=== PATIENT | male | born 1950 | race Caucasian/White ===

== ENCOUNTER 2016-11-14 07:45 | Day surgery (SDC) | payer MEDICARE, BC ==
[2016-11-12 12:04] VITALS: BMI 34.4
[~2016-11-14 07:45] MED LIST: LACTATED RINGERS 1,000 ML IV SCH; LIDOCAINE 1% 20 ML VIAL (10MG/ML) FOR IV START INTRADERMA PRN
[2016-11-14 08:08] VITALS: TEMP 99.2
[2016-11-14] MEDS ORDERED: PROPOFOL 10 MG/ML 20 ML VIAL IV ONE (08:55)
[2016-11-14 09:27] VITALS: RESP 18
--- NOTE | 2016-11-14 09:27 | P.PCN ---
Date of Procedure: 11/14/16 Procedure(s) Performed: Procedure: Total colonoscopy. Preoperative diagnosis: Screening for neoplasia. Postoperative diagnosis: Left-sided diverticulosis with no evidence of acute diverticulitis, strictures, polyps or cancer. Preparation: HalfLytely prep. Sedation: Was provided by anesthesia. Brief clinical history: The patient a 65-year-old male who is scheduled for this evaluation for screening for neoplasia because of family history of colon cancer in his father. His prior exam was in November 2011. The patient has no abdominal complaints, bleeding or anemia. Procedure: With the patient on his left lateral decubitus position and after informed consent and adequate sedation, the perianal area was inspected and it did not show any fissures or fistulas. There were no masses felt on digital rectal examination. The Olympus CFQ 160L video colonoscope was then inserted in the rectum in the usual fashion and advanced to the cecum. There were multiple diverticular orifices seen scattered on the left side, mostly in the sigmoid, as previously described with no evidence of acute diverticulitis or strictures. No polyps or tumors were seen. The mucosa appeared healthy. I retroflexed endoscope in the rectum before the endoscope was withdrawn. The patient tolerated the procedure well. Plan: The patient was reassured discussed dietary measures. I recommended repeat exam in 5 years. He will follow up with you as planned.
[2016-11-14 10:06] VITALS: PULSE 46
[2016-11-14 10:16] VITALS: BP 122/48
== END 2016-11-14 10:30 | disposition home or self-care (01) ==
LOC: ORWHC2ENDO 07:45
DX: Z12.11 Encounter for screening for malignant neoplasm of colon (principal); Z80.0 Family history of malignant neoplasm of digestive organs; K57.30 Diverticulosis of large intestine without perforation or abscess without bleeding; I25.10 Atherosclerotic heart disease of native coronary artery without angina pectoris; I10 Essential (primary) hypertension; Z95.1 Presence of aortocoronary bypass graft; N40.0 Benign prostatic hyperplasia without lower urinary tract symptoms; M10.9 Gout, unspecified; E07.9 Disorder of thyroid, unspecified; Z79.899 Other long term (current) drug therapy; Z86.73 Personal history of transient ischemic attack (TIA), and cerebral infarction without residual deficits
CPT/HCPCS: J2704; G0105

== ENCOUNTER → 2017-01-16 | Outpatient (CLI) | payer MEDICARE, BC ==
[2017-01-16 10:18] LABS: Basophils % (A) 0 %; CH 34.7; CHCM 34.9; Eosinophils # (A) 0.2 k/uL (0-0.7); Eosinophils % (A) 2 %; HCT 45.8 % (39.0-53.0); HDW 2.72; HGB 15.8 gm/dL (13.0-17.5); Luc # (Auto) 0.26; Luc % (Auto) 3; Lymphocytes # (A) 1.8 k/uL (1.0-4.8); Lymphocytes % (A) 24 %; MCH 34.4 pg (25.0-35.0); MCHC 34.4 g/dL (31.0-37.0); MCV 99.9 fL (80.0-100.0); Mean Platelet Volume 7.2; Monocytes # (A) 0.6 k/uL (0-1.0); Monocytes % (A) 8 %; Neutrophils # (A) 4.7 k/uL (1.3-7.7); Neutrophils % (A) 62 %; RBC 4.58 m/uL (4.30-5.90); RDW 13.4 % (11.5-15.5); WBC 7.6 k/uL (3.8-10.6); WBC (Perox) 7.55
[2017-01-16 10:22] LABS: Appearance,Urine Clear (Clear); Bilirubin,Urine Negative (Negative); Glucose,Urine (UA) Negative (Negative); Ketones,Urine Negative (Negative); Leukocyte Esterase,Urine Negative (Negative); Nitrite,Urine Negative (Negative); PH, Urine 6.5 (5.0-8.0); Protein,Urine Negative (Negative); Specific Gravity,Urine 1.005 (1.001-1.035); UA Billing (MACRO vs. MICRO) CHEM; Urobilinogen,Urine <2.0 mg/dL (<2.0)
[2017-01-16 10:53] LABS: Anion Gap 10 mmol/L; Blood Urea Nitrogen 16 mg/dL (9-20); Calcium 9.6 mg/dL (8.4-10.2); Carbon Dioxide 26 mmol/L (22-30); Chloride 106 mmol/L (98-107); Glucose 101 mg/dL (74-99); Magnesium 2.3 mg/dL (1.6-2.3); Non-African American GFR(MDRD) >60 (>60 ml/min/1.73 sqM); Phosphorous 3.4 mg/dL (2.5-4.5); Potassium 4.5 mmol/L (3.5-5.1); Sodium 142 mmol/L (137-145); Uric Acid 4.2 mg/dL (3.5-8.5)
[2017-01-16 14:34] LABS: Iron 112 ug/dL (49-181)
[2017-01-16 14:43] LABS: % Iron Saturation 33.3 % (20-50); Total Iron Binding Capacity 336 ug/dL (261-462)
[2017-01-16 15:10] LABS: Prostate Specific Antigen 0.85 ng/mL (0.00-4.00)
== END | disposition home or self-care (01) ==
LOC: LABWHC1 09:51
PROVIDERS: ATTEND Urology
DX: N40.0 Benign prostatic hyperplasia without lower urinary tract symptoms (principal); I10 Essential (primary) hypertension; E55.9 Vitamin D deficiency, unspecified; D64.9 Anemia, unspecified; E21.3 Hyperparathyroidism, unspecified; M10.9 Gout, unspecified; R80.9 Proteinuria, unspecified
CPT/HCPCS: 36415; 80048; 81003; 82306; 82728; 83540; 83550; 83735; 83970; 84100; 84153; 84550; 85025

== ENCOUNTER 2017-05-04 15:07 | Emergency (ER) | payer MEDICARE, BC ==
[2017-05-04 15:13] VITALS: TEMP 97.9
--- NOTE | 2017-05-04 15:23 | ED ---
General Adult HPI - General Chief complaint: Urogenital Stated complaint: Male Time Seen by Provider: 05/04/17 15:14 Source: patient, RN notes reviewed Mode of arrival: ambulatory Limitations: no limitations - History of Present Illness Initial comments: Patient is 66-year-old male who presents emergency room today with a chief complaint of dysuria. He admits that over the last few days she's been expressing some discomfort with voiding. He states that it is a sharper type pain in the lower abdomen. Patient does admit that he feels some pressure that comes and goes. States the majority of the pain is when he is trying to urinate. He states never had symptoms like this in the past. He denies any other complaints or symptoms. Patient denies any recent fever, chills, shortness of breath, chest pain, back pain, abdominal pain, nausea or vomiting, numbness or tingling, hematuria, constipation or diarrhea, headaches or visual changes, or any other complaints. - Related Data Home Medications Medication Instructions Recorded Confirmed Allopurinol [Zyloprim] 300 mg PO DAILY 10/13/14 05/04/17 Atenolol [Tenormin] 25 mg PO DAILY 10/13/14 05/04/17 Docusate [Colace] 200 mg PO DAILY 10/13/14 05/04/17 Gabapentin [Neurontin] 300 mg PO TID 10/13/14 05/04/17 Gemfibrozil [Lopid] 600 mg PO DAILY 10/13/14 05/04/17 Levothyroxine Sodium [Synthroid] 125 mcg PO DAILY 10/13/14 05/04/17 [place]-3 Fatty Acids/Fish Oil [Fish 1 cap PO DAILY 10/13/14 05/04/17 Oil 1,000 mg Softgel] Simvastatin [Zocor] 40 mg PO DAILY 10/13/14 05/04/17 Ibuprofen [Motrin] 800 mg PO TID PRN 11/12/16 05/04/17 Tamsulosin HCl [Flomax] 0.4 mg PO DAILY 11/12/16 05/04/17 traMADol HCL [Ultram] 50 mg PO Q8H PRN 11/12/16 05/04/17 Aspirin 325 mg PO DAILY 05/04/17 05/04/17 Cholecalciferol [Vitamin D3] 1,000 unit PO DAILY 05/04/17 05/04/17 Previous Rx's Medication Instructions Recorded Ciprofloxacin HCl [Cipro] 500 mg PO Q12HR #20 day 05/04/17 Phenazopyridine [Pyridium] 100 mg PO TID 3 Days 05/04/17 Allergies Allergy/AdvReac Type Severity Reaction Status Date / Time No Known Allergies Allergy Verified 05/04/17 15:52 Review of Systems ROS Statement: Those systems with pertinent positive or pertinent negative responses have been documented in the HPI. ROS Other: All systems not noted in ROS Statement are negative. Past Medical History Past Medical History: Coronary Artery Disease (CAD), CVA/TIA, Hyperlipidemia, Hypertension, Prostate Disorder, Thyroid Disorder Additional Past Medical History / Comment(s): back pain History of Any Multi-Drug Resistant Organisms: None Reported Past Surgical History: No Surgical Hx Reported, Bladder Surgery, Coronary Bypass /CABG Additional Past Surgical History / Comment(s): urolift with 4 bands 08/30, carpal tunnel Past Anesthesia/Blood Transfusion Reactions: No Reported Reaction Past Psychological History: No Psychological Hx Reported Smoking Status: Never smoker - Past Family History Mother Family Medical History: Cancer Additional Family Medical History / Comment(s): leukemia Father Family Medical History: Cancer Additional Family Medical History / Comment(s): lung General Exam - General Exam Comments Initial Comments: General: The patient is awake and alert, in no distress, and does not appear acutely ill. Eye: Pupils are equal, round and reactive to light, extra-ocular movements are intact. No nystagmus. There is normal conjunctiva bilaterally. No signs of icterus. Ears, nose, mouth and throat: There are moist mucous membranes and no oral lesions. Neck: The neck is supple, there is no tenderness or JVD. Cardiovascular: There is a regular rate and rhythm. No murmur, rub or gallop is appreciated. Respiratory: Lungs are clear to auscultation, respirations are non-labored, breath sounds are equal. No wheezes, stridor, rales, or rhonchi. Gastrointestinal: Exam. Normal bowel sounds. Soft on palpation. Patient does have tenderness suprapubic over the bladder. No rebound tenderness. No guarding. No CVA tenderness. Musculoskeletal: Normal ROM, no tenderness. Strength 5/5. Sensation intact. Pulses equal bilaterally 2+. Neurological: A&O x 3. CN II-XII intact, There are no obvious motor or sensory deficits. Coordination appears grossly intact. Speech is normal. Skin: Skin is warm and dry and no rashes or lesions are noted. Psychiatric: Cooperative, appropriate mood & affect, normal judgment. Limitations: no limitations Course Vital Signs 05/04/17 15:10 Temperature 97.9 F Pulse Rate 84 Respiratory 18 Rate Blood Pressure 129/61 O2 Sat by Pulse 93 L Oximetry Medical Decision Making - Medical Decision Making Case discussed in detail with attending physician Dr. Aguillon. Patient reexamined at this time shows no signs of distress is resting comfortably in the stretcher. Patient labs are reviewed. Urinalysis shows no sign of infection. Culture is pending. Patient's postvoid bladder scan showed 196. He did have a surgery for urinary retention. He states this is much less than when he used a retained. This number could be somewhat normal for him at this time post surgery for his urinary retention. He is in no discomfort currently. Patient does admit to some discomfort to the prostate area. He will be covered for prostatitis and placed on ciprofloxacin. He is advised to follow- up with his urologist tomorrow. Advised to return to the emergency room symptoms increase or worsen or for any other concerns. - Lab Data Lab Results 05/04/17 Range/Units 15:32 Urine Color Light Yellow Urine Appearance Clear (Clear) Urine pH 6.5 (5.0-8.0) Ur Specific [place] 1.003 (1.001-1.035) Urine Protein Negative (Negative) Urine Glucose (UA) Negative (Negative) Urine Ketones Negative (Negative) Urine Blood Negative (Negative) Urine Nitrite Negative (Negative) Urine Bilirubin Negative (Negative) Urine Urobilinogen <2.0 (<2.0) mg/dL Ur Leukocyte Esterase Negative (Negative) Disposition Clinical Impression: Acute prostatitis Disposition: HOME SELF-CARE Condition: Good Instructions: Prostatitis (ED) Additional Instructions: Please use antibiotic as prescribed and follow-up urologist tomorrow. Please return to emergency room if any symptoms increase or worsen or for any other concerns. Prescriptions: Ciprofloxacin HCl [Cipro] 500 mg PO Q12HR #20 day Phenazopyridine [Pyridium] 100 mg PO TID 3 Days Referrals: Matt Anderson MD [Primary Care Provider] - 1-2 days Time of Disposition: 16:22
[2017-05-04 15:46] LABS: Appearance,Urine Clear (Clear); Bilirubin,Urine Negative (Negative); Glucose,Urine (UA) Negative (Negative); Ketones,Urine Negative (Negative); Leukocyte Esterase,Urine Negative (Negative); Nitrite,Urine Negative (Negative); PH, Urine 6.5 (5.0-8.0); Protein,Urine Negative (Negative); Specific Gravity,Urine 1.003 (1.001-1.035); UA Billing (MACRO vs. MICRO) CHEM; Urobilinogen,Urine <2.0 mg/dL (<2.0)
[2017-05-04 16:37] VITALS: BP 130/57; PULSE 73; RESP 16
== END 2017-05-04 16:36 | disposition home or self-care (01) ==
LOC: EC 15:07
DX: N41.0 Acute prostatitis (principal); E78.5 Hyperlipidemia, unspecified; I25.10 Atherosclerotic heart disease of native coronary artery without angina pectoris; E07.9 Disorder of thyroid, unspecified; I10 Essential (primary) hypertension; Z86.73 Personal history of transient ischemic attack (TIA), and cerebral infarction without residual deficits; Z79.82 Long term (current) use of aspirin; Z79.899 Other long term (current) drug therapy
CPT/HCPCS: 51798; 81003; 87086; 99284

== ENCOUNTER 2018-07-08 12:16 | Emergency (ER) | payer MEDICARE, BC ==
[2018-07-08 12:24] VITALS: PULSE 76; RESP 18
[2018-07-08] MEDS ORDERED: KETOROLAC 30 MG/ML 1 ML VIAL IM STA (12:41)
--- NOTE | 2018-07-08 12:53 | ED ---
Back Pain [facility] - General Chief Complaint: Back Pain/Injury Stated Complaint: back pain Time Seen by Provider: 07/08/18 12:27 Source: patient Limitations: no limitations - History of Present Illness Initial Comments: 67-year-old male with past medical history of hypertension and chronic low back pain presents today for chief complaint of worsening back pain. Patient states that the last day 3-4 days he has been experiencing mid to low back pain that is increased from his baseline back pain. Patient's been taking his tramadol as prescribed by Dr. Hernández his neurologist and ibuprofen 800 which helped minimally. Patient states this had previous injections in his back which has helped, he states he has not had one in the past year and a half. Patient states the pain increases with any movement, including walking. Patient states that he has bilateral sharp shooting pains, similar to when he had issues with low back pain over 2 years ago. Patient does state that his is a paraplegic and he is always changing her positions. Pt states he uses a brace when moving/lifting . Patient denies urinary retention, incontinence, fever , chills, history of cancer, IV drug use, rashes, use of immunosuppressants, muscle weakness, numbness or tingling of the lower extremities. In addition patient denies any chest pain, dizziness, weakness, abdominal pain, upper back pain, neck pain. Upon arrival pt is ambulating without difficulty. Pt appears well VS stable, BP WNL. - Related Data Home Medications Medication Instructions Recorded Confirmed Allopurinol [Zyloprim] 300 mg PO DAILY 10/13/14 05/04/17 Atenolol [Tenormin] 25 mg PO DAILY 10/13/14 05/04/17 Docusate [Colace] 200 mg PO DAILY 10/13/14 05/04/17 Gabapentin [Neurontin] 300 mg PO TID 10/13/14 05/04/17 Gemfibrozil [Lopid] 600 mg PO DAILY 10/13/14 05/04/17 Levothyroxine Sodium [Synthroid] 125 mcg PO DAILY 10/13/14 05/04/17 [place]-3 Fatty Acids/Fish Oil [Fish 1 cap PO DAILY 10/13/14 05/04/17 Oil 1,000 mg Softgel] Simvastatin [Zocor] 40 mg PO DAILY 10/13/14 05/04/17 Ibuprofen [Motrin] 800 mg PO TID PRN 11/12/16 05/04/17 Tamsulosin HCl [Flomax] 0.4 mg PO DAILY 11/12/16 05/04/17 traMADol HCL [Ultram] 50 mg PO Q8H PRN 11/12/16 05/04/17 Aspirin 325 mg PO DAILY 05/04/17 05/04/17 Cholecalciferol [Vitamin D3] 1,000 unit PO DAILY 05/04/17 05/04/17 Previous Rx's Medication Instructions Recorded Ciprofloxacin HCl [Cipro] 500 mg PO Q12HR #20 day 05/04/17 Phenazopyridine [Pyridium] 100 mg PO TID 3 Days day 05/04/17 predniSONE 20 mg PO DAILY 4 Days #4 tab 07/08/18 Allergies Allergy/AdvReac Type Severity Reaction Status Date / Time No Known Allergies Allergy Verified 07/08/18 12:23 Review of Systems ROS Statement: Those systems with pertinent positive or pertinent negative responses have been documented in the HPI. ROS Other: All systems not noted in ROS Statement are negative. Constitutional: Denies: fever, chills, night sweats ENT: Denies: ear pain, throat pain Respiratory: Denies: cough, dyspnea, wheezes, hemoptysis, stridor Cardiovascular: Denies: chest pain, palpitations, dyspnea on exertion, edema Gastrointestinal: Denies: abdominal pain, nausea, vomiting, diarrhea, constipation Genitourinary: Denies: urgency, dysuria, frequency, hematuria Musculoskeletal: Reports: as per HPI, back pain, other (b/l sharp shooting leg pain) Skin: Denies: rash, lesions Neurological: Denies: headache, weakness, numbness, paresthesias, confusion, abnormal gait Past Medical History Past Medical History: Coronary Artery Disease (CAD), CVA/TIA, Hyperlipidemia, Hypertension, Prostate Disorder, Thyroid Disorder Additional Past Medical History / Comment(s): back pain History of Any Multi-Drug Resistant Organisms: None Reported Past Surgical History: No Surgical Hx Reported, Bladder Surgery, Coronary Bypass /CABG Additional Past Surgical History / Comment(s): urolift with 4 bands 08/30, carpal tunnel Past Anesthesia/Blood Transfusion Reactions: No Reported Reaction Past Psychological History: No Psychological Hx Reported Smoking Status: Never smoker - Past Family History Mother Family Medical History: Cancer Additional Family Medical History / Comment(s): leukemia Father Family Medical History: Cancer Additional Family Medical History / Comment(s): lung General Exam - General Exam Comments Initial Comments: General: The patient is awake and alert, in no distress, and does not appear acutely ill. Eye: Pupils are equal, round and reactive to light, extra-ocular movements are intact. No nystagmus. There is normal conjunctiva bilaterally. No signs of icterus. Cardiovascular: There is a regular rate and rhythm. No murmur, rub or gallop is appreciated. Respiratory: Lungs are clear to auscultation, respirations are non-labored, breath sounds are equal. No wheezes, stridor, rales, or rhonchi. Gastrointestinal: Soft, non-distended, non-tender abdomen without masses or organomegaly noted. There is no rebound or guarding present. Bowel sounds are unremarkable. Musculoskeletal: Pt posture slightly stooped forward. No rashes of the back. Normal ROM at the lumbar and thoracic spine, pt complains of pain with all movements. Pt admits to midline and paravertebral pain to palpation of the thoracic spine. Strength 5/5 of the LE equally b/l. Sensation intact of the LE including saddle region. Radial and DP pulses equal bilaterally 2+. Pt is able to ambulate without difficulty, right sided (+) SLR. Neurological: A&O x 3. CN II-XII intact, There are no obvious motor or sensory deficits. Coordination appears grossly intact. Speech is normal. Skin: Skin is warm and dry and no rashes or lesions are noted. Psychiatric: Cooperative, appropriate mood & affect, normal judgment. Limitations: no limitations Course Vital Signs 07/08/18 07/08/18 12:23 14:57 Temperature 97.4 F L 97.5 F L Pulse Rate 76 76 Respiratory 18 18 Rate Blood Pressure 124/59 102/59 O2 Sat by Pulse 97 96 Oximetry Medical Decision Making - Medical Decision Making Thoracic spine x-ray revealed possible diffuse idiopathic skeletal hyperostosis , similar findings on lumbar spine x-ray. There is no acute fracture or subluxation. Some underlying degenerative disc disease present. No acute process. Patient neurovascularly intact. There is no signs of cauda equina at this time. Patient has no concerning red flags, including no fever/chills/night sweats, chest pain, hx of trauma, no use of IV drugs, no history of cancer, no concern is for cauda equina. No noted muscle weakness on exam. Case discussed with Dr. Weiner at this time we feel pain could be related to strain from lifting . Pt was given orthopedic surgery f/u as well as f/u with his neurologist Dr. Farley for pain mgmt. Pt agreed with plan. Pt was ambulatory upon discharge. Pt stated that the toradol took the edge off. Return parameters discussed in detail patient, patient verbalizes understanding. Patient discharged in stable condition. Disposition Clinical Impression: Acute exacerbation of chronic low back pain, Midline thoracic back pain Disposition: HOME SELF-CARE Condition: Good Instructions: Acute Low Back Pain (ED) Additional Instructions: Please use your home pain medication as discussed. Please follow-up with orthopedic surgery in next week. Please see your neurologist/pain forestry biology specialist Dr. Farley in next 2-3 days. Please see primary care in next 1- 2 days. Please return to emergency room if the symptoms increase or worsen or for any other concerns as discussed. Prescriptions: predniSONE 20 mg PO DAILY 4 Days #4 tab Is patient prescribed a controlled substance at d/c from ED?: No Referrals: Matt Anderson MD [Primary Care Provider] - 1-2 days Inder Campbell MD [STAFF PHYSICIAN] - 1-2 days Wilbert Farley MD [STAFF PHYSICIAN] - 1-2 days Time of Disposition: 14:43
--- NOTE | 2018-07-08 13:47 | XR ---
Lumbar spine HISTORY: Pain 3 views of the lumbar spine correlated to prior exam 06/30/2012 Multilevel spondylosis is again noted. Lumbar vertebral bodies show preserved height, alignment, and bone mineralization. Disc spaces are reduced at L5-S1, L3-4, there is associated vacuum phenomenon. S clerosis present in the posterior elements. IMPRESSION: No acute fracture or subluxation. There may be underlying degenerative disc disease, diff use idiopathic skeletal hyperostosis
--- NOTE | 2018-07-08 13:49 | XR ---
Thoracic spine HISTORY: Pain 3 views of the thoracic spine on 4 images There are flowing anterior osteophytes with relative preservation of the disc spaces of the lower tho racic spine. Thoracic vertebral bodies show preserved height and alignment. Bone mineralization is no rmal. Patient is post median sternotomy. IMPRESSION: Correlate for possible diffuse idiopathic skeletal hyperostosis
[2018-07-08 14:58] VITALS: BP 102/59; TEMP 97.5
== END 2018-07-08 14:58 | disposition home or self-care (01) ==
LOC: EC 12:16
DX: G89.29 Other chronic pain (principal); M54.5 Low back pain; M54.6 Pain in thoracic spine; M51.34 Other intervertebral disc degeneration, thoracic region; E78.5 Hyperlipidemia, unspecified; I10 Essential (primary) hypertension; I25.10 Atherosclerotic heart disease of native coronary artery without angina pectoris; E07.9 Disorder of thyroid, unspecified; N42.9 Disorder of prostate, unspecified; Z79.82 Long term (current) use of aspirin; Z79.899 Other long term (current) drug therapy; Z95.1 Presence of aortocoronary bypass graft
CPT/HCPCS: 72072; 72100; 99283; 96372; J1885

== ENCOUNTER 2022-09-17 09:07 | Day surgery (SDC) | payer MEDICARE ==
[~2022-09-17 09:07] MED LIST changes: -LIDOCAINE 1% 20 ML VIAL (10MG/ML) FOR IV START INTRADERMA PRN
[2022-09-17 09:48] VITALS: TEMP 98
[2022-09-17] MEDS ORDERED: PROPOFOL 10 MG/ML 20 ML VIAL IV ONE (09:55)
--- NOTE | 2022-09-17 10:13 | P.PCN ---
Date of Procedure: 09/17/22 Procedure(s) Performed: BRIEF HISTORY: Patient is a 71-year-old pleasant white male scheduled for an elective colonoscopy as a part of screening for colon cancer. PROCEDURE PERFORMED: Colonoscopy with biopsy. PREOPERATIVE DIAGNOSIS: Screening for colon cancer. IV sedation per Anesthesia. PROCEDURE: After informed consent was obtained, the patient, was brought into the endoscopy unit. IV sedation was administered by Anesthesia under continuous monitoring. Digital rectal examination was normal. Initially the Olympus CF-160 flexible video colonoscope was then inserted in the rectum, gradually advanced into the cecum without any difficulty. Careful examination was performed as the scope was gradually being withdrawn. Ileocecal valve and the appendiceal orifice were visualized and appeared normal. Prep was excellent. Mucosa of the cecum, ascending colon, appeared normal. In the transverse colon there was a 5 limited polyp that was removed by cold biopsy. Rest of the transverse colon, descending colon, sigmoid colon, and rectum appeared normal. Moderate left-sided diverticulosis seen. Retroflexion was performed in the rectum and no lesions were seen. The patient tolerated the procedure well. IMPRESSION: 5 mm transverse colon polyp status post cold biopsy Moderate left-sided diverticulosis RECOMMENDATIONS: Findings of this examination were discussed with the patient as his family. He was advised to follow with the biopsy results. If the biopsy reveals adenoma he can have a repeat colonoscopy in 5 years..
[2022-09-17 10:20] VITALS: PULSE 62
[2022-09-17 10:39] VITALS: BP 101/60; RESP 14
== END 2022-09-17 11:00 | disposition home or self-care (01) ==
LOC: ORWHC2ENDO 09:07
PROVIDERS: ATTEND Internal Medicine Gastroenterology
DX: Z12.11 Encounter for screening for malignant neoplasm of colon (principal); K63.5 Polyp of colon; K57.30 Diverticulosis of large intestine without perforation or abscess without bleeding; I25.10 Atherosclerotic heart disease of native coronary artery without angina pectoris; Z95.1 Presence of aortocoronary bypass graft; I10 Essential (primary) hypertension; E78.5 Hyperlipidemia, unspecified; E03.9 Hypothyroidism, unspecified; Z86.73 Personal history of transient ischemic attack (TIA), and cerebral infarction without residual deficits; Z79.02 Long term (current) use of antithrombotics/antiplatelets; Z79.82 Long term (current) use of aspirin; Z79.891 Long term (current) use of opiate analgesic; Z79.890 Hormone replacement therapy; Z79.2 Long term (current) use of antibiotics; Z79.83 Long term (current) use of bisphosphonates; N40.0 Benign prostatic hyperplasia without lower urinary tract symptoms; Z79.899 Other long term (current) drug therapy
CPT/HCPCS: 45380; J2704; 88305

== ENCOUNTER 2022-10-03 09:04 | Inpatient (IN) | payer MEDICARE ==
--- NOTE | 2022-10-03 09:41 | ED ---
General Adult HPI - General Chief complaint: Neuro Symptoms/Deficit Stated complaint: Off balance Time Seen by Provider: 10/03/22 09:28 Source: patient, family, RN notes reviewed Mode of arrival: ambulatory Limitations: no limitations - History of Present Illness Initial comments: Patient is a pleasant 71-year-old male presenting to the emergency department with concerns for off-balance. Patient has fallen without significant injury more than once. Patient is having some left arm paresthesias. Arm paresthesias have been present for close to 1 week. Balance issues have been one to 2 weeks. No speech problem. Patient denies facial weakness. Patient denies extremity weakness. No history of similar symptoms previously. - Related Data Home Medications Medication Instructions Recorded Confirmed Docusate [Colace] 200 mg PO DAILY 10/13/14 09/17/22 Gabapentin [Neurontin] 300 mg PO DAILY 10/13/14 09/17/22 Levothyroxine Sodium [Synthroid] 125 mcg PO DAILY 10/13/14 09/17/22 [place]-3 Fatty Acids/Fish Oil [Fish 1 cap PO DAILY 10/13/14 09/17/22 Oil 1,000 mg Softgel] Simvastatin [Zocor] 40 mg PO DAILY 10/13/14 09/17/22 allopurinoL [Zyloprim] 300 mg PO DAILY 10/13/14 09/17/22 gemfibroziL [Lopid] 600 mg PO DAILY 10/13/14 09/17/22 Ibuprofen [Motrin] 800 mg PO DAILY PRN 11/12/16 09/17/22 Tamsulosin HCl [Flomax] 0.4 mg PO DAILY 11/12/16 09/17/22 traMADol HCL [Ultram] 50 mg PO DAILY PRN 11/12/16 09/17/22 Aspirin 325 mg PO DAILY 05/04/17 09/17/22 Cholecalciferol [Vitamin D3] 1,000 unit PO DAILY 05/04/17 09/17/22 Donepezil [Aricept] 5 mg PO HS 09/12/22 09/17/22 Metoprolol Tartrate [Lopressor] 25 mg PO DAILY 09/12/22 09/17/22 Allergies Allergy/AdvReac Type Severity Reaction Status Date / Time No Known Allergies Allergy Verified 09/17/22 09:48 Review of Systems ROS Statement: Those systems with pertinent positive or pertinent negative responses have been documented in the HPI. ROS Other: All systems not noted in ROS Statement are negative. Constitutional: Denies: fever Eyes: Denies: eye pain ENT: Denies: ear pain Respiratory: Denies: cough Cardiovascular: Denies: chest pain Endocrine: Denies: fatigue Gastrointestinal: Denies: abdominal pain Genitourinary: Denies: dysuria Musculoskeletal: Denies: back pain Skin: Denies: rash Neurological: Reports: as per HPI, abnormal gait. Denies: headache Past Medical History Past Medical History: Coronary Artery Disease (CAD), CVA/TIA, Hyperlipidemia, Hypertension, Myocardial Infarction ([place]), Prostate Disorder, Thyroid Disorder Additional Past Medical History / Comment(s): back pain lft arm weaker than right post cva wears brief for incont of urine. History of Any Multi-Drug Resistant Organisms: None Reported Past Surgical History: Bladder Surgery, Coronary Bypass/CABG Additional Past Surgical History / Comment(s): urolift with 4 bands 08/30, carpal tunnel Past Anesthesia/Blood Transfusion Reactions: No Reported Reaction Past Psychological History: No Psychological Hx Reported Smoking Status: Never smoker - Past Family History Mother Family Medical History: Cancer Additional Family Medical History / Comment(s): leukemia Father Family Medical History: Cancer Additional Family Medical History / Comment(s): lung General Exam Limitations: no limitations General appearance: alert, in no apparent distress Head exam: Present: normocephalic Eye exam: Present: normal appearance, PERRL, EOMI ENT exam: Present: normal oropharynx Neck exam: Present: normal inspection Respiratory exam: Present: normal lung sounds bilaterally Cardiovascular Exam: Present: regular rate, normal rhythm GI/Abdominal exam: Present: soft. Absent: tenderness Extremities exam: Present: normal inspection Neurological exam: Present: alert, oriented X3, CN II-XII intact Expanded Patient oriented to: Present: person, place, time Speech: Present: fluid speech Cranial nerves: EOM's Intact: Normal, Facial Sensation: Normal Cerebellar function: Finger to Nose: Abnormal Right, Abnormal Left (Both minimally off) Sensory exam: Upper Extremity Light Touch: Abnormal Left, Lower Extremity Light Touch: Normal Motor strength exam: RUE: 5, LUE: 4, RLE: 5, LLE: 5 Eye Response: (4) open spontaneously Motor Response: (6) obeys commands Verbal Response: (5) oriented Psychiatric exam: Present: normal affect, normal mood Skin exam: Present: normal color Course Vital Signs 10/03/22 09:20 Temperature 98 F Pulse Rate 62 Respiratory 16 Rate Blood Pressure 107/56 O2 Sat by Pulse 98 Oximetry EKG Findings - EKG Results: EKG: interpreted by AVISD (First-degree AV block. VT 224.), sinus rhythm, normal axis, normal QRS, normal ST/T EKG shows: bradycardia Medical Decision Making - Medical Decision Making Was pt. sent in by a medical professional or institution (, PA, GLASSWORKER, urgent care, hospital, or intermediate...) When possible be specific @ -No Did you speak to anyone other than the patient for history (EMS, parent, family, police, friend...)? What history was obtained from this source @ -Son is present who helps provide history including duration of symptoms Did you review nursing and triage notes (agree or disagree)? Why? @ -I reviewed and agree with nursing and triage notes Were old charts reviewed (outside hosp., previous admission, EMS record, old EKG, old radiological studies, urgent care reports/EKG's, intermediate records)? Report findings @ -No old charts were reviewed Differential Diagnosis (chest pain, altered mental status, abdominal pain women, abdominal pain men, vaginal bleeding, weakness, fever, dyspnea, syncope, headache, dizziness, GI bleed, back pain, seizure, CVA, palpatations, mental health)? @ -Differential Dizziness: Benign paroxysmal positional Vertigo, Menieres disease, otitis media, acoustic neuroma, vertebrobasilar insufficiency, cerebellar stroke, encephalitis, hypovolemic, arrhythmia, coronary artery syndrome, anemia, this is not meant to be an all-inclusive list EKG interpreted by me (3pts min.). @ -As above X-rays interpreted by me (1pt min.). @ -2 view chest x-ray interpreted by myself shows no acute process. Postoperative change CT interpreted by me (1pt min.). @ -Computed tomography scan also interpreted by myself shows degenerative and nonspecific changes U/S interpreted by me (1pt. min.). @ -None done What testing was considered but not performed or refused? (CT, X-rays, U/S, labs)? Why? @ -Considered CTA however patient will likely have more value from MRI and this will be deferred to neurology. What meds were considered but not given or refused? Why? @ -Consider alteplase/TPA. Patient is not in the window for this as symptoms have been one week. Patient is not a TPA candidate. Risks have felt to outweigh benefits. Did you discuss the management of the patient with other professionals (professionals i.e. , PA, GLASSWORKER, lab, RT, psych nurse, social services, electronics test engineer, teacher, parking control officer, pillowcase cleaner)? Give summary @ -Case was discussed with Dr. Brown, who will admit covering Dr. Arriaga Was smoking cessation discussed for >3mins.? @ -No Was critical care preformed (if so, how long)? @ -No Were there social determinants of health that impacted care today? How? (Homelessness, low income, unemployed, alcoholism, drug addiction, transportation, low edu. Level, literacy, decrease access to med. care, [facility], rehab)? @ -No Was there de-escalation of care discussed even if they declined (Discuss DNR or withdrawal of care, Hospice)? DNR status @ -No What co-morbidities impacted this encounter? (DM, HTN, Smoking, COPD, CAD, Ca ncer, CVA, ARF, Chemo, Hep., AIDS, mental health diagnosis, sleep apnea, morbid obesity)? @ -None Was patient admitted / discharged? Hospital course, mention meds given and route, prescriptions, significant lab abnormalities, going to OR and other pertinent info. @ -Patient reevaluated and unchanged. Patient and family updated. Patient wi ll be admitted for neurology evaluation and further testing Undiagnosed new problem with uncertain prognosis? @ -Undiagnosed a problem with uncertain prognosis Drug Therapy requiring intensive monitoring for toxicity (Heparin, Nitro, Insulin, Cardizem)? @ -No Were any procedures done? @ -No Diagnosis/symptom? @ -CVA Acute, or Chronic, or Acute on Chronic? @ -Acute Uncomplicated (without systemic symptoms) or Complicated (systemic symptoms)? @ -Complicated by balance problems. Side effects of treatment? @ -No Exacerbation, Progression, or Severe Exacerbation? @ -No Poses a threat to life or bodily function? How? (Chest pain, [place], [place], pneumonia, PE, COPD, DKA, ARF, appy, cholecystitis, CVA, Diverticulitis, Homicidal, Suicidal, threat to staff... and all critical care pts) @ -CVA does show potential threat to life and all bodily functions - Lab Data Result diagrams: 10/03/22 09:41 10/03/22 09:41 Lab Results 10/03/22 10/03/22 10/03/22 Range/Units 09:41 09:41 09:41 WBC 7.8 (3.8-10.6) k/uL RBC 4.38 (4.30-5.90) m/uL Hgb 14.9 (13.0-17.5) gm/dL Hct 44.2 (39.0-53.0) % MCV 100.8 H (80.0-100.0) fL MCH 34.0 (25.0-35.0) pg MCHC 33.8 (31.0-37.0) g/dL RDW 12.9 (11.5-15.5) % Plt Count 209 (150-450) k/uL MPV 7.6 Neutrophils % 60 % Lymphocytes % 24 % Monocytes % 8 % Eosinophils % 4 % Basophils % 1 % Neutrophils # 4.7 (1.3-7.7) k/uL Lymphocytes # 1.9 (1.0-4.8) k/uL Monocytes # 0.7 (0-1.0) k/uL Eosinophils # 0.3 (0-0.7) k/uL Basophils # 0.1 (0-0.2) k/uL PT 9.8 (9.0-12.0) sec INR 0.9 (<1.2) APTT 23.8 (22.0-30.0) sec Sodium 142 (137-145) mmol/L Potassium 4.8 (3.5-5.1) mmol/L Chloride 105 (98-107) mmol/L Carbon Dioxide 31 H (22-30) mmol/L Anion Gap 6 mmol/L BUN 15 (9-20) mg/dL Creatinine 1.05 (0.66-1.25) mg/dL Est GFR (CKD-EPI)AfAm 82 (>60 ml/min/1.73 sqM) Est GFR (CKD-EPI)NonAf 71 (>60 ml/min/1.73 sqM) Glucose 93 (74-99) mg/dL Calcium 9.2 (8.4-10.2) mg/dL Total Bilirubin 0.6 (0.2-1.3) mg/dL AST 31 (17-59) U/L ALT 30 (4-49) U/L Alkaline Phosphatase 106 (38-126) U/L Total Protein 6.8 (6.3-8.2) g/dL Albumin 3.8 (3.5-5.0) g/dL Disposition Clinical Impression: Cerebrovascular accident (CVA) Disposition: ADMITTED IP TO THIS HOSP Is patient prescribed a controlled substance at d/c from ED?: No Referrals: Willa Arriaga MD [Primary Care Provider] - 1-2 days Time of Disposition: 10:53
[2022-10-03 10:07] LABS: Albumin 3.8 g/dL (3.5-5.0); Calcium 9.2 mg/dL (8.4-10.2); Potassium 4.8 mmol/L (3.5-5.1); Total Bilirubin 0.6 mg/dL (0.2-1.3); Total Protein 6.8 g/dL (6.3-8.2)
[2022-10-03 10:12] LABS: Basophils # (A) 0.1 k/uL (0-0.2); Basophils % (A) 1 %; Eosinophils # (A) 0.3 k/uL (0-0.7); Eosinophils % (A) 4 %; HCT 44.2 % (39.0-53.0); HGB 14.9 gm/dL (13.0-17.5); INR 0.9 (<1.2); Lymphocytes # (A) 1.9 k/uL (1.0-4.8); Lymphocytes % (A) 24 %; MCHC 33.8 g/dL (31.0-37.0); MCV 100.8 fL (80.0-100.0); Mean Platelet Volume 7.6; Monocytes # (A) 0.7 k/uL (0-1.0); Monocytes % (A) 8 %; Neutrophils # (A) 4.7 k/uL (1.3-7.7); Neutrophils % (A) 60 %; Partial Thromboplastin Time 23.8 sec (22.0-30.0); Platelet Count 209 k/uL (150-450); Prothrombin Time 9.8 sec (9.0-12.0); RBC 4.38 m/uL (4.30-5.90); RDW 12.9 % (11.5-15.5); WBC 7.8 k/uL (3.8-10.6)
--- NOTE | 2022-10-03 10:13 | CT ---
EXAMINATION TYPE: CT brain wo con DATE OF EXAM: 10/03/2022 COMPARISON: 02/13/2012 HISTORY: neuro deficit, previous history CVA CT DLP: 1247.4 mGycm Automated exposure control for dose reduction was used. FINDINGS: Moderate generalized degenerative change. Faint low-attenuation in the white matter nonspecific but m ost typical of remote white matter ischemia. No acute hemorrhage, mass effect, or midline shift. Orbits are symmetric. Calvarium intact. The craniocervical junction maintained. There is a partially empty sella turcica. IMPRESSION: DEGENERATIVE AND NONSPECIFIC WHITE MATTER CHANGES MOST TYPICAL OF REMOTE ISCHEMIA. IF CONCERN FOR ACU TE ISCHEMIA CORRELATE WITH MRI CLINICALLY WARRANTED.
--- NOTE | 2022-10-03 10:14 | XR ---
EXAMINATION TYPE: XR chest 2V DATE OF EXAM: 10/03/2022 COMPARISON: 01/31/2014 INDICATION: Altered mental status TECHNIQUE: Frontal and lateral views of the chest are obtained. FINDINGS: The heart size is normal. The pulmonary vasculature is normal. The lungs are clear. Sternotomy wires are in the midline. IMPRESSION: 1. No acute pulmonary process.
[2022-10-03] MEDS ORDERED: ASPIRIN 325 MG TAB PO STA (10:53)
[2022-10-03] MEDS: SODIUM CHLORIDE 0.9% 1,000 ML IV SCH ×2 (11:40→22:18)
--- NOTE | 2022-10-03 12:24 | US ---
EXAMINATION TYPE: US carotid duplex BILAT DATE OF EXAM: 10/03/2022 COMPARISON: None CLINICAL HISTORY: Stenosis. Hx stroke. Leg weakness. TECHNIQUE: Carotid duplex ultrasound examination. Indirect Doppler criteria was utilized. 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 Slightly elevated bilateral ECA velocities. No signi ficant stenosis. Right mid CCA posterior and proximal right ICA plaque. IMPRESSION: Less than 50% stenosis of the bilateral carotid bifurcations. Criteria for Assigning % of Stenosis / Diameter reduction (Estimation based on the indirect measurements of the internal carotid artery velocities (ICA PSV). 1. Normal (no stenosis)=ICA PSV < 125 cm/s: ratio < 2.0: ICA EDV<40 cm/s. 2. Less than 50% stenosis=ICA PSV < 125 cm/s: ratio < 2.0: ICA EDV<40 cm/s. 3. 50 to 69% stenosis=ICA PSV of 125 to 230 cm/s: ration 2.0 ? 4.0: ICA EDV 40-100 cm/s. 4. Greater than 70% stenosis to near occlusion= ICA PSV > 230 cm/s: ratio > 4.0: ICA EDV > 100 cm/s. 5. Near occlusion= ICA PSV velocities may be low or undetectable: variable ratio and ICA EDV. 6. Total occlusion=unable to detect flow.
--- NOTE | 2022-10-03 14:23 | P.HPIM ---
History of Present Illness H&P Date: 10/03/22 History of present illness; patient is 71-year-old gentleman with past medical history significant for coronary artery disease, CVA, hyperlipidemia, hypertension presented to the ER because of left arm numbness and loss of balance. Patient stated that he has been noticing that his balance is poor for the last couple of weeks. Denies any slurred speech. Did notice that left upper extremity was also numb for close to one week. Denies any facial droop. Denies any numbness in lower extremities. Because of this loss of balance patient has been having frequent falls. Patient brought to the ER. Initial CT head showed degenerative and non-specific white matter changes most typical of remote ischemia, did not show acute stroke. Patient was admitted for further evaluation and treatment REVIEW OF SYSTEMS: CONSTITUTIONAL: No fever, no malaise, no fatigue. HEENT: No recent visual problems or hearing problems. Denied any sore throat. CARDIOVASCULAR: No chest pain, orthopnea, PND, no palpitations, no syncope. PULMONARY: No shortness of breath, no cough, no hemoptysis. GASTROINTESTINAL: No diarrhea, no nausea, no vomiting, no abdominal pain. NEUROLOGICAL: As mentioned in HPI HEMATOLOGICAL: Denies any bleeding or petechiae. GENITOURINARY: Denies any burning micturition, frequency, or urgency. MUSCULOSKELETAL/RHEUMATOLOGICAL: Denies any joint pain, swelling, or any muscle pain. ENDOCRINE: Denies any polyuria or polydipsia. The rest of the 14-point review of systems is negative. PHYSICAL EXAMINATION: GENERAL: The patient is alert and oriented x3, not in any acute distress. Well developed, well nourished. HEENT: Pupils are round and equally reacting to light. EOMI. No scleral icterus. No conjunctival pallor. Normocephalic, atraumatic. No pharyngeal erythema. No thyromegaly. CARDIOVASCULAR: S1 and S2 present. No murmurs, rubs, or gallops. PULMONARY: Chest is clear to auscultation, no wheezing or crackles. ABDOMEN: Soft, nontender, nondistended, normoactive bowel sounds. No palpable organomegaly. MUSCULOSKELETAL: No joint swelling or deformity. EXTREMITIES: No cyanosis, clubbing, or pedal edema. NEUROLOGICAL: Gross neurological examination did not reveal any focal deficits. Muscle strength 5 over 5 in all extremities, and left upper extremity sensation reduced to touch SKIN: No rashes. Assessment and plan Frequent falls Left arm numbness Rule out stroke History of coronary artery disease Hypertension Hyperlipidemia Plan; Monitor vital signs Monitor CBC Continue checks Ordered ultrasound of carotids Consult neurology Resume home meds Consult PT and OT Past Medical History Past Medical History: Coronary Artery Disease (CAD), CVA/TIA, Hyperlipidemia, Hypertension, Myocardial Infarction ([place]), Prostate Disorder, Thyroid Disorder Additional Past Medical History / Comment(s): back pain lft arm weaker than right post cva wears brief for incont of urine. History of Any Multi-Drug Resistant Organisms: None Reported Past Surgical History: Bladder Surgery, Coronary Bypass/CABG Additional Past Surgical History / Comment(s): urolift with 4 bands 08/30, carpal tunnel Past Anesthesia/Blood Transfusion Reactions: No Reported Reaction Past Psychological History: No Psychological Hx Reported Smoking Status: Never smoker - Past Family History Mother Family Medical History: Cancer Additional Family Medical History / Comment(s): leukemia Father Family Medical History: Cancer Additional Family Medical History / Comment(s): lung Medications and Allergies Home Medications Medication Instructions Recorded Confirmed Type Docusate [Colace] 200 mg PO DAILY 10/13/14 10/03/22 History Gabapentin [Neurontin] 300 mg PO HS 10/13/14 10/03/22 History Levothyroxine Sodium [Synthroid] 125 mcg PO DAILY 10/13/14 10/03/22 History [place]-3 Fatty Acids/Fish Oil [Fish 1 cap PO DAILY 10/13/14 10/03/22 History Oil 1,000 mg Softgel] Simvastatin [Zocor] 40 mg PO HS 10/13/14 10/03/22 History allopurinoL [Zyloprim] 300 mg PO DAILY 10/13/14 10/03/22 History gemfibroziL [Lopid] 600 mg PO DAILY 10/13/14 10/03/22 History Ibuprofen [Motrin] 800 mg PO TID-W/MEALS PRN 11/12/16 10/03/22 History Tamsulosin HCl [Flomax] 0.4 mg PO DAILY 11/12/16 10/03/22 History traMADol HCL [Ultram] 50 mg PO DAILY PRN 11/12/16 10/03/22 History Aspirin 325 mg PO DAILY 05/04/17 10/03/22 History Donepezil [Aricept] 5 mg PO HS 09/12/22 10/03/22 History Metoprolol Tartrate [Lopressor] 25 mg PO DAILY 09/12/22 10/03/22 History Cholecalciferol [Vitamin D3 (25 25 mcg PO DAILY 10/03/22 10/03/22 History Mcg = 1000 Iu)] Allergies Allergy/AdvReac Type Severity Reaction Status Date / Time No Known Allergies Allergy Verified 10/03/22 11:05 Physical Exam Vitals: Vital Signs Temp Pulse Resp BP Pulse Ox 10/03/22 14:00 56 L 18 98/44 95 10/03/22 11:41 62 18 118/66 96 10/03/22 09:20 98 F 62 16 107/56 98 Intake and Output 10/02/22 10/03/22 10/03/22 22:59 06:59 14:59 Other: Weight 90.718 kg Results CBC & Chem 7: 10/03/22 09:41 10/03/22 09:41 Labs: Abnormal Lab Results - Last 24 Hours (Table) 10/03/22 10/03/22 Range/Units 09:41 09:41 MCV 100.8 H (80.0-100.0) fL Carbon Dioxide 31 H (22-30) mmol/L
--- NOTE | 2022-10-03 16:55 | P.CNNES ---
History of Present Illness Consult date: 10/03/22 Requesting physician: Rakesh Delgado Reason for Consult: cva History of Present Illness: This is a 71-year-old gentleman who presented emergency department because of weakness in the lower extremity as well as numbness of the left upper extremity with a recent fall. According to patient he has been having the intermittent bilateral lower extremity weakness and he feels the legs are giving out for the past 3-4 weeks. Also he has been having numbness of the left upper extremity mostly in the forearm region for the past 3 weeks. 2 days ago he had a fall and he denies any loss of consciousness any urinary or bowel incontinence. He denies of any visual disturbance, difficulty getting his words out. He did not seek medical attention since he didn't make much out of it and he decided to seek medical attention since his symptoms is not improving. He does have ongoing chronic lower back pain denies any radiation. He has remotes ongoing urinary incontinence for at least 6 years. Denies any bowel incontinence. N izatidine neck pain. Denies any history of seizures. Patient stated he is on aspirin 325 daily. He is on simvastatin 40 mg daily at bedtime. Some of the workup during this hospital visit consisted of: Initial MCV is 100 per 8 otherwise CBC is unremarkable. CO2 31 otherwise the rest of the chemistry panel is unremarkable. CT of the head is reported as degenerative and nonspecific white matter changes most typical of a remote ischemia. If concern for acute ischemia correlate with MRI as clinically warranted. I personally reviewed the CT and there is no acute or subacute ischemia. There is no interpretable hemorrhage. There is no mass. EKG is reported as sinus bradycardia with first-degree AV block. Carotid duplex is reported as less than 50% stenosis bilaterally carotid bifurcation. Review of Systems Review of system: The 12 point system was reviewed and apparent positive and negative per HPI. Past Medical History Past Medical History: Coronary Artery Disease (CAD), CVA/TIA, Hyperlipidemia, Hypertension, Myocardial Infarction ([place]), Prostate Disorder, Thyroid Disorder Additional Past Medical History / Comment(s): back pain lft arm weaker than right post cva wears brief for incont of urine. Last Myocardial Infarction Date:: 2005 History of Any Multi-Drug Resistant Organisms: None Reported Past Surgical History: Bladder Surgery, Coronary Bypass/CABG Additional Past Surgical History / Comment(s): urolift with 4 bands 08/30, carpal tunnel Past Anesthesia/Blood Transfusion Reactions: No Reported Reaction Past Psychological History: No Psychological Hx Reported Smoking Status: Never smoker Past Alcohol Use History: None Reported Past Drug Use History: None Reported - Past Family History Mother Family Medical History: Cancer Additional Family Medical History / Comment(s): leukemia Father Family Medical History: Cancer Additional Family Medical History / Comment(s): lung Medications and Allergies Home Medications Medication Instructions Recorded Confirmed Type Docusate [Colace] 200 mg PO DAILY 10/13/14 10/03/22 History Gabapentin [Neurontin] 300 mg PO HS 10/13/14 10/03/22 History Levothyroxine Sodium [Synthroid] 125 mcg PO DAILY 10/13/14 10/03/22 History [place]-3 Fatty Acids/Fish Oil [Fish 1 cap PO DAILY 10/13/14 10/03/22 History Oil 1,000 mg Softgel] Simvastatin [Zocor] 40 mg PO HS 10/13/14 10/03/22 History allopurinoL [Zyloprim] 300 mg PO DAILY 10/13/14 10/03/22 History gemfibroziL [Lopid] 600 mg PO DAILY 10/13/14 10/03/22 History Ibuprofen [Motrin] 800 mg PO TID-W/MEALS PRN 11/12/16 10/03/22 History Tamsulosin HCl [Flomax] 0.4 mg PO DAILY 11/12/16 10/03/22 History traMADol HCL [Ultram] 50 mg PO DAILY PRN 11/12/16 10/03/22 History Aspirin 325 mg PO DAILY 05/04/17 10/03/22 History Donepezil [Aricept] 5 mg PO HS 09/12/22 10/03/22 History Metoprolol Tartrate [Lopressor] 25 mg PO DAILY 09/12/22 10/03/22 History Cholecalciferol [Vitamin D3 (25 25 mcg PO DAILY 10/03/22 10/03/22 History Mcg = 1000 Iu)] Allergies Allergy/AdvReac Type Severity Reaction Status Date / Time No Known Allergies Allergy Verified 10/03/22 11:05 Physical Examination - Vital Signs Vital Signs: Vital Signs Temp Pulse Pulse Resp BP BP Pulse Ox 10/03/22 15:57 97.3 F L 54 L 16 125/60 10/03/22 15:30 98.2 F 57 L 18 110/62 99 10/03/22 14:00 56 L 18 98/44 95 10/03/22 11:41 62 18 118/66 96 10/03/22 09:20 98 F 62 16 107/56 98 Intake and Output 10/03/22 10/03/22 10/03/22 06:59 14:59 22:59 Other: Weight 90.718 kg 90.718 kg GENERAL: The patient is lying in bed and is not in acute distress. CHEST: The heart rate is regular rate rhythm. No murmurs to auscultation. LUNG: Clear to auscultation bilaterally no wheezing noted throughout. Not labored breathing. ABDOMEN/GI: Bowel sounds present in all 4 quadrants. No tenderness to palpation throughout. NEUROLOGICAL: Higher mental function: The patient is awake, alert, oriented to self, place and time. Patient is following commands. No aphasia and no neglect. Cranial nerves: The pupils are round, equal and reactive to light and accommoda tion. Visual harp are full to confrontation throughout. Extraocular movement is intact no nystagmus is noted. Facial sensation is normal to touch throughout. The facial strength is normal throughout. Hearing is mildly decreased bilaterally to hand rub. Tongue is midline and moved [id number] without any difficulty. No dysarthria is noted. Shoulder shrug is normal bilaterally. Motor: Gait is slow. The strength is proximal lowers are 5- bilaterally. Otherwise 5 over 5 throughout. Normal tone and bulk. Cerebellum: Normal finger to nose bilaterally. Sensation: Sensation is normal to touch throughout. Reflexes (right/left): Biceps 2+ over the right but unable to assess left becau se of IV; triceps 2+ bilaterally; brachioradialis1+ bilaterallly; patellar2+ bilaterally; ankles 1+ bilaterally.. Plantars are upgoing bilaterally. Results - Laboratory Findings CBC and BMP: 10/03/22 09:41 10/03/22 09:41 Abnormal Lab Findings: Abnormal Labs 10/03/22 10/03/22 09:41 09:41 MCV 100.8 H Carbon Dioxide 31 H Assessment and Plan Assessment: Intermittent leg weakness bilaterally with left arm numbness mostly in the forearm for the past 3-4 weeks with a recent fall about 2 days ago: Appears more due to cervical lumbar abnormality and I feel less likely stroke. Also there is a stroke since the patient has been having symptoms for the past 3-4 weeks there should be evidence of stroke on the CAT scan by now and unlikely to have waxing and waning. Chronic lower back pain History of TIA/stroke in the past History of coronary artery disease status post coronary artery disease Prostate issues Hypothyroidism Hypertension Hyperlipidemia Plan: I ordered CT of the cervical spine and lumbar region. I ordered TSH, vitamin B12, folate, CK and hemoglobin A1c level. I will not pursue any further imaging of the MRI of the brain for now since I feel it's mostly cervical/lumbar but will consider down the line if needed. I consulted orthopedic surgery team Continue aspirin 325 and Lipitor 20 mg daily at bedtime which is sufficient for secondary stroke prophylaxis Continue neuro checks On cardiac monitoring PT OT and MUSHROOM CUTTER are consulted. Fall Precaution We'll defer the rest of the medical management to primary team for DVT prophylaxis I started the patient on subcu heparin 5000 that every 8 hours The plan is discussed with the patient and his nurse Thank you consultation Time with Patient: Greater than 30
[2022-10-03 17:25] LABS: Creatine Kinase 76 U/L (55-170)
[2022-10-03] MEDS: GABAPENTIN 300 MG CAP PO SCH (20:31)
[2022-10-03] MEDS: ATORVASTATIN 20 MG TAB PO SCH (20:31)
[2022-10-03] MEDS: DONEPEZIL 5 MG TAB PO SCH (22:18)
--- NOTE | 2022-10-03 23:49 | CT ---
EXAMINATION TYPE: CT lumbar spine wo con DATE OF EXAM: 10/03/2022 COMPARISON: CT abdomen 11/25/2015 HISTORY: falls, with weakness and leg giving out CT DLP: 1967.6 mGycm Automated exposure control for dose reduction was used. Images obtained from the level of T12-S3 vertebra with no contrast. Normal alignment. There is hypertrophic anterior spurring in the lower thoracic spine and the entire lumbar spine. There is bridging osteophyte formation. Posterior elements are intact. No compression f racture. There is minimal biconcave deformity of the lumbar vertebral bodies and could relate to some mild osteomalacia. There is moderate facet arthropathy and ligament thickening with spinal stenosis at L4-5. There is less severe spinal stenosis at L3-4. There is lateral recess stenosis at L2-3. Sacr oiliac joints are intact. No lumbar paraspinal mass. No focal bone destruction. IMPRESSION: Spondylotic changes. Multilevel spinal stenosis and moderately severe at L4-5. No significant change compared to 11/25/2015 CT scan.
[2022-10-04] MEDS: HEPARIN SODIUM,PORCINE/PF 5,000 UNIT/0.5 ML SYRINGE SQ SCH ×3 (00:09→15:38)
--- NOTE | 2022-10-04 00:32 | CT ---
EXAMINATION TYPE: CT cervical spine wo con DATE OF EXAM: 10/03/2022 COMPARISON: MR scan 11/29/2014 HISTORY: falls, with weakness and leg giving out CT DLP: 566.2 mGycm Automated exposure control for dose reduction was used. Images obtained from the skull base to T1 vertebra with no contrast. There is fairly normal alignment of the vertebra. There is endplate spur formation and bridging osteo phytes anteriorly and posteriorly from the level of C3-C7. There is posterior longitudinal ligament c alcification and thickening and spinal stenosis on the right side at C3-4 and C5-6 with significant i mpingement on the neural foramen. No compression fracture. No subluxation. The facet joints are intac t. There is posterior disc herniation and calcification at C5-6 with severe bony spinal stenosis. Spi nal canal measures 4 mm No paraspinal mass. No compression fracture. The skull base is intact. There is normal aeration of th e mastoid sinuses. IMPRESSION: There is C5-6 moderately severe spinal stenosis. Multilevel hypertrophic degenerative spur formation as above. Right sided neural foraminal impingement at C3-4 and C5-6. No fracture.
[2022-10-04] MEDS: SODIUM CHLORIDE 0.9% 1,000 ML IV SCH ×2 (06:18→17:20)
[2022-10-04] MEDS: LEVOTHYROXINE 125 MCG TAB PO SCH (06:36)
--- NOTE | 2022-10-04 08:55 | CA ---
Transthoracic Echo Report Name: Piotr Rizzo Age: 71 Gender: M : 1950 Exam Date: 10/03/2022 13:18 Exam Location: [facility] Ht (in): 67 Wt (lb): 200 Ordering Physician: Rakesh Delgado DO Attending/Referring Phys: Preparing Box Tender Ambreen Jung RDCS Procedure CPT: Indications: Thrombus Cardiac Hx: Technical Quality: Fair Contrast 1: Total Dose (mL): Contrast 2: Total Dose (mL): MEASUREMENTS (Male / Female) Normal Values 2D ECHO LV Diastolic Diameter PLAX 3.6 cm 4.2 - 5.9 / 3.9 - 5.3 cm LV Systolic Diameter PLAX 2.2 cm IVS Diastolic Thickness 1.2 cm 0.6 - 1.0 / 0.6 - 0.9 cm LVPW Diastolic Thickness 1.3 cm 0.6 - 1.0 / 0.6 - 0.9 cm LV Relative Wall Thickness 0.7 RV Internal Dim ED PLAX 3.0 cm LA Volume 48.2 cm??? 18 - 58 / 22 - 52 cm??? M-MODE Aortic Root Diameter MM 3.5 cm LA Systolic Diameter MM 3.9 cm LA Ao Ratio MM 1.1 AV Cusp Separation MM 1.2 cm DOPPLER AV Peak Velocity 118.1 cm/s AV Peak Gradient 5.6 mmHg AV Mean Velocity 95.2 cm/s AV Mean Gradient 3.8 mmHg AV Velocity Time Integral 29.7 cm LVOT Peak Velocity 88.0 cm/s LVOT Peak Gradient 3.1 mmHg MV Area PHT 3.1 cm??? Mitral E Point Velocity 78.0 cm/s Mitral A Point Velocity 85.1 cm/s Mitral E to A Ratio 0.9 MV Deceleration Time 248.3 ms FINDINGS Left Ventricle Mildly increased left ventricular wall thickness. Left ventricular cavity size normal. Normal left ventricular systolic function with no obvious regional wall motion abnormalities. Left ventricular ejection fraction is estimated at 55- 60 %. Right Ventricle Normal right ventricular size and function. Right ventricular systolic pressure within normal limits. Right Atrium Normal right atrial size. Left Atrium Normal left atrial size. Mitral Valve Structurally normal mitral valve. Mild mitral annular calcification. Trace mitral regurgitation. Aortic Valve Trileaflet aortic valve. No aortic valve stenosis or regurgitation. Tricuspid Valve Structurally normal tricuspid valve. Mild tricuspid regurgitation. Pulmonic Valve Trace pulmonic regurgitation. Pericardium No pericardial effusion. Aorta Normal size aortic root and proximal ascending aorta. CONCLUSIONS Normal LV size and systolic function Previewed by: Dr. Beto Snyder MD (Electronically Signed) Final Date: 04 October 2022 08:53
[2022-10-04] MEDS: METOPROLOL TARTRATE 25 MG TAB PO SCH (09:22)
[2022-10-04] MEDS: allopurinoL 300 MG TAB PO SCH (09:22)
[2022-10-04] MEDS: FENOFIBRATE 160 MG TAB PO SCH (09:22)
[2022-10-04] MEDS: ASPIRIN 325 MG TAB PO SCH (09:22)
[2022-10-04] MEDS: TAMSULOSIN 0.4 MG CAP.ER.24H PO SCH (09:22)
[2022-10-04] MEDS: CHOLECALCIFEROL 25 MCG (1000 IU) TABLET PO SCH (09:22)
[2022-10-04] MEDS ORDERED: CYANOCOBALAMIN 1,000 MCG/ML 1 ML VIAL IM ONE (11:13)
--- NOTE | 2022-10-04 11:13 | P.PN ---
Subjective Progress Note Date: 10/04/22 On follow-up bussing the patient and no acute events overnight. Objective - Vital Signs Vital signs: Vital Signs Temp 98 F 10/04/22 08:10 Pulse 55 L 10/04/22 08:10 Resp 18 10/04/22 08:10 BP 99/47 10/04/22 08:10 Pulse Ox 96 10/04/22 08:10 FiO2 Intake & Output 10/03/22 10/04/22 10/04/22 18:59 06:59 18:59 Weight 90.718 kg Other: Voiding Method Toilet Toilet Toilet Diaper Diaper Diaper # Voids 3 - Exam GENERAL: The patient is lying in bed and is not in acute distress. NEUROLOGICAL: Higher mental function: The patient is awake, alert, oriented to self, place and time. Patient is following commands. No aphasia and no neglect. Cranial nerves: The pupils are round, equal and reactive to light and accommodation. Visual harp are full to confrontation throughout. Extraocular movement is intact no nystagmus is noted. Facial sensation is normal to touch throughout. The facial strength is normal throughout. Hearing is mildly decreased bilaterally to hand rub. Tongue is midline and moved [id number] without any difficulty. No dysarthria is noted. Shoulder shrug is normal bilaterally. Motor: Gait is deferred The strength is proximal lowers are 5- bilaterally. Otherwise 5 over 5 throughout. Normal tone and bulk. Cerebellum: Normal finger to nose bilaterally. Sensation: Sensation is normal to touch throughout. Reflexes (right/left): Biceps 2+ over the right but unable to assess left because of IV; triceps 2+ bilaterally; brachioradialis1+ bilaterallly; patellar2+ bilaterally; ankles 1+ bilaterally.. Plantars are upgoing bilaterally. Some of the workup during this hospital visit consisted of: Initial MCV is 100 per 8 otherwise CBC is unremarkable. Vitamin B12: 335 (normal is 200-944). Folic acid is 7.5 (normal 4.4-31) TSH: 1.36 HbA1c: 5.7 CT of the head is reported as degenerative and nonspecific white matter changes most typical of a remote ischemia. If concern for acute ischemia correlate with MRI as clinically warranted. I personally reviewed the CT and there is no acute or subacute ischemia. There is no interpretable hemorrhage. There is no mass. EKG is reported as sinus bradycardia with first-degree AV block. Carotid duplex is reported as less than 50% stenosis bilaterally carotid bifurcation. CT cervical spine is reported as there is C5-C6 moderate severe spinal stenosis. Dr. jose hypertrophic degenerative spur formation as above. Right-sided neura l foraminal impingement at C3-C4 and C5-C6. No fracture. CT lumbar spine is reported as spondylitic changes. Multilevel spinal stenosis and moderately severe L4-L5. No significant change compared to 11/25/2015 scan. 2-D echo was reported as normal left ventricle size and systolic function. Normal left atrial size. - Labs CBC & Chem 7: 10/03/22 09:41 10/03/22 09:41 Assessment and Plan Assessment: Intermittent leg weakness bilaterally with left arm numbness mostly in the forearm for the past 3-4 weeks with a recent fall about 2 days ago: Due to likely moderate to severe cervical and lumbar spinal stenosis. Moderate to severe cervical stenosis C5-C6 and right sided neural foraminal imipingement C3-C4 and C5-C6. Moderate to severe L4-L5 stenosis Low normal Vitamin B12 (355) Low normal folate (7.5) Chronic lower back pain History of TIA/stroke in the past History of coronary artery disease status post coronary artery disease Prostate issues Hypothyroidism Hypertension Hyperlipidemia Plan: I consulted orthopedic surgery team for cervical and lumbar spinal stenosis. I will not pursue any further imaging of the MRI of the brain for now since I feel it's mostly cervical/lumbar but will consider down the line if needed. For low normal Vitamin B12: Started on Vitamin B12 1000mcg once IM then PO after that. For low normal folate: started on folic acid 1mg daily. Continue aspirin 325 and Lipitor 20 mg daily at bedtime which is sufficient for secondary stroke prophylaxis Continue neuro checks On cardiac monitoring PT OT and MARKETING GRAPHICS SPECIALIST are consulted. Fall Precaution We'll defer the rest of the medical management to primary team DVT prophylaxis On subcu heparin 5000 that every 8 hours The plan is discussed with his nurse. Time with Patient: Less than 30
[2022-10-04 11:16] LABS: Chol/HDL Ratio 4.13 Ratio; LDL Cholesterol,Calculated 57.2 mg/dL (0.0-131.0)
--- NOTE | 2022-10-04 11:39 | P.CNOR ---
History of Present Illness - [facility] Consult date: 10/04/22 Requesting physician: Deon Segovia History of present illness: patient is a 71-year-old male who presents to the emergency department [facility] due to bilateral lower extremity weakness and numbness in the left upper extremity with recent history of fall.. Orthopedics has been consulted for bilateral lower extremity weakness and left arm numbness. patient was seen at bedside this morning lying in semirecumbent position. Patient says over the past one week he has had 2 different falls. Patient says both these falls have occurred when he attempted to get up out of bed in the morning. Patient says he feels that he got up out of bed to0 quickly when he went from a seated to standing position he said he began to get dizzy and his legs gave out. patient denies losing consciousness/hitting his head. Patient says over the past several months he has noted increasing weakness and numbness/tingling down his left arm. Patient isn't not able to pinpoint exactly where this numbness/tingling is in his left arm. patient notes he normally ambulates independently without the use a cane/walker. However, patient says sometimes she does use a cane at home. Patient does live with his son and his sons children. Patient denies any previous orthopedic surgical history. Patient denies any saddle anesthesia. Patient says over the past 5-6 years he has had bladder issues. CT of the cervical spine does show cervical stenosis most prominent at C5-C6. There is also right sided neuroforaminal stenosis. The lumbar CT does reveal lumbar stenosis most prominent at L4-L5. CT scans are negative for any fractures/dislocations. patient says he does follow with Dr. Arriaga as PCP. Patient says he has taking gabapentin for years and he feels that this does help with some of sx. Patient denies chest pain, fever, shortness breath, nausea, vomiting, change in vision, loss of bowel/bladder control. Past Medical History Past Medical History: Coronary Artery Disease (CAD), CVA/TIA, Hyperlipidemia, Hypertension, Myocardial Infarction ([place]), Prostate Disorder, Thyroid Disorder Additional Past Medical History / Comment(s): back pain lft arm weaker than right post cva wears brief for incont of urine. Last Myocardial Infarction Date:: 2005 History of Any Multi-Drug Resistant Organisms: None Reported Past Surgical History: Bladder Surgery, Coronary Bypass/CABG Additional Past Surgical History / Comment(s): urolift with 4 bands 08/30, carpal tunnel Past Anesthesia/Blood Transfusion Reactions: No Reported Reaction Past Psychological History: No Psychological Hx Reported Smoking Status: Never smoker Past Alcohol Use History: None Reported Past Drug Use History: None Reported - Past Family History Mother Family Medical History: Cancer Additional Family Medical History / Comment(s): leukemia Father Family Medical History: Cancer Additional Family Medical History / Comment(s): lung Medications and Allergies Home Medications Medication Instructions Recorded Confirmed Type Docusate [Colace] 200 mg PO DAILY 10/13/14 10/03/22 History Gabapentin [Neurontin] 300 mg PO HS 10/13/14 10/03/22 History Levothyroxine Sodium [Synthroid] 125 mcg PO DAILY 10/13/14 10/03/22 History [place]-3 Fatty Acids/Fish Oil [Fish 1 cap PO DAILY 10/13/14 10/03/22 History Oil 1,000 mg Softgel] Simvastatin [Zocor] 40 mg PO HS 10/13/14 10/03/22 History allopurinoL [Zyloprim] 300 mg PO DAILY 10/13/14 10/03/22 History gemfibroziL [Lopid] 600 mg PO DAILY 10/13/14 10/03/22 History Ibuprofen [Motrin] 800 mg PO TID-W/MEALS PRN 11/12/16 10/03/22 History Tamsulosin HCl [Flomax] 0.4 mg PO DAILY 11/12/16 10/03/22 History traMADol HCL [Ultram] 50 mg PO DAILY PRN 11/12/16 10/03/22 History Aspirin 325 mg PO DAILY 05/04/17 10/03/22 History Donepezil [Aricept] 5 mg PO HS 09/12/22 10/03/22 History Metoprolol Tartrate [Lopressor] 25 mg PO DAILY 09/12/22 10/03/22 History Cholecalciferol [Vitamin D3 (25 25 mcg PO DAILY 10/03/22 10/03/22 History Mcg = 1000 Iu)] Allergies Allergy/AdvReac Type Severity Reaction Status Date / Time No Known Allergies Allergy Verified 10/03/22 11:05 Physical Examination inspection: Negative for any open fractures, significant erythema/ecchymosis/ulcers. Sensation: Sensation is equal, symmetric, bilaterally intact throughout the lower extremities. Right upper extremity SILT. Patient does have some generalized numbness throughout LUE Palpation: NTTP throughout entire spine exam and bilateral upper and lower e xtremities exam Range of motion: Patient does have full range of motion in bilateral upper and lower extremities on exam Motor: 4/5 in resisted left knee flexion. 5/5 in all other major motor groups in bilateral lower extremities. 5/5 in all major motor groups in right upper extremity. 4/5 in resisted left upper extremity shoulder ext/int rotation and abduction. 5/5 in all other major motor groups in the left upper extremity Neurovascular status: Radial pulses intact, 2+ bilaterally. DP pulses present bilaterally. Cap refill under 3 seconds in digits upper extremities. Special tests: Negative clonus bilaterally. Negative Angie bilaterally. Negative Homans bilaterally. Results - Labs Labs: H & H 10/03/22 Range/Units 09:41 Hgb 14.9 (13.0-17.5) gm/dL Hct 44.2 (39.0-53.0) % Coagulation 10/03/22 Range/Units 09:41 INR 0.9 (<1.2) Result Diagrams: 10/03/22 09:41 10/03/22 09:41 - Diagnostic results CT scan - cervical: report reviewed (CT of the cervical spine does show cervical stenosis most prominent at C5-C6. There is also right sided neuroforaminal stenosis. CT scans are negative for any fractures/dislocations.), image reviewed (CT of the cervical spine does show cervical stenosis most prominent at C5-C6. There is also right sided neuroforaminal stenosis. CT scans are negative for any fractures/dislocations.) CT Scan - lumbar: report reviewed ( The lumbar CT does reveal lumbar stenosis most prominent at L4-L5. CT scans are negative for any fractures/dislocations.), image reviewed ( The lumbar CT does reveal lumbar stenosis most prominent at L4-L5. CT scans are negative for any fractures/dislocations.) Assessment and Plan Assessment: 1. left upper extremity paresthesia; cervical spondylosis; lumbar spondylosis; cervical stenosis; lumbar stenosis Plan: 1. left upper extremity paresthesia; cervical spondylosis; lumbar spondylosis; cervical stenosis; lumbar stenosis - patient stable at bedside this morning. CT of the cervical and lumbar spine does show some stenosis as well as spondylosis. Negative for any fractures/dislocations. At this time we are not recommending any emergency/urgent orthopedic surgical intervention. At this time we are recommending conservative measures with the use of anti-inflammatories. Patient may weight-bear as tolerated with walker and assistance. We will continue to be available as needed. Patient may follow-up in the outpatient setting with Dr. Michel for further evaluation. 2. Appreciate medical management 3. pain management - Gabapentin 4. DVT ppx - Heparin; Aspirin 5. GI ppx - Fenofibrate 6. PT/OT -- WBAT w/walker 7. Appreciate consult Time with Patient: Less than 30
--- NOTE | 2022-10-04 11:45 | P.PN ---
Progress Note - Text Progress Note Date: 10/04/22 Patient seen and examined, I reviewed the note, discussed the case with the PA first hand and agree with the assessment and plan of SHELBY Pendleton. Please see my notes below for any additional recommendations. Recommend trial of conservative measures like NSAIDs, or steroids if able. PT/OT. Pain control if needed. Pt's exam is fairly benign. He sat up at bedside under his own power for me and participated in exam. 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 Remainder is 4+ to 5/5 strength UE and LE b/l. He states it is when he is up and standing a while that he gets weak. We can see how he does with PT. If his sx continue despite conservative care we can consider decompression for his severe cervical stenosis and OPLL. This could be Inpt or outpt basis depending on how pt does. CT of the C spine and L spine reviewed. Pt has Large PLL spurring at C3-4 causing severe central and foraminal stenosis as well as C5-6. There are anterior and posterior osteophyte formations at these levels. No fracture or l esions noted. CT of L spine shows multilevel degenerative changes with osteophyte formation anterior and posterior. Facet arthropathy, multilevel disc degeneration with vacuum disc phenom along with flattening of the normal LL. 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 No acute fracture noted at this time.
[2022-10-04] MEDS: FOLIC ACID 1 MG TAB PO SCH (11:57)
--- NOTE | 2022-10-04 17:59 | P.PN ---
Subjective Progress Note Date: 10/04/22 71-year-old gentleman with past medical history significant for coronary artery disease, CVA, hyperlipidemia, hypertension presented to the ER because of left arm numbness and loss of balance. Patient stated that he has been noticing that his balance is poor for the last couple of weeks. Denies any slurred speech. Did notice that left upper extremity was also numb for close to one week. Denies any facial droop. Denies any numbness in lower extremities. Because of this loss of balance patient has been having frequent falls. Patient brought to the ER. Initial CT head showed degenerative and non-specific white matter changes most typical of remote ischemia, did not show acute stroke. Patient was admitted for further evaluation and treatment Intermittent leg weakness bilaterally with left arm numbness mostly in the forearm for the past 3-4 weeks with a recent fall about 2 days ago: Due to likely moderate to severe cervical and lumbar spinal stenosis. Moderate to severe cervical stenosis C5-C6 and right sided neural foraminal imipingement C3-C4 and C5-C6. Moderate to severe L4-L5 stenosis Low normal Vitamin B12 (355) Low normal folate (7.5) ----- For low normal Vitamin B12: Started on Vitamin B12 1000mcg once IM then PO after that. For low normal folate: started on folic acid 1mg daily. Continue aspirin 325 and Lipitor 20 mg daily at bedtime which is sufficient for secondary stroke prophylaxis Continue neuro checks On cardiac monitoring PT OT and MOLD CARRIER are consulted. ---orthopedic surgery team is consulted for cervical and lumbar spinal stenosis Objective - Vital Signs Vital signs: Vital Signs Temp 98 F 10/04/22 08:10 Pulse 55 L 10/04/22 08:10 Resp 18 10/04/22 08:10 BP 99/47 10/04/22 08:10 Pulse Ox 96 10/04/22 08:10 FiO2 Intake & Output 10/03/22 10/04/22 10/04/22 18:59 06:59 18:59 Weight 90.718 kg Other: Voiding Method Toilet Toilet Toilet Diaper Diaper Diaper # Voids 3 - Exam GENERAL: The patient is alert and oriented x3, not in any acute distress. Well developed, well nourished. HEENT: Pupils are round and equally reacting to light. EOMI. No scleral icterus. No conjunctival pallor. Normocephalic, atraumatic. No pharyngeal erythema. No thyromegaly. CARDIOVASCULAR: S1 and S2 present. No murmurs, rubs, or gallops. PULMONARY: Chest is clear to auscultation, no wheezing or crackles. ABDOMEN: Soft, nontender, nondistended, normoactive bowel sounds. No palpable organomegaly. MUSCULOSKELETAL: No joint swelling or deformity. EXTREMITIES: No cyanosis, clubbing, or pedal edema. NEUROLOGICAL: Gross neurological examination did not reveal any focal deficits. Muscle strength 5 over 5 in all extremities, and left upper extremity sensation reduced to touch SKIN: No rashes. - Labs CBC & Chem 7: 10/03/22 09:41 10/03/22 09:41 Labs: Abnormal Lab Results - Last 24 Hours (Table) 10/04/22 Range/Units 07:07 HDL Cholesterol 26.40 L (40.00-60.00) mg/dL Assessment and Plan Assessment: Assessment and plan Frequent falls Left arm numbness Rule out stroke History of coronary artery disease Hypertension Hyperlipidemia Plan; Monitor vital signs Monitor CBC Continue checks Ordered ultrasound of carotids Consult neurology Resume home meds Consult PT and OT
[2022-10-04] MEDS: GABAPENTIN 300 MG CAP PO SCH (21:00)
[2022-10-04] MEDS: ATORVASTATIN 20 MG TAB PO SCH (21:00)
[2022-10-04] MEDS: DONEPEZIL 5 MG TAB PO SCH (21:00)
[2022-10-05] MEDS: HEPARIN SODIUM,PORCINE/PF 5,000 UNIT/0.5 ML SYRINGE SQ SCH ×2 (00:20→09:16)
[2022-10-05] MEDS: SODIUM CHLORIDE 0.9% 1,000 ML IV SCH (04:19)
[2022-10-05 04:24] VITALS: RESP 20
[2022-10-05] MEDS: LEVOTHYROXINE 125 MCG TAB PO SCH (06:26)
[2022-10-05 07:17] LABS: Basophils % (A) 0 %; Eosinophils # (A) 0.2 k/uL (0-0.7); Eosinophils % (A) 3 %; HCT 39.5 % (39.0-53.0); HGB 13.4 gm/dL (13.0-17.5); Lymphocytes # (A) 1.7 k/uL (1.0-4.8); Lymphocytes % (A) 22 %; MCHC 34.1 g/dL (31.0-37.0); MCV 99.7 fL (80.0-100.0); Mean Platelet Volume 7.7; Monocytes # (A) 0.1 k/uL (0-1.0); Monocytes % (A) 1 %; Neutrophils # (A) 5.4 k/uL (1.3-7.7); Neutrophils % (A) 70 %; Platelet Count 201 k/uL (150-450); RBC 3.96 m/uL (4.30-5.90); RDW 12.8 % (11.5-15.5); WBC 7.7 k/uL (3.8-10.6)
[2022-10-05 07:34] LABS: Calcium 8.5 mg/dL (8.4-10.2)
[2022-10-05] MEDS ORDERED: CYANOCOBALAMIN 500 MCG TAB PO SCH (09:00)
[2022-10-05] MEDS: ASPIRIN 325 MG TAB PO SCH (09:17)
[2022-10-05] MEDS: METOPROLOL TARTRATE 25 MG TAB PO SCH (09:17)
[2022-10-05] MEDS: FENOFIBRATE 160 MG TAB PO SCH (09:17)
[2022-10-05] MEDS: CHOLECALCIFEROL 25 MCG (1000 IU) TABLET PO SCH (09:17)
[2022-10-05] MEDS: TAMSULOSIN 0.4 MG CAP.ER.24H PO SCH (09:17)
[2022-10-05] MEDS: allopurinoL 300 MG TAB PO SCH (09:17)
[2022-10-05] MEDS: FOLIC ACID 1 MG TAB PO SCH (09:17)
--- NOTE | 2022-10-05 10:30 | P.PN ---
Subjective Progress Note Date: 10/05/22 Principal diagnosis: Left upper extremity paresthesia Cervical spondylosis Cervical stenosis Lumbar spondylosis Lumbar stenosis Patient was examined today at bedside, Dr. Michel was also available to examine the patient and discussed treatment options. Patient seems to be improving with the current conservative measures. He feels that the extremities both upper and lower are improving with his strength and stability when ambulating. Patient states that he is eager to go home at this. Patient does have multiple family members at home to help. He currently denies any loss of bowel or bladder function. He denies any thien weakness in bilateral upper and lower extremities. Objective - Vital Signs Vital signs: Vital Signs Temp 97.6 F 10/05/22 09:14 Pulse 77 10/05/22 09:14 Resp 20 10/05/22 09:14 BP 123/67 10/05/22 09:14 Pulse Ox 95 10/05/22 09:14 FiO2 Intake & Output 10/04/22 10/05/22 10/05/22 18:59 06:59 18:59 Intake Total 954 1540 118 Balance 954 1540 118 Intake: Intake, IV Titration 600 1000 Amount Sodium Chloride 0.9% 1, 600 1000 000 ml @ 100 mls/hr IV . Q10H [facility] Rx#:[id number] Oral 354 [id number] 118 Other: Voiding Method Toilet Toilet Toilet Diaper Diaper Diaper # Voids 2 2 - Exam Inspection: Negative for any open fractures, significant erythema/ecc hymosis/ulcers. Sensation: Sensation is equal, symmetric, bilaterally intact throughout the lower extremities. Right upper extremity SILT. Patient does have some generalized numbness throughout LUE Palpation: NTTP throughout entire spine exam and bilateral upper and lower extremities exam Range of motion: Patient does have full range of motion in bilateral upper and lower extremities on exam Motor: 4/5 in resisted left knee flexion. 5/5 in all other major motor groups in bilateral lower extremities. 5/5 in all major motor groups in right upper extremity. 4/5 in resisted left upper extremity shoulder ext/int rotation and abduction. 5/5 in all other major motor groups in the left upper extremity Neurovascular status: Radial pulses intact, 2+ bilaterally. DP pulses present bilaterally. Cap refill under 3 seconds in digits upper extremities. Special tests: Negative clonus bilaterally. Negative Angie bilaterally. Negative Homans bilaterally. - Labs CBC & Chem 7: 10/05/22 06:30 10/05/22 06:30 Labs: Abnormal Lab Results - Last 24 Hours (Table) 10/04/22 10/05/22 10/05/22 Range/Units 07:07 06:30 06:30 RBC 3.96 L (4.30-5.90) m/uL Chloride 111 H (98-107) mmol/L HDL Cholesterol 26.40 L (40.00-60.00) mg/dL Assessment and Plan Assessment: Left upper extremity paresthesia Cervical spondylosis Cervical stenosis Lumbar spondylosis Lumbar stenosis Plan: Treatment options again were discussed with patient at bedside with Dr. Michel. We will continue with conservative measures at this time, this to include use of anti-inflammatories and possible oral steroid taper after discharge. Dr. Michel wouldlike patient to follow-up in the outpatient setting to continue to monitor his symptoms in the next 7-10 days Recommend patient utilize a walker with ambulation at all times Conservative treatment in the outpatient setting to include use of oral anti- inflammatories and possible oral steroids if needed Medical especially recommendations Discharge planning: Orthopedic standpoint, the patient is stable for discharge. Recommend follow-up in the next 7-10 days. We'll be signing off patient at this time, please contact our office with any further questions on this patient. Time with Patient: Less than 30
[2022-10-05 11:25] VITALS: BP 118/66; PULSE 54; TEMP 98.2
--- NOTE | 2022-10-05 11:52 | P.PN ---
Subjective Progress Note Date: 10/05/22 The patient seen at bedside and according to patient is doing the better compared to initial presentation. No further falls. Patient continues to resist on using the walker since feels doing well. Objective - Vital Signs Vital signs: Vital Signs Temp 98.2 F 10/05/22 11:22 Pulse 54 L 10/05/22 11:22 Resp 20 10/05/22 11:22 BP 118/66 10/05/22 11:22 Pulse Ox 96 10/05/22 11:22 FiO2 Intake & Output 10/04/22 10/05/22 10/05/22 18:59 06:59 18:59 Intake Total 954 1540 118 Balance 954 1540 118 Intake: Intake, IV Titration 600 1000 Amount Sodium Chloride 0.9% 1, 600 1000 000 ml @ 100 mls/hr IV . Q10H [facility] Rx#:[id number] Oral 354 [id number] Other: Voiding Method Toilet Toilet Toilet Diaper Diaper Diaper # Voids 2 2 - Exam GENERAL: The patient is lying in bed and is not in acute distress. NEUROLOGICAL: Higher mental function: The patient is awake, alert, oriented to self, place and time. Patient is following commands. No aphasia and no neglect. Cranial nerves: The pupils are round, equal and reactive to light and accommodation. Visual harp are full to confrontation throughout. Extraocular movement is intact no nystagmus is noted. Facial sensation is normal to touch throughout. The facial strength is normal throughout. Hearing is mildly decreased bilaterally to hand rub. Tongue is midline and moved [id number] without any difficulty. No dysarthria is noted. Shoulder shrug is normal bilaterally. Motor: Gait is deferred The strength is proximal lowers are 5- bilaterally. Otherwise 5 over 5 throughout. Normal tone and bulk. Cerebellum: Normal finger to nose bilaterally. Sensation: Sensation is normal to touch throughout. Reflexes (right/left): Biceps 2+ over the right but unable to assess left because of IV; triceps 2+ bilaterally; brachioradialis1+ bilaterallly; patellar2+ bilaterally; ankles 1+ bilaterally.. Plantars are upgoing bilaterally. Some of the workup during this hospital visit consisted of: Initial MCV is 100 per 8 otherwise CBC is unremarkable. Vitamin B12: 335 (normal is 200-944). Folic acid is 7.5 (normal 4.4-31) TSH: 1.36 HbA1c: 5.7 CT of the head is reported as degenerative and nonspecific white matter changes most typical of a remote ischemia. If concern for acute ischemia correlate with MRI as clinically warranted. I personally reviewed the CT and there is no acute or subacute ischemia. There is no interpretable hemorrhage. There is no mass. EKG is reported as sinus bradycardia with first-degree AV block. Carotid duplex is reported as less than 50% stenosis bilaterally carotid bifurcation. CT cervical spine is reported as there is C5-C6 moderate severe spinal stenosis. Dr. jose hypertrophic degenerative spur formation as above. Right-sided neural foraminal impingement at C3-C4 and C5-C6. No fracture. CT lumbar spine is reported as spondylitic changes. Multilevel spinal stenosis and moderately severe L4-L5. No significant change compared to 11/25/2015 scan. 2-D echo was reported as normal left ventricle size and systolic function. Normal left atrial size. - Labs CBC & Chem 7: 10/05/22 06:30 10/05/22 06:30 Labs: Abnormal Lab Results - Last 24 Hours (Table) 10/05/22 10/05/22 Range/Units 06:30 06:30 RBC 3.96 L (4.30-5.90) m/uL Chloride 111 H (98-107) mmol/L Assessment and Plan Assessment: Intermittent leg weakness bilaterally with left arm numbness mostly in the forearm for the past 3-4 weeks with a recent fall about 2 days ago: Due to like ly moderate to severe cervical and lumbar spinal stenosis. Moderate to severe cervical stenosis C5-C6 and right sided neural foraminal imipingement C3-C4 and C5-C6. Moderate to severe L4-L5 stenosis Low normal Vitamin B12 (355) Low normal folate (7.5) Chronic lower back pain History of TIA/stroke in the past History of coronary artery disease status post coronary artery disease Prostate issues Hypothyroidism Hypertension Hyperlipidemia Plan: Orthopedic surgery team for cervical and lumbar spinal stenosis and they recommend conservative management of anti-inflammatory and oral steroids with taper and ovale the patient as an outpatient. I will not pursue any further imaging of the MRI of the brain for now since I feel it's mostly cervical/lumbar but will consider down the line if needed. For low normal Vitamin B12: Started on Vitamin B12 1000mcg once IM then PO after that. For low normal folate: started on folic acid 1mg daily. Continue aspirin 325 and Lipitor 20 mg daily at bedtime which is sufficient for secondary stroke prophylaxis Continue neuro checks On cardiac monitoring PT OT and LANDSCAPE DRAFTER are consulted. Fall Precaution We'll defer the rest of the medical management to primary team DVT prophylaxis On subcu heparin 5000 that every 8 hours The plan is discussed with patient and his nurse. No further neurological workup is needed. We'll sign off. Please reconsult if needed. Time with Patient: Less than 30
== END 2022-10-05 15:06 | disposition home or self-care (01) | DRG 552 ==
LOC: EC 09:04 → 3SCARD 10:55
PROVIDERS: ADMIT Internal Medicine; ATTEND Internal Medicine
DX: M48.02 Spinal stenosis, cervical region (principal); M48.061 Spinal stenosis, lumbar region without neurogenic claudication; M47.812 Spondylosis without myelopathy or radiculopathy, cervical region; M47.816 Spondylosis without myelopathy or radiculopathy, lumbar region; E03.9 Hypothyroidism, unspecified; E78.5 Hyperlipidemia, unspecified; R32 Unspecified urinary incontinence; N42.9 Disorder of prostate, unspecified; G89.29 Other chronic pain; I10 Essential (primary) hypertension; I44.0 Atrioventricular block, first degree; I65.23 Occlusion and stenosis of bilateral carotid arteries; M46.02 Spinal enthesopathy, cervical region; R29.6 Repeated falls; Z79.82 Long term (current) use of aspirin; Z79.890 Hormone replacement therapy; Z79.899 Other long term (current) drug therapy; Z86.73 Personal history of transient ischemic attack (TIA), and cerebral infarction without residual deficits; Z95.1 Presence of aortocoronary bypass graft; Z28.311 Partially vaccinated for COVID-19
CPT/HCPCS: 36415; 70450; 71046; 72125; 72131; 80048; 80053; 80061; 82550; 82607; 82746; 83036; 84443; 85025; 85610; 85730; 93005; 93306; 93880; 96360; 96361; 99285

== ENCOUNTER 2024-02-02 06:31 | Emergency (ER) | payer MEDICARE ==
--- NOTE | 2024-02-02 06:58 | ED ---
General Adult HPI - General Chief complaint: Weakness Stated complaint: leg weaknes Time Seen by Provider: 02/02/24 06:46 Source: patient, RN notes reviewed Mode of arrival: wheelchair Limitations: no limitations - History of Present Illness Initial comments: 73-year-old male presents emergency department complaint of dizziness. Patient states has been having symptoms for couple weeks. Patient states that is worse with any movement or ambulating states he feels like he is going to fall over. He states he has no symptoms at rest denies any focal weakness denies chest pain shortness of breath no recent medication changes. Patient states he has never had any issues like this in the past no recent URI symptoms. No recent decreased oral intake. - Related Data Home Medications Medication Instructions Recorded Confirmed Docusate [Colace] 200 mg PO DAILY 10/13/14 10/03/22 Gabapentin [Neurontin] 300 mg PO HS 10/13/14 10/03/22 Levothyroxine Sodium [Synthroid] 125 mcg PO DAILY 10/13/14 10/03/22 Delano-3 Fatty Acids/Fish Oil [Fish 1 cap PO DAILY 10/13/14 10/03/22 Oil 1,000 mg Softgel] allopurinoL [Zyloprim] 300 mg PO DAILY 10/13/14 10/03/22 gemfibroziL [Lopid] 600 mg PO DAILY 10/13/14 10/03/22 Ibuprofen [Motrin] 800 mg PO TID-W/MEALS PRN 11/12/16 10/03/22 Tamsulosin HCl [Flomax] 0.4 mg PO DAILY 11/12/16 10/03/22 traMADol HCL [Ultram] 50 mg PO DAILY PRN 11/12/16 10/03/22 Aspirin 325 mg PO DAILY 05/04/17 10/03/22 Donepezil [Aricept] 5 mg PO HS 09/12/22 10/03/22 Metoprolol Tartrate [Lopressor] 25 mg PO DAILY 09/12/22 10/03/22 Cholecalciferol [Vitamin D3 (25 25 mcg PO DAILY 10/03/22 10/03/22 Mcg = 1000 Iu)] Previous Rx's Medication Instructions Recorded Atorvastatin [Lipitor] 20 mg PO HS 30 Days #30 tab 10/05/22 Cyanocobalamin [Vitamin B-12] 1,000 mcg PO DAILY #0 tab 10/05/22 Folic Acid 1 mg PO DAILY tab 10/05/22 Meloxicam [Mobic] 15 mg PO DAILY 15 Days #15 tablet 10/05/22 predniSONE 30 mg PO DAILY 5 Days #15 tab 10/05/22 Meclizine [Antivert] 25 mg PO TID PRN #20 tab 02/02/24 Allergies Allergy/AdvReac Type Severity Reaction Status Date / Time No Known Allergies Allergy Verified 10/03/22 11:05 Review of Systems ROS Statement: Those systems with pertinent positive or pertinent negative responses have been documented in the HPI. ROS Other: All systems not noted in ROS Statement are negative. Past Medical History Past Medical History: Coronary Artery Disease (CAD), CVA/TIA, Hyperlipidemia, Hypertension, Myocardial Infarction (PA), Prostate Disorder, Thyroid Disorder Additional Past Medical History / Comment(s): back pain lft arm weaker than right post cva wears brief for incont of urine. Last Myocardial Infarction Date:: 2005 History of Any Multi-Drug Resistant Organisms: None Reported Past Surgical History: Bladder Surgery, Coronary Bypass/CABG Additional Past Surgical History / Comment(s): urolift with 4 bands 08/30, carpal tunnel Past Anesthesia/Blood Transfusion Reactions: No Reported Reaction Past Psychological History: No Psychological Hx Reported Smoking Status: Never smoker Past Alcohol Use History: None Reported Past Drug Use History: None Reported - Past Family History Mother Family Medical History: Cancer Additional Family Medical History / Comment(s): leukemia Father Family Medical History: Cancer Additional Family Medical History / Comment(s): lung General Exam Limitations: no limitations General appearance: alert, in no apparent distress Head exam: Present: atraumatic, normocephalic, normal inspection Eye exam: Present: normal appearance, PERRL, EOMI. Absent: scleral icterus, conjunctival injection, periorbital swelling ENT exam: Present: normal exam, mucous membranes moist Neck exam: Present: normal inspection, full ROM. Absent: tenderness, meningismus, lymphadenopathy Respiratory exam: Present: normal lung sounds bilaterally. Absent: respiratory distress, wheezes, rales, rhonchi, stridor Cardiovascular Exam: Present: regular rate, normal rhythm, normal heart sounds. Absent: systolic murmur, diastolic murmur, rubs, gallop, clicks Neurological exam: Present: alert, oriented X3, CN II-XII intact, reflexes normal. Absent: motor sensory deficit Course Vital Signs 02/02/24 02/02/24 06:35 08:25 Temperature 97.5 F L Pulse Rate 59 L Pulse Rate [ 65 Sitting] Pulse Rate [ 71 Standing] Pulse Rate [ 54 L Supine Pulse Oximetery] Respiratory 16 Rate Blood Pressure 134/78 Blood Pressure 105/66 [Right Arm Supine] Blood Pressure 91/61 [Sitting] Blood Pressure 93/58 [Standing] O2 Sat by Pulse 97 Oximetry - Reevaluation(s) Reevaluation #1: 02/02/24 09:22 Patient reevaluated after medications and fluids patient feels greatly improved EKG Findings - EKG Comments: EKG Findings:: EKG performed at 6: 43 sinus bradycardia rate of 59 IN 09/16/1941 QRS 102 QT/QTc 399/398 - EKG Results: EKG: interpreted by GREER Medical Decision Making - Medical Decision Making Was pt. sent in by a medical professional or institution (, PA, MACHINE ROUGH ROUNDER, urgent care, hospital, or residential...) When possible be specific @ -No Did you speak to anyone other than the patient for history (EMS, parent, family, police, friend...)? What history was obtained from this source @ -No Did you review nursing and triage notes (agree or disagree)? Why? @ -I reviewed and agree with nursing and triage notes Were old charts reviewed (outside hosp., previous admission, EMS record, old EKG, old radiological studies, urgent care reports/EKG's, residential records)? Report findings @ -No old charts were reviewed Differential Diagnosis (chest pain, altered mental status, abdominal pain women, abdominal pain men, vaginal bleeding, weakness, fever, dyspnea, syncope, headache, dizziness, GI bleed, back pain, seizure, CVA, palpatations, mental health, musculoskeletal)? @ -Differential Dizziness: Benign paroxysmal positional Vertigo, Menieres disease, otitis media, acoustic neuroma, vertebrobasilar insufficiency, cerebellar stroke, encephalitis, hypovolemic, arrhythmia, coronary artery syndrome, anemia, this is not meant to be an all-inclusive list EKG interpreted by me (3pts min.). @ -As above X-rays interpreted by me (1pt min.). @ -None done CT interpreted by me (1pt min.). @ -CT brain showing no acute intracranial hemorrhage, mass effect or acute process. U/S interpreted by me (1pt. min.). @ -None done What testing was considered but not performed or refused? (CT, X-rays, U/S, labs)? Why? @ -None What meds were considered but not given or refused? Why? @ -None Did you discuss the management of the patient with other professionals (professionals i.e. DrRonda, PA, MACHINE ROUGH ROUNDER, lab, RT, psych nurse, manager social media, reflexologist, teacher, special service officer, manager rn case)? Give summary @ -No Was smoking cessation discussed for >3mins.? @ -No Was critical care preformed (if so, how long)? @ -No Were there social determinants of health that impacted care today? How? (Homelessness, low income, unemployed, alcoholism, drug addiction, transportation, low edu. Level, literacy, decrease access to med. care, [place] [facility], rehab)? @ -No Was there de-escalation of care discussed even if they declined (Discuss DNR or withdrawal of care, Hospice)? DNR status @ -No What co-morbidities impacted this encounter? (DM, HTN, Smoking, COPD, CAD, Cancer, CVA, ARF, Chemo, Hep., AIDS, mental health diagnosis, sleep apnea, morbid obesity)? @ -None Was patient admitted / discharged? Hospital course, mention meds given and route, prescriptions, significant lab abnormalities, going to OR and other pertinent info. @ -Discharge patient had full workup including labs, CT, orthostatics patient feels great improved after Antivert and IV fluids. Patient states he is able to ambulate with no difficulty has no focal weakness this is related to vertigo and will follow-up with PCP for recheck. Undiagnosed new problem with uncertain prognosis? @ -No Drug Therapy requiring intensive monitoring for toxicity (Heparin, Nitro, Insulin, Cardizem)? @ -No Were any procedures done? @ -No Diagnosis/symptom? @ -Vertigo Acute, or Chronic, or Acute on Chronic? @ -Acute Uncomplicated (without systemic symptoms) or Complicated (systemic symptoms)? @ -Complicated Side effects of treatment? @ -No Exacerbation, Progression, or Severe Exacerbation? @ -No Poses a threat to life or bodily function? How? (Chest pain, USA, PA, pneumonia, PE, COPD, DKA, ARF, appy, cholecystitis, CVA, Diverticulitis, Homicidal, Suicidal, threat to staff... and all critical care pts) @ -No - Lab Data Result diagrams: 02/02/24 06:46 02/02/24 06:46 Lab Results 02/02/24 02/02/24 02/02/24 Range/Units 06:46 06:46 06:46 WBC 9.5 (3.8-10.6) k/uL RBC 4.48 (4.30-5.90) m/uL Hgb 15.3 (13.0-17.5) gm/dL Hct 46.3 (39.0-53.0) % MCV 103.5 H (80.0-100.0) fL MCH 34.3 (25.0-35.0) pg MCHC 33.1 (31.0-37.0) g/dL RDW 13.6 (11.5-15.5) % Plt Count 260 (150-450) k/uL MPV 8.2 Neutrophils % 63 % Lymphocytes % 20 % Monocytes % 10 % Eosinophils % 3 % Basophils % 1 % Neutrophils # 6.0 (1.3-7.7) k/uL Lymphocytes # 1.9 (1.0-4.8) k/uL Monocytes # 0.9 (0-1.0) k/uL Eosinophils # 0.3 (0-0.7) k/uL Basophils # 0.1 (0-0.2) k/uL Macrocytosis Slight Sodium 143 (137-145) mmol/L Potassium 4.4 (3.5-5.1) mmol/L Chloride 110 H (98-107) mmol/L Carbon Dioxide 26 (22-30) mmol/L Anion Gap 7 mmol/L BUN 18 (9-20) mg/dL Creatinine 1.38 H (0.66-1.25) mg/dL Est GFR (CKD-EPI)AfAm 58 (>60 ml/min/1.73 sqM) Est GFR (CKD-EPI)NonAf 50 (>60 ml/min/1.73 sqM) Glucose 132 H (74-99) mg/dL Calcium 9.5 (8.4-10.2) mg/dL Magnesium 2.2 (1.6-2.3) mg/dL Total Bilirubin 0.7 (0.2-1.3) mg/dL AST 31 (17-59) U/L ALT 21 (4-49) U/L Alkaline Phosphatase 112 (38-126) U/L Troponin I <0.012 (0.000-0.034) ng/mL Total Protein 7.1 (6.3-8.2) g/dL Albumin 3.9 (3.5-5.0) g/dL Disposition Clinical Impression: Vertigo Disposition: HOME SELF-CARE Condition: Stable Instructions (If sedation given, give patient instructions): Vertigo (ED) Additional Instructions: Please return to the Emergency Department if symptoms worsen or any other c oncerns. Prescriptions: Meclizine [Antivert] 25 mg PO TID PRN #20 tab PRN Reason: Vertigo Is patient prescribed a controlled substance at d/c from ED?: No Referrals: Willa Arriaga MD [Primary Care Provider] - 1-2 days Time of Disposition: 09:25
[2024-02-02] MEDS: MECLIZINE 12.5 MG TAB PO STA (07:09)
[2024-02-02 07:10] LABS: Basophils # (A) 0.1 k/uL (0-0.2); Basophils % (A) 1 %; Eosinophils # (A) 0.3 k/uL (0-0.7); Eosinophils % (A) 3 %; HCT 46.3 % (39.0-53.0); HGB 15.3 gm/dL (13.0-17.5); Lymphocytes # (A) 1.9 k/uL (1.0-4.8); Lymphocytes % (A) 20 %; MCH 34.3 pg (25.0-35.0); MCHC 33.1 g/dL (31.0-37.0); MCV 103.5 fL (80.0-100.0); Macrocytosis Slight; Mean Platelet Volume 8.2; Monocytes # (A) 0.9 k/uL (0-1.0); Monocytes % (A) 10 %; Neutrophils % (A) 63 %; Platelet Count 260 k/uL (150-450); RBC 4.48 m/uL (4.30-5.90); RDW 13.6 % (11.5-15.5); WBC 9.5 k/uL (3.8-10.6)
[2024-02-02 07:21] LABS: ALT 21 U/L (4-49); AST 31 U/L (17-59); African American GFR (CKD) 58 (>60 ml/min/1.73 sqM); Albumin 3.9 g/dL (3.5-5.0); Alkaline Phosphatase 112 U/L (38-126); Anion Gap 7 mmol/L; Blood Urea Nitrogen 18 mg/dL (9-20); Calcium 9.5 mg/dL (8.4-10.2); Carbon Dioxide 26 mmol/L (22-30); Chloride 110 mmol/L (98-107); Glucose 132 mg/dL (74-99); Magnesium 2.2 mg/dL (1.6-2.3); Non-African American GFR(CKD) 50 (>60 ml/min/1.73 sqM); Potassium 4.4 mmol/L (3.5-5.1); Sodium 143 mmol/L (137-145); Total Bilirubin 0.7 mg/dL (0.2-1.3); Total Protein 7.1 g/dL (6.3-8.2)
--- NOTE | 2024-02-02 07:32 | CT ---
EXAMINATION TYPE: CT brain wo con DATE OF EXAM: 02/02/2024 COMPARISON: 10/03/2022 INDICATION: weakness DLP: 1095.4 mGycm, Automated exposure control for dose reduction was used. CONTRAST: None CT of the brain is performed utilizing 3 mm thick sections through the posterior fossa and 3 mm thick sections through the remaining calvarium. Study is performed within 24 hours of arrival to the hosp ital. No abnormal hyperdensity is present to suggest an acute intracranial hemorrhage. No mass lesion is evident. No acute infarcts are evident. There may be some minimal periventricular white matter hypodensity, li roque on the basis of chronic white matter ischemic changes. Ventricles and sulci are mildly prominent for the patient age. Paranasal sinuses and mastoid air cells within the [id number] are clear. Excellent findings appear stable from comparison. IMPRESSION: 1. Minimal chronic appearing periventricular white matter ischemic-type changes with age-related at [facility]. 2. No acute intracranial process. Follow-up MRI can be performed as clinically indicated.
[2024-02-02] MEDS: SODIUM CHLORIDE 0.9% 500 ML 500 ML IV ONE (08:21)
[2024-02-02 10:14] VITALS: BP 109/70; PULSE 60; RESP 18; TEMP 98.1
== END 2024-02-02 10:00 | disposition home or self-care (01) ==
LOC: EC 06:31
DX: R42 Dizziness and giddiness (principal)
CPT/HCPCS: 36415; 70450; 80053; 83735; 84484; 85025; 93005; 96360; 96361; 99285

== ENCOUNTER 2024-04-04 22:39 | Observation (INO) | payer MEDICARE ==
[2024-04-04 22:52] LABS: Glucose,Whole Blood 87 mg/dL (70-110)
--- NOTE | 2024-04-04 22:58 | ED ---
Neuro HPI - General Stated Complaint: Stroke-like symptoms Time Seen by Provider: 04/04/24 22:56 Source: RN notes reviewed, old records reviewed - History of Present Illness Is the patient presenting with stroke symptoms?: No -: hour(s) (3) Initial Comments: This is a 73-year-old male who presents with family for some slurred speech right-sided facial numbness and tingling pain in his right side right leg no headache. No recent fever no trauma. Patient does show some numbness and tingling to the right side of his face currently slurred speech noticed by family all about 2 to 3 hours prior to arrival Location: speech, right face, dysarthria History of same: No Place: home Severity: mild Quality: weak, numb, tingling Worsens With: none On Anticoagulants: No Context: gradual onset Associated Symptoms: denies other symptoms Treatments Prior to Arrival: none - Related Data Home Medications: Home Medications Medication Instructions Recorded Confirmed Docusate [Colace] 200 mg PO DAILY 10/13/14 04/05/24 Gabapentin [Neurontin] 300 mg PO DAILY 10/13/14 04/05/24 Levothyroxine Sodium [Synthroid] 125 mcg PO DAILY 10/13/14 04/05/24 Henderson-3 Fatty Acids/Fish Oil [Fish 1 cap PO DAILY 10/13/14 04/05/24 Oil 1,000 mg Softgel] allopurinoL [Zyloprim] 300 mg PO DAILY 10/13/14 04/05/24 gemfibroziL [Lopid] 600 mg PO DAILY 10/13/14 04/05/24 Ibuprofen [Motrin] 800 mg PO DAILY 11/12/16 04/05/24 Tamsulosin HCl [Flomax] 0.4 mg PO DAILY 11/12/16 04/05/24 traMADol HCL [Ultram] 50 mg PO DAILY 11/12/16 04/05/24 Aspirin 325 mg PO DAILY 05/04/17 04/05/24 Metoprolol Tartrate [Lopressor] 25 mg PO DAILY 09/12/22 04/05/24 Cholecalciferol [Vitamin D3 (25 25 mcg PO DAILY 10/03/22 04/05/24 Mcg = 1000 Iu)] Previous Rx's Medication Instructions Recorded Atorvastatin [Lipitor] 20 mg PO HS 30 Days #30 tab 10/05/22 Cyanocobalamin [Vitamin B-12] 1,000 mcg PO DAILY #0 tab 10/05/22 Folic Acid 1 mg PO DAILY tab 10/05/22 Meclizine [Antivert] 25 mg PO TID PRN #20 tab 02/02/24 Clopidogrel [Plavix] 75 mg PO DAILY 21 Days #21 tab 04/06/24 Allergies/Adverse Reactions: Allergies Allergy/AdvReac Type Severity Reaction Status Date / Time No Known Allergies Allergy Verified 10/03/22 11:05 Review of Systems ROS Statement: Those systems with pertinent positive or pertinent negative responses have been documented in the HPI. ROS Other: All systems not noted in ROS Statement are negative. General Exam General appearance: alert, in no apparent distress, anxious Head exam: Present: atraumatic, normocephalic, normal inspection Eye exam: Present: normal appearance, PERRL, EOMI. Absent: scleral icterus, conjunctival injection, periorbital swelling ENT exam: Present: normal exam, mucous membranes moist Neck exam: Present: normal inspection. Absent: tenderness, meningismus, ly mphadenopathy Respiratory exam: Present: normal lung sounds bilaterally. Absent: respiratory distress, wheezes, rales, rhonchi, stridor Cardiovascular Exam: Present: regular rate, normal rhythm, normal heart sounds. Absent: systolic murmur, diastolic murmur, rubs, gallop, clicks GI/Abdominal exam: Present: soft, normal bowel sounds. Absent: distended, tenderness, guarding, rebound, rigid Extremities exam: Present: normal inspection, full ROM, normal capillary refill. Absent: tenderness, pedal edema, joint swelling, calf tenderness Back exam: Present: normal inspection Neurological exam: Present: alert, oriented X3, CN II-XII intact Psychiatric exam: Present: normal affect, normal mood Skin exam: Present: warm, dry, intact, normal color. Absent: rash Stroke MDM - Lab Data Result diagrams: 04/06/24 05:54 04/06/24 05:36 Lab Results 04/04/24 04/04/24 04/04/24 Range/Units 22:50 22:53 22:53 WBC 9.7 (3.8-10.6) k/uL RBC 4.19 L (4.30-5.90) m/uL Hgb 14.6 (13.0-17.5) gm/dL Hct 45.3 (39.0-53.0) % MCV 108.0 H (80.0-100.0) fL MCH 34.7 (25.0-35.0) pg MCHC 32.1 (31.0-37.0) g/dL RDW 14.0 (11.5-15.5) % Plt Count 227 (150-450) k/uL MPV 8.2 Neutrophils % 56 % Lymphocytes % 26 % Monocytes % 10 % Eosinophils % 4 % Basophils % 1 % Neutrophils # 5.4 (1.3-7.7) k/uL Lymphocytes # 2.5 (1.0-4.8) k/uL Monocytes # 0.9 (0-1.0) k/uL Eosinophils # 0.4 (0-0.7) k/uL Basophils # 0.1 (0-0.2) k/uL Macrocytosis Moderate PT 10.6 (10.0-12.5) sec INR 1.0 (<1.2) APTT 22.4 (22.0-30.0) sec Sodium (137-145) mmol/L Potassium (3.5-5.1) mmol/L Chloride (98-107) mmol/L Carbon Dioxide (22-30) mmol/L Anion Gap mmol/L BUN (9-20) mg/dL Creatinine (0.66-1.25) mg/dL Est GFR (CKD-EPI)AfAm (>60 ml/min/1.73 sqM) Est GFR (CKD-EPI)NonAf (>60 ml/min/1.73 sqM) Glucose (74-99) mg/dL POC Glucose (mg/dL) 87 (70-110) mg/dL POC Glu Cad Manager ID [place] [address] Glu mg/dL mg/dL Hemoglobin A1c (<=6.0) % Calcium (8.4-10.2) mg/dL Total Bilirubin (0.2-1.3) mg/dL AST (17-59) U/L ALT (4-49) U/L Alkaline Phosphatase (38-126) U/L Creatine Kinase (55-170) U/L Troponin I (0.000-0.034) ng/mL Total Protein (6.3-8.2) g/dL Albumin (3.5-5.0) g/dL 04/04/24 04/04/24 04/04/24 Range/Units 22:53 22:53 22:53 WBC (3.8-10.6) k/uL RBC (4.30-5.90) m/uL Hgb (13.0-17.5) gm/dL Hct (39.0-53.0) % MCV (80.0-100.0) fL MCH (25.0-35.0) pg MCHC (31.0-37.0) g/dL RDW (11.5-15.5) % Plt Count (150-450) k/uL MPV Neutrophils % % Lymphocytes % % Monocytes % % Eosinophils % % Basophils % % Neutrophils # (1.3-7.7) k/uL Lymphocytes # (1.0-4.8) k/uL Monocytes # (0-1.0) k/uL Eosinophils # (0-0.7) k/uL Basophils # (0-0.2) k/uL Macrocytosis PT (10.0-12.5) sec INR (<1.2) APTT (22.0-30.0) sec Sodium 143 (137-145) mmol/L Potassium 4.2 (3.5-5.1) mmol/L Chloride 113 H (98-107) mmol/L Carbon Dioxide 22 (22-30) mmol/L Anion Gap 8 mmol/L BUN 24 H (9-20) mg/dL Creatinine 1.39 H (0.66-1.25) mg/dL Est GFR (CKD-EPI)AfAm 57 (>60 ml/min/1.73 sqM) Est GFR (CKD-EPI)NonAf 49 (>60 ml/min/1.73 sqM) Glucose 91 (74-99) mg/dL POC Glucose (mg/dL) (70-110) mg/dL POC Glu Cad Manager ID Estimated Ave Glu mg/dL 120 mg/dL Hemoglobin A1c 5.8 (<=6.0) % Calcium 9.2 (8.4-10.2) mg/dL Total Bilirubin 0.5 (0.2-1.3) mg/dL AST 33 (17-59) U/L ALT 17 (4-49) U/L Alkaline Phosphatase 89 (38-126) U/L Creatine Kinase 112 (55-170) U/L Troponin I <0.012 (0.000-0.034) ng/mL Total Protein 6.7 (6.3-8.2) g/dL Albumin 4.0 (3.5-5.0) g/dL - NIH Stroke Scale 1a. Level of Consciousness: (0) alert 1b. LOC Questions: (0) answers correctly 1c. LOC Commands: (0) performs tasks correctly 2. Best Gaze: (0) normal 3. Visual: (0) no visual loss 4. Facial Palsy: (0) normal symmetrical movement 5a. Motor Arm Left: (0) no drift 5b. Motor Arm Right: (0) no drift 6a. Motor Leg Left: (0) no drift 6b. Motor Leg Right: (0) no drift 7. Limb Ataxia: (0) absent 8. Sensory: (0) normal 9. Best Language: (1) mild/moderate aphasia 10. Dysarthria: (0) normal 11. Extinction/Inattention: (0) no abnormality - Thrombolytic Inclusion/Exclusion Thrombolytic Exclusion Criteria: Onset of Symptoms Unknown Thrombolytic Inclusion Criteria: Symptom Onset < 4.5 h - Core Measures AMI Core Measures Followed: No - Medical Decision Making 73 male admitted for acute CVA improving symptoms here in the ER with low NIH, no tPA, patient does have concerns for possible aneurysm on CT scan but no headache currently - Radiology Data Radiology results: report reviewed (CT brain CTA head neck negative for acute disease possible aneurysm), image reviewed - EKG Data -: EKG Interpreted by Me (EKG is sinus bradycardia 54 [place] 214 QRS 94 QTc 391) Past Medical History Past Medical History: Coronary Artery Disease (CAD), CVA/TIA, Hyperlipidemia, Hypertension, Myocardial Infarction (NH), Prostate Disorder, Thyroid Disorder Additional Past Medical History / Comment(s): back pain lft arm weaker than right post cva wears brief for incont of urine. Last Myocardial Infarction Date:: 2005 History of Any Multi-Drug Resistant Organisms: None Reported Past Surgical History: Bladder Surgery, Coronary Bypass/CABG Additional Past Surgical History / Comment(s): urolift with 4 bands 08/30, carpal tunnel Past Anesthesia/Blood Transfusion Reactions: No Reported Reaction Past Psychological History: No Psychological Hx Reported Smoking Status: Never smoker Past Alcohol Use History: None Reported Past Drug Use History: None Reported - Past Family History Mother Family Medical History: Cancer Additional Family Medical History / Comment(s): leukemia Father Family Medical History: Cancer Additional Family Medical History / Comment(s): lung Course Vital Signs 04/04/24 04/04/24 04/04/24 22:43 22:45 23:00 Temperature 96.9 F L 96.9 F L Pulse Rate 56 L 56 L Pulse Rate [ 58 L Painter Sign Maintenance ] Respiratory 18 18 Rate Blood Pressure 158/67 142/70 O2 Sat by Pulse 99 98 Oximetry 04/04/24 04/04/24 04/04/24 23:15 23:26 23:41 Temperature 96.9 F L 98.4 F Pulse Rate 61 59 L 65 Pulse Rate [ Painter Sign Maintenance ] Respiratory 18 18 20 Rate Blood Pressure 145/63 129/68 165/74 O2 Sat by Pulse 97 98 97 Oximetry 04/04/24 04/05/24 04/05/24 23:56 00:11 00:41 Temperature 97.7 F 98.2 F Pulse Rate 57 L 54 L 60 Pulse Rate [ Painter Sign Maintenance ] Respiratory 20 18 18 Rate Blood Pressure 153/75 132/59 128/66 O2 Sat by Pulse 97 97 98 Oximetry 04/05/24 04/05/24 04/05/24 02:11 06:41 07:50 Temperature Pulse Rate 56 L 53 L 47 L Pulse Rate [ Painter Sign Maintenance ] Respiratory 18 20 16 Rate Blood Pressure 124/68 135/69 135/69 O2 Sat by Pulse 96 98 99 Oximetry 04/05/24 04/05/24 08:00 13:00 Temperature Pulse Rate 48 L 56 L Pulse Rate [ Painter Sign Maintenance ] Respiratory 17 17 Rate Blood Pressure 136/62 129/58 O2 Sat by Pulse 96 97 Oximetry - Reevaluation(s) Reevaluation #1: 04/05/24 00:42 Medical records reviewed code stroke was paged on patient arrival Reevaluation #2: 04/05/24 00:42 Patient is a non-tPA candidate secondary to low NIH Patient does have improving symptoms here in the ER with a low NIH Reevaluation #3: 04/05/24 00:42 Patient informed of results and questions answered Reevaluation #4: Was pt. sent in by a medical professional or institution (, PA, GEOLOGY FACULTY MEMBER, urgent care, hospital, or snf...) When possible be specific @ -no Did you speak to anyone other than the patient for history (EMS, parent, family, police, friend...)? What history was obtained from this source @ -no Did you review nursing and triage notes (agree or disagree)? Why? @ -agree Are old charts reviewed (outside hosp., previous admission, EMS record, old EKG, old radiological studies, urgent care reports/EKG's, snf records)? Report findings @ -yes Differential Diagnosis (chest pain, altered mental status, abdominal pain women, abdominal pain men, vaginal bleeding, weakness, fever, dyspnea, syncope, headache, dizziness, GI bleed, back pain, seizure, CVA, palpatations, mental hea lth, musculoskeletal)? @ -prior EKG interpreted by me (3pts min.). @ -yes X-rays interpreted by me (1pt min.). @ -yes negative for acute disease CT interpreted by me (1pt min.). @ -Yes negative for acute disease U/S interpreted by me (1pt. min.). @ -no What testing was considered but not performed or refused? (CT, X-rays, U/S, labs)? Why? @ -none What meds were considered but not given or refused? Why? @ -none Did you discuss the management of the patient with other professionals (amrit jackson i.amanda Leger, PA, GEOLOGY FACULTY MEMBER, lab, RT, psych nurse, social contact worker, record press supervisor, teacher, commercial escrow officer, disease case manager rn)? Give summary @ -no Was smoking cessation discussed for >3mins.? @ -no Was critical care preformed (if so, how long)? @ -yes31 Were there social determinants of health that impacted care today? How? (Homelessness, low income, unemployed, alcoholism, drug addiction, transportation, low edu. Level, literacy, decrease access to med. care, skilled nursing, rehab)? @ -none Was there de-escalation of care discussed even if they declined (Discuss DNR or withdrawal of care, Hospice)? DNR status @ -no What co-morbidities impacted this encounter? (DM, HTN, Smoking, COPD, CAD, Cancer, CVA, ARF, Chemo, Hep., AIDS, mental health diagnosis, sleep apnea, morbid obesity)? @ -none Was patient admitted / discharged? Hospital course, mention meds given and route, prescriptions, significant lab abnormalities, going to OR and other pertinent info. @ - 73 male admitted for acute CVA improving symptoms here in the ER with low NIH, no tPA, patient does have concerns for possible aneurysm on CT scan but no headache currently Admitted CVA Undiagnosed new problem with uncertain prognosis? @ -no Drug Therapy requiring intensive monitoring for toxicity (Heparin, Nitro, Insulin, Cardizem)? @ -no Were any procedures done? @ -no Diagnosis/symptom? @ - Acute, or Chronic, or Acute on Chronic? @ -Acute Uncomplicated (without systemic symptoms) or Complicated (systemic symptoms)? @ -Complicated Side effects of treatment? @ -no Exacerbation, Progression, or Severe Exacerbation? @ -exacerbation Poses a threat to life or bodily function? How? (Chest pain, USA, NH, pneumonia, PE, COPD, DKA, ARF, appy, cholecystitis, CVA, Diverticulitis, Homicidal, Suicidal, threat to staff... and all critical care pts) @ -yes CVA Reevaluation #5: Differential CVA Ischemic stroke, hemorrhagic stroke, brain tumor, atypical migraine, Wernicke's encephalopathy, seizure, multiple sclerosis, meningitis, encephalitis, hypoglycemia, Guillain-Khoury, electrolytes disturbance, myasthenia gravis.... This is not meant to be an all-inclusive list - Consultations Consultation #1: Spoke with [facility] who agrees to admit this patient Critical Care Time Critical Care Time: Yes Total Critical Care Time: 31 Disposition Clinical Impression: Transient cerebral ischemia, Cerebrovascular accident (CVA) Disposition: ADMITTED IP TO THIS HOSP Condition: Fair Is patient prescribed a controlled substance at d/c from ED?: No Time of Disposition: 00:40
[2024-04-04 23:14] LABS: Basophils # (A) 0.1 k/uL (0-0.2); Basophils % (A) 1 %; Eosinophils # (A) 0.4 k/uL (0-0.7); Eosinophils % (A) 4 %; HCT 45.3 % (39.0-53.0); HGB 14.6 gm/dL (13.0-17.5); Lymphocytes # (A) 2.5 k/uL (1.0-4.8); Lymphocytes % (A) 26 %; MCH 34.7 pg (25.0-35.0); MCHC 32.1 g/dL (31.0-37.0); Macrocytosis Moderate; Mean Platelet Volume 8.2; Monocytes # (A) 0.9 k/uL (0-1.0); Monocytes % (A) 10 %; Neutrophils # (A) 5.4 k/uL (1.3-7.7); Neutrophils % (A) 56 %; Platelet Count 227 k/uL (150-450); RBC 4.19 m/uL (4.30-5.90); WBC 9.7 k/uL (3.8-10.6)
[2024-04-04 23:35] LABS: Partial Thromboplastin Time 22.4 sec (22.0-30.0); Prothrombin Time 10.6 sec (10.0-12.5)
--- NOTE | 2024-04-04 23:42 | XR ---
EXAMINATION TYPE: XR chest 1V portable DATE OF EXAM: 04/04/2024 COMPARISON: Chest x-ray October 03, 2022 HISTORY: Abdominal pain and vomiting. TECHNIQUE: Single frontal view of the chest is obtained. FINDINGS: Sternal wires are redemonstrated. There is no focal air space opacity, pleural effusion, or pneumotho rax seen. The cardiac silhouette size is mildly enlarged. The osseous structures are intact. IMPRESSION: Mild cardiomegaly without acute pulmonary process.
[2024-04-04 23:44] LABS: ALT 17 U/L (4-49); AST 33 U/L (17-59); African American GFR (CKD) 57 (>60 ml/min/1.73 sqM); Alkaline Phosphatase 89 U/L (38-126); Anion Gap 8 mmol/L; Blood Urea Nitrogen 24 mg/dL (9-20); Calcium 9.2 mg/dL (8.4-10.2); Carbon Dioxide 22 mmol/L (22-30); Chloride 113 mmol/L (98-107); Creatine Kinase 112 U/L (55-170); Glucose 91 mg/dL (74-99); Non-African American GFR(CKD) 49 (>60 ml/min/1.73 sqM); Potassium 4.2 mmol/L (3.5-5.1); Sodium 143 mmol/L (137-145); Total Bilirubin 0.5 mg/dL (0.2-1.3); Total Protein 6.7 g/dL (6.3-8.2)
--- NOTE | 2024-04-04 23:44 | CT ---
EXAMINATION TYPE: CODE STROKE: CT brain wo contr DATE OF EXAM: 04/04/2024 HISTORY: Pt arrives in [facility] today for neuro symptoms that started around 1930. Pts daughter states she noticed slurred speech and facial droop. Pts daughter states she continues to see facial droop. pt al so complaining of right side weakness, no obvious drift noted. pt also states he has some tightness i n chest. Acute onset neuro deficit. CT DLP: 1164.7 mGycm. Automated Exposure Control for Dose Reduction was Utilized. TECHNIQUE: CT scan of the head is performed without contrast. COMPARISON: CT February 02, 2024. FINDINGS: There is no acute intracranial hemorrhage or midline shift identified. There is mild to m oderate diffuse ventricular and sulcal prominence consistent with diffuse age-related cerebral atroph y. There is mild low-attenuation in the periventricular white matter consistent with chronic small v essel ischemic change. The globes are intact and the visualized sinuses are clear. IMPRESSION: No acute intracranial hemorrhage or midline shift. There is mild to moderate diffuse ag e-related cerebral atrophy and mild chronic small vessel ischemic change redemonstrated. No signific ant change from most recent prior. MRI noted more sensitive to evaluate for acute ischemia.
--- NOTE | 2024-04-04 23:56 | CT ---
EXAMINATION TYPE: CT angio head neck DATE OF EXAM: 04/04/2024 HISTORY: Pt arrives in today for neuro symptoms that started around 1930. Pts daughter states she noticed slurred speech and facial droop. Pts daughter states she continues to see facial droop. pt al so complaining of right side weakness, no obvious drift noted. pt also states he has some tightness i n chest. COMPARISON: None. CT DLP: 721.8 mGycm. Automated Exposure Control for Dose Reduction was Utilized. TECHNIQUE: CTA scan of the head and neck is performed with IV Contrast, patient injected with 65 mL of Isovue 370, axial images are obtained, coronal and sagittal reformatted images are reviewed. 3D re constructed images are created on an independent workstation and reviewed. FINDINGS: Carotid/Vascular Structures: There is normal three-vessel aortic arch without significant stenosis. M ild peripheral plaque in the distal right common carotid artery. [id number] peripheral calcifie d fibroid carotid bulb extends into the proximal internal carotid artery without significant stenosis . No significant plaque left carotid bulb. Patent external carotid arteries bilaterally are seen. Nicolette tebral arteries are contiguous codominant to the basilar junction. Patent anterior communicating mary ry. No large vessel occlusion in the anterior posterior circulation. Possible small aneurysm in regio n of anterior communicating artery near 3 mm axial measured 41 versus tortuous vessel. Suboptimal mayela dy as raw data images not provided. Other: Multilevel spurring in the cervical spine. Slight scoliotic curvature. IMPRESSION: 1. No significant stenosis in common or internal carotid arteries bilaterally. 2. 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 Advise MRA [place] to further evaluate. NASCET criteria was used in interpretation of this exam?
[2024-04-05] MEDS: SODIUM CHLORIDE 0.9% 1,000 ML IV STA (00:24)
[2024-04-05] MEDS: ASPIRIN 325 MG TAB PO STA (01:03)
[2024-04-05] MEDS: SODIUM CHLORIDE 0.9% 1,000 ML IV SCH (01:50)
[2024-04-05] MEDS ORDERED: MECLIZINE 25 MG TAB PO PRN (10:50)
--- NOTE | 2024-04-05 10:51 | P.HPIM ---
History of Present Illness H&P Date: 04/05/24 History of present illness; 73-year-old gentleman past medical history significant for hyperlipidemia, hypothyroidism, hypertension who presented to ER for complaint of slurred speech and right-sided numbness. Patient states that he was all right a few hours prior to coming to the hospital when he started noticing that his speech was slurred. Patient also having numbness and rash of the face and right side of the body. There was no complaint of weakness of any extremity. No complaint of any palpitation. There was no complaint of any jerking movement of any extremity. Denies any chest pain. No complaint shortness of breath. Because of the symptoms, patient brought to the ER. In the ER, patient symptoms were improving. NIH was low. Initial lab work done in the ER showed WBC 9.7, hemoglobin 14.6, platelet count 227, sodium 143, potassium 4.2, BUN 24, creatinine 1.39, troponin 0.012 EKG done in the ER showed heart rate of 54, no ST segment elevation or depression seen, no T-wave inversions seen. Chest x-ray done in the ER mild cardiomegaly with no acute pulmonary process CT head done showed no acute intracranial process, there is mild to moderate diffuse age-related cerebral atrophy and mild chronic small vessel ischemic changes redemonstrated. CTA head and neck done showed no significant stenosis, thrombus in the intracranial circulation. 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 ER physician discussed with on-call neurologist, at this time because of low NIH and improving system patient not TNK candidate Patient admitted to internal medicine service REVIEW OF SYSTEMS: CONSTITUTIONAL: No fever, no malaise, no fatigue. HEENT: No recent visual problems or hearing problems. Denied any sore throat. CARDIOVASCULAR: No chest pain, orthopnea, PND, no palpitations, no syncope. PULMONARY: No shortness of breath, no cough, no hemoptysis. GASTROINTESTINAL: No diarrhea, no nausea, no vomiting, no abdominal pain. NEUROLOGICAL: Mentioned above HEMATOLOGICAL: Denies any bleeding or petechiae. GENITOURINARY: Denies any burning micturition, frequency, or urgency. MUSCULOSKELETAL/RHEUMATOLOGICAL: Denies any joint pain, swelling, or any muscle pain. ENDOCRINE: Denies any polyuria or polydipsia. The rest of the 14-point review of systems is negative. PHYSICAL EXAMINATION: GENERAL: The patient is alert and oriented x3, not in any acute distress. Well developed, well nourished. HEENT: Pupils are round and equally reacting to light. EOMI. No scleral icterus. No conjunctival pallor. Normocephalic, atraumatic. No pharyngeal erythema. No thyromegaly. CARDIOVASCULAR: S1 and S2 present. No murmurs, rubs, or gallops. PULMONARY: Chest is clear to auscultation, no wheezing or crackles. ABDOMEN: Soft, nontender, nondistended, normoactive bowel sounds. No palpable organomegaly. MUSCULOSKELETAL: No joint swelling or deformity. EXTREMITIES: No cyanosis, clubbing, or pedal edema. NEUROLOGICAL: Gross neurological examination did not reveal any focal deficits. SKIN: No rashes. Assessment and plan Acute CVA Hypothyroidism Hyperlipidemia Monitor vital signs Monitor CBC Monitor CMP Continue telemetry monitoring Ordered neurochecks ordered MRI brain Ordered 2D echo Ordered aspirin, Lipitor Neurology consult Speech, PT and OT consulted Labs and medication were reviewed.. Continue same treatment. Continue with symptomatic treatment. Resume home medication. Monitor labs and vitals. DVT and GI prophylaxis. Further recommendations as per clinical course of the patient Dictation was produced using [employer] dictation software. please excuse any grammatical, word or spelling errors. Past Medical History Past Medical History: Coronary Artery Disease (CAD), CVA/TIA, Hyperlipidemia, Hypertension, Myocardial Infarction ([place]), Prostate Disorder, Thyroid Disorder Additional Past Medical History / Comment(s): back pain lft arm weaker than right post cva wears brief for incont of urine. Last Myocardial Infarction Date:: 2005 History of Any Multi-Drug Resistant Organisms: None Reported Past Surgical History: Bladder Surgery, Coronary Bypass/CABG Additional Past Surgical History / Comment(s): urolift with 4 bands 08/30, carpal tunnel Past Anesthesia/Blood Transfusion Reactions: No Reported Reaction Past Psychological History: No Psychological Hx Reported Smoking Status: Never smoker Past Alcohol Use History: None Reported Past Drug Use History: None Reported - Past Family History Mother Family Medical History: Cancer Additional Family Medical History / Comment(s): leukemia Father Family Medical History: Cancer Additional Family Medical History / Comment(s): lung Medications and Allergies Home Medications Medication Instructions Recorded Confirmed Type Docusate [Colace] 200 mg PO DAILY 10/13/14 04/05/24 History Gabapentin [Neurontin] 300 mg PO DAILY 10/13/14 04/05/24 History Levothyroxine Sodium [Synthroid] 125 mcg PO DAILY 10/13/14 04/05/24 History [place]-3 Fatty Acids/Fish Oil [Fish 1 cap PO DAILY 10/13/14 04/05/24 History Oil 1,000 mg Softgel] allopurinoL [Zyloprim] 300 mg PO DAILY 10/13/14 04/05/24 History gemfibroziL [Lopid] 600 mg PO DAILY 10/13/14 04/05/24 History Ibuprofen [Motrin] 800 mg PO DAILY 11/12/16 04/05/24 History Tamsulosin HCl [Flomax] 0.4 mg PO DAILY 11/12/16 04/05/24 History traMADol HCL [Ultram] 50 mg PO DAILY 11/12/16 04/05/24 History Aspirin 325 mg PO DAILY 05/04/17 04/05/24 History Metoprolol Tartrate [Lopressor] 25 mg PO DAILY 09/12/22 04/05/24 History Cholecalciferol [Vitamin D3 (25 25 mcg PO DAILY 10/03/22 04/05/24 History Mcg = 1000 Iu)] Atorvastatin [Lipitor] 20 mg PO HS 30 Days #30 tab 10/05/22 04/05/24 Rx Cyanocobalamin [Vitamin B-12] 1,000 mcg PO DAILY #0 tab 10/05/22 04/05/24 Rx Folic Acid 1 mg PO DAILY tab 10/05/22 04/05/24 Rx Meclizine [Antivert] 25 mg PO TID PRN #20 tab 02/02/24 04/05/24 Rx Allergies Allergy/AdvReac Type Severity Reaction Status Date / Time No Known Allergies Allergy Verified 10/03/22 11:05 Physical Exam Vitals: Vital Signs Temp Pulse Pulse Resp BP Pulse Ox 04/05/24 07:50 47 L 16 135/69 99 04/05/24 06:41 53 L 20 135/69 98 04/05/24 02:11 56 L 18 124/68 96 04/05/24 00:41 60 18 128/66 98 04/05/24 00:11 98.2 F 54 L 18 132/59 97 04/04/24 23:56 97.7 F 57 L 20 153/75 97 04/04/24 23:41 65 20 165/74 97 04/04/24 23:26 98.4 F 59 L 18 129/68 98 04/04/24 23:15 96.9 F L 61 18 145/63 97 04/04/24 23:00 96.9 F L 56 L 18 142/70 98 04/04/24 22:45 58 L 04/04/24 22:43 96.9 F L 56 L 18 158/67 99 Intake and Output 04/04/24 04/05/24 04/05/24 22:59 06:59 14:59 Other: Weight 95.254 kg Results CBC & Chem 7: 04/04/24 22:53 04/04/24 22:53 Labs: Abnormal Lab Results - Last 24 Hours (Table) 04/04/24 04/04/24 Range/Units 22:53 22:53 RBC 4.19 L (4.30-5.90) m/uL MCV 108.0 H (80.0-100.0) fL Chloride 113 H (98-107) mmol/L BUN 24 H (9-20) mg/dL Creatinine 1.39 H (0.66-1.25) mg/dL
[2024-04-05] MEDS: CLOPIDOGREL 75 MG TAB PO SCH (13:53)
--- NOTE | 2024-04-05 16:31 | MR ---
EXAMINATION TYPE: MR brain wo con DATE OF EXAM: 04/05/2024 4:18 PM CLINICAL INDICATION:Male, 73 years old with history of Slurred speech; PHH, Slurred speech COMPARISON: 04/04/2024. TECHNIQUE: Multi planar, multi sequence imaging was performed through the brain including: T1, T2, In version recovery, Diffusion weighted imaging, and gradient echo imaging. No gadolinium was given. FINDINGS: Mild cerebral atrophy with proportional dilation of ventricular system. Scattered foci of high T2 s ignal intensity are seen within the periventricular white matter. Midline structures show no abnormal ity. Diffusion-weighted imaging shows no evidence of restricted diffusion. The susceptibility weighte d images do not reveal any evidence for micro-hemorrhage. The bone marrow signal is within normal limits. Paranasal sinuses and mastoid air cells: No significant paranasal sinus disease. Visualized orbits: Orbital contents are intact. IMPRESSION: 1. No evidence of intracranial mass or acute/subacute infarct. 2. Nonspecific white matter changes, likely secondary to small vessel ischemic disease.
--- NOTE | 2024-04-05 18:58 | P.CNNES ---
History of Present Illness Consult date: 04/05/24 Requesting physician: Kem Weiner Reason for Consult: CVA/TIA History of Present Illness: Patient is a 73-year-old right-handed male with no significant past medical history, came to the hospital yesterday on Friday at 10:39 PM because of strokelike symptoms. Patient's symptoms started Friday night when he noticed his shoulder, right arm and right leg were aching. He went to sleep. Friday morning he woke up and felt numbness in the right arm and right leg. Later his right side of the face was also feeling numb. In the afternoon his son noticed that he was having some slurred speech. Later he could not walk and had no balance because of the right-sided weakness. There was no visual symptoms. Patient took some Tylenol, but did not help, therefore decided to come to the ER and came later at night at 10:39 PM. He has noticed that his right leg has improved, but his right arm still feels numb. Vital signs on arrival blood pressure 158/67, pulse rate 56, temperature 96.9. Blood test shows normal CBC with elevated MCV 108.0. PT PTT normal, electrolytes are normal BUN 24 creatinine 1.39. Hepatic panel is normal. Troponin negative, CK normal. EKG showed sinus bradycardia with first-degree AV block. Chest x-ray showed mild cardiomegaly without acute process. CT head revealed no acute intracranial hemorrhage or midline shift. There is mild to moderate diffuse age-related cerebral atrophy and mild chronic small vessel ischemic change. No significant change from most recent prior. I personally reviewed CT head, agree with the findings. Patient states that he has history of a TIA about 2 or 3 years ago with similar symptoms that lasted for 3 days and symptoms resolved. Patient has history of open heart surgery in 2006. Patient has been taking aspirin 325 mg daily. He is compliant with aspirin. Patient denies diabetes, or hypertension. He has never smoked, does not drink alcohol or marijuana. Review of Systems Constitutional: Denies chills, Denies fever Eyes: denies blurred vision, denies pain, denies loss of vision Ears: deny: decreased hearing, ear discharge Ears, nose, mouth and throat: Denies headache, Denies sore throat, Denies vertigo Cardiovascular: Denies chest pain, Denies shortness of breath Respiratory: Reports cough, Reports excessive sputum Gastrointestinal: Denies abdominal pain, Denies diarrhea, Denies nausea, Denies vomiting Genitourinary: Reports incontinence, Denies dysuria Musculoskeletal: Denies myalgias, Denies neck pain Integumentary: Denies pruritus, Denies rash Neurological: Reports as per HPI Hematologic/Lymphatic: Denies easy bleeding, Denies easy bruising Past Medical History Past Medical History: Coronary Artery Disease (CAD), CVA/TIA, Hyperlipidemia, Hypertension, Myocardial Infarction ([place]), Prostate Disorder, Thyroid Disorder Additional Past Medical History / Comment(s): back pain lft arm weaker than right post cva wears brief for incont of urine. Last Myocardial Infarction Date:: 2005 History of Any Multi-Drug Resistant Organisms: None Reported Past Surgical History: Bladder Surgery, Coronary Bypass/CABG Additional Past Surgical History / Comment(s): urolift with 4 bands 08/30, carpal tunnel Past Anesthesia/Blood Transfusion Reactions: No Reported Reaction Past Psychological History: No Psychological Hx Reported Smoking Status: Never smoker Past Alcohol Use History: None Reported Past Drug Use History: None Reported - Past Family History Mother Family Medical History: Cancer Additional Family Medical History / Comment(s): leukemia Father Family Medical History: Cancer Additional Family Medical History / Comment(s): lung Medications and Allergies Home Medications Medication Instructions Recorded Confirmed Type Docusate [Colace] 200 mg PO DAILY 10/13/14 04/05/24 History Gabapentin [Neurontin] 300 mg PO DAILY 10/13/14 04/05/24 History Levothyroxine Sodium [Synthroid] 125 mcg PO DAILY 10/13/14 04/05/24 History [place]-3 Fatty Acids/Fish Oil [Fish 1 cap PO DAILY 10/13/14 04/05/24 History Oil 1,000 mg Softgel] allopurinoL [Zyloprim] 300 mg PO DAILY 10/13/14 04/05/24 History gemfibroziL [Lopid] 600 mg PO DAILY 10/13/14 04/05/24 History Ibuprofen [Motrin] 800 mg PO DAILY 11/12/16 04/05/24 History Tamsulosin HCl [Flomax] 0.4 mg PO DAILY 11/12/16 04/05/24 History traMADol HCL [Ultram] 50 mg PO DAILY 11/12/16 04/05/24 History Aspirin 325 mg PO DAILY 05/04/17 04/05/24 History Metoprolol Tartrate [Lopressor] 25 mg PO DAILY 09/12/22 04/05/24 History Cholecalciferol [Vitamin D3 (25 25 mcg PO DAILY 10/03/22 04/05/24 History Mcg = 1000 Iu)] Atorvastatin [Lipitor] 20 mg PO HS 30 Days #30 tab 10/05/22 04/05/24 Rx Cyanocobalamin [Vitamin B-12] 1,000 mcg PO DAILY #0 tab 10/05/22 04/05/24 Rx Folic Acid 1 mg PO DAILY tab 10/05/22 04/05/24 Rx Meclizine [Antivert] 25 mg PO TID PRN #20 tab 02/02/24 04/05/24 Rx Allergies Allergy/AdvReac Type Severity Reaction Status Date / Time No Known Allergies Allergy Verified 10/03/22 11:05 Physical Examination - Vital Signs Vital Signs: Vital Signs Temp Pulse Pulse Resp BP Pulse Ox 04/05/24 08:00 48 L 17 136/62 96 04/05/24 07:50 47 L 16 135/69 99 04/05/24 06:41 53 L 20 135/69 98 04/05/24 02:11 56 L 18 124/68 96 04/05/24 00:41 60 18 128/66 98 04/05/24 00:11 98.2 F 54 L 18 132/59 97 04/04/24 23:56 97.7 F 57 L 20 153/75 97 04/04/24 23:41 65 20 165/74 97 04/04/24 23:26 98.4 F 59 L 18 129/68 98 04/04/24 23:15 96.9 F L 61 18 145/63 97 04/04/24 23:00 96.9 F L 56 L 18 142/70 98 04/04/24 22:45 58 L 04/04/24 22:43 96.9 F L 56 L 18 158/67 99 Intake and Output 04/04/24 04/05/24 04/05/24 22:59 06:59 14:59 Other: Weight 95.254 kg Patient is an elderly male, very pleasant, in no acute distress. Patient is alert awake oriented to time place and person. Speech and language functions are normal. Patient can name and repeat very well. Patient is edentulous therefore speech is slightly dysarthric for me. Patient's son carley mckeonons that his speech is slightly more slurred as compared to being edentulous. No aphasia. Attention, concentration and fund of knowledge is adequate. Patient has slightly slow mentation and processing time specially for checking sensations. On cranial nerve examination, pupils are equal, round and reacting to light, visual harp are full on confrontation, with no neglect on double simultaneous stimulation. Extraocular muscles are intact with no nystagmus. Patient has very subtle right flattening of the nasolabial fold. Otherwise appears normal on active testing. He has tongue protrudes to the midline. Palatal elevation and sensation normal, hearing and shoulder shrug normal, facial sensation normal. On muscle strength testing, there there is bilateral pronation, likely from his shoulder issues. There is no drift. His muscle strength is normal in arms and legs distally and proximally. Deep tendon reflexes are asymmetric (right/left) biceps 2/1+, brachioradialis 2/1+, knees 2/2, ankles 0/0 and plantars are withdrawal bilaterally. Sensory to touch is equal with no neglect on double simultaneous stimulation. Cerebellar function showed no ataxia for [id number] testing. No dysdiadochokinesia. No ataxia for [id number] testing on either side. Tone and bulk of muscles normal. Gait deferred.. On general examination, there is no carotid bruit or murmur, S1-S2 audible. Chest is clear on consultation. Abdomen is soft nontender. No organomegaly, bowel sounds present. Peripheral pulses are present. Mild to moderate peripheral edema. Results - Laboratory Findings CBC and BMP: 04/04/24 22:53 04/04/24 22:53 Abnormal Lab Findings: Abnormal Labs 04/04/24 04/04/24 22:53 22:53 RBC 4.19 L MCV 108.0 H Chloride 113 H BUN 24 H Creatinine 1.39 H Assessment and Plan Assessment: * Possible stroke/TIA manifesting with slurred speech, right-sided numbness tingling and weakness. Symptoms have significantly improved. At present patient has very mild dysarthria and flattening of the right nasolabial fold. Rule out stroke/TIA. * Previous history of TIA with no residual deficits * Possible 3 mm ACOM aneurysm. * Mild renal insufficiency * CAD with history of bypass surgery * Hypertension * Hyperlipidemia * Hypothyroidism Plan: MRI of the brain without contrast, evaluate for acute CVA MRI of the brain rule out ACOM cerebral aneurysm. 2-D echo with bubble study to rule out PFO CTA head and neck showed: No significant stenosis in the common or internal carotid arteries bilaterally. Possible 3 mm aneurysm in the region of anterior communicating artery. Advise MRA [place] to further evaluate. Fasting a.m. lipid panel Hemoglobin A1c 5.8 Permissive hypertension for next 24-48 hours Patient has been on aspirin 325 mg daily. We will start Plavix 75 mg daily for now. Neuro checks every 4 hours. Telemetry monitoring rule out any arrhythmia PT, OT, speech therapy DVT prophylaxis: Heparin 5000 units subcu every 12 hours Neurology will continue to follow. Thank you for the consult.
[2024-04-05] MEDS: ATORVASTATIN 80 MG TAB PO SCH (20:26)
[2024-04-06 01:45] LABS: Appearance,Urine Clear (Clear); Bilirubin,Urine Negative (Negative); Blood,Urine Negative (Negative); Color,Urine Colorless; Glucose,Urine (UA) Negative (Negative); Ketones,Urine Negative (Negative); Leukocyte Esterase,Urine Negative (Negative); Nitrite,Urine Negative (Negative); PH, Urine 5.5 (5.0-8.0); Protein,Urine Negative (Negative); Specific Gravity,Urine 1.011 (1.001-1.035); Urobilinogen,Urine <2.0 mg/dL (<2.0)
[2024-04-06] MEDS: LEVOTHYROXINE 125 MCG TAB PO SCH (06:07)
[2024-04-06 06:23] LABS: Basophils % (A) 0 %; Eosinophils # (A) 0.3 k/uL (0-0.7); Eosinophils % (A) 3 %; HCT 38.6 % (39.0-53.0); HGB 12.9 gm/dL (13.0-17.5); Lymphocytes # (A) 1.9 k/uL (1.0-4.8); Lymphocytes % (A) 23 %; MCHC 33.4 g/dL (31.0-37.0); MCV 104.6 fL (80.0-100.0); Macrocytosis Slight; Mean Platelet Volume 7.9; Monocytes # (A) 0.7 k/uL (0-1.0); Monocytes % (A) 9 %; Neutrophils # (A) 5.3 k/uL (1.3-7.7); Neutrophils % (A) 62 %; Platelet Count 233 k/uL (150-450); RBC 3.69 m/uL (4.30-5.90); RDW 13.6 % (11.5-15.5); WBC 8.5 k/uL (3.8-10.6)
[2024-04-06 06:33] LABS: ALT 17 U/L (4-49); AST 35 U/L (17-59); African American GFR (CKD) 86 (>60 ml/min/1.73 sqM); Albumin 3.4 g/dL (3.5-5.0); Alkaline Phosphatase 83 U/L (38-126); Anion Gap 6 mmol/L; Blood Urea Nitrogen 15 mg/dL (9-20); Calcium 8.7 mg/dL (8.4-10.2); Carbon Dioxide 21 mmol/L (22-30); Chloride 118 mmol/L (98-107); Glucose 85 mg/dL (74-99); Non-African American GFR(CKD) 74 (>60 ml/min/1.73 sqM); Potassium 3.7 mmol/L (3.5-5.1); Sodium 145 mmol/L (137-145); Total Bilirubin 0.7 mg/dL (0.2-1.3); Total Protein 5.9 g/dL (6.3-8.2)
[2024-04-06] MEDS ORDERED: NON FORMULARY DRUG (Omega-3 Fatty Acids/Fish Oil [Fish Oil 1,000 Mg Softgel] 1 EACH Capsul PO SCH (09:00)
--- NOTE | 2024-04-06 10:23 | CA ---
Transthoracic Echo Report Name: Piotr Rizzo Age: 73 Gender: M : 1950 Exam Date: 04/06/2024 08:18 Exam Location: [facility] Ht (in): 66 Wt (lb): 210 Ordering Physician: Kem Weiner DO Attending/Referring Phys: [id number], Regine Winderman Doris Suggs RDCS Procedure CPT: Indications: Thrombus Cardiac Hx: CABG Technical Quality: Fair Contrast 1: Total Dose (mL): Contrast 2: Total Dose (mL): MEASUREMENTS (Male / Female) Normal Values 2D ECHO LV Diastolic Diameter PLAX 4.4 cm 4.2 - 5.9 / 3.9 - 5.3 cm LV Systolic Diameter PLAX 2.7 cm IVS Diastolic Thickness 1.3 cm 0.6 - 1.0 / 0.6 - 0.9 cm LVPW Diastolic Thickness 1.2 cm 0.6 - 1.0 / 0.6 - 0.9 cm LV Relative Wall Thickness 0.6 RV Internal Dim ED PLAX 3.6 cm LA Systolic Diameter LX 3.3 cm 3.0 - 4.0 / 2.7 - 3.8 cm LV Diastolic Volume MOD 4C 111.5 cm??? LV Systolic Volume MOD 4C 50.4 cm??? LV Ejection Fraction MOD 4C 54.8 % LV Cardiac Index MOD 4C 1711.4 cm???/min???m??? LV Diastolic Length 4C 8.2 cm LV Systolic Length 4C 6.9 cm LV Diastolic Volume MOD 2C 97.0 cm??? LV Systolic Volume MOD 2C 45.7 cm??? LV Ejection Fraction MOD 2C 52.9 % LV Cardiac Index MOD 2C 1436.3 cm???/min???m??? LV Diastolic Length 2C 8.5 cm LV Systolic Length 2C 6.6 cm LA Volume 40.2 cm??? 18 - 58 / 22 - 52 cm??? LA Volume Index 18.8 cm???/m??? 16 - 28 cm???/m??? M-MODE Aortic Root Diameter MM 3.3 cm AV Cusp Separation MM 2.0 cm DOPPLER AV Peak Velocity 151.7 cm/s AV Peak Gradient 9.2 mmHg MV Area PHT 2.8 cm??? Mitral E Point Velocity 96.0 cm/s Mitral A Point Velocity 84.2 cm/s Mitral E to A Ratio 1.1 MV Deceleration Time 269.4 ms FINDINGS Left Ventricle Left ventricular ejection fraction is estimated at 55-60 %. Left ventricular cavity size normal. Mildly increased septal wall thickness. No obvious regional wall motion abnormalities. Right Ventricle Mild right ventricular dilatation. Unable to estimate the right ventricular systolic pressure. Right Atrium Normal right atrial size. No right atrial thrombus or mass seen. Left Atrium Normal left atrial size. No left atrial thrombus or mass present. Mitral Valve Structurally normal mitral valve. No mitral stenosis, regurgitation or prolapse. Aortic Valve Trileaflet aortic valve. No aortic valve stenosis or regurgitation. Tricuspid Valve Structurally normal tricuspid valve. No tricuspid stenosis, regurgitation or prolapse. Pulmonic Valve Structurally normal pulmonic valve. Trace pulmonic regurgitation. Pericardium No pericardial effusion. No pleural effusion. Aorta Normal size aortic root and proximal ascending aorta. CONCLUSIONS Normal LV function Consider transesophageal echo to definitively rule out intracardiac thrombus Previewed by: Dr. Drew Aguayo MD (Electronically Signed) Final Date: 06 April 2024 10:22
--- NOTE | 2024-04-06 10:39 | MR ---
EXAMINATION TYPE: MR angio head wo con DATE OF EXAM: 04/06/2024 COMPARISON: MRI 04/05/2024, MRA 02/13/2012 HISTORY: Slurred speech, possible cerebral aneurysm. TECHNIQUE: Utilizing 3-D [id number] intracranial MRA of the [place] was performed. FINDINGS: The vertebrobasilar and carotid systems are patent. A1 segment of the right anterior cerebral artery is hypoplastic. There is a 3 mm area of fusiform prominence involving the anterior communicating mary ry suspicious for a small aneurysm. There is a 1 to 2 mm outpouching along the lateral margin of the cavernous segment right ICA suspicio us for tiny aneurysm. Left vertebral artery is dominant. No significant occlusive disease.. IMPRESSION: 1. 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 2. Findings are suspicious for a 1 to 2 mm right cavernous segment ICA tiny aneurysm.
[2024-04-06 10:53] LABS: Chol/HDL Ratio 3.87 Ratio; LDL Cholesterol,Calculated 66.4 mg/dL (0.0-131.0)
[2024-04-06] MEDS: TAMSULOSIN 0.4 MG CAP.ER.24H PO SCH (10:54)
[2024-04-06] MEDS: CHOLECALCIFEROL 25 MCG (1000 IU) TABLET PO SCH (10:54)
[2024-04-06] MEDS: FENOFIBRATE 160 MG TAB PO SCH (10:54)
[2024-04-06] MEDS: ASPIRIN 325 MG TAB PO SCH (10:54)
[2024-04-06] MEDS: allopurinoL 300 MG TAB PO SCH (10:54)
[2024-04-06] MEDS: FOLIC ACID 1 MG TAB PO SCH (10:54)
[2024-04-06] MEDS: CYANOCOBALAMIN 500 MCG TAB PO SCH (10:54)
[2024-04-06] MEDS: METOPROLOL TARTRATE 25 MG TAB PO SCH (10:56)
[2024-04-06 11:11] VITALS: RESP 16
[2024-04-06 11:13] VITALS: TEMP 98
--- NOTE | 2024-04-06 12:23 | P.PN ---
Subjective Progress Note Date: 04/06/24 History of present illness; 73-year-old gentleman past medical history significant for hyperlipidemia, hypothyroidism, hypertension who presented to ER for complaint of slurred speech and right-sided numbness. Patient states that he was all right a few hours prior to coming to the hospital when he started noticing that his speech was slurred. Patient also having numbness of the face and right side of the body. There was weakness of right side. No complaint of any palpitation. There was no complaint of any jerking movement of any extremity. Denies any chest pain. No complaint shortness of breath. Because of the symptoms, patient brought to the ER. In the ER, patient symptoms were improving. NIH was low. Initial lab work done in the ER showed WBC 9.7, hemoglobin 14.6, platelet count 227, sodium 143, potassium 4.2, BUN 24, creatinine 1.39, troponin 0.012 EKG done in the ER showed heart rate of 54, no ST segment elevation or depression seen, no T-wave inversions seen. Chest x-ray done in the ER mild cardiomegaly with no acute pulmonary process CT head done showed no acute intracranial process, there is mild to moderate diffuse age-related cerebral atrophy and mild chronic small vessel ischemic changes redemonstrated. CTA head and neck done showed no significant stenosis, thrombus in the intracranial circulation. 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 ER physician discussed with on-call neurologist, at this time because of low NIH and improving system patient not TNK candidate Patient admitted to internal medicine service 04/06. Patient seen and examined. States he feels better compared to yesterday. REVIEW OF SYSTEMS: CONSTITUTIONAL: No fever, no malaise,. CARDIOVASCULAR: No chest pain, no palpitations, no syncope. PULMONARY: No shortness of breath, no cough, GASTROINTESTINAL: No diarrhea, no nausea, no vomiting, no abdominal pain. NEUROLOGICAL: No headaches, no weakness, PHYSICAL EXAMINATION: GENERAL: The patient is alert and oriented x3, not in any acute distress. Well developed, well nourished. HEENT: Pupils are round and equally reacting to light. EOMI. No scleral icterus. No conjunctival pallor. Normocephalic, atraumatic. No pharyngeal erythema. No thyromegaly. CARDIOVASCULAR: S1 and S2 present. No murmurs, rubs, or gallops. PULMONARY: Chest is clear to auscultation, no wheezing or crackles. ABDOMEN: Soft, nontender, nondistended, normoactive bowel sounds. No palpable organomegaly. MUSCULOSKELETAL: No joint swelling or deformity. EXTREMITIES: No cyanosis, clubbing, or pedal edema. NEUROLOGICAL: Gross neurological examination did not reveal any focal deficits. SKIN: No rashes. Assessment and plan Acute CVA Hypothyroidism Hyperlipidemia Monitor vital signs Monitor CBC Monitor CMP Continue telemetry monitoring Continue neurochecks HbA1c level was 5.8 MRI brain negative for acute stroke Ordered 2D echo Continue aspirin, Plavix, Lipitor PT and OT following Speech following Neurology following Labs and medication were reviewed.. Continue same treatment. Continue with symptomatic treatment. Resume home medication. Monitor labs and vitals. DVT and GI prophylaxis. Further recommendations as per clinical course of the patient Dictation was produced using [employer] dictation software. please excuse any grammatical, word or spelling errors. Objective - Vital Signs Vital signs: Vital Signs Temp 97.7 F 04/06/24 04:00 Pulse 57 L 04/06/24 04:00 Resp 19 04/06/24 04:00 BP 111/53 04/06/24 04:00 Pulse Ox 98 04/06/24 04:00 FiO2 Intake & Output 04/05/24 04/06/24 04/06/24 18:59 06:59 18:59 Intake Total 360 Output Total 300 Balance 360 -300 Weight 95.254 kg 95.9 kg Intake: Oral 360 Output: Urine 300 Other: Voiding Method Toilet Toilet Urinal # Voids 1 - Labs CBC & Chem 7: 04/06/24 05:54 04/06/24 05:36 Labs: Abnormal Lab Results - Last 24 Hours (Table) 04/06/24 04/06/24 Range/Units 05:36 05:54 RBC 3.69 L (4.30-5.90) m/uL Hgb 12.9 L (13.0-17.5) gm/dL Hct 38.6 L (39.0-53.0) % MCV 104.6 H (80.0-100.0) fL Chloride 118 H (98-107) mmol/L Carbon Dioxide 21 L (22-30) mmol/L Total Protein 5.9 L (6.3-8.2) g/dL Albumin 3.4 L (3.5-5.0) g/dL
[2024-04-06 13:15] VITALS: BP 125/56; PULSE 60
--- NOTE | 2024-04-06 13:21 | P.PN ---
Subjective Progress Note Date: 04/06/24 Patient was seen for a follow-up. Patient's daughter was also present today. Patient offers no complaints. All symptoms resolved. Objective - Vital Signs Vital signs: Vital Signs Temp 98.0 F 04/06/24 08:00 Pulse 61 04/06/24 08:00 Resp 16 04/06/24 08:00 BP 120/70 04/06/24 08:00 Pulse Ox 97 04/06/24 08:00 FiO2 Intake & Output 04/05/24 04/06/24 04/06/24 18:59 06:59 18:59 Intake Total 360 360 Output Total 300 Balance 360 -300 360 Weight 95.254 kg 95.9 kg Intake: Oral 360 360 Output: Urine 300 Other: Voiding Method Toilet Toilet Toilet Urinal Urinal # Voids 1 2 - Exam Completely nonfocal. Normal mental status, speech and language functions. He is edentulous. Otherwise his speech looks good. Face is symmetric. No pronator drift. - Labs CBC & Chem 7: 04/06/24 05:54 04/06/24 05:36 Labs: Abnormal Lab Results - Last 24 Hours (Table) 04/06/24 04/06/24 Range/Units 05:36 05:54 RBC 3.69 L (4.30-5.90) m/uL Hgb 12.9 L (13.0-17.5) gm/dL Hct 38.6 L (39.0-53.0) % MCV 104.6 H (80.0-100.0) fL Chloride 118 H (98-107) mmol/L Carbon Dioxide 21 L (22-30) mmol/L Total Protein 5.9 L (6.3-8.2) g/dL Albumin 3.4 L (3.5-5.0) g/dL HDL Cholesterol 27.10 L (40.00-60.00) mg/dL Assessment and Plan Assessment: * Possible TIA manifesting with slurred speech, right-sided numbness tingling and weakness. Symptoms have resolved. MRI of the brain showed no acute ischemic stroke. 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 * Mild renal insufficiency * CAD with history of bypass surgery * Hypertension * Hyperlipidemia * Macrocytosis, on B12, folate replacement * Hypothyroidism Plan: MRI of the brain revealed no evidence of intracranial mass or acute/subacute infarct. Nonspecific white matter changes, likely secondary to small vessel ischemic disease. I personally reviewed MRI agree with the findings. MRA of the brain revealed findings suspicious for a 3 mm anterior communicating artery aneurysm. Findings suspicious for a 1 to 2 mm right cavernous segment ICA tiny aneurysm. I personally reviewed MRA agree with the findings. 2D echo revealed normal left ventricular size and systolic function with EF 55 to 60%. Left ventricular cavity size is normal. Mildly increased septal wall thickness. No obvious regional wall motion abnormalities. Normal left atrial size. Normal right atrial size. No thrombus or mass seen. CTA head and neck showed: No significant stenosis in the common or internal carotid arteries bilaterally. Possible 3 mm aneurysm in the region of anterior communicating artery. Advise MRA [place] to further evaluate. Lipid panel with cholesterol 105, LDL 66, HDL 27, triglycerides 57.5. Continue Lipitor 20 mg, gemfibrozil 600 mg daily and fish oil. Lipids are well- controlled. Hemoglobin A1c 5.8 Patient's previous B12 was 335 and folate 7.50 on 10/03/2022. Patient on folic acid 1 mg and vitamin B12 1000 mcg orally daily. Blood pressure is very well-controlled. Recommend continue aspirin 325 mg and Plavix together for 21 days, then stop Plavix and continue aspirin 325 mg daily. Neuro checks every 4 hours. Telemetry monitoring rule out any arrhythmia PT, OT, speech therapy Neurologically clear for discharge. Recommend follow-up with neurointervention Dr. Rose, as outpatient regarding cerebral aneurysm.
--- NOTE | 2024-04-06 15:42 | P.DS ---
Providers Date of admission: 04/05/24 00:41 Expected date of discharge: 04/06/24 Attending physician: Silvana Hernandez Consults: 04/05/24 00:40 Consult Physician Routine Consulting Provider: Deon Segovia Consult Reason/Comments: cva,tia Do you want consulting provider notified?: Yes Primary care physician: Willa Arriaga Hospital Course: Discharge diagnoses; TIA Hypothyroidism Hyperlipidemia Hospital course; 73-year-old gentleman past medical history significant for hyperlipidemia, hypothyroidism, hypertension who presented to ER for complaint of slurred speech and right-sided numbness. Patient states that he was all right a few hours prior to coming to the hospital when he started noticing that his speech was slurred. Patient also having numbness of the face and right side of the body. There was weakness of right side. No complaint of any palpitation. There was no complaint of any jerking movement of any extremity. Denies any chest pain. No complaint shortness of breath. Because of the symptoms, patient brought to the ER. In the ER, patient symptoms were improving. NIH was low. Initial lab work done in the ER showed WBC 9.7, hemoglobin 14.6, platelet count 227, sodium 143, potassium 4.2, BUN 24, creatinine 1.39, troponin 0.012 EKG done in the ER showed heart rate of 54, no ST segment elevation or depression seen, no T-wave inversions seen. Chest x-ray done in the ER mild cardiomegaly with no acute pulmonary process CT head done showed no acute intracranial process, there is mild to moderate diffuse age-related cerebral atrophy and mild chronic small vessel ischemic changes redemonstrated. CTA head and neck done showed no significant stenosis, thrombus in the intracranial circulation. 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 ER physician discussed with on-call neurologist, at this time because of low NIH and improving system patient not TNK candidate Patient admitted to internal medicine service 04/06. Patient seen and examined. States he feels better compared to yesterday. MRI brain negative for acute stroke. Neurology recommended discharging patient on aspirin and Plavix for 21 days followed by aspirin indefinitely. Outpatient follow-up with interventional neurology PHYSICAL EXAMINATION: GENERAL: The patient is alert and oriented x3, not in any acute distress. Well developed, well nourished. HEENT: Pupils are round and equally reacting to light. EOMI. No scleral icterus. No conjunctival pallor. Normocephalic, atraumatic. No pharyngeal erythema. No thyromegaly. CARDIOVASCULAR: S1 and S2 present. No murmurs, rubs, or gallops. PULMONARY: Chest is clear to auscultation, no wheezing or crackles. ABDOMEN: Soft, nontender, nondistended, normoactive bowel sounds. No palpable organomegaly. MUSCULOSKELETAL: No joint swelling or deformity. EXTREMITIES: No cyanosis, clubbing, or pedal edema. NEUROLOGICAL: Gross neurological examination did not reveal any focal deficits. SKIN: No rashes. Dictation was produced using [employer] dictation software. please excuse any grammatical, word or spelling errors. Patient Condition at Discharge: Fair Plan - Discharge Summary Discharge Rx Participant: Yes New Discharge Prescriptions: New Clopidogrel [Plavix] 75 mg PO DAILY 21 Days #21 tab Continue Gabapentin [Neurontin] 300 mg PO DAILY Docusate [Colace] 200 mg PO DAILY Levothyroxine Sodium [Synthroid] 125 mcg PO DAILY gemfibroziL [Lopid] 600 mg PO DAILY allopurinoL [Zyloprim] 300 mg PO DAILY [place]-3 Fatty Acids/Fish Oil [Fish Oil 1,000 mg Softgel] 1 cap PO DAILY traMADol HCL [Ultram] 50 mg PO DAILY Tamsulosin HCl [Flomax] 0.4 mg PO DAILY Ibuprofen [Motrin] 800 mg PO DAILY Aspirin 325 mg PO DAILY Folic Acid 1 mg PO DAILY tab Atorvastatin [Lipitor] 20 mg PO HS 30 Days #30 tab Cyanocobalamin [Vitamin B-12] 1,000 mcg PO DAILY #0 tab Meclizine [Antivert] 25 mg PO TID PRN #20 tab PRN Reason: Vertigo Metoprolol Tartrate [Lopressor] 25 mg PO DAILY Cholecalciferol [Vitamin D3 (25 Mcg = 1000 Iu)] 25 mcg PO DAILY Discharge Medication List Docusate [Colace] 200 mg PO DAILY 10/13/14 [History] Gabapentin [Neurontin] 300 mg PO DAILY 10/13/14 [History] Levothyroxine Sodium [Synthroid] 125 mcg PO DAILY 10/13/14 [History] [place]-3 Fatty Acids/Fish Oil [Fish Oil 1,000 mg Softgel] 1 cap PO DAILY 01/29/15 [History] allopurinoL [Zyloprim] 300 mg PO DAILY 10/13/14 [History] gemfibroziL [Lopid] 600 mg PO DAILY 10/13/14 [History] Ibuprofen [Motrin] 800 mg PO DAILY 11/12/16 [History] Tamsulosin HCl [Flomax] 0.4 mg PO DAILY 11/12/16 [History] traMADol HCL [Ultram] 50 mg PO DAILY 11/12/16 [History] Aspirin 325 mg PO DAILY 05/04/17 [History] Metoprolol Tartrate [Lopressor] 25 mg PO DAILY 09/12/22 [History] Cholecalciferol [Vitamin D3 (25 Mcg = 1000 Iu)] 25 mcg PO DAILY 10/03/22 [History] Atorvastatin [Lipitor] 20 mg PO HS 30 Days #30 tab 10/05/22 [Rx] Cyanocobalamin [Vitamin B-12] 1,000 mcg PO DAILY #0 tab 10/05/22 [Rx] Folic Acid 1 mg PO DAILY tab 10/05/22 [Rx] Meclizine [Antivert] 25 mg PO TID PRN #20 tab 02/02/24 [Rx] Clopidogrel [Plavix] 75 mg PO DAILY 21 Days #21 tab 04/06/24 [Rx] Follow up Appointment(s)/Referral(s): Taiwo Rose MD [STAFF PHYSICIAN] - 1 Week Willa Arriaga MD [Primary Care Provider] - 1-2 days Discharge Disposition: HOME SELF-CARE
== END 2024-04-06 16:00 | disposition home or self-care (01) ==
LOC: EC 22:39 → 3SCARD 04-05 00:41
PROVIDERS: ADMIT Hospitalist; ATTEND Hospitalist
DX: I60.2 Nontraumatic subarachnoid hemorrhage from anterior communicating artery (principal); E78.5 Hyperlipidemia, unspecified; E03.9 Hypothyroidism, unspecified; I25.10 Atherosclerotic heart disease of native coronary artery without angina pectoris; I25.2 Old myocardial infarction; N42.9 Disorder of prostate, unspecified; I44.0 Atrioventricular block, first degree; N28.9 Disorder of kidney and ureter, unspecified; I10 Essential (primary) hypertension; Z95.1 Presence of aortocoronary bypass graft; Z80.6 Family history of leukemia; Z79.899 Other long term (current) drug therapy; Z79.82 Long term (current) use of aspirin; Z79.02 Long term (current) use of antithrombotics/antiplatelets; D75.89 Other specified diseases of blood and blood-forming organs; Z79.890 Hormone replacement therapy; Z86.73 Personal history of transient ischemic attack (TIA), and cerebral infarction without residual deficits
CPT/HCPCS: 96360; 96361; 99291; 36415; 93005; 93306; 97162; 97166; 80061; 80053 ×2; 82550; 84484; 85025 ×2; 85610; 85730; 81003; 83036; 71045; 70496; 70450; 70498; 70544; 70551; G0378 ×2; Q9967

== ENCOUNTER 2024-04-16 09:24 | Observation (INO) | payer MEDICARE ==
--- NOTE | 2024-04-16 10:00 | ED ---
General Adult HPI - General Chief complaint: Neuro Symptoms/Deficit Stated complaint: R arm/leg go numb Time Seen by Provider: 04/16/24 09:30 Source: patient, family, RN notes reviewed, old records reviewed Mode of arrival: ambulatory Limitations: no limitations - History of Present Illness Initial comments: This is a 73-year-old male who presents to the emergency department because he has been dizzy lately and has right-sided weakness. Patient states he was just here in the hospital a week ago and discharged home. Patient states he was told he had 2 aneurysms and he was to follow-up with a doctor in [place]. Patient states the symptoms have not gotten any worse but he still a little weaker in his right arm and right leg and the dizziness continues. Patient states he thought the dizziness was a little bit worse today so he came to the emergency department. Patient denies any headache patient denies any new numbness or new weakness. Patient denies any chest pain palpitation difficulty breathing shortness of breath. Patient is any recent fever chills or cough. Patient has any recent trauma - Related Data Home Medications Medication Instructions Recorded Confirmed Docusate [Colace] 200 mg PO DAILY 10/13/14 04/05/24 Gabapentin [Neurontin] 300 mg PO DAILY 10/13/14 04/05/24 Levothyroxine Sodium [Synthroid] 125 mcg PO DAILY 10/13/14 04/05/24 [place]-3 Fatty Acids/Fish Oil [Fish 1 cap PO DAILY 10/13/14 04/05/24 Oil 1,000 mg Softgel] allopurinoL [Zyloprim] 300 mg PO DAILY 10/13/14 04/05/24 gemfibroziL [Lopid] 600 mg PO DAILY 10/13/14 04/05/24 Ibuprofen [Motrin] 800 mg PO DAILY 11/12/16 04/05/24 Tamsulosin HCl [Flomax] 0.4 mg PO DAILY 11/12/16 04/05/24 traMADol HCL [Ultram] 50 mg PO DAILY 11/12/16 04/05/24 Aspirin 325 mg PO DAILY 05/04/17 04/05/24 Metoprolol Tartrate [Lopressor] 25 mg PO DAILY 09/12/22 04/05/24 Cholecalciferol [Vitamin D3 (25 25 mcg PO DAILY 10/03/22 04/05/24 Mcg = 1000 Iu)] Previous Rx's Medication Instructions Recorded Atorvastatin [Lipitor] 20 mg PO HS 30 Days #30 tab 10/05/22 Cyanocobalamin [Vitamin B-12] 1,000 mcg PO DAILY #0 tab 10/05/22 Folic Acid 1 mg PO DAILY tab 10/05/22 Meclizine [Antivert] 25 mg PO TID PRN #20 tab 02/02/24 Clopidogrel [Plavix] 75 mg PO DAILY 21 Days #21 tab 04/06/24 Allergies Allergy/AdvReac Type Severity Reaction Status Date / Time No Known Allergies Allergy Verified 04/16/24 10:52 Review of Systems ROS Statement: Those systems with pertinent positive or pertinent negative responses have been documented in the HPI. ROS Other: All systems not noted in ROS Statement are negative. Past Medical History Past Medical History: Coronary Artery Disease (CAD), CVA/TIA, Hyperlipidemia, Hypertension, Myocardial Infarction ([place]), Prostate Disorder, Thyroid Disorder Additional Past Medical History / Comment(s): back pain lft arm weaker than right post cva wears brief for incont of urine. Last Myocardial Infarction Date:: 2005 History of Any Multi-Drug Resistant Organisms: None Reported Past Surgical History: Bladder Surgery, Coronary Bypass/CABG Additional Past Surgical History / Comment(s): urolift with 4 bands 08/30, carpal tunnel Past Anesthesia/Blood Transfusion Reactions: No Reported Reaction Past Psychological History: No Psychological Hx Reported Smoking Status: Never smoker Past Alcohol Use History: None Reported Past Drug Use History: None Reported - Past Family History Mother Family Medical History: Cancer Additional Family Medical History / Comment(s): leukemia Father Family Medical History: Cancer Additional Family Medical History / Comment(s): lung General Exam - General Exam Comments Initial Comments: GENERAL: Patient is well-developed and well-nourished. Patient is nontoxic and well- hydrated and is in no acute distress. ENT: Neck is soft and supple. No significant lymphadenopathy is noted. Oropharynx is clear. Moist mucous membranes. Neck has full range of motion without eliciting any pain. EYES: The sclera were anicteric and conjunctiva were pink and moist. Extraocular movements were intact and pupils were equal round and reactive to light. Eyelids were unremarkable. PULMONARY: Unlabored respirations. Good breath sounds bilaterally. No audible rales rhonchi or wheezing was noted. CARDIOVASCULAR: There is a regular rate and rhythm without any murmurs gallops or rubs. ABDOMEN: Soft and nontender with normal bowel sounds. SKIN: Skin is clear with no lesions or rashes and otherwise unremarkable. NEUROLOGIC: Patient is alert and oriented x3. Cranial nerves II through XII are grossly intact. Patient has 3 out of 5 strength in the right hand and 3 out of 5 strength in the dorsi and plantarflexion. Normal speech, volume and content. Symmetrical smile. Cerebellar testing finger-nose was normal bilaterally MUSCULOSKELETAL: Normal extremities with adequate strength and full range of motion. No lower extremity swelling or edema. No calf tenderness. LYMPHATICS: No significant lymphadenopathy is noted PSYCHIATRIC: Normal psychiatric evaluation. Limitations: no limitations Course Vital Signs 04/16/24 04/16/24 04/16/24 09:28 09:43 10:45 Temperature 97.5 F L Pulse Rate 54 L 53 L 53 L Respiratory 16 20 18 Rate Blood Pressure 123/62 122/53 111/54 O2 Sat by Pulse 98 98 97 Oximetry Medical Decision Making - Medical Decision Making EKG was interpreted by myself but EKG shows a sinus bradycardia 54 bpm ME 219 QRS 98 QT of 410 QTc is 396. Patient's EKG shows no ST segment elevation or depression Was pt. sent in by a medical professional or institution (, [facility], [employer]AK[employer], urgent care, hospital, or [facility]...) When possible be specific @ -No Did you speak to anyone other than the patient for history (EMS, parent, family, police, friend...)? What history was obtained from this source @ -No Did you review nursing and triage notes (agree or disagree)? Why? @ -I reviewed and agree with nursing and triage notes Were old charts reviewed (outside hosp., previous admission, EMS record, old EKG, old radiological studies, urgent care reports/EKG's, [facility] records)? Report findings @ -I reviewed patient's prior admission and reviewed the MRI the MRA CTA and the CT scan. I compared to today's results CT today was unchanged Differential Diagnosis? @ -Differential CVA Ischemic stroke, hemorrhagic stroke, brain tumor, atypical migraine, Wernicke's encephalopathy, seizure, multiple sclerosis, meningitis, encephalitis, hypogly cemia, Guillain-Khoury, electrolytes disturbance, myasthenia gravis.... This is not meant to be an all-inclusive list EKG interpreted by me (3pts min.). @ -As above X-rays interpreted by me (1pt min.). @ -Chest x-ray shows no acute abnormality CT interpreted by me (1pt min.). @ -CT of the head shows no acute abnormality U/S interpreted by me (1pt. min.). @ -None done What testing was considered but not performed or refused? (CT, X-rays, U/S, labs)? Why? @ -None What meds were considered but not given or refused? Why? @ -None Did you discuss the management of the patient with other professionals (professionals i.e. DrRonda, PA, [employer]RU ORDER TAKER, lab, RT, psych nurse, medical social consultant, criminal research specialist, teacher, accounting officer, case management social worker)? Give summary @ -I spoke with Dr. Cantrell he agreed to admit the patient admit the patient wrote admitting orders Was smoking cessation discussed for >3mins.? @ -No Was critical care preformed (if so, how long)? @ -No Were there social determinants of health that impacted care today? How? (Homelessness, low income, unemployed, alcoholism, drug addiction, transportation, low edu. Level, literacy, decrease access to med. care, group home, rehab)? @ -No Was there de-escalation of care discussed even if they declined (Discuss DNR or withdrawal of care, Hospice)? DNR status @ -No What co-morbidities impacted this encounter? (DM, HTN, Smoking, COPD, CAD, Cancer, CVA, ARF, Chemo, Hep., AIDS, mental health diagnosis, sleep apnea, morbid obesity)? @ -None Was patient admitted / discharged? Hospital course, mention meds given and route, prescriptions, significant lab abnormalities, going to OR and other pertinent info. @ -Patient had no signs of stroke on the CAT scan but he does have right-sided weakness and dizziness. Patient will be admitted to Dr. Cantrell and neurology will be consulted Undiagnosed new problem with uncertain prognosis? @ -No Drug Therapy requiring intensive monitoring for toxicity (Heparin, Nitro, Insulin, Cardizem)? @ -No Were any procedures done? @ -No Diagnosis/symptom? @ -CVA Acute, or Chronic, or Acute on Chronic? @ -Acute Uncomplicated (without systemic symptoms) or Complicated (systemic symptoms)? @ -Complicated Side effects of treatment? @ -No Exacerbation, Progression, or Severe Exacerbation? @ -No Poses a threat to life or bodily function? How? (Chest pain, [place], [place], pneumonia, PE, COPD, DKA, ARF, appy, cholecystitis, CVA, Diverticulitis, Homicidal, Suicidal, threat to staff... and all critical care pts) @ -Yes this can lead to a further stroke - Lab Data Result diagrams: 04/16/24 09:57 04/16/24 09:57 Lab Results 04/16/24 04/16/24 04/16/24 Range/Units 09:57 09:57 09:57 WBC 7.7 (3.8-10.6) k/uL RBC 3.94 L (4.30-5.90) m/uL Hgb 13.7 (13.0-17.5) gm/dL Hct 41.4 (39.0-53.0) % MCV 105.1 H (80.0-100.0) fL MCH 34.8 (25.0-35.0) pg MCHC 33.2 (31.0-37.0) g/dL RDW 13.5 (11.5-15.5) % Plt Count 230 (150-450) k/uL MPV 7.9 Neutrophils % 57 % Lymphocytes % 23 % Monocytes % 11 % Eosinophils % 5 % Basophils % 1 % Neutrophils # 4.4 (1.3-7.7) k/uL Lymphocytes # 1.8 (1.0-4.8) k/uL Monocytes # 0.8 (0-1.0) k/uL Eosinophils # 0.4 (0-0.7) k/uL Basophils # 0.1 (0-0.2) k/uL Macrocytosis Slight PT 10.7 (10.0-12.5) sec INR 1.0 (<1.2) APTT 22.6 (22.0-30.0) sec Sodium 142 (137-145) mmol/L Potassium 4.5 (3.5-5.1) mmol/L Chloride 110 H (98-107) mmol/L Carbon Dioxide 26 (22-30) mmol/L Anion Gap 6 mmol/L BUN 19 (9-20) mg/dL Creatinine 1.42 H (0.66-1.25) mg/dL Est GFR (CKD-EPI)AfAm 56 (>60 ml/min/1.73 sqM) Est GFR (CKD-EPI)NonAf 48 (>60 ml/min/1.73 sqM) Glucose 90 (74-99) mg/dL Calcium 9.5 (8.4-10.2) mg/dL Total Bilirubin 0.6 (0.2-1.3) mg/dL AST 29 (17-59) U/L ALT 18 (4-49) U/L Alkaline Phosphatase 83 (38-126) U/L Creatine Kinase 109 (55-170) U/L Troponin I (0.000-0.034) ng/mL Total Protein 6.7 (6.3-8.2) g/dL Albumin 3.9 (3.5-5.0) g/dL 04/16/24 Range/Units 09:57 WBC (3.8-10.6) k/uL RBC (4.30-5.90) m/uL Hgb (13.0-17.5) gm/dL Hct (39.0-53.0) % MCV (80.0-100.0) fL MCH (25.0-35.0) pg MCHC (31.0-37.0) g/dL RDW (11.5-15.5) % Plt Count (150-450) k/uL MPV Neutrophils % % Lymphocytes % % Monocytes % % Eosinophils % % Basophils % % Neutrophils # (1.3-7.7) k/uL Lymphocytes # (1.0-4.8) k/uL Monocytes # (0-1.0) k/uL Eosinophils # (0-0.7) k/uL Basophils # (0-0.2) k/uL Macrocytosis PT (10.0-12.5) sec INR (<1.2) APTT (22.0-30.0) sec Sodium (137-145) mmol/L Potassium (3.5-5.1) mmol/L Chloride (98-107) mmol/L Carbon Dioxide (22-30) mmol/L Anion Gap mmol/L BUN (9-20) mg/dL Creatinine (0.66-1.25) mg/dL Est GFR (CKD-EPI)AfAm (>60 ml/min/1.73 sqM) Est GFR (CKD-EPI)NonAf (>60 ml/min/1.73 sqM) Glucose (74-99) mg/dL Calcium (8.4-10.2) mg/dL Total Bilirubin (0.2-1.3) mg/dL AST (17-59) U/L ALT (4-49) U/L Alkaline Phosphatase (38-126) U/L Creatine Kinase (55-170) U/L Troponin I <0.012 (0.000-0.034) ng/mL Total Protein (6.3-8.2) g/dL Albumin (3.5-5.0) g/dL Disposition Clinical Impression: Cerebrovascular accident (CVA) Disposition: ADMITTED IP TO THIS [facility] Referrals: Willa Arriaga MD [Primary Care Provider] - 1-2 days Time of Disposition: 11:00
[2024-04-16 10:11] LABS: Basophils # (A) 0.1 k/uL (0-0.2); Basophils % (A) 1 %; Eosinophils # (A) 0.4 k/uL (0-0.7); Eosinophils % (A) 5 %; HCT 41.4 % (39.0-53.0); HGB 13.7 gm/dL (13.0-17.5); Lymphocytes # (A) 1.8 k/uL (1.0-4.8); Lymphocytes % (A) 23 %; MCH 34.8 pg (25.0-35.0); MCHC 33.2 g/dL (31.0-37.0); MCV 105.1 fL (80.0-100.0); Macrocytosis Slight; Mean Platelet Volume 7.9; Monocytes # (A) 0.8 k/uL (0-1.0); Monocytes % (A) 11 %; Neutrophils # (A) 4.4 k/uL (1.3-7.7); Neutrophils % (A) 57 %; Platelet Count 230 k/uL (150-450); RBC 3.94 m/uL (4.30-5.90); RDW 13.5 % (11.5-15.5); WBC 7.7 k/uL (3.8-10.6)
--- NOTE | 2024-04-16 10:25 | XR ---
EXAMINATION TYPE: XR chest 2V DATE OF EXAM: 04/16/2024 COMPARISON: 04/04/2024 HISTORY: Shortness of breath TECHNIQUE: Frontal and lateral views of the chest are obtained. FINDINGS: Scattered senescent parenchymal changes noted. Hyperinflation compatible with COPD. No evidence for infiltrate. No evidence for atelectasis. Heart size is stable. Mediastinal structures are stable and grossly unremarkable. No evidence for hilar prominence. Degenerative changes dorsal spine. IMPRESSION: 1. No evidence for acute pulmonary disease.
[2024-04-16 10:27] LABS: Partial Thromboplastin Time 22.6 sec (22.0-30.0); Prothrombin Time 10.7 sec (10.0-12.5)
[2024-04-16 10:39] LABS: ALT 18 U/L (4-49); AST 29 U/L (17-59); African American GFR (CKD) 56 (>60 ml/min/1.73 sqM); Albumin 3.9 g/dL (3.5-5.0); Alkaline Phosphatase 83 U/L (38-126); Anion Gap 6 mmol/L; Blood Urea Nitrogen 19 mg/dL (9-20); Calcium 9.5 mg/dL (8.4-10.2); Carbon Dioxide 26 mmol/L (22-30); Chloride 110 mmol/L (98-107); Creatine Kinase 109 U/L (55-170); Glucose 90 mg/dL (74-99); Non-African American GFR(CKD) 48 (>60 ml/min/1.73 sqM); Potassium 4.5 mmol/L (3.5-5.1); Sodium 142 mmol/L (137-145); Total Bilirubin 0.6 mg/dL (0.2-1.3); Total Protein 6.7 g/dL (6.3-8.2)
--- NOTE | 2024-04-16 10:52 | CT ---
EXAMINATION TYPE: CT brain wo con DATE OF EXAM: 04/16/2024 COMPARISON: 02/02/2024 HISTORY: weakness, difficulty with speech. pt here last week with same symptoms. CT DLP: 1197.4 mGycm Automated exposure control for dose reduction was used. Findings: The ventricles, basal cisterns and sulci over the convexities are within normal limits for the patien t's age and there is no mass effect or shift of midline structures. There is no acute intra or extra-axial hemorrhage. There is moderate decreased density in the periventricular white matter consistent with chronic ische lynne white matter demyelination. The posterior fossa including the brainstem, fourth ventricle and cerebellar pontine angles appear no rmal. Intraorbital contents appear normal and symmetric. Visualized paranasal sinuses and mastoid air cells are well aerated. The calvarium is intact. IMPRESSION: No significant abnormality seen. There is no acute bleed or mass effect.
--- NOTE | 2024-04-16 16:20 | P.CNNES ---
History of Present Illness Consult date: 04/16/24 Requesting physician: Kem Diaz Reason for Consult: cva History of Present Illness: This is a 73-year-old gentleman present emergency department because of continued numbness of the right side of the body including the face and unsteady gait. Patient's family members (son and [id number]) are at bedside who p rovides some of the history. Family members patient was recently here in our facility on the third week of March for numbness right side of the face and involving the right upper and lower extremity as well as unsteady gait and it seems patient has stroke workup and he had MRI of the brain which was negative for any acute or subacute process. Per his family members they feel his unsteady gait is worse the patient feels is about the same. He continues to have numbness over the right side. He continues to be on aspirin and Plavix as notified by his recent hospital visit. He denies of any neck pain or lower back pain. Denies of any new neurological issues. Denies any visual disturbance. His unsteady gait he can lean to the right or left per the [id number]. Patient to walks without any assistance. 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 Patient was evaluated by Dr. Daley at that time and please refer to his note for further details. Some of the work-up during this hospital visit consisted of: Level is 109 Sodium calcium AST ALT are within normal limits Creatinine is 1.42 I reviewed the lab workup CT of the head is reported as no significant abnormality seen. There is no acute bleed or mass effect. I personally reviewed the CT and agree with the report. Review of Systems The positive and negative as per HPI. Past Medical History Past Medical History: Coronary Artery Disease (CAD), CVA/TIA, Hyperlipidemia, Hypertension, Myocardial Infarction ([place]), Prostate Disorder, Thyroid Disorder Additional Past Medical History / Comment(s): back pain lft arm weaker than right post cva wears brief for incont of urine. Last Myocardial Infarction Date:: 2005 History of Any Multi-Drug Resistant Organisms: None Reported Past Surgical History: Bladder Surgery, Coronary Bypass/CABG Additional Past Surgical History / Comment(s): urolift with 4 bands 08/30, carpal tunnel Past Anesthesia/Blood Transfusion Reactions: No Reported Reaction Past Psychological History: No Psychological Hx Reported Smoking Status: Never smoker Past Alcohol Use History: None Reported Past Drug Use History: None Reported - Past Family History Mother Family Medical History: Cancer Additional Family Medical History / Comment(s): leukemia Father Family Medical History: Cancer Additional Family Medical History / Comment(s): lung Medications and Allergies Home Medications Medication Instructions Recorded Confirmed Type Docusate [Colace] 200 mg PO DAILY 10/13/14 04/16/24 History Gabapentin [Neurontin] 300 mg PO DAILY 10/13/14 04/16/24 History Levothyroxine Sodium [Synthroid] 125 mcg PO DAILY 10/13/14 04/16/24 History [place]-3 Fatty Acids/Fish Oil [Fish 1 cap PO DAILY 10/13/14 04/16/24 History Oil 1,000 mg Softgel] allopurinoL [Zyloprim] 300 mg PO DAILY 10/13/14 04/16/24 History gemfibroziL [Lopid] 600 mg PO DAILY 10/13/14 04/16/24 History Ibuprofen [Motrin] 800 mg PO DAILY 11/12/16 04/16/24 History Tamsulosin HCl [Flomax] 0.4 mg PO DAILY 11/12/16 04/16/24 History traMADol HCL [Ultram] 50 mg PO DAILY 11/12/16 04/16/24 History Aspirin 325 mg PO DAILY 05/04/17 04/16/24 History Metoprolol Tartrate [Lopressor] 25 mg PO DAILY 09/12/22 04/16/24 History Cholecalciferol [Vitamin D3 (25 25 mcg PO DAILY 10/03/22 04/16/24 History Mcg = 1000 Iu)] Atorvastatin [Lipitor] 20 mg PO HS 30 Days #30 tab 10/05/22 04/16/24 Rx Cyanocobalamin [Vitamin B-12] 1,000 mcg PO DAILY #0 tab 10/05/22 04/16/24 Rx Folic Acid 1 mg PO DAILY tab 10/05/22 04/16/24 Rx Meclizine [Antivert] 25 mg PO TID PRN #20 tab 02/02/24 04/16/24 Rx Clopidogrel [Plavix] 75 mg PO DAILY 21 Days #21 tab 04/06/24 04/16/24 Rx Allergies Allergy/AdvReac Type Severity Reaction Status Date / Time No Known Allergies Allergy Verified 04/16/24 10:59 Physical Examination - Vital Signs Vital Signs: Vital Signs Temp Pulse Resp BP Pulse Ox 04/16/24 14:42 53 L 18 119/51 100 04/16/24 13:21 49 L 18 123/56 97 04/16/24 11:55 46 L 18 103/48 98 04/16/24 10:45 53 L 18 111/54 97 04/16/24 09:43 53 L 20 122/53 98 04/16/24 09:28 97.5 F L 54 L 16 123/62 98 Intake and Output 04/16/24 04/16/24 04/16/24 06:59 14:59 22:59 Other: Weight 97.522 kg GENERAL: The patient is lying in bed and is not in acute distress. NEUROLOGICAL: Higher mental function: The patient is awake, alert, oriented to self, place and time. Patient is following commands. No aphasia and no neglect. Cranial nerves: The pupils are round, equal and reactive to light and accommodation. Visual harp are full to confrontation throughout. Extraocular movement is intact no nystagmus is noted. Facial sensation is normal to touch throughout. The facial strength is normal throughout. Hearing is mildly decreased bilaterally to hand rub. Tongue is midline and moved [id number] without any difficulty. No dysarthria is noted. Shoulder shrug is normal bilaterally. Motor: Gait had episode where he leaned to right slightly otherwise was taking somewhat small steps. The strength is 5 over 5 throughout. Normal tone and bulk. Cerebellum: Normal finger to nose bilaterally. Sensation: Sensation is normal to touch throughout. Reflexes (right/left): Uppers are 2+. Left patellar is 0-1+. Ankles are 1+. Otherwise 2+. Results - Laboratory Findings CBC and BMP: 04/16/24 09:57 04/16/24 09:57 Abnormal Lab Findings: Abnormal Labs 04/16/24 04/16/24 09:57 09:57 RBC 3.94 L MCV 105.1 H Chloride 110 H Creatinine 1.42 H Assessment and Plan Assessment: This is a 73-year-old gentleman who presents because he continues to have numbness over the right side of the body including the right side of the face with unsteady gait and family members feel his gait is worse. He was in our facility on the third week of March 2024 and had stroke workup and was felt the patient had possible TIA. MRI of the brain at that time was negative for any acute or subacute stroke. He had incidental possible 3 mm ACOM aneurysm. Right sided numbness involving the face and right upper and lower as well as unsteady gait: Rule out stroke not seen on initial MRI Brain History of TIA Possible 3 mm ACOM aneurysm on the prior images Mild renal insufficiency History of coronary artery disease with history of bypass surgery Hypertension Hyperlipidemia Macrocytosis on B12 folate replacement Hypothyroidism Plan: I ordered MRI of the brain as well as cervical spine with and without I resumed home aspirin 325 mg and Plavix 75mg daily. I also resumed his Lipitor 20 mg daily Had recent CT angiography of the head and neck as well as MRA of the head so therefore he does not need repeat recommend the patient to follow-up with intervention neurologist regarding his aneurysm as an outpatient Continue neurochecks Cardiac monitoring PT OT and [employer] HELPER are consulted Will defer the rest of the medical management the primary team and other specialists DVT prophylaxis I started the patient on subcu heparin 5000 units every 12 hours. Plan discussed with the patient and his family members who is at bedside Thank you for the consultation. Time with Patient: Greater than 30
[2024-04-16] MEDS: ATORVASTATIN 20 MG TAB PO SCH (20:23)
[2024-04-16] MEDS: HEPARIN SODIUM,PORCINE 5,000 UNIT/ML 1 ML VIAL SQ SCH (20:23)
--- NOTE | 2024-04-17 00:39 | P.HPIM ---
History of Present Illness H&P Date: 04/16/24 Chief Complaint: Right-sided weakness Patient is a 73-year-old male with a past medical history of coronary artery status post CABG, hypertension, hyperlipidemia, history of [place], hypothyroidism, history of bladder surgery and recent admission with right upper and lower extremity and right side facial numbness and slurred speech. Patient was discharged from the hospital on 04/06/2024. Had workup done including CT head, MRA and MRI of the brain showed no acute infarct. MRI of the brain showed suspicious for 3 mm aneurysm anterior communicating artery and also 1 to 2 mm right cavernous segment ICA tiny aneurysm. Patient states that since discharge he is still having right-sided weakness and unable to ambulate by himself at home and also feeling dizziness. His symptoms are not improving which made him to come back to ER. Otherwise denies any headache. No nausea vomiting or diarrhea. No cough or sputum production. Denies any difficulty swallowing. CT head showed no significant abnormality. There is no acute bleed or mass effect. EKG showed sinus bradycardia with first-degree AV block. Chest x-ray showed no acute process. Laboratory data showed WBC 7.7 hemoglobin 13.7 and platelets 230 MCV 105.1 sodium 142 potassium 4.5 chloride 110 bicarb is 26 BUN 19 and creatinine 1.42. Liver enzymes are not elevated. Troponin x 1 negative Review of Systems Constitutional: Patient denies any fever or chills . No generalized weakness or weight loss. Abdomen: Patient denied nausea vomiting and diarrhea and abdominal pain. Cardiovascular: Patient denies any chest pain or short of breath no palpitations. Respiratory: patient denied any cough or sputum production. No shortness of breath Neurologic: Patient denied any numbness or tingling. no headache. Right-sided weakness and facial numbness occasional slurred speech Musculoskeletal: Patient denies any complaints of joint swelling or deformity. Skin: Negative Psychiatric: Negative Endocrine: No heat or cold intolerance. No recent weight gain. Genitourinary: No dysuria or hematuria. All other 14 point ROS negative except the above Past Medical History Past Medical History: Coronary Artery Disease (CAD), CVA/TIA, Hyperlipidemia, Hypertension, Myocardial Infarction (MD), Prostate Disorder, Thyroid Disorder Additional Past Medical History / Comment(s): back pain lft arm weaker than right post cva wears brief for incont of urine. Last Myocardial Infarction Date:: 2005 History of Any Multi-Drug Resistant Organisms: None Reported Past Surgical History: Bladder Surgery, Coronary Bypass/CABG Additional Past Surgical History / Comment(s): urolift with 4 bands 08/30, carpal tunnel Past Anesthesia/Blood Transfusion Reactions: No Reported Reaction Past Psychological History: No Psychological Hx Reported Smoking Status: Never smoker Past Alcohol Use History: None Reported Past Drug Use History: None Reported - Past Family History Mother Family Medical History: Cancer Additional Family Medical History / Comment(s): leukemia Father Family Medical History: Cancer Additional Family Medical History / Comment(s): lung Medications and Allergies Home Medications Medication Instructions Recorded Confirmed Type Docusate [Colace] 200 mg PO DAILY 10/13/14 04/16/24 History Gabapentin [Neurontin] 300 mg PO DAILY 10/13/14 04/16/24 History Levothyroxine Sodium [Synthroid] 125 mcg PO DAILY 10/13/14 04/16/24 History [place]-3 Fatty Acids/Fish Oil [Fish 1 cap PO DAILY 10/13/14 04/16/24 History Oil 1,000 mg Softgel] allopurinoL [Zyloprim] 300 mg PO DAILY 10/13/14 04/16/24 History gemfibroziL [Lopid] 600 mg PO DAILY 10/13/14 04/16/24 History Ibuprofen [Motrin] 800 mg PO DAILY 11/12/16 04/16/24 History Tamsulosin HCl [Flomax] 0.4 mg PO DAILY 11/12/16 04/16/24 History traMADol HCL [Ultram] 50 mg PO DAILY 11/12/16 04/16/24 History Aspirin 325 mg PO DAILY 05/04/17 04/16/24 History Metoprolol Tartrate [Lopressor] 25 mg PO DAILY 09/12/22 04/16/24 History Cholecalciferol [Vitamin D3 (25 25 mcg PO DAILY 10/03/22 04/16/24 History Mcg = 1000 Iu)] Atorvastatin [Lipitor] 20 mg PO HS 30 Days #30 tab 10/05/22 04/16/24 Rx Cyanocobalamin [Vitamin B-12] 1,000 mcg PO DAILY #0 tab 10/05/22 04/16/24 Rx Folic Acid 1 mg PO DAILY tab 10/05/22 04/16/24 Rx Meclizine [Antivert] 25 mg PO TID PRN #20 tab 02/02/24 04/16/24 Rx Clopidogrel [Plavix] 75 mg PO DAILY 21 Days #21 tab 04/06/24 04/16/24 Rx Allergies Allergy/AdvReac Type Severity Reaction Status Date / Time No Known Allergies Allergy Verified 04/16/24 10:59 Physical Exam Vitals: Vital Signs Temp Pulse Resp BP Pulse Ox 04/16/24 20:00 50 L 12 100/57 95 04/16/24 18:19 98.7 F 54 L 20 122/54 96 04/16/24 17:00 60 18 117/54 99 04/16/24 14:42 53 L 18 119/51 100 04/16/24 13:21 49 L 18 123/56 97 04/16/24 11:55 46 L 18 103/48 98 04/16/24 10:45 53 L 18 111/54 97 04/16/24 09:43 53 L 20 122/53 98 04/16/24 09:28 97.5 F L 54 L 16 123/62 98 Intake and Output 04/16/24 04/16/24 04/16/24 06:59 14:59 22:59 Other: Weight 97.522 kg PHYSICAL EXAMINATION: Patient is lying in the bed comfortably, no acute distress, awake alert and oriented.. HEENT: Normocephalic. Neck is supple. Pupils reactive. Nostrils clear. Oral cavity is moist. Neck reveals no JVD, carotid bruits, or thyromegaly. CHEST EXAMINATION: Trachea is central. Symmetrical expansion. Lung harp clear to auscultation and percussion. CARDIAC: Normal S1, S2 with no gallops. No murmurs ABDOMEN: Soft. Bowel sounds normal. No organomegaly. No abdominal bruits. Extremities: reveal no edema. No clubbing or cyanosis Neurologically awake, alert, oriented x3 patient does have right upper and lower extremity weakness with muscle strength 4 out of 5. Skin: No rash or skin lesions. Psychiatric: Coperative. Nonsuicidal Musculoskeletal: No joint swelling or deformity. Results CBC & Chem 7: 04/16/24 09:57 04/16/24 09:57 Labs: Abnormal Lab Results - Last 24 Hours (Table) 04/16/24 04/16/24 Range/Units 09:57 09:57 RBC 3.94 L (4.30-5.90) m/uL MCV 105.1 H (80.0-100.0) fL Chloride 110 H (98-107) mmol/L Creatinine 1.42 H (0.66-1.25) mg/dL Thrombosis Risk Factor Assmnt - DVT/VTE Prophylaxis DVT/VTE Prophylaxis: Pharmacologic Prophylaxis ordered Assessment and Plan Assessment: Right upper and lower extremity weakness with facial numbness and occasional slurred speech. Rule out acute CVA. Recent admission with similar complaints on 04/05/2023 and MRI of the brain showed no acute infarct. 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 Acute kidney injury likely prerenal with creatinine level 1.42. Baseline 0.9 History of C5-C6 severe spinal stenosis Coronary artery disease with history of CABG Hypertension Hyperlipidemia Hypothyroidism Macrocytosis on B12 and folate supplementation DVT prophylaxis with heparin subcu Plan: Patient will be continued on telemonitoring. Continue with neurochecks. Continue with aspirin Plavix and statins. Patient recently had workup including CT head, CTA head and neck, MRA/MRI of the brain. 2D echocardiogram showed normal EF. Repeat MRI brain was ordered as well as cervical spine. Neurology is on board. PT OT and FISCAL ACCOUNTANT evaluation. Continue to follow closely. Patient may need rehab transfer. Time with Patient: Greater than 30
[2024-04-17] MEDS: SODIUM CHLORIDE 0.9% 1,000 ML IV SCH (00:40)
[2024-04-17] MEDS: LEVOTHYROXINE 125 MCG TAB PO SCH (06:53)
[2024-04-17] MEDS: TAMSULOSIN 0.4 MG CAP.ER.24H PO SCH (08:28)
[2024-04-17] MEDS: allopurinoL 300 MG TAB PO SCH (08:28)
[2024-04-17] MEDS: FOLIC ACID 1 MG TAB PO SCH (08:28)
[2024-04-17] MEDS: traMADol 50 MG TAB PO SCH (08:28)
[2024-04-17] MEDS: ASPIRIN 325 MG TAB PO SCH (08:29)
[2024-04-17] MEDS: CYANOCOBALAMIN 500 MCG TAB PO SCH (08:29)
[2024-04-17] MEDS: CLOPIDOGREL 75 MG TAB PO SCH (08:29)
[2024-04-17 12:39] LABS: African American GFR (CKD) 76 (>60 ml/min/1.73 sqM); Anion Gap 9 mmol/L; Blood Urea Nitrogen 15 mg/dL (9-20); Calcium 9.3 mg/dL (8.4-10.2); Carbon Dioxide 22 mmol/L (22-30); Chloride 113 mmol/L (98-107); Glucose 141 mg/dL (74-99); Non-African American GFR(CKD) 65 (>60 ml/min/1.73 sqM); Potassium 3.9 mmol/L (3.5-5.1); Sodium 144 mmol/L (137-145)
--- NOTE | 2024-04-17 14:42 | P.PN ---
Subjective Progress Note Date: 04/17/24 I am following-up with patient and he feels about the same. Denies any new neurological issues. Objective - Vital Signs Vital signs: Vital Signs Temp 98.7 F 04/16/24 18:19 Pulse 72 04/17/24 13:00 Resp 17 04/17/24 13:00 BP 113/73 04/17/24 13:00 Pulse Ox 97 04/17/24 13:00 FiO2 Intake & Output 04/16/24 04/17/24 04/17/24 18:59 06:59 18:59 Weight 97.522 kg - Exam GENERAL: The patient is sitting in a recliner chair and is not in acute distress. NEUROLOGICAL: Higher mental function: The patient is awake, alert, oriented to self, place and time. Patient is following commands. No aphasia and no neglect. Cranial nerves: The pupils are round, equal and reactive to light and accommodation. Visual harp are full to confrontation throughout. Extraocular movement is intact no nystagmus is noted. Facial sensation is decrease over the right V2 and V3 distribution to touch. The facial strength is normal throughout. Hearing is mildly decreased bilaterally to hand rub. Tongue is midline and moved [id number] without any difficulty. No dysarthria is noted. Shoulder shrug is normal bilaterally. Motor: The strength is 5 over 5 throughout. Normal tone and bulk. Cerebellum: Normal finger to nose bilaterally. Sensation: Sensation is normal to touch throughout. Reflexes (right/left): Uppers are 2+. Left patellar is 0-1+. Ankles are 1+. Otherwise 2+. Some of the work-up during this hospital visit consisted of: Level is 109 Sodium calcium AST ALT are within normal limits Creatinine is 1.42 I reviewed the lab workup CT of the head is reported as no significant abnormality seen. There is no acute bleed or mass effect. I personally reviewed the CT and agree with the report. - Labs CBC & Chem 7: 04/16/24 09:57 04/17/24 11:56 Labs: Abnormal Lab Results - Last 24 Hours (Table) 04/17/24 Range/Units 11:56 Chloride 113 H (98-107) mmol/L Glucose 141 H (74-99) mg/dL Assessment and Plan Assessment: This is a 73-year-old gentleman who presents because he continues to have numbness over the right side of the body including the right side of the face with unsteady gait and family members feel his gait is worse. He was in our facility on the third week of March 2024 and had stroke workup and was felt the patient had possible TIA. MRI of the brain at that time was negative for any acute or subacute stroke. He had incidental possible 3 mm ACOM aneurysm. Right sided numbness involving the face and right upper and lower as well as unsteady gait: Rule out stroke not seen on initial MRI Brain. On examination has decrease on right V2/V3 distribution to touch. History of TIA Possible 3 mm ACOM aneurysm on the prior images Mild renal insufficiency History of coronary artery disease with history of bypass surgery Hypertension Hyperlipidemia Macrocytosis on B12 folate replacement Hypothyroidism Plan: pending MRI of the brain as well as cervical spine with and without I resumed home aspirin 325 mg and Plavix 75mg daily that was recommend on recent admission. I also resumed his Lipitor 20 mg daily Had recent CT angiography of the head and neck as well as MRA of the head so therefore he does not need repeat recommend the patient to follow-up with intervention neurologist regarding his aneurysm as an outpatient Continue neurochecks Cardiac monitoring PT OT and WATER MAIN PIPE LAYER are consulted Will defer the rest of the medical management the primary team and other specialists DVT prophylaxis On subcu heparin 5000 units every 12 hours. Time with Patient: Less than 30
[2024-04-17 16:52] LABS: Glucose,Whole Blood 94 mg/dL (70-110)
--- NOTE | 2024-04-17 17:39 | P.PN ---
Subjective Progress Note Date: 04/17/24 Interval History: Patient is a 73-year-old male with a past medical history of coronary artery status post CABG, hypertension, hyperlipidemia, history of [place], hypothyroidism, history of bladder surgery and recent admission with right upper and lower extremity and right side facial numbness and slurred speech. Patient was discharged from the hospital on 04/06/2024. Had workup done including CT head, MRA and MRI of the brain showed no acute infarct. MRI of the brain showed suspicious for 3 mm aneurysm anterior communicating artery and also 1 to 2 mm right cavernous segment ICA tiny aneurysm. Patient states that since discharge he is still having right-sided weakness and unable to ambulate by himself at home and also feeling dizziness. His symptoms are not improving which made him to come back to ER. Otherwise denies any headache. No nausea vomiting or diarrhea. No cough or sputum production. Denies any difficulty swallowing. CT head showed no significant abnormality. There is no acute bleed or mass effect. EKG showed sinus bradycardia with first-degree AV block. Chest x-ray showed no acute process. Laboratory data showed WBC 7.7 hemoglobin 13.7 and platelets 230 MCV 105.1 sodium 142 potassium 4.5 chloride 110 bicarb is 26 BUN 19 and creatinine 1.42. Liver enzymes are not elevated. Troponin x 1 negative 04/17/2024 patient was seen and examined today. Patient continues to complain of right-sided Mild weakness which is improving. Neurology following. MRI head and MRI cervical spine pending. Assessment and plan: Right upper and lower extremity weakness with facial numbness and occasional slurred speech. Rule out acute CVA. Recent admission with similar complaints on 04/05/2023 and MRI of the brain showed no acute infarct. 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 Acute kidney injury likely prerenal with creatinine level 1.42. Baseline 0.9 History of C5-C6 severe spinal stenosis Coronary artery disease with history of CABG Hypertension Hyperlipidemia Hypothyroidism Macrocytosis on B12 and folate supplementation Plan: Patient will be continued on telemonitoring. Continue with neurochecks. Continue with aspirin Plavix and statins. Blood Pressure control Patient recently had workup including CT head, CTA head and neck, MRA/MRI of the brain. 2D echocardiogram showed normal EF. Repeat MRI brain was ordered as well as cervical spine. Neurology is on board. PT OT and INDUSTRIAL EDUCATION TEACHER evaluation. Continue to follow closely. Patient may need rehab transfer. Repeat MRI brain and cervical spine pending. DVT prophylaxis: Subcutaneous heparin PHYSICAL EXAMINATION: GENERAL: The patient is A&O x3, NAD HEENT: EOMI, Sclerae anicteric, Moist Mucous membranes Neck: Supple, Non tender, No JVD CARDIOVASCULAR: S1, S2 present. No murmurs, rubs, or gallops. PULMONARY: Equal breath souds B/L, No wheezing, No crackles. ABDOMEN: Soft, nontender, nondistended, normoactive bowel sounds. No guarding or rebound tenderness. MUSCULOSKELETAL: No edema, No cyanosis. No clubbing. Normal ROM. Intact peripheral pulses. Skin; Warm. No rash. REVIEW OF SYSTEMS: CONSTITUTIONAL: No fever or chills. CARDIOVASCULAR: No chest pain, palpitations or syncope. PULMONARY: No shortness of breath, no cough, sore throat. GASTROINTESTINAL: No nausea, vomiting, diarrhea, abdominal pain. : No Dysuria, urgency, frequency. Extremities: No edema. NEUROLOGICAL: No headaches, no weakness, or numbness Dictation was produced using [employer] dictation software. please excuse any grammatical, word or spelling errors. Objective - Vital Signs Vital signs: Vital Signs Temp 98.7 F 04/16/24 18:19 Pulse 89 04/17/24 14:01 Resp 17 04/17/24 14:01 BP 131/61 04/17/24 14:01 Pulse Ox 96 04/17/24 14:01 FiO2 Intake & Output 04/16/24 04/17/24 04/17/24 18:59 06:59 18:59 Weight 97.522 kg - Labs CBC & Chem 7: 04/16/24 09:57 04/17/24 11:56 Labs: Abnormal Lab Results - Last 24 Hours (Table) 04/17/24 Range/Units 11:56 Chloride 113 H (98-107) mmol/L Glucose 141 H (74-99) mg/dL
[2024-04-17] MEDS: ATORVASTATIN 40 MG TAB PO SCH (20:39)
[2024-04-18 07:26] LABS: Chol/HDL Ratio 3.97 Ratio
[2024-04-18 07:45] LABS: LDL Cholesterol,Calculated 62.6 mg/dL (0.0-131.0)
--- NOTE | 2024-04-18 15:21 | P.PN ---
Subjective Progress Note Date: 04/18/24 Interval History: Patient is a 73-year-old male with a past medical history of coronary artery status post CABG, hypertension, hyperlipidemia, history of [place], hypothyroidism, history of bladder surgery and recent admission with right upper and lower extremity and right side facial numbness and slurred speech. Patient was discharged from the hospital on 04/06/2024. Had workup done including CT head, MRA and MRI of the brain showed no acute infarct. MRI of the brain showed suspicious for 3 mm aneurysm anterior communicating artery and also 1 to 2 mm right cavernous segment ICA tiny aneurysm. Patient states that since discharge he is still having right-sided weakness and unable to ambulate by himself at home and also feeling dizziness. His symptoms are not improving which made him to come back to ER. Otherwise denies any headache. No nausea vomiting or diarrhea. No cough or sputum production. Denies any difficulty swallowing. CT head showed no significant abnormality. There is no acute bleed or mass effect. EKG showed sinus bradycardia with first-degree AV block. Chest x-ray showed no acute process. Laboratory data showed WBC 7.7 hemoglobin 13.7 and platelets 230 MCV 105.1 sodium 142 potassium 4.5 chloride 110 bicarb is 26 BUN 19 and creatinine 1.42. Liver enzymes are not elevated. Troponin x 1 negative 04/17/2024 patient was seen and examined today. Patient continues to complain of right-sided Mild weakness which is improving. Neurology following. MRI head and MRI cervical spine pending. 04/18/24-patient was seen and examined today. No issues overnight. Continue complain of mild right-sided weakness.-MRI head and MRI cervical spine pending. Assessment and plan: Right upper and lower extremity weakness with facial numbness and occasional slurred speech. Rule out acute CVA. Recent admission with similar complaints on 04/05/2023 and MRI of the brain showed no acute infarct. 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 Acute kidney injury likely prerenal with creatinine level 1.42. Baseline 0.9 History of C5-C6 severe spinal stenosis Coronary artery disease with history of CABG Hypertension Hyperlipidemia Hypothyroidism Macrocytosis on B12 and folate supplementation Plan: Patient will be continued on telemonitoring. Continue with neurochecks. Continue with aspirin Plavix and statins. Blood Pressure control Patient recently had workup including CT head, CTA head and neck, MRA/MRI of the brain. 2D echocardiogram showed normal EF. Repeat MRI brain was ordered as well as cervical spine. Neurology is on board. PT OT and MILLING MACHINE TENDER evaluation. Continue to follow closely. Patient may need rehab transfer. Repeat MRI brain and cervical spine pending. Outpatient follow-up with neurointervention for DANII aneurysm. DVT prophylaxis: Subcutaneous heparin PHYSICAL EXAMINATION: GENERAL: The patient is A&O x3, NAD HEENT: EOMI, Sclerae anicteric, Moist Mucous membranes Neck: Supple, Non tender, No JVD CARDIOVASCULAR: S1, S2 present. No murmurs, rubs, or gallops. PULMONARY: Equal breath souds B/L, No wheezing, No crackles. ABDOMEN: Soft, nontender, nondistended, normoactive bowel sounds. No guarding or rebound tenderness. MUSCULOSKELETAL: No edema, No cyanosis. No clubbing. Normal ROM. Intact peripheral pulses. Skin; Warm. No rash. REVIEW OF SYSTEMS: CONSTITUTIONAL: No fever or chills. CARDIOVASCULAR: No chest pain, palpitations or syncope. PULMONARY: No shortness of breath, no cough, sore throat. GASTROINTESTINAL: No nausea, vomiting, diarrhea, abdominal pain. : No Dysuria, urgency, frequency. Extremities: No edema. NEUROLOGICAL: No headaches, no weakness, or numbness Dictation was produced using [employer] dictation software. please excuse any grammatical, word or spelling errors. Objective - Vital Signs Vital signs: Vital Signs Temp 98.3 F 04/18/24 12:00 Pulse 65 04/18/24 12:00 Resp 16 04/18/24 12:00 BP 110/67 04/18/24 12:00 Pulse Ox 98 04/18/24 12:00 FiO2 Intake & Output 04/17/24 04/18/24 04/18/24 18:59 06:59 18:59 Intake Total 1050 Output Total 400 Balance 650 Weight 115.666 kg 102.27 kg Intake: Intake, IV Titration 450 Amount Sodium Chloride 0.9% 1, 450 000 ml @ 75 mls/hr IV . [id number] LARRY Rx#:[id number] Oral 600 Output: Urine 400 Other: Voiding Method Toilet Toilet Toilet Incontinent Incontinent Incontinent # Voids 4 # Bowel Movements 1 - Labs CBC & Chem 7: 04/16/24 09:57 08/03/24 11:56 Labs: Abnormal Lab Results - Last 24 Hours (Table) 04/17/24 Range/Units 11:56 HDL Cholesterol 29.20 L (40.00-60.00) mg/dL
[2024-04-19 06:08] VITALS: BP 103/41; PULSE 77; RESP 16; TEMP 98
[2024-04-19] MEDS ORDERED: HEPARIN SODIUM,PORCINE 5,000 UNIT/ML 1 ML VIAL ONE ×2 (08:13→20:11)
[2024-04-19] MEDS ORDERED: traMADol 50 MG TAB ONE (08:13)
[2024-04-19] MEDS ORDERED: ASPIRIN 325 MG TAB ONE (08:13)
[2024-04-19] MEDS ORDERED: TAMSULOSIN 0.4 MG CAP.ER.24H PO ONE (08:13)
[2024-04-19] MEDS ORDERED: CLOPIDOGREL 75 MG TAB ONE (08:13)
[2024-04-19] MEDS ORDERED: FOLIC ACID 1 MG TAB ONE (08:14)
[2024-04-19] MEDS ORDERED: CYANOCOBALAMIN 500 MCG TAB ONE (08:14)
[2024-04-19] MEDS ORDERED: allopurinoL 300 MG TAB PO ONE (09:00)
[2024-04-19] MEDS ORDERED: ATORVASTATIN 40 MG TAB ONE (20:11)
[2024-04-20] MEDS ORDERED: IBUPROFEN 400 MG TAB ONE ×2 (05:21)
[2024-04-20] MEDS ORDERED: ASPIRIN 325 MG TAB ONE (08:04)
[2024-04-20] MEDS ORDERED: HEPARIN SODIUM,PORCINE 5,000 UNIT/ML 1 ML VIAL ONE ×2 (08:04→20:14)
[2024-04-20] MEDS ORDERED: TAMSULOSIN 0.4 MG CAP.ER.24H PO ONE (08:05)
[2024-04-20] MEDS ORDERED: CLOPIDOGREL 75 MG TAB ONE (08:05)
[2024-04-20] MEDS ORDERED: CYANOCOBALAMIN 500 MCG TAB ONE (08:05)
[2024-04-20] MEDS ORDERED: traMADol 50 MG TAB ONE (08:05)
[2024-04-20] MEDS ORDERED: FOLIC ACID 1 MG TAB ONE (08:06)
[2024-04-20] MEDS ORDERED: allopurinoL 300 MG TAB PO ONE (08:18)
[2024-04-20] MEDS ORDERED: LEVOTHYROXINE 125 MCG TAB ONE (08:18)
[2024-04-20] MEDS ORDERED: DEXAMETHASONE SOD PHOSPHATE 4 MG/ML 1 ML VIAL ONE ×3 (12:26→23:04)
[2024-04-20] MEDS ORDERED: ATORVASTATIN 40 MG TAB ONE (20:14)
[2024-04-20] MEDS ORDERED: IBUPROFEN 800 MG TAB ONE (23:04)
[2024-04-21] MEDS ORDERED: DEXAMETHASONE SOD PHOSPHATE 4 MG/ML 1 ML VIAL ONE (05:29)
[2024-04-21] MEDS ORDERED: IBUPROFEN 800 MG TAB ONE ×2 (05:29→15:30)
[2024-04-21] MEDS ORDERED: LEVOTHYROXINE 125 MCG TAB ONE (05:29)
[2024-04-21] MEDS ORDERED: CYANOCOBALAMIN 500 MCG TAB ONE (08:48)
[2024-04-21] MEDS ORDERED: traMADol 50 MG TAB ONE (08:48)
[2024-04-21] MEDS ORDERED: CLOPIDOGREL 75 MG TAB ONE (08:48)
[2024-04-21] MEDS ORDERED: HEPARIN SODIUM,PORCINE 5,000 UNIT/ML 1 ML VIAL ONE (08:49)
[2024-04-21] MEDS ORDERED: TAMSULOSIN 0.4 MG CAP.ER.24H PO ONE (08:49)
[2024-04-21] MEDS ORDERED: allopurinoL 300 MG TAB PO ONE (08:49)
[2024-04-21] MEDS ORDERED: FOLIC ACID 1 MG TAB ONE (08:49)
[2024-04-21] MEDS ORDERED: ASPIRIN 325 MG TAB ONE (08:49)
--- NOTE | 2024-06-15 11:02 | MR ---
EXAMINATION TYPE: MR brain/cspine wo/w DATE OF EXAM: 05/12/2024 COMPARISON: MRI brain 04/05/2024, MRA head 04/06/2024, CT brain 02/02/2024, MR cervical spine 11/29/2014 HISTORY: Numbness right side, unsteady gait. TECHNIQUE: Multiplanar, multisequence images of the brain and cervical spine is performed without and with IV co ntrast, utilizing 10 mL intravenous Gadavist . FINDINGS: The veras-white junctions, ventricular system, basal cisterns appear unremarkable for patient's age. D iffusion-weighted imaging shows no evidence of restricted diffusion to suggest acute/subacute infarct . Intracranial arterial flow voids are maintained. Midline structures show no abnormality. Several ti ny areas of high T2/FLAIR signal intensity are seen within the subcortical and periventricular white matter. The susceptibility weighted images do not reveal any evidence for micro-hemorrhage. After adm inistration of gadolinium, no abnormal enhancement is seen. Age-appropriate cerebral volume loss. Tin y suspicious aneurysms from prior MRA are not well evaluated on this exam. The bone marrow signal is within normal limits. The paranasal sinuses and globes are unremarkable. Alignment: The cervical vertebral bodies have preserved heights. No spondylolisthesis. Straightening of the normal cervical lordosis. Bones: Bone signal is within normal limits. Multilevel degenerative disc disease is noted. No abnorm al contrast enhancement. Cord: Increased signal identified within the spinal cord at C5-C6 (series 1001, image 10). Discs: Multilevel disc desiccation is present. C2-C3: Eccentric right posterior disc osteophyte complex without significant central canal stenosis. Mild right neural foraminal stenosis. The left neural foramen is patent. C3-C4: Posterior disc osteophyte complex with mild effacement of the anterior thecal sac. Uncovertebr al joint hypertrophy resulting in mild to moderate bilateral neural foraminal stenosis. C4-C5: Posterior disc osteophyte complex with mild effacement of the anterior thecal sac. Uncovertebr al joint hypertrophy resulting in moderate left and [id number] right neural foraminal stenosis. C5-C6: Central disc protrusion superimposed upon a broad-based disc bulge resulting in moderate to se thao central canal stenosis. There is increased signal within the cord at this level. Uncovertebral j oint hypertrophy with moderate to severe right neural foraminal stenosis and moderate left neural for aminal stenosis. C6-C7: Eccentric left broad-based disc bulge with mild effacement of the anterior thecal sac. No kwame ral foraminal stenosis. C7-T1: No significant disc pathology. The spinal canal is patent. No neural foraminal stenosis. Other: None. IMPRESSION: 1. 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 This has progressed from prior MRI 11/29/2014. 2. Multilevel degenerative disc disease and uncovertebral joint hypertrophy as described above. 3. No evidence of intracranial mass, acute/subacute infarct, or abnormal enhancement. 4. Nonspecific white matter changes, likely related to small vessel ischemic disease.
== END 2024-04-21 16:33 | disposition left against medical advice (07) ==
LOC: EC 09:24 → 3SCARD 11:00 → 2SICU 04-17 14:02
PROVIDERS: ADMIT Internal Medicine; ATTEND Internal Medicine
DX: R20.0 Anesthesia of skin (principal); R53.1 Weakness; R47.81 Slurred speech; R26.81 Unsteadiness on feet; N17.9 Acute kidney failure, unspecified; I25.10 Atherosclerotic heart disease of native coronary artery without angina pectoris; E03.9 Hypothyroidism, unspecified; D75.89 Other specified diseases of blood and blood-forming organs; E53.8 Deficiency of other specified B group vitamins; E78.5 Hyperlipidemia, unspecified; I10 Essential (primary) hypertension; I25.2 Old myocardial infarction; I69.354 Hemiplegia and hemiparesis following cerebral infarction affecting left non-dominant side; Z95.1 Presence of aortocoronary bypass graft; Z79.890 Hormone replacement therapy; Z79.899 Other long term (current) drug therapy; Z79.82 Long term (current) use of aspirin; Z79.02 Long term (current) use of antithrombotics/antiplatelets; Z53.29 Procedure and treatment not carried out because of patient's decision for other reasons
CPT/HCPCS: 36415; 93005; 80061; 80053; 80048; 82550; 84484; 85025; 85610; 85730; 71046; 70450; J1644 ×3; 70553; 72156; 96360; 96361; 99285

== ENCOUNTER → 2024-11-09 | Outpatient (CLI) | payer MEDICARE ==
--- NOTE | 2024-11-09 13:21 | CT ---
EXAMINATION TYPE: CT cervical spine wo con DATE OF EXAM: 11/09/2024 COMPARISON: 10/03/2022 CLINICAL INDICATION: Male, 73 years old with history of G95.9 DISEASE OF SPINAL CORD, UNSPECIFIED M54 .2; PHH, CERVICALGIA. TECHNIQUE: CT scan of the cervical spine is obtained without contrast, axial images are obtained, sa gittal and coronal reformatted images are also reviewed. CT DLP: [address] CTDI: mGy Automated exposure control for dose reduction was used. Findings: The craniovertebral junction relation to prevertebral soft tissues are normal. The cervical vertebral segments are normal in height and alignment. There is no fracture or subluxati on. There is marked hypertrophic spurring is seen 3 4 C5-6 level. There is calcification of the posterior longitudinal ligament at the C3-4 and C4-5 levels. The disc spaces are well preserved in height. There is minimal degeneration of the uncovertebral joints and facet joints. Secondary to hypertrophic spurring and calcification of posterior longitudinal ligament there is mode rate to severe spinal stenosis at the C5-6 level there is right lateral recess stenosis at the C3 343 45 levels. There is multilevel neural foraminal stenosis as follows; mild at C3-3 on the right, moderate at C3-4 bilaterally, moderate to severe at C5-6 on the right and mild at C5-6 on the left. IMPRESSION: 1. No cervical spine fracture or malalignment. e.2. Moderate to severe cervical stenosis at C5-6 unchanged compared to the prior study 3. Multilevel neural foraminal stenosis as described above. No significant interval change compared t o the prior study. [facility], , 11/09/2024 1:19 PM
--- NOTE | 2024-11-09 14:13 | MR ---
MRI CERVICAL SPINE: CLINICAL HISTORY: Sandor upper extremity pain Sandor upper extremity pain disease of the spinal cord. TECHNIQUE: Multiplanar, multisequence imaging of the cervical spine is performed without IV contrast. COMPARISON: CT cervical spine November 09, 2024. MRI cervical spine April 19, 2024 FINDINGS: Sagittal images of the cervical spine show the craniocervical junction to remain within nor mal limits. The cervical and upper thoracic spinal cord redemonstrates a diminished AP diameter and increased signal at the C5-C6 level sagittal image 8. Stable multilevel grade 1 retrolisthesis C3 on C4, C4 on C5 and C5 on C6. The vertebral body heights are normal. Mild multilevel disc space narrow ing with at least moderate multilevel spurring is redemonstrated. The bone marrow signal intensity is within normal limits. Axial images at C2-C3 level demonstrates right posterior spur disc complex effacing the anterior thec al sac and causing mild to moderate right-sided neural foraminal narrowing. Axial images at C3-C4 level shows broad-based right paracentral disc protrusion with bilateral uncove rtebral facet arthropathy effacing the anterior thecal sac greater on the right and causing moderate bilateral neural foraminal narrowing. No significant change from prior. Axial images at C4-C5 level showed broad based posterior disc protrusion mildly facing anterior theca l sac and causing mild to moderate left greater than right bilateral neural foraminal narrowing. No s ignificant change from prior. Axial images at C5-C6 level redemonstrated largest posterior disc herniation causing most prominent s ayde canal stenosis on axial image 25 with diminished AP diameter and increased signal in the spinal cord at this level. Marginal spurring is redemonstrated. There is persistent moderate to severe bila teral neural foraminal narrowing. Axial images at C6-C7 redemonstrates small left paracentral disc protrusion minimally effacing the an terior thecal sac. Patent Bilateral neural foramina are seen. No significant change from prior. Axial images at C7-T1 level remain within normal limits. IMPRESSION: Multilevel degenerative change most prominent at C5-C6 level remains present. Severe spin al canal stenosis and Myelopathy is again seen. [facility], , 11/09/2024 2:10 PM
== END | disposition home or self-care (01) ==
LOC: RADMRIMAIN 12:44
PROVIDERS: ATTEND Orthopaedic Surgery
DX: M48.02 Spinal stenosis, cervical region (principal); M99.71 Connective tissue and disc stenosis of intervertebral foramina of cervical region; M47.12 Other spondylosis with myelopathy, cervical region; G95.9 Disease of spinal cord, unspecified
CPT/HCPCS: 72125; 72141

== ENCOUNTER 2024-11-23 06:01 | Observation (INO) | payer MEDICARE ==
[~2024-11-23 06:01] MED LIST changes: -LACTATED RINGERS 1,000 ML IV SCH; +ONDANSETRON 4 MG/2 ML VIAL IVP PRN; +TRANEXAMIC 1,000 MG/100ML-NACL 1,000 MG in SALINE 1 100ML.BAG IVPB PRN
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
[2024-11-23] MEDS ORDERED: HYDROmorphone 0.5 MG/0.5 ML SYRINGE IVP PRN ×2 (06:11→09:34)
[2024-11-23] MEDS ORDERED: fentaNYL (PF) 50 MCG/ML 2 ML AMP IVP PRN (06:11)
[2024-11-23] MEDS ORDERED: MIDAZOLAM 2 MG/2 ML VIAL IV PRN (06:11)
[2024-11-23] MEDS ORDERED: LIDOCAINE 1% (10MG/ML) FOR IV START INTRADERMA PRN (06:11)
[2024-11-23] MEDS: GABAPENTIN 300 MG CAP PO PRN (06:31)
[2024-11-23] MEDS: ACETAMINOPHEN TAB 500 MG TAB PO PRN (06:31)
[2024-11-23] MEDS: GABAPENTIN 300 MG CAP PO STA (06:50)
[2024-11-23] MEDS: LACTATED RINGERS 1,000 ML IV SCH (07:00)
[2024-11-23] MEDS: DEXAMETHASONE SOD PHOSPHATE 4 MG/ML 1 ML VIAL IV ONE (07:00)
[2024-11-23] MEDS: ONDANSETRON 4 MG/2 ML VIAL IVP ONE (07:00)
[2024-11-23] MEDS: IV FLUID CONTINUATION 1,000 ML IV ONE ×3 (07:08→09:45)
[2024-11-23] MEDS ORDERED: SUCCINYLCHOLINE CHLORIDE 200 MG/10 ML VIAL IV ONE (07:30)
[2024-11-23] MEDS ORDERED: NEOSTIGMINE 1 MG/ML 10 ML VIAL ONE (07:30)
[2024-11-23] MEDS ORDERED: HYDROmorphone (PF) 1 MG/ML ONE (07:30)
[2024-11-23] MEDS ORDERED: TRANEXAMIC 1,000 MG/100ML-NACL PREMIX BAG ONE (07:30)
[2024-11-23] MEDS ORDERED: LIDOCAINE 1% INJ 10MG/ML (20 ML MDV) ONE (07:30)
[2024-11-23] MEDS ORDERED: PHENYLEPHRINE 10 MG/ML VIAL ONE (07:30)
[2024-11-23] MEDS ORDERED: MIDAZOLAM 2 MG/2 ML VIAL ONE (07:30)
[2024-11-23] MEDS ORDERED: PROPOFOL 10 MG/ML 20 ML VIAL IV ONE (07:30)
[2024-11-23] MEDS ORDERED: ROCURONIUM 10 MG/ML (5 ML VIAL) IV ONE (07:30)
[2024-11-23] MEDS ORDERED: GLYCOPYRROLATE 0.2 MG/ML 2 ML VIAL ONE (07:30)
[2024-11-23] MEDS ORDERED: fentaNYL (PF) 50 MCG/ML 2 ML AMP ONE (07:30)
[2024-11-23] MEDS ORDERED: ePHEDrine 50 MG/ML 1 ML VIAL ONE (07:30)
[2024-11-23] MEDS: THROMBIN (BOVINE) 5,000 UNIT VIAL TOPICAL ONE (08:11)
--- NOTE | 2024-11-23 09:15 | P.OP ---
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 UE AND LE WEAKNESS 5. UNSTEADY GAIT 6. 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 UE AND LE WEAKNESS 5. UNSTEADY GAIT 6. FINE MOTOR DISRUPTION Procedure(s) Performed: 1. C5-6 ANTERIOR CERVICAL ARTHRODESIS 2. C5-6 ANTERIOR INSTRUMENTATION 3. C5-6 INSERTION OF BIOMECHANICAL DEVICE CAGE x1 USE OF IO MICROSCOP USE OF IONM MOTORS BASELINE AT CLOSURE. Implants: -NEXUS STABLE C 9MM CAGE -OZARK 24 MM PLATE 16 MM SCREWS -[employer] P[employer] LOCAL Anesthesia: SARAH Surgeon: Kojo Michel Coating Mixer #1: Jorge Junior (WAS PRESENT AND ASSISTED WITH ALL ASPECTS OF THE CASE FROM POSITIN TO DRESSING PLACEMENT) Estimated Blood Loss (ml): 25 IV fluids (ml): 1,100 Urine output (ml): 0 Pathology: none sent Condition: stable Disposition: PACU Indications for Procedure: Mr. Rizzo is a 73-year-old male presenting with progressive cervical myelop athy manifesting as bilateral upper extremity weakness, unsteady gait, and neck pain with a pain score of 8/10. The patient was previously hospitalized in April for similar symptoms and falls, receiving steroid treatment at that time. Current imaging reveals severe stenosis at C5-6 with significant cord compression and myelomalacia, as well as moderate stenosis at C3-4. Physical examination demonstrates bilateral upper extremity weakness, positive Moore's sign bilaterally, hyperreflexia, and compromised fine motor skills. The patient's BMI is 35.92 kg/m2, and vital signs are stable with BP 120/74. Given the progressive neurological decline and risk of permanent damage, urgent surgical intervention has been recommended in the form of C5-6 anterior cervical discectomy and fusion. The patient and family have been thoroughly counseled regarding surgical risks and benefits, and surgical clearance was completed by PCP pt is ready for surgery. Description of Procedure: C5-6 ACDF The patient was seen and examined in the preoperative area. All preoperative protocols were followed. Informed consent was obtained, risks and benefits of the procedure were discussed at length. Risks including bleeding infection damage to the surrounding tissue and risk of reoperation were discussed with the patient. Risk of anesthesia up to and including was discussed with the patient. These are outlined in the risk review. They were willing to accept these risks and all the risks of surgery. The patient was given a weight-based dose of antibiotics in the form of 2 g Ancef. The patient was seen and evaluated by the anesthesia team who deemed them fit for surgery. The site was marked, the patient was willing to proceed with the procedure. The patient was transferred to the operative suite by the Department of anesthesia. They were then drifted off to sleep by the department anesthesia and GETA was performed. The patient tolerated this well. Duke catheter was placed by nursing staff, a-traumatically. Once confirmation of lines and ventilation the patient was transferred to a Supine Carson table very carefully. All bony prominences including wrists, elbows, axilla, chest, hips, and thighs, and feet were padded very well. Special attention was paid to the genitalia, and these were padded accordingly. SCDs were placed on bilateral lower extremities and were connected. Arms were well padded and placed at their side thumbs up. Once in position, again we confirmed good ventilation capabilities and that lines were running appropriately. The patients Cervical spine was then exposed. 1010s were placed outlining the incision site. Standard alcohol was used to clean the incision site and allowed to dry. C-arm was used to bio-gracy the patient and confirm level for incision which was marked with a skin marker. Operative briefing was performed with all teams and everyone in agreement to proceed. The patient was then prepped and draped in a normal sterile fashion. Timeout was then performed, and all parties agreed with the procedure to be performed. Transverse skin incision was then made on the right side of the patient's neck 3 cm and dissection taken down to the platysma which was split transversely. Sub platysma flap was made, and interval identified between SCM and medial structures. Omohyoid was visualized and protected. Blunt dissection taken down to the anterior cervical fascia which was identified. Blunt probe was then placed and lateral image taken which confirmed levels for operation. These levels were then marked with a bovi. Subperiosteal dissection of the longissimus muscles were then done over these levels identifying uncovertebral joints bilaterally. Retractor was then placed deep to these muscles and held in place with a bed arm. [place] pins were placed into C5 and C6 and gentle distraction taken out over the levels. Laith rongeur used to remove disc material. Operating microscope brought in for visualization. Complete discectomy performed at this level with curette, rongure and pituitary. High speed nivia used to remove osteophytes anteriorly and posteriorly until PLL was identified. 6-0 up curette then used to identify the canal and resect the PLL. 2-0 and 3-0 Kerrison used then to remove PLL and disc herniation and performed b/l foraminotomies. This was extremly tight and stenotic with bone growth into the dural sac. There was a small rent in the sac which was addressed with gel foam. This was packed into the area along with a blood patch and there was no further CSF leak and the patient remained stable. Motors run were stable. We continued to decompress the area. Once good decompression was accomplished, meticulous hemostasis was performed. Sizers were then placed under lateral fluoroscopy until the desired height and lordosis. Cage was then selected, packed with autograft and allograft and placed under lateral imaging. Once in good position it was tested and stable. Fins were deployed for stability. Motors run before and after cage placement were stable. The wound was irrigated, and autograft placed lateral to the cage anteriorly for fusion. [place] pin was then removed from C5 and C6 and bone wax placed in their void. A separate, non-integrated plate was then selected and sized under lateral image. The plate was then placed with screws. Fixed screws drilled into C6 b/l and screws placed. Then screw placed into C5. Good purchase of all screws obtained and the locking mechanism was set. Final AP and lateral images taken confirmed good placement of hardware and good reduction and yazidism of height. The wound was then irrigated copiously with NSS. No further CSF seen. Surgicel placed deep in the wound. Layered closure then performed with 3-0 Vicryl in the platysma and subQ tissue. 4-0 Strata fix in the subcuticular tissue. The wound was then cleaned, and dried and skin glue placed. Once glue dried telfa, 4x4, drain sponge and tegaderms were placed. The patient was then transferred back to their hospital bed a-traumatically. The drain continued to hold suction. They were placed in a soft collar. They were then awakened by the department of anesthesia having tolerated the procedure well without complications.
[2024-11-23] MEDS: LACTATED RINGERS 1,000 ML IV ONE (09:27)
--- NOTE | 2024-11-23 09:32 | FL ---
EXAMINATION TYPE: FL guidance operating room, XR cervical spine limited DATE OF EXAM: 11/23/2024 9:11 AM COMPARISON: Pre Operative Images if available both CT/MRI or plain film CLINICAL INDICATION: Male, 73 years old with history of C5-C6 Fusion; TECHNIQUE: FL guidance operating room, XR cervical spine limited, multiple fluoroscopic images provid ed for procedure. Total fluoroscopy time: 5.48 seconds Total submitted images to PACS: 6 DAP: 0.7002 mGym2 Gycm2 uGym2 cGycm2 or equivalent. FINDINGS: Fluoroscopic images during internal fixation demonstrate hardware in appropriate position. Hardware a ppears intact. No immediate complication identified. IMPRESSION: 1. No evidence for intraoperative complication. 2. Please see the operative/procedural note for further details. [facility], , 11/23/2024 9:29 AM
[2024-11-23] MEDS ORDERED: HYDROcodone/APAP 5-325MG 1 EACH TAB PO PRN (09:34)
[2024-11-23] MEDS ORDERED: traMADol 50 MG TAB PO PRN (09:34)
[2024-11-23] MEDS: IPRATROPIUM 0.5 MG/2.5 ML NEBU INHALATION ONE (09:40)
[2024-11-23] MEDS: KETOROLAC 15 MG/ML 1 ML VIAL IVP SCH (13:44)
[2024-11-23] MEDS: ACETAMINOPHEN TAB 325 MG TAB PO SCH (13:45)
[2024-11-23] MEDS: ONDANSETRON 4 MG/2 ML VIAL IVP PRN (13:45)
[2024-11-23] MEDS ORDERED: MECLIZINE 25 MG TAB PO PRN (14:14)
[2024-11-23] MEDS ORDERED: ONDANSETRON 4 MG/2 ML VIAL IVP PRN (14:19)
[2024-11-23] MEDS: PANTOPRAZOLE 40 MG/10 ML VIAL IVP SCH (22:06)
[2024-11-23] MEDS: ATORVASTATIN 20 MG TAB PO SCH (22:06)
[2024-11-23] MEDS: GABAPENTIN 300 MG CAP PO SCH (22:07)
[2024-11-23] MEDS: DONEPEZIL 5 MG TAB PO SCH (22:07)
[2024-11-24] MEDS: LEVOTHYROXINE 125 MCG TAB PO SCH (05:28)
[2024-11-24] MEDS: HYDROcodone/APAP 7.5-325MG 1 EACH TAB PO PRN (05:28)
--- NOTE | 2024-11-24 06:37 | P.CONS ---
History of Present Illness - Reason for Consult Consult date: 11/23/24 Medical management, status post C5-6 ACDF - History of Present Illness This is a pleasant 73-year-old male who was admitted under orthopedic services and has just returned from postop lethargic although arousable status post C5-6 ACDF. Patient follows with Dr. Arriaga in the outpatient setting with a significant past medical history of coronary artery disease with previous CABG, CVA, hyperlipidemia, prostate disorder, thyroid disorder as well as significant myelopathy of the cervical spine with moderate stenosis of C3-4 and bilateral upper and lower extremity weakness with unsteady gait. Patient did undergo presurgical clearance with cardiology as well as primary care provider in the outpatient setting. Medications will be reviewed and resumed as appropriate and strongly recommend weaning FiO2 as tolerated and incentive spirometer use. Will order basic labs for a.m. REVIEW OF SYSTEMS: CONSTITUTIONAL: No fever, no malaise, no fatigue. HEENT: No recent visual problems or hearing problems. Denied any sore throat. CARDIOVASCULAR: No chest pain, orthopnea, PND, no palpitations, no syncope. PULMONARY: No shortness of breath, no cough, no hemoptysis. GASTROINTESTINAL: No diarrhea, no nausea, no vomiting, no abdominal pain. NEUROLOGICAL: No headaches, no weakness, no numbness. HEMATOLOGICAL: Denies any bleeding or petechiae. GENITOURINARY: Denies any burning micturition, frequency, or urgency. MUSCULOSKELETAL/RHEUMATOLOGICAL: Denies any joint pain, swelling, or any muscle pain. ENDOCRINE: Denies any polyuria or polydipsia. The rest of the 14-point review of systems is negative. PHYSICAL EXAMINATION: GENERAL: The patient is lethargic although arousable alert and oriented x3, still some I sedated from anesthesia, not in any acute distress. Well developed, well nourished. Obese, elderly appearing HEENT: Pupils are round and equally reacting to light. EOMI. No scleral icterus. No conjunctival pallor. Normocephalic, atraumatic. No pharyngeal erythema. No thyromegaly. CARDIOVASCULAR: S1 and S2 muffled PULMONARY: Diminished breath sounds bilaterally otherwise chest is clear to auscultation, no wheezing or crackles. ABDOMEN: Soft, obese, nontender, nondistended, normoactive bowel sounds. No palpable organomegaly. MUSCULOSKELETAL: No joint swelling or deformity. EXTREMITIES: No cyanosis, clubbing, or pedal edema. NEUROLOGICAL: Gross neurological examination did not reveal any focal deficits. Diffusely weak SKIN: No rashes. Assessment: Status post C5-6 ACDF Severe stenosis of C5-6 with mild malacia and myelopathy History of CVA 2023 Coronary artery disease history with CABG Hyperlipidemia Hypertension Thyroid disorder Prostate disorder Obesity with a BMI 35.9 GI prophylaxis DVT prophylaxis Full code Plan: Patient was admitted under orthopedic services just arrived to the unit postop and mildly lethargic although arousable. Family at the bedside with questions and concerns that were answered Will review home medications and resume as appropriate Recommend incentive spirometer use at least 10 times every hour while awake and wean FiO2 as tolerated as patient does not wear oxygen outpatient Follow-up with basic labs in the a.m. We will continue to follow with orthopedics during hospitalization. Thank you kindly for this consultation The impression and plan of care has been dictated by Anyi Jauregui, Nurse Practitioner as directed. Dr. Aris MD I have performed a history and examination and MDM of this patient, discussed the same with the dictator, and agree with the dictator's assessment and plan as written ,documented as a scribe. Based on total visit time, I have performed more than 50% of the visit. Past Medical History Past Medical History: Coronary Artery Disease (CAD), CVA/TIA, Hyperlipidemia, Hypertension, Myocardial Infarction (PR), Prostate Disorder, Thyroid Disorder Additional Past Medical History / Comment(s): wears brief for incont of urine., 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, weakness, mili hand numbness Last Myocardial Infarction Date:: 2005 History of Any Multi-Drug Resistant Organisms: None Reported Past Surgical History: Bladder Surgery, Coronary Bypass/CABG Additional Past Surgical History / Comment(s): urolift with 4 bands, carpal tunnel, quad bypass 2005 Past Anesthesia/Blood Transfusion Reactions: No Reported Reaction Past Psychological History: No Psychological Hx Reported Smoking Status: Never smoker Past Alcohol Use History: None Reported Past Drug Use History: None Reported - Past Family History Mother Family Medical History: Cancer Additional Family Medical History / Comment(s): leukemia Father Family Medical History: Cancer Additional Family Medical History / Comment(s): lung Medications and Allergies Home Medications Medication Instructions Recorded Confirmed Type Docusate [Colace] 200 mg PO DAILY 10/13/14 11/18/24 History Gabapentin [Neurontin] 300 mg PO DAILY 10/13/14 11/18/24 History Levothyroxine Sodium [Synthroid] 125 mcg PO DAILY 10/13/14 11/18/24 History [place]-3 Fatty Acids/Fish Oil [Fish 1 cap PO DAILY 10/13/14 11/18/24 History Oil 1,000 mg Softgel] allopurinoL [Zyloprim] 300 mg PO DAILY 10/13/14 11/18/24 History gemfibroziL [Lopid] 600 mg PO DAILY 10/13/14 11/23/24 History Ibuprofen [Motrin] 800 mg PO DAILY 11/12/16 11/18/24 History Tamsulosin HCl [Flomax] 0.4 mg PO DAILY 11/12/16 11/18/24 History traMADol HCL [Ultram] 50 mg PO DAILY 11/12/16 11/23/24 History Aspirin 325 mg PO DAILY 05/04/17 11/18/24 History Metoprolol Tartrate [Lopressor] 25 mg PO DAILY 09/12/22 11/18/24 History Cholecalciferol [Vitamin D3 (25 25 mcg PO DAILY 10/03/22 11/18/24 History Mcg = 1000 Iu)] Atorvastatin [Lipitor] 20 mg PO HS 30 Days #30 tab 10/05/22 11/18/24 Rx Cyanocobalamin [Vitamin B-12] 1,000 mcg PO DAILY #0 tab 10/05/22 11/18/24 Rx Folic Acid 1 mg PO DAILY tab 10/05/22 11/18/24 Rx Meclizine [Antivert] 25 mg PO TID PRN #20 tab 02/02/24 11/18/24 Rx Donepezil [Aricept] 5 mg PO HS 11/18/24 11/18/24 History Allergies Allergy/AdvReac Type Severity Reaction Status Date / Time No Known Allergies Allergy Verified 11/23/24 06:17 Physical Exam Vitals: Vital Signs Temp Pulse Resp BP Pulse Ox 11/23/24 13:05 68 124/61 98 11/23/24 12:50 79 116/59 98 11/23/24 12:35 76 116/67 95 11/23/24 12:20 84 113/62 99 11/23/24 12:05 97.9 F 71 107/61 98 11/23/24 11:30 69 10 L 111/45 98 11/23/24 11:00 74 10 L 112/56 98 11/23/24 10:30 73 10 L 108/50 98 11/23/24 10:14 73 10 L 112/45 97 11/23/24 09:59 74 12 112/48 99 11/23/24 09:44 84 14 92/39 95 11/23/24 09:35 74 11 L 95/47 97 11/23/24 09:29 97.4 F L 83 16 81/37 92 L 11/23/24 06:36 98.4 F 67 18 149/63 99 Intake and Output 11/22/24 11/23/24 11/23/24 22:59 06:59 14:59 Intake Total 2049 Output Total 25 Balance 2024 Intake: IV 2049 Output: Estimated Blood Loss 25 Other: Weight 104.1 kg 104.1 kg
[2024-11-24 08:56] LABS: ALT 15 U/L (10-49); AST 37 U/L (14-35); Albumin 3.3 g/dL (3.8-4.9); Albumin/Globulin Ratio 1.74 Ratio (1.60-3.17); Alkaline Phosphatase 80 U/L (41-126); BUN/Creat Ratio 11.79 Ratio (12.00-20.00); Blood Urea Nitrogen 16.5 mg/dL (9.0-27.0); Calcium 8.4 mg/dL (8.7-10.3); Carbon Dioxide 24.1 mmol/L (21.6-31.8); Chloride 114 mmol/L (96-109); Globulin 1.9 g/dL (1.6-3.3); Glucose 101 mg/dL (70-110); Sodium 147 mmol/L (135-145); Total Bilirubin <0.2 mg/dL (0.3-1.2); Total Protein 5.2 g/dL (6.2-8.2)
--- NOTE | 2024-11-24 08:57 | CT ---
EXAMINATION TYPE: CT cervical spine wo con DATE OF EXAM: 11/24/2024 COMPARISON: Prior CT November 09, 2024 CLINICAL INDICATION: Male, 73 years old with history of s/p cervical fusion, S/P Cervical Fusion, maricarmen n TECHNIQUE: CT scan of the cervical spine is obtained without contrast, axial images are obtained, sa gittal and coronal reformatted images are also reviewed. CT DLP: 731.1 mGycm. Automated Exposure Control for Dose Reduction was Utilized. Contrast: , patient injected with mL of ., (none if empty) FINDINGS: There is new anterior fusion plate with artificial metallic disc material at C5-C6 level on current study. Hardware position appears satisfactory. Alignment is stable and satisfactory. Evidenc e of recent surgery ill-defined and subcutaneous gas at this level is seen. There is percutaneous rig ht anterior drainage catheter terminating just anterior to the inferior portion of the anterior fusio n plate. Vertebral body heights are maintained. There is persistent large bony projection from the posterior s uperior C4 vertebra extending superiorly effacing the anterior thecal sac sagittal image 48 for refer ence. Similar findings seen from the posterior superior C5 vertebra sagittal image 49. Prominent ante rior osteophytes redemonstrated. IMPRESSION: As above. New surgical change C5-C6 level with stable and satisfactory alignment. No obv ious complication. [facility], , 11/24/2024 8:55 AM
[2024-11-24] MEDS ORDERED: GABAPENTIN 300 MG CAP PO SCH (09:00)
[2024-11-24] MEDS ORDERED: NON FORMULARY DRUG (Omega-3 Fatty Acids/Fish Oil [Fish Oil 1,000 Mg Softgel] 1 EACH Capsul PO SCH (09:00)
[2024-11-24] MEDS: TAMSULOSIN 0.4 MG CAP.ER.24H PO SCH (09:01)
[2024-11-24] MEDS: SENNOSIDES-DOCUSATE SODIUM 1 EACH TAB PO SCH (09:01)
[2024-11-24] MEDS: CYANOCOBALAMIN 500 MCG TAB PO SCH (09:02)
[2024-11-24] MEDS: FOLIC ACID 1 MG TAB PO SCH (09:02)
[2024-11-24] MEDS: FENOFIBRATE 160 MG TAB PO SCH (09:02)
[2024-11-24] MEDS: DOCUSATE 100 MG CAP PO SCH (09:02)
[2024-11-24] MEDS: CHOLECALCIFEROL 25 MCG (1000 IU) TABLET PO SCH (09:02)
[2024-11-24] MEDS: allopurinoL 300 MG TAB PO SCH (09:02)
[2024-11-24] MEDS: METOPROLOL TARTRATE 25 MG TAB PO SCH (09:02)
[2024-11-24 09:06] LABS: Basophils # (A) 0.03 X 10*3/uL (0.00-0.10); Basophils % (A) 0.2 %; Eosinophils # (A) 0.02 X 10*3/uL (0.04-0.35); Eosinophils % (A) 0.2 %; HCT 33.3 % (39.6-50.0); Lymphocytes # (A) 1.52 X 10*3/uL (0.90-5.00); Lymphocytes % (A) 12.1 %; MCH 34.8 pg (27.0-32.0); MCV 105.4 FL (80.0-97.0); Mean Platelet Volume 10.8 FL (9.5-12.2); Monocytes # (A) 1.33 X 10*3/uL (0.20-1.00); Monocytes % (A) 10.6 %; NRBC Per 100 WBC 0 X 10*3/uL (0.00-0.01); Neutrophils # (A) 9.58 X 10*3/uL (1.80-7.70); Neutrophils % (A) 76.4 %; Platelet Count 198 X 10*3/uL (140-440); RBC 3.16 X 10*6/uL (4.40-5.60); RDW 13.7 % (11.5-14.5); WBC 12.54 X 10*3/uL (4.50-10.00)
[2024-11-24] MEDS: DEXAMETHASONE SOD PHOSPHATE 10 MG/ML 1 ML VIAL IVP STA (10:56)
--- NOTE | 2024-11-24 11:46 | P.PN ---
Subjective Progress Note Date: 11/24/24 Principal diagnosis: Status post C5-C6 ACDF, bilateral upper lower extremity weakness Patient was evaluated today at bedside, he was resting in his hospital bed. Patient and multiple family numbers present at bedside. Discussed with nursing prior to seeing patient, he was having a hard time with the diet that was ordered, they were going to transition back to more of a clear/very soft diet for lunch. Patient did do very well with ambulation. He is complaining of some weakness in the right hand at this time. Denies headaches, lightheadedness, chest pain or shortness of breath, blurry vision, headaches, double vision Objective - Vital Signs Vital signs: Vital Signs Temp 99.0 F 11/24/24 07:27 Pulse 63 11/24/24 07:27 Resp 18 11/24/24 07:27 BP 105/55 11/24/24 07:27 Pulse Ox 94 L 11/24/24 07:27 FiO2 Intake & Output 11/23/24 11/24/24 11/24/24 18:59 06:59 18:59 Intake Total 2049 240 Output Total 25 100 Balance 2024 140 Weight 104.1 kg Intake: IV 2049 Oral 240 Output: Drainage 100 Right Anterior Neck 100 Estimated Blood Loss 25 Other: Voiding Method External Catheter # Voids 1 3 - Exam Gen: AOx3, NAD VSS stable at this time Integument: Postop dressing is in good position condition, very minimal soft tissue swelling present near the incision. Drain is in good position, it is putting out mild bloody serosanguineous fluid at this time Palpation: Mild tenderness with palpation near the right sided anterior neck incision ROM: Range of motion of the bilateral upper extremities is intact, he does demonstrate difficulty with intrinsics and cook cashier food prep on the right side compared to the left Sensory Exam: Senory exam to light touch is intact C5-T1 Senosry exam to light touch is intact L2-S1 Motor: Left lower extremity demonstrates 4/5 strength with hip flexion, knee extension, knee flexion, plantarflexion, dorsiflexion, EHL, FHL Right lower extremity demonstrates 4/5 strength with hip flexion, knee extension, knee flexion, dorsiflexion, EHL, FHL, 4-/5 strength appreciated with plantarflexion Left upper extremity demonstrates 4/5 strength with shoulder elevation, shoulder abduction, elbow extension, elbow flexion, wrist extension, wrist flexion, 3+/5 cook cashier food prep strength and intrinsics Right upper extremity demonstrates 4-/5 with shoulder elevation, shoulder abduction, elbow extension, elbow flexion, 3-/5 with wrist extension, wrist flexion, difficult to assess cook cashier food prep strength and intrinsics Reflexes: 3/4 in all UE and LE Positive Angie's bilaterally Negative clonus bilaterally - Labs CBC & Chem 7: 11/24/24 02:50 03 02:50 Labs: Abnormal Lab Results - Last 24 Hours (Table) 11/24/24 11/24/24 Range/Units 02:50 02:50 WBC 12.54 H (4.50-10.00) X 10*3/uL RBC 3.16 L (4.40-5.60) X 10*6/uL Hgb 11.0 L (13.0-17.0) g/dL Hct 33.3 L (39.6-50.0) % MCV 105.4 H (80.0-97.0) FL MCH 34.8 H (27.0-32.0) pg Immature Gran # 0.06 H (0.00-0.04) X 10*3/uL Neutrophils # 9.58 H (1.80-7.70) X 10*3/uL Monocytes # 1.33 H (0.20-1.00) X 10*3/uL Eosinophils # 0.02 L (0.04-0.35) X 10*3/uL Sodium 147 H (135-145) mmol/L Chloride 114 H (96-109) mmol/L Est GFR (CKD-EPI) 52 L (>=60) BUN/Creatinine Ratio 11.79 L (12.00-20.00) Ratio Calcium 8.4 L (8.7-10.3) mg/dL Total Bilirubin <0.2 L (0.3-1.2) mg/dL AST 37 H (14-35) U/L Total Protein 5.2 L (6.2-8.2) g/dL Albumin 3.3 L (3.8-4.9) g/dL Assessment and Plan Assessment: Postoperative day #1 status post C5-C6 ACDF Bilateral upper and lower extremity weakness Difficult with ambulation Cervical myelopathy Plan: Pain control, continue with current medications I did order 6 mg of IV Decadron to be given immediately followed by 4 mg every 6 hours during hospital stay, will likely taper with oral dose at discharge. DVT prophylaxis, aspirin 81 mg daily Wound care, leave drain in place at this time, monitor surgical dressing Recommend softer diet at this time, can advance as tolerated Weight-bear as tolerated with walker, no bending, lifting or twisting Utilize soft collar, okay to take breaks when sitting stationary and stabilized by pillow Medical recommendations appreciated Discharge planning: Will keep patient additional day in hospital to monitor, hopeful discharge to home on 11/25/2024 Time with Patient: Less than 30
[2024-11-24] MEDS: DEXAMETHASONE SOD PHOSPHATE 4 MG/ML 1 ML VIAL IVP SCH (17:26)
--- NOTE | 2024-11-25 06:15 | P.PN ---
Subjective Progress Note Date: 11/24/24 - Reason for Consult Consult date: 11/23/24 Medical management, status post C5-6 ACDF - History of Present Illness This is a pleasant 73-year-old male who was admitted under orthopedic services and has just returned from postop lethargic although arousable status post C5-6 ACDF. Patient follows with Dr. Arriaga in the outpatient setting with a significant past medical history of coronary artery disease with previous CABG, CVA, hyperlipidemia, prostate disorder, thyroid disorder as well as significant myelopathy of the cervical spine with moderate stenosis of C3-4 and bilateral upper and lower extremity weakness with unsteady gait. Patient did undergo presurgical clearance with cardiology as well as primary care provider in the outpatient setting. Medications will be reviewed and resumed as appropriate and strongly recommend weaning FiO2 as tolerated and incentive spirometer use. Will order basic labs for a.m. 11/24/2024 Patient is seen in follow-up today status post ACDF yesterday. Patient has significant amount of swelling of the neck and continues with drainage and reports is receiving steroids for the swelling. Patient reports he was able to eat although does notice some swelling at with swallowing. Sodium mildly elevated at 147 and discontinued fluids recommend follow-up labs. Patient reports was able to work with physical therapy today and is continued on pain management per orthopedics. Review of systems: Constitutional: No reports of fatigue, fever, or chills Cardiovascular: No reports of chest pain or palpitations Respiratory: No reports of shortness of breath or cough GI: No reports of nausea, vomiting, or diarrhea : No reports of dysuria or retention Neurovascular: reports of generalized weakness and some continued neck swelling All medications have been reviewed The rest of the 14-point review of systems is negative. PHYSICAL EXAMINATION: GENERAL: The patient is awake, alert and oriented x3, not in any acute distress. Well developed, well nourished. Obese, elderly appearing HEENT: Pupils are round and equally reacting to light. EOMI. No scleral icterus. No conjunctival pallor. Normocephalic, atraumatic. No pharyngeal erythema. No thyromegaly. Significant neck swelling noted CARDIOVASCULAR: S1 and S2 muffled PULMONARY: Diminished breath sounds bilaterally otherwise chest is clear to auscultation, no wheezing or crackles. ABDOMEN: Soft, obese, nontender, nondistended, normoactive bowel sounds. No palpable organomegaly. MUSCULOSKELETAL: No joint swelling or deformity. EXTREMITIES: No cyanosis, clubbing, or pedal edema. NEUROLOGICAL: Gross neurological examination did not reveal any focal deficits. Diffusely weak SKIN: No rashes. Assessment: Status post C5-6 ACDF Severe stenosis of C5-6 with mild malacia and myelopathy History of CVA 2023 Coronary artery disease history with CABG Hyperlipidemia Hypertension Thyroid disorder Prostate disorder Obesity with a BMI 35.9 GI prophylaxis DVT prophylaxis Full code Plan: Patient was admitted under orthopedic services status post ACDF of the cervical spine. Patient continues with significant swelling is being continued on dexamethasone per orthopedics. Patient reports he notices some swelling while swallowing and instructed the patient to continue with thin or soft foods only and recommend aspiration precautions. Continue with head of the bed elevated 45 degrees at all times. Recommend incentive spirometer use at least 10 times every hour while awake and wean FiO2 as tolerated as patient does not wear oxygen outpatient Follow-up with basic labs in the a.m. monitor sodium level and fluids disco ntinued. Sodium was 147 today. We will continue to follow with orthopedics during hospitalization. Thank you kindly for this consultation The impression and plan of care has been dictated by Anyi Jauregui, Nurse Practitioner as directed. Dr. Aris MD I have performed a history and examination and MDM of this patient, discussed the same with the dictator, and agree with the dictator's assessment and plan as written ,documented as a scribe. Based on total visit time, I have performed more than 50% of the visit. Objective - Vital Signs Vital signs: Vital Signs Temp 99.0 F 11/24/24 07:27 Pulse 63 11/24/24 07:27 Resp 18 11/24/24 07:27 BP 105/55 11/24/24 07:27 Pulse Ox 94 L 11/24/24 07:27 FiO2 Intake & Output 11/23/24 11/24/24 11/24/24 18:59 06:59 18:59 Intake Total 2049 240 Output Total 100 Balance 2024 140 Weight 104.1 kg Intake: IV 2049 Oral 240 Output: Drainage 100 Right Anterior Neck 100 Estimated Blood Loss 25 Other: Voiding Method External Catheter # Voids 1 3 - Labs CBC & Chem 7: 11/24/24 02:50 11/24/24 02:50 Labs: Abnormal Lab Results - Last 24 Hours (Table) 11/24/24 11/24/24 Range/Units 02:50 02:50 WBC 12.54 H (4.50-10.00) X 10*3/uL RBC 3.16 L (4.40-5.60) X 10*6/uL Hgb 11.0 L (13.0-17.0) g/dL Hct 33.3 L (39.6-50.0) % MCV 105.4 H (80.0-97.0) FL MCH 34.8 H (27.0-32.0) pg Immature Gran # 0.06 H (0.00-0.04) X 10*3/uL Neutrophils # 9.58 H (1.80-7.70) X 10*3/uL Monocytes # 1.33 H (0.20-1.00) X 10*3/uL Eosinophils # 0.02 L (0.04-0.35) X 10*3/uL Sodium 147 H (135-145) mmol/L Chloride 114 H (96-109) mmol/L Est GFR (CKD-EPI) 52 L (>=60) BUN/Creatinine Ratio 11.79 L (12.00-20.00) Ratio Calcium 8.4 L (8.7-10.3) mg/dL Total Bilirubin <0.2 L (0.3-1.2) mg/dL AST 37 H (14-35) U/L Total Protein 5.2 L (6.2-8.2) g/dL Albumin 3.3 L (3.8-4.9) g/dL
[2024-11-25 08:49] LABS: ALT 12 U/L (10-49); AST 45 U/L (14-35); Albumin 3.4 g/dL (3.8-4.9); Albumin/Globulin Ratio 1.48 Ratio (1.60-3.17); Alkaline Phosphatase 87 U/L (41-126); Blood Urea Nitrogen 23.4 mg/dL (9.0-27.0); Calcium 8.9 mg/dL (8.7-10.3); Carbon Dioxide 20.9 mmol/L (21.6-31.8); Chloride 111 mmol/L (96-109); Globulin 2.3 g/dL (1.6-3.3); Glucose 120 mg/dL (70-110); Potassium 4.3 mmol/L (3.5-5.5); Sodium 144 mmol/L (135-145); Total Bilirubin 0.3 mg/dL (0.3-1.2); Total Protein 5.7 g/dL (6.2-8.2)
[2024-11-25 09:14] LABS: Basophils # (A) 0.01 X 10*3/uL (0.00-0.10); Basophils % (A) 0.1 %; Eosinophils # (A) 0 X 10*3/uL (0.04-0.35); Eosinophils % (A) 0 %; HGB 10.9 g/dL (13.0-17.0); Lymphocytes # (A) 1.04 X 10*3/uL (0.90-5.00); Lymphocytes % (A) 6.9 %; MCH 34.6 pg (27.0-32.0); MCHC 32.1 g/dL (32.0-37.0); MCV 107.9 FL (80.0-97.0); Mean Platelet Volume 10.8 FL (9.5-12.2); Monocytes # (A) 1.23 X 10*3/uL (0.20-1.00); Monocytes % (A) 8.1 %; NRBC Per 100 WBC 0 X 10*3/uL (0.00-0.01); Neutrophils # (A) 12.78 X 10*3/uL (1.80-7.70); Neutrophils % (A) 84.4 %; Platelet Count 183 X 10*3/uL (140-440); RBC 3.15 X 10*6/uL (4.40-5.60); RDW 13.7 % (11.5-14.5); WBC 15.14 X 10*3/uL (4.50-10.00)
[2024-11-25] MEDS: DEXAMETHASONE SOD PHOSPHATE 4 MG/ML 1 ML VIAL IVP SCH (17:32)
[2024-11-26 09:23] VITALS: BP 101/58; PULSE 57; RESP 18; TEMP 98.6
--- NOTE | 2024-11-26 09:50 | P.PN ---
Subjective Progress Note Date: 11/25/24 - Reason for Consult Consult date: 11/23/24 Medical management, status post C5-6 ACDF - History of Present Illness This is a pleasant 73-year-old male who was admitted under orthopedic services and has just returned from postop lethargic although arousable status post C5-6 ACDF. Patient follows with Dr. Arriaga in the outpatient setting with a significant past medical history of coronary artery disease with previous CABG, CVA, hyperlipidemia, prostate disorder, thyroid disorder as well as significant myelopathy of the cervical spine with moderate stenosis of C3-4 and bilateral upper and lower extremity weakness with unsteady gait. Patient did undergo presurgical clearance with cardiology as well as primary care provider in the outpatient setting. Medications will be reviewed and resumed as appropriate and strongly recommend weaning FiO2 as tolerated and incentive spirometer use. Will order basic labs for a.m. 11/24/2024 Patient is seen in follow-up today status post ACDF yesterday. Patient has significant amount of swelling of the neck and continues with drainage and reports is receiving steroids for the swelling. Patient reports he was able to eat although does notice some swelling at with swallowing. Sodium mildly elevated at 147 and discontinued fluids recommend follow-up labs. Patient reports was able to work with physical therapy today and is continued on pain management per orthopedics. 11/25/2024 Patient is seen in follow-up today with orthopedics following as well. Patient continues to report some swelling although has improved and is able to swallow and tolerate some diet. Patient is continued on antibiotics and does have an elevated white count which is most likely reactive. Patient currently on 2 L via nasal cannula and does not wear oxygen outpatient encouraged incentive spirometer use more frequently and also is saturating at 98% on the 2 L. Instructed nursing staff to wean FiO2 and assess patient off oxygen. Patient is working with physical therapy and recommend daily as patient reports he would like to go home with help from family. Patient is urinating with a condom catheter although reports not having any bowel movements yet today recommend scheduled bowel regimen as well as as needed. Encouraged increase activity as tolerated. Review of systems: Constitutional: No reports of fatigue, fever, or chills Cardiovascular: No reports of chest pain or palpitations Respiratory: No reports of shortness of breath or cough GI: No reports of nausea, vomiting, or diarrhea, reports not passing much gas and had no bowel movement as of yet : No reports of dysuria or retention patient reports chronic incontinence Neurovascular: reports of generalized weakness and some continued neck swelling All medications have been reviewed The rest of the 14-point review of systems is negative. PHYSICAL EXAMINATION: GENERAL: The patient is awake, alert and oriented x3, not in any acute distress. Currently sitting up in the chair today. Well developed, well nourished. Ob chang, elderly appearing HEENT: Pupils are round and equally reacting to light. EOMI. No scleral icterus. No conjunctival pallor. Normocephalic, atraumatic. No pharyngeal erythema. No thyromegaly. Significant neck swelling noted although somewhat improved today CARDIOVASCULAR: S1 and S2 muffled PULMONARY: Diminished breath sounds bilaterally otherwise chest is clear to auscultation, no wheezing or crackles. ABDOMEN: Soft, obese, nontender, nondistended, normoactive bowel sounds. No palpable organomegaly. MUSCULOSKELETAL: No joint swelling or deformity. EXTREMITIES: No cyanosis, clubbing, or pedal edema. NEUROLOGICAL: Gross neurological examination did not reveal any focal deficits. Diffusely weak SKIN: No rashes. 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 Patient continues with significant swelling is being continued on dexamethasone per orthopedics. Patient reports he notices some swelling while swallowing and instructed the patient to continue with thin or soft foods only and recommend aspiration precautions. Swelling slightly improved and is maintained on dexamethasone. Patient is tolerating oral intake. Continue with head of the bed elevated 45 degrees at all times. Patient reports has not had a bowel movement and denies passing much gas. Recommend bowel regimen scheduled as well as as needed with increased activity as tolerated with restrictions to follow per orthopedics Recommend incentive spirometer use at least 10 times every hour while awake and wean FiO2 as tolerated as patient does not wear oxygen outpatient Follow-up with basic labs in the a.m. monitor sodium level and fluids discontinued. Sodium was slightly improved at 144 today. We will continue to follow with orthopedics during hospitalization. Thank you kindly for this consultation The impression and plan of care has been dictated by Anyi Jauregui, Nurse Practitioner as directed. Dr. Aris MD I have performed a history and examination and MDM of this patient, discussed the same with the dictator, and agree with the dictator's assessment and plan as written ,documented as a scribe. Based on total visit time, I have performed more than 50% of the visit. Objective - Vital Signs Vital signs: Vital Signs Temp 98.7 F 11/25/24 07:19 Pulse 64 11/25/24 07:19 Resp 16 11/25/24 07:19 BP 107/53 11/25/24 07:19 Pulse Ox 97 11/25/24 07:19 FiO2 Intake & Output 11/24/24 11/25/24 11/25/24 18:59 06:59 18:59 Intake Total 240 Output Total 360 Balance -120 Intake: Oral 240 Output: Drainage 10 Right Anterior Neck 10 Urine 350 Other: Voiding Method External Catheter External Catheter # Voids 400 - Labs CBC & Chem 7: 11/25/24 04:51 11/25/24 04:51 Labs: Abnormal Lab Results - Last 24 Hours (Table) 11/25/24 11/25/24 Range/Units 04:51 04:51 WBC 15.14 H (4.50-10.00) X 10*3/uL RBC 3.15 L (4.40-5.60) X 10*6/uL Hgb 10.9 L (13.0-17.0) g/dL Hct 34.0 L (39.6-50.0) % MCV 107.9 H (80.0-97.0) FL MCH 34.6 H (27.0-32.0) pg Immature Gran # 0.08 H (0.00-0.04) X 10*3/uL Neutrophils # 12.78 H (1.80-7.70) X 10*3/uL Monocytes # 1.23 H (0.20-1.00) X 10*3/uL Eosinophils # 0 L (0.04-0.35) X 10*3/uL Chloride 111 H (96-109) mmol/L Carbon Dioxide 20.9 L (21.6-31.8) mmol/L Anion Gap 12.10 H (4.00-12.00) mmol/L Est GFR (CKD-EPI) 48 L (>=60) Glucose 120 H (70-110) mg/dL AST 45 H (14-35) U/L Total Protein 5.7 L (6.2-8.2) g/dL Albumin 3.4 L (3.8-4.9) g/dL Albumin/Globulin Ratio 1.48 L (1.60-3.17) Ratio
--- NOTE | 2024-11-26 10:49 | P.DS ---
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 UE AND LE WEAKNESS 5. UNSTEADY GAIT 6. FINE MOTOR DISRUPTION Discharge diagnosis: Same Attending physician: Dr. 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 At this point patient has failed conservative treatment measures and has opted to proceed with a elective C5-C6 ACDF. Hospital course: Details of patient's surgery can be found in operative report. Patient tolerated the procedure well and was subsequently transported to orthopedic floor. Patient's orthopeidc and medical care was provided daily. Patient had daily laboratory tests performed for evaluation of overall blood counts. Patient had daily physical therapy to include strengthening range of motion as well as education with walker ambulation. Patient was noted to have a relatively uneventful postoperative course. Patient reported satisfactory pain control with oral pain medications by postoperative day 3. Patient showed satisfactory progress with physical therapy. Patient moved steadily through the program and had no difficulty meeting the goals by postoperative day 3. Given patient's otherwise satisfactory course and having met physical therapy goals, plan is to discharge patient to rehab on postoperative day 3. Discharge condition/disposition: Patient will be discharged to rehab in stable condition. Discharge medications: Instructions are given on resumption of patient's normal daily medications per primary care recommendation, in addition patient will be prescribed Wassaic; gabapentin; Flexeril; Duricef; senna. 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 UE AND LE WEAKNESS 5. UNSTEADY GAIT 6. FINE MOTOR DISRUPTION Procedure: C5-C6 ACDF Medications: See medication list All medication refills should be obtained through your primary care doctor or your clinic spine surgeon. Please discuss prescription refills at your follow up appointment. Do not call the hospital for medication refills. Dressing: Leave your dressing in place for a total of 5 days post operatively. Then you may remove your dressing and leave open to air. Keep the area clean and if not able to keep area clean, then cover with sterile gauze and tape. Showering: You may shower 3 days after your procedure allowing soap and water to run over incision. Do not scrub. Do not soak. Blot dry. Follow up: Please confirm a follow up appointment with your surgeon 3 weeks post operatively. Please make an appointment to follow up with your PCP in 1-2 weeks after surgery for evaluation '3 phase, 3-week plan' POST OP WEEKS 1-3 1. Lifting/carrying/pushing/pulling limited to less than 5 pounds. 2. Do not sit for longer than 15 minutes at one time. Get up and walk ar ound. Prolonged sitting is NOT advised. If you lay down, see if you can tolerate laying down on you front (belly side) 3. Walk for periods of 15 minutes = 1 mile but no longer; do it multiple times times each day. 4. Ice your low back after activity. POST OP WEEKS 3-6 1. Lifting limited to less than 20 pounds. 2. Do not sit for longer than 30 minutes at a time. Frequently change positions. Use a sit-to stand workstation or take frequent breaks from sitting if you have returned to work. 3. Walk for 30 minutes each day. If possible, do these three or more times a day POST OP WEEKS 6+ At your 6-week appointment we will give you a physical therapy referral to focus on a core stabilization and strengthening program. You should also work on leg & buttock strengthening, hamstring & quadriceps stretching, and continue a low impact aerobic activity program such as swimming, walking, or riding a stationary bicycle. During the initial 6 weeks after your surgery, you are at the highest risk of re-injuring your spine. You should generally avoid BLT's (bending, lifting and twisting combination motions) and follow the above guidelines to reduce the chance of reinjury. You can anticipate post op appointments in our office at approximately 3 weeks and 6 weeks after your surgery. INCISION CARE: If your incision is not draining you do NOT need to cover it with a dressing. Keep your incision clean, dry and intact. In most cases, we apply skin glue, ernu or sutures to the incision at the t callie of surgery. This will be like a crust or have the appearance of a scab and will fall off in time on its own. The stitches or renu need to be removed at 3 weeks post op appointment. You may begin to shower 3 days after surgery (this allows the glue to caal well). However, please avoid scrubbing the incision site or peeling off any of the skin glue. This will ensure optimal healing of your incision. Also, during this time avoid soaking the incision area in water - this includes swimming pools, hot tubs or baths. No ointments, lotions or oils on the incision until your surgeon allows. Leave renu, sutures or glue in place. Neurological dysfunction that comes on suddenly can also be a sign of a stroke. Below some common symptoms of a stroke are listed: B - balance difficulty such as sudden onset walking or leaning to one side - NEW E - eye problem such as sudden double vision or trouble seeing on one side - NEW F - Facial weakness or numbness on one side - NEW A - Arm or leg weakness or numbness on one side - NEW S - Slurred speech or difficulty with word finding - NEW T - Time is BRAIN! Call 911 as soon as you recognize these symptoms Diet: Consume a regular diet rich in vegetables and lean protein such as chicken or fish. You should consume in a ratio of approximately 20% fats|40% carbohydrates|40%protein. Vegetables, sweet potatoes, brown rice or quinoa are examples of good carbohydrates. Chips, white bread, cookies and sweets/sugar are examples of bad carbohydrates. Limit your bad carbs, go wild with good carbs. "Life's Simple 7" Guidelines as per [place] [employer] These will help you reclaim your life after surgery and scaffolding helper in your recovery, keeping in mind your restrictions. (1) Get Active. Physical activity can help people lose weight, control high blood pressure and cholesterol, feel emotionally better, and sleep better. (2) Control Cholesterol. Avoid a diet high in saturated fat, trans fat, & cholesterol. Limit whole milk & cream, ice cream, butter, egg yolks, processed meats (like sausage and hot dogs), and fatty meats. Choose healthy foods that are low in saturated fat, trans fat and cholesterol which include: Fruits and vegetables, fiber rich grain products (like whole grain pasta and brown rice), lean meat such as chicken, fish, nuts, seeds, and legumes. (3) Eat Better. Eat small portions. Shop at the grocery with a list and do not stray from it. Tips for a healthy diet include: Limit sodium intake to less than 1500mg daily, avoid prepackaged, processed, and fast foods, choose a diet rich in fruits, vegetables, and whole grain, high fiber foods, and limit saturated & cholesterol in your diet. (4) Manage Blood Pressure. If you have high blood pressure, you should have a cuff at home so that you can check your blood pressure regularly. Be sure you have a good cuff. An arm one is generally better than a wrist one. Bring the cuff to a doctor's appointment to validate that the measurements that your cuff are taking are accurate. Take your blood pressure twice daily when you are sitting down and relaxing. Record the numbers in a log and bring this log with you to your doctors' appointments. (5) Lose Weight if your BMI is above 25. A healthy BMI is between 19-25. To calculate Your BMI, you may use a Standard BMI Calculator on the NIH BMI website: <www.nhlbi.nih.gov/guidelines/obesity/BMI/bmicalc.htm>. Weigh oneself daily. If you are overweight, set a goal to lose weight. A pound a week loss if needed is a good target. (6) Reduce Blood Sugar. Limit foods and liquids with "added sugars." (Added sugars include sucrose, fructose, glucose, maltose, dextrose, high fructose corn syrup, corn syrup, concentrated fruit juice and honey). (7) Stop Smoking. If you smoke, quitting smoking is one of the best things that you can do for your health. Smoking increases your risk of heart attack, stroke, and peripheral vascular disease, which is a build-up of plaque in your arteries. Please discard all the cigarettes and lighters in your house. Have a plan for what you will do when you have the urge to smoke. Direct and second- hand smoke shortens your life as well as the lives of your family, friends and others around you. For your health and the health of those around you, please consider quitting! Proper Bending Body Mechanics: Maintain a wide stance with one foot slightly in front of the other. Keep your back straight. Bend utilizing the strength in your hips and knees. Do not bend at the waist. Maintain the lifted object at your waist-level close to your body. Avoid lifting weight that causes immediately pain or pain anywhere in the body afterwards. Smoking/Nicotine If there was ever one thing that you could do to increase your overall health, decrease your risk of cardiovascular problems by about 39% the second you make the choice, it is to STOP SMOKING. Your body's most instant gratification is the second you stop smoking. We have all heard the studies, read the articles but it is true, smoking is extremely bad for your overall health, and moreover it is detrimental to your bone health. Nicotine, IN ANY FORM, kills bone cells, prevents your body from healing fractures, and significantly prolongs healing after surgery. In spine surgery specifically, it increases your risk of not healing your bones to create a fusion and increases your risk of having a revision surgery due to this up to 60%. I know it is hard. I know it feels impossible. But there are ways. Take control of your life. We are here to help you through it. And when you are ready, ask us and we can direct you to help if you desire. Use the START Plan to Quit Smoking (please visit the Helpguide.org website listed below for more information): S = Set a quit date. Choose a date within the next 2 weeks, so you have enough time to prepare without losing your motivation to quit. If you mainly smoke at work, quit on the weekend, so you have a few days to adjust to the change. T = Tell family, friends, and co-workers that you plan to quit. Let your friends and family in on your plan to quit smoking and tell them you need their support and encouragement to stop. Look for a quit varun who wants to stop smoking as well. You can help each other get through the rough times. A = Anticipate and plan for the challenges you'll face while quitting. Most people who begin smoking again do so within the first 3 months. You can help yourself make it through by preparing ahead for common challenges, such as nicotine withdrawal and cigarette cravings. R = Remove cigarettes and other tobacco products from your home, car, and work. Throw away all your cigarettes (no emergency pack!), lighters, ashtrays, and matches. Wash your clothes and freshen up anything that smells like smoke. Shampoo your car, clean your drapes and carpet, and steam your furniture. T = Talk to your doctor about getting help to quit. Your doctor can prescribe medication to help with withdrawal and suggest other alternatives. If you can't see a doctor, you can get many products over the counter at your local pharmacy or grocery store, including the nicotine patch, nicotine lozenges, and nicotine gum. Resources for Quitting Smoking: <https://www.[place].gov/documents/[facility]/Quit_Tobacco_Resources_for_patients_313 480_7.pdf> Supplementation: Take recommended dosages of Vitamin D and Calcium to help fortify your bones and help them to heal. See your health maintenance packet for dosages and recommended levels. DVT/VTE prophylaxis: You will be given compression stockings from the hospital. Wear these daily for the first two weeks after surgery. You may take them off at night. You may be prescribed a medication to help thin your blood. Take this as directed. If you are not prescribed this medication, early and frequent ambulation has been shown to be the best prophylaxis to deep vein thrombosis and sequelae related to this event. 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 UE AND LE WEAKNESS 5. UNSTEADY GAIT 6. FINE MOTOR DISRUPTION Procedures: C5-C6 ACDF Patient Condition at Discharge: Good Plan - Discharge Summary Discharge Rx Participant: Yes New Discharge Prescriptions: New cefaDROXiL [Duricef] 500 mg PO Q12HR 5 Days #10 cap Sennosides/Docusate Sodium [Senna Plus 8.6-50 mg Softgel] 1 each PO DAILY #20 capsule HYDROcodone/APAP 7.5-325MG [Wassaic 7.5-325] 1 tab PO Q6HR PRN #24 tab PRN Reason: Pain Cyclobenzaprine [Flexeril] 5 mg PO TID #21 tablet Gabapentin [Neurontin] 300 mg PO TID #21 cap No Action Gabapentin [Neurontin] 300 mg PO DAILY Docusate [Colace] 200 mg PO DAILY Levothyroxine Sodium [Synthroid] 125 mcg PO DAILY gemfibroziL [Lopid] 600 mg PO DAILY allopurinoL [Zyloprim] 300 mg PO DAILY [place]-3 Fatty Acids/Fish Oil [Fish Oil 1,000 mg Softgel] 1 cap PO DAILY traMADol HCL [Ultram] 50 mg PO DAILY Tamsulosin HCl [Flomax] 0.4 mg PO DAILY Ibuprofen [Motrin] 800 mg PO DAILY Aspirin 325 mg PO DAILY Folic Acid 1 mg PO DAILY tab Atorvastatin [Lipitor] 20 mg PO HS 30 Days #30 tab Cyanocobalamin [Vitamin B-12] 1,000 mcg PO DAILY #0 tab Meclizine [Antivert] 25 mg PO TID PRN #20 tab PRN Reason: Vertigo Donepezil [Aricept] 5 mg PO HS Metoprolol Tartrate [Lopressor] 25 mg PO DAILY Cholecalciferol [Vitamin D3 (25 Mcg = 1000 Iu)] 25 mcg PO DAILY Discharge Medication List Docusate [Colace] 200 mg PO DAILY 10/13/14 [History] Gabapentin [Neurontin] 300 mg PO DAILY 10/13/14 [History] Levothyroxine Sodium [Synthroid] 125 mcg PO DAILY 10/13/14 [History] [place]-3 Fatty Acids/Fish Oil [Fish Oil 1,000 mg Softgel] 1 cap PO DAILY 10/13/14 [History] allopurinoL [Zyloprim] 300 mg PO DAILY 10/13/14 [History] gemfibroziL [Lopid] 600 mg PO DAILY 10/13/14 [History] Ibuprofen [Motrin] 800 mg PO DAILY 11/12/16 [History] Tamsulosin HCl [Flomax] 0.4 mg PO DAILY 11/12/16 [History] traMADol HCL [Ultram] 50 mg PO DAILY 11/12/16 [History] Aspirin 325 mg PO DAILY 05/04/17 [History] Metoprolol Tartrate [Lopressor] 25 mg PO DAILY 09/12/22 [History] Cholecalciferol [Vitamin D3 (25 Mcg = 1000 Iu)] 25 mcg PO DAILY 10/03/22 [History] Atorvastatin [Lipitor] 20 mg PO HS 30 Days #30 tab 10/05/22 [Rx] Cyanocobalamin [Vitamin B-12] 1,000 mcg PO DAILY #0 tab 10/05/22 [Rx] Folic Acid 1 mg PO DAILY tab 10/05/22 [Rx] Meclizine [Antivert] 25 mg PO TID PRN #20 tab 02/02/24 [Rx] Donepezil [Aricept] 5 mg PO HS 11/18/24 [History] Cyclobenzaprine [Flexeril] 5 mg PO TID #21 tablet 11/26/24 [Rx] Gabapentin [Neurontin] 300 mg PO TID #21 cap 11/26/24 [Rx] HYDROcodone/APAP 7.5-325MG [[place] 7.5-325] 1 tab PO Q6HR PRN #24 tab 11/26/24 [Rx] Sennosides/Docusate Sodium [Senna Plus 8.6-50 mg Softgel] 1 each PO DAILY #20 capsule 11/26/24 [Rx] cefaDROXiL [Duricef] 500 mg PO Q12HR 5 Days #10 cap 11/26/24 [Rx] Follow up Appointment(s)/Referral(s): [facility], [NON-STAFF] - 1-2 Days ([facility] will call you to schedule your in home nursing, physical therapy, and occupational therapy visits. 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 UE AND LE WEAKNESS 5. UNSTEADY GAIT 6. FINE MOTOR DISRUPTION Procedure: C5-C6 ACDF Medications: See medication list All medication refills should be obtained through your primary care doctor or your clinic spine surgeon. Please discuss prescription refills at your follow up appointment. Do not call the hospital for medication refills. Dressing: Leave your dressing in place for a total of 5 days post operatively. Then you may remove your dressing and leave open to air. Keep the area clean and if not able to keep area clean, then cover with sterile gauze and tape. Showering: You may shower 3 days after your procedure allowing soap and water to run over incision. Do not scrub. Do not soak. Blot dry. Follow up: Please confirm a follow up appointment with your surgeon 3 weeks post operatively. Please make an appointment to follow up with your PCP in 1-2 weeks after surgery for evaluation '3 phase, 3-week plan' POST OP WEEKS 1-3 1. Lifting/carrying/pushing/pulling limited to less than 5 pounds. 2. Do not sit for longer than 15 minutes at one time. Get up and walk around. Prolonged sitting is NOT advised. If you lay down, see if you can tolerate laying down on you front (belly side) 3. Walk for periods of 15 minutes = 1 mile but no longer; do it multiple times times each day. 4. Ice your low back after activity. POST OP WEEKS 3-6 1. Lifting limited to less than 20 pounds. 2. Do not sit for longer than 30 minutes at a time. Frequently change positions. Use a sit-to stand workstation or take frequent breaks from sitting if you have returned to work. 3. Walk for 30 minutes each day. If possible, do these three or more times a day POST OP WEEKS 6+ At your 6-week appointment we will give you a physical therapy referral to focus on a core stabilization and strengthening program. You should also work on leg & buttock strengthening, hamstring & quadriceps stretching, and continue a low impact aerobic activity program such as swimming, walking, or riding a stationary bicycle. During the initial 6 weeks after your surgery, you are at the highest risk of re-injuring your spine. You should generally avoid BLT's (bending, lifting and twisting combination motions) and follow the above guidelines to reduce the chance of reinjury. You can anticipate post op appointments in our office at approximately 3 weeks and 6 weeks after your surgery. INCISION CARE: If your incision is not draining you do NOT need to cover it with a dressing. Keep your incision clean, dry and intact. In most cases, we apply skin glue, renu or sutures to the incision at the time of surgery. This will be like a crust or have the appearance of a scab and will fall off in time on its own. The stitches or renu need to be removed at 3 weeks post op appointment. You may begin to shower 3 days after surgery (this allows the glue to caal well). However, please avoid scrubbing the incision site or peeling off any of the skin glue. This will ensure optimal healing of your incision. Also, during this time avoid soaking the incision area in water - this includes swimming pools, hot tubs or baths. No ointments, lotions or oils on the incision until your surgeon allows. Leave renu, sutures or glue in place. Neurological dysfunction that comes on suddenly can also be a sign of a stroke. Below some common symptoms of a stroke are listed: B - balance difficulty such as sudden onset walking or leaning to one side - NEW E - eye problem such as sudden double vision or trouble seeing on one side - NEW F - Facial weakness or numbness on one side - NEW A - Arm or leg weakness or numbness on one side - NEW S - Slurred speech or difficulty with word finding - NEW T - Time is BRAIN! Call 911 as soon as you recognize these symptoms Diet: Consume a regular diet rich in vegetables and lean protein such as chicken or fish. You should consume in a ratio of approximately 20% fats|40% carbohydrates|40%protein. Vegetables, sweet potatoes, brown rice or quinoa are examples of good carbohydrates. Chips, white bread, cookies and sweets/sugar are examples of bad carbohydrates. Limit your bad carbs, go wild with good carbs. "Life's Simple 7" Guidelines as per [place] [employer] These will help you reclaim your life after surgery and scaffolding helper in your recovery, keeping in mind your restrictions. (1) Get Active. Physical activity can help people lose weight, control high blood pressure and cholesterol, feel emotionally better, and sleep better. (2) Control Cholesterol. Avoid a diet high in saturated fat, trans fat, & cholesterol. Limit whole milk & cream, ice cream, butter, egg yolks, processed meats (like sausage and hot dogs), and fatty meats. Choose healthy foods that are low in saturated fat, trans fat and cholesterol which include: Fruits and vegetables, fiber rich grain products (like whole grain pasta and brown rice), lean meat such as chicken, fish, nuts, seeds, and legumes. (3) Eat Better. Eat small portions. Shop at the grocery with a list and do not stray from it. Tips for a healthy diet include: Limit sodium intake to less than 1500mg daily, avoid prepackaged, processed, and fast foods, choose a diet rich in fruits, vegetables, and whole grain, high fiber foods, and limit saturated & cholesterol in your diet. (4) Manage Blood Pressure. If you have high blood pressure, you should have a cuff at home so that you can check your blood pressure regularly. Be sure you have a good cuff. An arm one is generally better than a wrist one. Bring the cuff to a doctor's appointment to validate that the measurements that your cuff are taking are accurate. Take your blood pressure twice daily when you are sitting down and relaxing. Record the numbers in a log and bring this log with you to your doctors' appointments. (5) Lose Weight if your BMI is above 25. A healthy BMI is between 19-25. To calculate Your BMI, you may use a Standard BMI Calculator on the NIH BMI website: <www.nhlbi.nih.gov/guidelines/obesity/BMI/bmicalc.htm>. Weigh oneself daily. If you are overweight, set a goal to lose weight. A pound a week loss if needed is a good target. (6) Reduce Blood Sugar. Limit foods and liquids with "added sugars." (Added s ugars include sucrose, fructose, glucose, maltose, dextrose, high fructose corn syrup, corn syrup, concentrated fruit juice and honey). (7) Stop Smoking. If you smoke, quitting smoking is one of the best things that you can do for your health. Smoking increases your risk of heart attack, stroke, and peripheral vascular disease, which is a build-up of plaque in your arteries. Please discard all the cigarettes and lighters in your house. Have a plan for what you will do when you have the urge to smoke. Direct and second- hand smoke shortens your life as well as the lives of your family, friends and others around you. For your health and the health of those around you, please consider quitting! Proper Bending Body Mechanics: Maintain a wide stance with one foot slightly in front of the other. Keep your back straight. Bend utilizing the strength in your hips and knees. Do not bend at the waist. Maintain the lifted object at your waist-level close to your body. Avoid lifting weight that causes immediately pain or pain anywhere in the body afterwards. Smoking/Nicotine If there was ever one thing that you could do to increase your overall health, decrease your risk of cardiovascular problems by about 39% the second you make the choice, it is to STOP SMOKING. Your body's most instant gratification is the second you stop smoking. We have all heard the studies, read the articles but it is true, smoking is extremely bad for your overall health, and moreover it is detrimental to your bone health. Nicotine, IN ANY FORM, kills bone cells, prevents your body from healing fractures, and significantly prolongs healing after surgery. In spine surgery specifically, it increases your risk of not healing your bones to create a fusion and increases your risk of having a revision surgery due to this up to 60%. I know it is hard. I know it feels impossible. But there are ways. Take control of your life. We are here to help you through it. And when you are ready, ask us and we can direct you to help if you desire. Use the START Plan to Quit Smoking (please visit the Helpguide.org website listed below for more information): S = Set a quit date. Choose a date within the next 2 weeks, so you have enough time to prepare without losing your motivation to quit. If you mainly smoke at work, quit on the weekend, so you have a few days to adjust to the change. T = Tell family, friends, and co-workers that you plan to quit. Let your friends and family in on your plan to quit smoking and tell them you need their support and encouragement to stop. Look for a quit varun who wants to stop smoking as well. You can help each other get through the rough times. A = Anticipate and plan for the challenges you'll face while quitting. Most people who begin smoking again do so within the first 3 months. You can help yourself make it through by preparing ahead for common challenges, such as nicotine withdrawal and cigarette cravings. R = Remove cigarettes and other tobacco products from your home, car, and work. Throw away all your cigarettes (no emergency pack!), lighters, ashtrays, and matches. Wash your clothes and freshen up anything that smells like smoke. Shampoo your car, clean your drapes and carpet, and steam your furniture. T = Talk to your doctor about getting help to quit. Your doctor can prescribe medication to help with withdrawal and suggest other alternatives. If you can't see a doctor, you can get many products over the counter at your local pharmacy or grocery store, including the nicotine patch, nicotine lozenges, and nicotine gum. Resources for Quitting Smoking: <https://www.[place].gov/documents/[facility]/Quit_Tobacco _Resources_for_patients_313480_7.pdf> Supplementation: Take recommended dosages of Vitamin D and Calcium to help fortify your bones and help them to heal. See your health maintenance packet for dosages and recommended levels. DVT/VTE prophylaxis: You will be given compression stockings from the hospital. Wear these daily for the first two weeks after surgery. You may take them off at night. You may be prescribed a medication to help thin your blood. Take this as directed. If you are not prescribed this medication, early and frequent ambulation has been shown to be the best prophylaxis to deep vein thrombosis and sequelae related to this event. Discharge Disposition: TRANSFER TO SNF/ECF
--- NOTE | 2024-11-26 10:58 | P.PN ---
Subjective Progress Note Date: 11/26/24 - Reason for Consult Consult date: 11/23/24 Medical management, status post C5-6 ACDF - History of Present Illness This is a pleasant 73-year-old male who was admitted under orthopedic services and has just returned from postop lethargic although arousable status post C5-6 ACDF. Patient follows with Dr. Arriaga in the outpatient setting with a significant past medical history of coronary artery disease with previous CABG, CVA, hyperlipidemia, prostate disorder, thyroid disorder as well as significant myelopathy of the cervical spine with moderate stenosis of C3-4 and bilateral upper and lower extremity weakness with unsteady gait. Patient did undergo presurgical clearance with cardiology as well as primary care provider in the outpatient setting. Medications will be reviewed and resumed as appropriate and strongly recommend weaning FiO2 as tolerated and incentive spirometer use. Will order basic labs for a.m. 11/24/2024 Patient is seen in follow-up today status post ACDF yesterday. Patient has significant amount of swelling of the neck and continues with drainage and reports is receiving steroids for the swelling. Patient reports he was able to eat although does notice some swelling at with swallowing. Sodium mildly elevated at 147 and discontinued fluids recommend follow-up labs. Patient reports was able to work with physical therapy today and is continued on pain management per orthopedics. 11/25/2024 Patient is seen in follow-up today with orthopedics following as well. Patient continues to report some swelling although has improved and is able to swallow and tolerate some diet. Patient is continued on antibiotics and does have an elevated white count which is most likely reactive. Patient currently on 2 L via nasal cannula and does not wear oxygen outpatient encouraged incentive spirometer use more frequently and also is saturating at 98% on the 2 L. Instructed nursing staff to wean FiO2 and assess patient off oxygen. Patient is working with physical therapy and recommend daily as patient reports he would like to go home with help from family. Patient is urinating with a condom catheter although reports not having any bowel movements yet today recommend scheduled bowel regimen as well as as needed. Encouraged increase activity as tolerated. 11/26/2024 Patient is seen in follow-up this morning doing well although continues to be significantly weak and initially thought he would be okay at home. Patient was evaluated by physical therapy and recommending rehab and patient and family are now agreeable. Patient has received insurance authorization and will be going to [facility] today. Patient is medically stable and recommended dexamethasone taper on discharge. Continue with incentive spirometer use and also close outpatient follow-up with primary care provider. Patient denies chest pain or shortness of breath and reports is tolerating diet. Continue with bowel regimen as needed as well as scheduled. Review of systems: Constitutional: No reports of fatigue, fever, or chills Cardiovascular: No reports of chest pain or palpitations Respiratory: No reports of shortness of breath or cough GI: No reports of nausea, vomiting, or diarrhea, reports passing gas and had no bowel movement as of yet : No reports of dysuria or retention patient reports chronic incontinence Neurovascular: reports of generalized weakness and some continued neck swelling All medications have been reviewed The rest of the 14-point review of systems is negative. PHYSICAL EXAMINATION: GENERAL: The patient is awake, alert and oriented x3, not in any acute distress. Currently sitting up in the chair today. Well developed, well nourished. Obese, elderly appearing HEENT: Pupils are round and equally reacting to light. EOMI. No scleral icterus. No conjunctival pallor. Normocephalic, atraumatic. No pharyngeal erythema. No thyromegaly. Significant neck swelling noted although somewhat improved today CARDIOVASCULAR: S1 and S2 muffled PULMONARY: Diminished breath sounds bilaterally otherwise chest is clear to auscultation, no wheezing or crackles. ABDOMEN: Soft, obese, nontender, nondistended, normoactive bowel sounds. No palpable organomegaly. MUSCULOSKELETAL: No joint swelling or deformity. EXTREMITIES: No cyanosis, clubbing, or pedal edema. NEUROLOGICAL: Gross neurological examination did not reveal any focal deficits. Diffusely weak SKIN: No rashes. 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 Patient continues with significant swelling is being continued on dexamethasone per orthopedics. Swelling is improving although continued on dex amethasone and would recommend a Medrol Dosepak taper on discharge. Continue with soft foods and slowly advance as tolerated Patient reports has not had a bowel movement although reports passing gas. Recommend bowel regimen scheduled as well as as needed with increased activity as tolerated with restrictions to follow per orthopedics Recommend incentive spirometer use at least 10 times every hour while awake and wean FiO2 as tolerated as patient does not wear oxygen outpatient Patient was evaluated by physical therapy and initially wanted to go home with support from the family although recommending rehab and patient and family are now agreeable. Patient has received insurance authorization with case management following and will be going to [facility]. Patient is medically stable once cleared by orthopedics We will continue to follow with orthopedics during hospitalization. Thank you kindly for this consultation The impression and plan of care has been dictated by Anyi Jauregui, Nurse Practitioner as directed. Dr. Aris MD I have performed a history and examination and MDM of this patient, discussed the same with the dictator, and agree with the dictator's assessment and plan as written ,documented as a scribe. Based on total visit time, I have performed more than 50% of the visit. Objective - Vital Signs Vital signs: Vital Signs Temp 98.6 F 11/26/24 07:26 Pulse 57 L 11/26/24 07:26 Resp 18 11/26/24 07:26 BP 101/58 11/26/24 07:26 Pulse Ox 95 11/26/24 07:26 FiO2 Intake & Output 11/25/24 11/26/24 11/26/24 18:59 06:59 18:59 Intake Total 1650 Output Total 300 1350 Balance -300 300 Intake: Oral 1650 Output: Urine 300 1350 Other: Voiding Method External Catheter External Catheter External Catheter # Voids 1 - Labs CBC & Chem 7: 11/25/24 04:51 11/25/24 04:51
[2024-11-26 10:59] LABS: BUN/Creat Ratio 20.21 Ratio (12.00-20.00); Blood Urea Nitrogen 28.3 mg/dL (9.0-27.0); Calcium 8.6 mg/dL (8.7-10.3); Carbon Dioxide 25.6 mmol/L (21.6-31.8); Chloride 109 mmol/L (96-109); Glucose 114 mg/dL (70-110); Potassium 4.4 mmol/L (3.5-5.5); Sodium 143 mmol/L (135-145)
--- NOTE | 2024-11-26 11:06 | P.PN ---
Subjective Progress Note Date: 11/26/24 Principal diagnosis: 1.C5-6 HNP WITH SEVERE STENOSIS, MYELOMALACIA AND MYELOPATHY 2.CERVICAL MYELOPATHY, SEVERE, PROGRESSIVE 3.C3-4 HNP WITH MODERATE STENOSIS 4. UE AND LE WEAKNESS 5. UNSTEADY GAIT 6. FINE MOTOR DISRUPTION Patient was seen at bedside this morning lying in summary composition with dressing in place over anterior cervical spine and soft c-collar in place. Patient says he is having somewhat of a difficult time with food due to the swelling in his neck. Patient says he is hoping to work with therapy today and get up and walk around the room a bit. Patient says he is aware that he is going to rehab upon discharge from the hospital. Patient says he is still having some numbness and tingling down the right upper extremity at this time. He does not recall any change in symptoms over the past day Objective - Vital Signs Vital signs: Vital Signs Temp 98.2 F 11/26/24 01:30 Pulse 55 L 11/26/24 01:30 Resp 16 11/26/24 01:30 BP 105/58 11/26/24 01:30 Pulse Ox 98 11/26/24 01:30 FiO2 Intake & Output 11/25/24 11/26/24 11/26/24 18:59 06:59 18:59 Intake Total 1650 Output Total 300 1350 Balance -300 300 Intake: Oral 1650 Output: Urine 300 1350 Other: Voiding Method External Catheter External Catheter # Voids 1 - Exam Soft c-collar is in place. Dressing appear to be somewhat saturated. Dressing was taken down over anterior cervical spine. Incision appears to be intact. Negative for any active drainage. New dressing placed over anterior cervical sp ine incision. There is somewhat diminished sensation of over the bilateral upper extremities on exam. Sensation is equal, symmetric Rampal intact throughout rest of extremities on exam. Patient does have limited range of motion the bilateral shoulders on exam secondary referred pain and stiffness of the neck. 4-/5 in all major motor groups in bilateral upper extremities. 4/5 in all major motor groups in bilateral lower extremities. Radial pulse intact, 2+ bilaterally. Cap refill under 3 seconds in digits of upper extremities. Negative Homans bilaterally. Negative clonus bilaterally. - Labs CBC & Chem 7: 11/25/24 04:51 11/25/24 04:51 Assessment and Plan Assessment: 1.C5-6 HNP WITH SEVERE STENOSIS, MYELOMALACIA AND MYELOPATHY 2.CERVICAL MYELOPATHY, SEVERE, PROGRESSIVE 3.C3-4 HNP WITH MODERATE STENOSIS 4. UE AND LE WEAKNESS 5. UNSTEADY GAIT 6. FINE MOTOR DISRUPTION -Postop day #3 status post C5-C6 ACDF Plan: 1.C5-6 HNP WITH SEVERE STENOSIS, MYELOMALACIA AND MYELOPATHY; CERVICAL MYELOPATHY, SEVERE, PROGRESSIVE; .C3-4 HNP WITH MODERATE STENOSIS; UE AND LE WEAKNESS; UNSTEADY GAIT; FINE MOTOR DISRUPTION -C5-C6 ACDF surgery performed 11/23/2024. Patient stable bedside this morning with dressing in place over anterior cervical spine and soft c-collar in place. Work with PT/OT daily. Pain medication as needed. Discharge to rehab today. 2. Appreciate medical management 3. Pain management -Rush; gabapentin; Flexeril 4. DVT prophylaxis -mechanical 5. GI prophylaxis -senna; Colace; Protonix 6. PT/OT -weightbearing as tolerated with walker and assistance 7. Encourage incentive spirometer use 8. Discharge planning discharge to rehab today Time with Patient: Less than 30
== END 2024-11-26 15:25 ==
LOC: OR 06:01 → 4SSUR 09:22 → OR 11-24 13:49
PROVIDERS: ADMIT Orthopaedic Surgery; ATTEND Orthopaedic Surgery
DX: M48.02 Spinal stenosis, cervical region (principal); M50.022 Cervical disc disorder at C5-C6 level with myelopathy; D72.829 Elevated white blood cell count, unspecified; G95.89 Other specified diseases of spinal cord; E66.9 Obesity, unspecified; E78.5 Hyperlipidemia, unspecified; I10 Essential (primary) hypertension; I25.10 Atherosclerotic heart disease of native coronary artery without angina pectoris; I25.2 Old myocardial infarction; E07.9 Disorder of thyroid, unspecified; N42.9 Disorder of prostate, unspecified; Z68.35 Body mass index [BMI] 35.0-35.9, adult; Z79.82 Long term (current) use of aspirin; Z79.890 Hormone replacement therapy; Z79.899 Other long term (current) drug therapy; Z86.73 Personal history of transient ischemic attack (TIA), and cerebral infarction without residual deficits; Z91.81 History of falling; Z95.1 Presence of aortocoronary bypass graft
CPT/HCPCS: 97530 ×3; 97162; 97535; 97166; 80053 ×2; 80048; 83735; 85025 ×2; 72040; 72125; 22551; 22853; 20930; 20936; 22845; G0378 ×3; L0120; C1713; J2250; J0330; J1100 ×5; J2710; J0690 ×2; J2405; J2003; J3010; J1171; J1885 ×3; J2704; J2371; J1596; J2470 ×4

== ENCOUNTER 2024-11-30 14:26 | Inpatient (IN) | payer MEDICARE ==
--- NOTE | 2024-11-30 15:02 | ED ---
Weakness HPI - General Chief complaint: Weakness Stated complaint: weakness Time Seen by Provider: 11/30/24 14:49 Source: patient, family, EMS, RN notes reviewed, old records reviewed Mode of arrival: EMS Limitations: no limitations - History of Present Illness Initial comments: This is a 73-year-old male to the ER for evaluation. Patient currently poor story but recent neck surgery coming in for evaluation of fever and low blood pressure today. MD Complaint: generalized weakness -: hour(s) Location: generalized Severity: moderate Severity scale (1-10): 4 Consistency: constant Improves with: none Worsens with: none Context: recent illness, recent surgery, history of similar Associated Symptoms: fever/chills - Related Data Home Medications Medication Instructions Recorded Confirmed Docusate [Colace] 200 mg PO DAILY 10/13/14 11/30/24 Levothyroxine Sodium [Synthroid] 125 mcg PO DAILY@0500 10/13/14 11/30/24 Ballico-3 Fatty Acids/Fish Oil [Fish 1 cap PO HS 10/13/14 11/30/24 Oil 1,000 mg Softgel] allopurinoL [Zyloprim] 300 mg PO DAILY 10/13/14 11/30/24 gemfibroziL [Lopid] 600 mg PO DAILY 10/13/14 11/30/24 Tamsulosin HCl [Flomax] 0.4 mg PO DAILY 11/12/16 11/30/24 Aspirin 325 mg PO DAILY 05/04/17 11/30/24 Metoprolol Tartrate [Lopressor] 25 mg PO DAILY 09/12/22 11/30/24 Cholecalciferol [Vitamin D3 (25 25 mcg PO HS 10/03/22 11/30/24 Mcg = 1000 Iu)] Donepezil [Aricept] 5 mg PO HS 11/18/24 11/30/24 Acetaminophen [Tylenol 8 Hour] 650 mg PO Q6H PRN 11/30/24 11/30/24 Cyanocobalamin [Vitamin B-12] 1,000 mcg PO HS 11/30/24 11/30/24 Cyclobenzaprine [Flexeril] 5 mg PO TID@0700,1300,1900 11/30/24 11/30/24 Folic Acid 0.8 mg PO HS 11/30/24 11/30/24 Gabapentin [Neurontin] 300 mg PO TID@0700,1300,1900 11/30/24 11/30/24 Larissa-Tussin Dm 10 ml PO QID 11/30/24 11/30/24 Ibuprofen [Motrin Ib] 800 mg PO DAILY 11/30/24 11/30/24 Naloxone HCl 0.4 mg IM DIRECTED PRN 11/30/24 11/30/24 Naloxone HCl [Narcan] 4 mg NASAL DIRECTED PRN 11/30/24 11/30/24 cefaDROXiL [Duricef] 500 mg PO BID@0700,1900 11/30/24 11/30/24 methylPREDNISolone Dose Pack See Taper PO DIRECTED 11/30/24 11/30/24 [Medrol Dose Pack] Previous Rx's Medication Instructions Recorded Atorvastatin [Lipitor] 20 mg PO HS 30 Days #30 tab 10/05/22 Meclizine [Antivert] 25 mg PO TID PRN #20 tab 02/02/24 HYDROcodone/APAP 7.5-325MG [Loco 1 tab PO Q6HR PRN #24 tab 11/26/24 7.5-325] Sennosides/Docusate Sodium [Senna 1 each PO DAILY #20 capsule 11/26/24 Plus 8.6-50 mg Softgel] Allergies Allergy/AdvReac Type Severity Reaction Status Date / Time No Known Allergies Allergy Verified 11/30/24 17:37 Review of Systems ROS Statement: Those systems with pertinent positive or pertinent negative responses have been documented in the HPI. ROS Other: All systems not noted in ROS Statement are negative. 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, weakness, mili hand numbness Last Myocardial Infarction Date:: 2005 History of Any Multi-Drug Resistant Organisms: None Reported Past Surgical History: Back Surgery, Bladder Surgery, Coronary Bypass/CABG Additional Past Surgical History / Comment(s): urolift with 4 bands, carpal tunnel, quad bypass 2005 Past Anesthesia/Blood Transfusion Reactions: No Reported Reaction Past Psychological History: No Psychological Hx Reported Smoking Status: Never smoker Past Alcohol Use History: None Reported Past Drug Use History: None Reported - Past Family History Mother Family Medical History: Cancer Additional Family Medical History / Comment(s): leukemia Father Family Medical History: Cancer Additional Family Medical History / Comment(s): lung General Exam General appearance: alert, anxious, in distress Head exam: Present: atraumatic, normocephalic, normal inspection Eye exam: Present: normal appearance, PERRL, EOMI. Absent: scleral icterus, conjunctival injection, periorbital swelling ENT exam: Present: normal exam, mucous membranes moist Neck exam: Present: normal inspection. Absent: tenderness, meningismus, lymphadenopathy Respiratory exam: Present: normal lung sounds bilaterally. Absent: respiratory distress, wheezes, rales, rhonchi, stridor Cardiovascular Exam: Present: regular rate, normal rhythm, normal heart sounds. Absent: systolic murmur, diastolic murmur, rubs, gallop, clicks GI/Abdominal exam: Present: soft, normal bowel sounds. Absent: distended, tenderness, guarding, rebound, rigid Extremities exam: Present: normal inspection, full ROM, normal capillary refill. Absent: tenderness, pedal edema, joint swelling, calf tenderness Back exam: Present: normal inspection Neurological exam: Present: alert, oriented X3, CN II-XII intact Psychiatric exam: Present: normal affect, normal mood Skin exam: Present: warm, dry, intact, normal color. Absent: rash Course Vital Signs 11/30/24 11/30/24 11/30/24 14:30 16:03 18:47 Temperature 98.6 F 97.4 F L Pulse Rate 60 62 52 L Respiratory 18 20 18 Rate Blood Pressure 68/37 88/48 90/40 O2 Sat by Pulse 94 L 94 L 97 Oximetry 11/30/24 11/30/24 11/30/24 19:32 19:40 20:25 Temperature 97.8 F Pulse Rate 58 L 53 L 88 Respiratory 18 18 Rate Blood Pressure 95/42 95/42 O2 Sat by Pulse 96 99 Oximetry 11/30/24 11/30/24 11/30/24 20:32 20:38 21:14 Temperature Pulse Rate 89 65 58 L Respiratory 18 18 Rate Blood Pressure 91/40 88/56 O2 Sat by Pulse 95 Oximetry 11/30/24 11/30/24 12/01/24 22:58 23:02 00:02 Temperature Pulse Rate 67 62 62 Respiratory 20 20 20 Rate Blood Pressure 117/48 108/52 O2 Sat by Pulse 100 99 Oximetry 12/01/24 12/01/24 12/01/24 02:33 03:34 03:42 Temperature Pulse Rate 76 81 89 Respiratory 20 Rate Blood Pressure 106/43 O2 Sat by Pulse 99 Oximetry 12/01/24 12/01/24 12/01/24 04:11 05:00 08:42 Temperature Pulse Rate 93 81 80 Respiratory 22 20 18 Rate Blood Pressure 91/74 93/68 O2 Sat by Pulse 100 95 Oximetry 12/01/24 12/01/24 12/01/24 11:26 11:32 17:40 Temperature 98.1 F Pulse Rate 74 80 Respiratory 22 18 Rate Blood Pressure 110/37 O2 Sat by Pulse 94 L 95 Oximetry 12/01/24 20:42 Temperature 99.2 F Pulse Rate 64 Respiratory 18 Rate Blood Pressure 116/92 O2 Sat by Pulse 95 Oximetry - Reevaluation(s) Reevaluation #1: 11/30/24 15:40 Medical records reviewed Patient does have history of recent cervical spine surgery Reevaluation #2: 11/30/24 18:38 Patient requiring significant fluid challenge here in the ER to maintain blood pressure symptoms controlled no distress mentation and mental status improved Reevaluation #3: 11/30/24 18:38 Patient informed of results and questions answered Reevaluation #4: Was pt. sent in by a medical professional or institution (, PA, LICENSED AUDIOLOGIST, urgent care, hospital, or fci...) When possible be specific @ -no Did you speak to anyone other than the patient for history (EMS, parent, family, police, friend...)? What history was obtained from this source @ -no Did you review nursing and triage notes (agree or disagree)? Why? @ -agree Are old charts reviewed (outside hosp., previous admission, EMS record, old EKG, old radiological studies, urgent care reports/EKG's, fci records)? Report findings @ -yes Differential Diagnosis (chest pain, altered mental status, abdominal pain women, abdominal pain men, vaginal bleeding, weakness, fever, dyspnea, syncope, headache, dizziness, GI bleed, back pain, seizure, CVA, palpatations, mental health, musculoskeletal)? @ -prior EKG interpreted by me (3pts min.). @ -yes X-rays interpreted by me (1pt min.). @ -yes negative for acute disease CT interpreted by me (1pt min.). @ -no U/S interpreted by me (1pt. min.). @ -no What testing was considered but not performed or refused? (CT, X-rays, U/S, labs)? Why? @ -none What meds were considered but not given or refused? Why? @ -none Did you discuss the management of the patient with other professionals (professionals i.e. , PA, LICENSED AUDIOLOGIST, lab, RT, psych nurse, social media coordinator, business functional analyst, teacher, correction officer head, block and case maker)? Give summary @ -no Was smoking cessation discussed for >3mins.? @ -no Was critical care preformed (if so, how long)? @ -yes31 Were there social determinants of health that impacted care today? How? (Homelessness, low income, unemployed, alcoholism, drug addiction, transportation, low edu. Level, literacy, decrease access to med. care, prison, rehab)? @ -none Was there de-escalation of care discussed even if they declined (Discuss DNR or withdrawal of care, Hospice)? DNR status @ -no What co-morbidities impacted this encounter? (DM, HTN, Smoking, COPD, CAD, C ancer, CVA, ARF, Chemo, Hep., AIDS, mental health diagnosis, sleep apnea, morbid obesity)? @ -none Was patient admitted / discharged? Hospital course, mention meds given and route, prescriptions, significant lab abnormalities, going to OR and other pertinent info. @ - 73 male with sepsis from flu. Low blood pressures here in the ER did respond to fluid challenge. Patient will be admitted with recent history of neck surgery from Dr. Sanchez's and will consult. Patient's son is at bedside informed of results and questions answered Admitted Undiagnosed new problem with uncertain prognosis? @ -no Drug Therapy requiring intensive monitoring for toxicity (Heparin, Nitro, Insulin, Cardizem)? @ -no Were any procedures done? @ -no Diagnosis/symptom? @ -Sepsis, influenza Acute, or Chronic, or Acute on Chronic? @ -Acute Uncomplicated (without systemic symptoms) or Complicated (systemic symptoms)? @ -Complicated Side effects of treatment? @ -no Exacerbation, Progression, or Severe Exacerbation? @ -exacerbation Poses a threat to life or bodily function? How? (Chest pain, [place], RI, pneumonia, PE, COPD, DKA, ARF, appy, cholecystitis, CVA, Diverticulitis, Homicidal, Suicidal, threat to staff... and all critical care pts) @ -yes extremes of age Reevaluation #5: Differential Fever: Pneumonia, viral URI, endocarditis, myocarditis, pericarditis, otitis, sinu sitis, peritonsillar Abscess, retropharyngeal Abscess, epiglottitis, peritonitis, appendicitis, Margareth cystitis, diverticulitis, hepatitis, colitis, UTI, PID, TOA, pyelonephritis, prostatitis, epididymitis, meningitis, encephalitis, pulmonary embolism, CVA, thyroid storm, pancreatitis, adrenal crisis, cavernous sinus thrombosis, this is not meant to be an all-inclusive list. - Consultations Consultation #1: Spoke with [facility] who agrees to admit this patient EKG Findings - EKG Comments: EKG Findings:: EKG is sinus bradycardia 58 [place] 209 QRS 98 QTc 415 - EKG Results: EKG: interpreted by ERMD Procedures - Sepsis Sepsis Focused Exam #1 Time Sepsis Criteria Met: 17:00 Sepsis Focused Exam Date: 11/30/24 Sepsis Focused Exam Time: 20:00 Sepsis Focused Exam Complete: Yes Vital Signs & RN Notes Reviewed: Yes Capillary Refill: < 2 Seconds: Fingers, Toes Peripheral Pulses: Normal: Radial (R), Radial (L), Posterior Tibialis (R), Posterior Tibialis (L), Dorsalis Pedis (R), Dorsalis Pedis (L) Skin Color: Ashen Respiratory Exam: normal lung sounds, respiratory distress Cardiovascular Exam: regular rate, normal rhythm Medical Decision Making - Medical Decision Making 73 male with sepsis from flu. Will place on antibiotics with significant sepsis, low blood pressures here in the ER did respond to fluid challenge. Patient will be admitted with recent history of neck surgery from Dr. Sanchez's and will consult. Patient's son is at bedside informed of results and questions answered - Lab Data Result diagrams: 12/07/24 06:33 12/07/24 06:33 Lab Results 11/30/24 11/30/24 11/30/24 Range/Units 15:21 15:21 15:21 WBC 17.2 H (3.8-10.6) k/uL RBC 3.29 L (4.30-5.90) m/uL Hgb 11.6 L (13.0-17.5) gm/dL Hct 33.6 L (39.0-53.0) % MCV 102.4 H (80.0-100.0) fL MCH 35.3 H (25.0-35.0) pg MCHC 34.5 (31.0-37.0) g/dL RDW 13.5 (11.5-15.5) % Plt Count 217 (150-450) k/uL MPV 8.7 Neutrophils % 87 % Lymphocytes % 5 % Monocytes % 5 % Eosinophils % 1 % Basophils % 0 % Neutrophils # 15.0 H (1.3-7.7) k/uL Lymphocytes # 0.9 L (1.0-4.8) k/uL Monocytes # 0.9 (0-1.0) k/uL Eosinophils # 0.1 (0-0.7) k/uL Basophils # 0.0 (0-0.2) k/uL Macrocytosis Slight PT 12.1 (10.0-12.5) sec INR 1.1 (<1.2) APTT 22.8 (22.0-30.0) sec Sodium 139 (137-145) mmol/L Potassium 4.0 (3.5-5.1) mmol/L Chloride 104 (98-107) mmol/L Carbon Dioxide 27 (22-30) mmol/L Anion Gap 8 mmol/L BUN 39 H (9-20) mg/dL Creatinine 2.38 H (0.66-1.25) mg/dL Est GFR (CKD-EPI)AfAm 30 (>60 ml/min/1.73 sqM) Est GFR (CKD-EPI)NonAf 26 (>60 ml/min/1.73 sqM) Glucose 111 H (74-99) mg/dL Plasma Lactic Acid Virgil (0.7-2.0) mmol/L Calcium 8.6 (8.4-10.2) mg/dL Phosphorus 4.3 (2.5-4.5) mg/dL Magnesium 2.2 (1.6-2.3) mg/dL Total Bilirubin 0.7 (0.2-1.3) mg/dL AST 35 (17-59) U/L ALT 23 (4-49) U/L Alkaline Phosphatase 65 (38-126) U/L Troponin I (0.000-0.034) ng/mL NT-Pro-B Natriuret Pep 2250 pg/mL Total Protein 5.4 L (6.3-8.2) g/dL Albumin 2.9 L (3.5-5.0) g/dL Influenza Type A (PCR) (Not Detectd) Influenza Type B (PCR) (Not Detectd) RSV (PCR) (Not Detectd) SARS-CoV-2 (PCR) (Not Detectd) 11/30/24 11/30/24 11/30/24 Range/Units 15:21 15:21 16:03 WBC (3.8-10.6) k/uL RBC (4.30-5.90) m/uL Hgb (13.0-17.5) gm/dL Hct (39.0-53.0) % MCV (80.0-100.0) fL MCH (25.0-35.0) pg MCHC (31.0-37.0) g/dL RDW (11.5-15.5) % Plt Count (150-450) k/uL MPV Neutrophils % % Lymphocytes % % Monocytes % % Eosinophils % % Basophils % % Neutrophils # (1.3-7.7) k/uL Lymphocytes # (1.0-4.8) k/uL Monocytes # (0-1.0) k/uL Eosinophils # (0-0.7) k/uL Basophils # (0-0.2) k/uL Macrocytosis PT (10.0-12.5) sec INR (<1.2) APTT (22.0-30.0) sec Sodium (137-145) mmol/L Potassium (3.5-5.1) mmol/L Chloride (98-107) mmol/L Carbon Dioxide (22-30) mmol/L Anion Gap mmol/L BUN (9-20) mg/dL Creatinine (0.66-1.25) mg/dL Est GFR (CKD-EPI)AfAm (>60 ml/min/1.73 sqM) Est GFR (CKD-EPI)NonAf (>60 ml/min/1.73 sqM) Glucose (74-99) mg/dL Plasma Lactic Acid Virgil 1.0 (0.7-2.0) mmol/L Calcium (8.4-10.2) mg/dL Phosphorus (2.5-4.5) mg/dL Magnesium (1.6-2.3) mg/dL Total Bilirubin (0.2-1.3) mg/dL AST (17-59) U/L ALT (4-49) U/L Alkaline Phosphatase (38-126) U/L Troponin I 0.128 H* (0.000-0.034) ng/mL NT-Pro-B Natriuret Pep pg/mL Total Protein (6.3-8.2) g/dL Albumin (3.5-5.0) g/dL Influenza Type A (PCR) Detected A (Not Detectd) Influenza Type B (PCR) Not Detected (Not Detectd) RSV (PCR) Not Detected (Not Detectd) SARS-CoV-2 (PCR) Not Detected (Not Detectd) - EKG Data -: EKG Interpreted by Me - Radiology Data Radiology results: report reviewed (Chest x-ray is negative for acute disease), image reviewed Critical Care Time Critical Care Time: Yes Total Critical Care Time: 31 Disposition Clinical Impression: Dehydration, Cervical disc disease with myelopathy, Fever, Sepsis, Influenza A, Cervical disc herniation, Leukocytosis Disposition: ADMITTED IP TO THIS [facility] Condition: Serious Is patient prescribed a controlled substance at d/c from ED?: No Time of Disposition: 18:30
[2024-11-30] MEDS: SODIUM CHLORIDE 0.9% 1,000 ML IV ONE (15:19)
[2024-11-30] MEDS: ACETAMINOPHEN TAB 500 MG TAB PO STA (15:28)
[2024-11-30] MEDS: ONDANSETRON 4 MG/2 ML VIAL IVP STA (15:28)
[2024-11-30] MEDS: IBUPROFEN 800 MG TAB PO STA (15:28)
[2024-11-30 15:29] LABS: Basophils % (A) 0 %; Eosinophils # (A) 0.1 k/uL (0-0.7); Eosinophils % (A) 1 %; HCT 33.6 % (39.0-53.0); HGB 11.6 gm/dL (13.0-17.5); Lymphocytes # (A) 0.9 k/uL (1.0-4.8); Lymphocytes % (A) 5 %; MCH 35.3 pg (25.0-35.0); MCHC 34.5 g/dL (31.0-37.0); MCV 102.4 fL (80.0-100.0); Macrocytosis Slight; Mean Platelet Volume 8.7; Monocytes # (A) 0.9 k/uL (0-1.0); Monocytes % (A) 5 %; Neutrophils % (A) 87 %; Platelet Count 217 k/uL (150-450); RBC 3.29 m/uL (4.30-5.90); RDW 13.5 % (11.5-15.5); WBC 17.2 k/uL (3.8-10.6)
[2024-11-30] MEDS: LACTATED RINGERS 1,000 ML IV SCH (15:32)
[2024-11-30 15:42] LABS: INR 1.1 (<1.2); Partial Thromboplastin Time 22.8 sec (22.0-30.0); Prothrombin Time 12.1 sec (10.0-12.5)
[2024-11-30 15:56] LABS: ALT 23 U/L (4-49); AST 35 U/L (17-59); African American GFR (CKD) 30 (>60 ml/min/1.73 sqM); Albumin 2.9 g/dL (3.5-5.0); Alkaline Phosphatase 65 U/L (38-126); Anion Gap 8 mmol/L; Blood Urea Nitrogen 39 mg/dL (9-20); Calcium 8.6 mg/dL (8.4-10.2); Carbon Dioxide 27 mmol/L (22-30); Chloride 104 mmol/L (98-107); Glucose 111 mg/dL (74-99); Magnesium 2.2 mg/dL (1.6-2.3); Non-African American GFR(CKD) 26 (>60 ml/min/1.73 sqM); Phosphorus 4.3 mg/dL (2.5-4.5); Sodium 139 mmol/L (137-145); Total Bilirubin 0.7 mg/dL (0.2-1.3); Total Protein 5.4 g/dL (6.3-8.2)
[2024-11-30 16:03] LABS: NT-Pro-B-Type Natriuretic Pept 2250 pg/mL
--- NOTE | 2024-11-30 16:18 | XR ---
EXAMINATION TYPE: XR chest 1V portable DATE OF EXAM: 11/30/2024 4:00 PM COMPARISON: April 16, 2024 CLINICAL INDICATION: Male, 73 years old with history of fever, TECHNIQUE: XR chest 1V portable views of the chest are obtained. FINDINGS: Demonstrated are scattered senescent parenchymal change. There is no evidence for focal infiltrate. The heart is stable. Hilar and mediastinal structures are within normal limits. Degenerative changes are seen of the dorsal spine. IMPRESSION: 1. Chronic changes without evidence for acute pulmonary disease. [facility], , 11/30/2024 4:16 PM
[2024-11-30 16:47] LABS: Influenza A Detected (Not Detectd); Influenza B Not Detected (Not Detectd); RSV Not Detected (Not Detectd)
[2024-11-30] MEDS ORDERED: NALOXONE 0.4 MG/ML 1 ML VIAL IV PRN (18:35)
[2024-11-30] MEDS ORDERED: ONDANSETRON 4 MG/2 ML VIAL IVP PRN (18:35)
[2024-11-30] MEDS: SODIUM CHLORIDE 0.9% 1,000 ML IV SCH (18:56)
[2024-11-30] MEDS: ALBUTEROL NEBULIZED 2.5 MG/3 ML INHALATION PRN (20:23)
[2024-11-30] MEDS ORDERED: VANCOMYCIN IV PER PHARMACY 1 EACH MISC MISCELLANE PRN (20:53)
[2024-11-30] MEDS: PIPERACILLIN-TAZOBACTAM 3.375 GM in SODIUM CHLORIDE 0.9% 100 ML IVPB STA (21:12)
[2024-11-30 21:58] LABS: Appearance,Urine Turbid (Clear); Bilirubin,Urine Negative (Negative); Blood,Urine Small (Negative); Color,Urine Yellow; Glucose,Urine (UA) Negative (Negative); Ketones,Urine Negative (Negative); Leukocyte Esterase,Urine Large (Negative); Mucus,Urine Rare /hpf; Nitrite,Urine Negative (Negative); PH, Urine 5.5 (5.0-8.0); Protein,Urine Trace (Negative); RBC,Urine 12 /hpf (0-5); Specific Gravity,Urine 1.019 (1.001-1.035); Urobilinogen,Urine <2.0 mg/dL (<2.0); WBC,Urine >182 /hpf (0-5)
[2024-11-30] MEDS: LACTATED RINGERS 1,000 ML IV ONE (22:30)
[2024-11-30] MEDS: VANCOMYCIN 1,500 MG in SODIUM CHLORIDE 0.9% 500 ML 500 ML IVPB ONE (22:32)
[2024-12-01] MEDS: LACTATED RINGERS 500 ML IV ONE (00:28)
[2024-12-01] MEDS: LACTATED RINGERS 1,000 ML IV ONE (00:28)
[2024-12-01 04:11] LABS: VBG PH 7.3 (7.31-7.41)
[2024-12-01] MEDS: PIPERACILLIN-TAZOBACTAM 3.375 GM in SODIUM CHLORIDE 0.9% 100 ML IVPB SCH (04:23)
[2024-12-01 07:29] LABS: Basophils % (A) 0 %; Eosinophils # (A) 0.1 k/uL (0-0.7); Eosinophils % (A) 0 %; HCT 36.2 % (39.0-53.0); HGB 11.6 gm/dL (13.0-17.5); Lymphocytes # (A) 0.6 k/uL (1.0-4.8); Lymphocytes % (A) 2 %; MCH 33.4 pg (25.0-35.0); MCHC 32.1 g/dL (31.0-37.0); MCV 104.2 fL (80.0-100.0); Macrocytosis Slight; Mean Platelet Volume 8.9; Monocytes # (A) 0.8 k/uL (0-1.0); Monocytes % (A) 3 %; Neutrophils # (A) 21.9 k/uL (1.3-7.7); Neutrophils % (A) 93 %; Platelet Count 197 k/uL (150-450); RBC 3.47 m/uL (4.30-5.90); RDW 13.8 % (11.5-15.5); WBC 23.6 k/uL (3.8-10.6)
[2024-12-01 07:54] LABS: ALT 24 U/L (4-49); AST 50 U/L (17-59); African American GFR (CKD) 42 (>60 ml/min/1.73 sqM); Albumin 2.7 g/dL (3.5-5.0); Alkaline Phosphatase 71 U/L (38-126); Anion Gap 10 mmol/L; Blood Urea Nitrogen 30 mg/dL (9-20); Calcium 7.9 mg/dL (8.4-10.2); Carbon Dioxide 24 mmol/L (22-30); Chloride 108 mmol/L (98-107); Glucose 74 mg/dL (74-99); Non-African American GFR(CKD) 37 (>60 ml/min/1.73 sqM); Phosphorus 3.6 mg/dL (2.5-4.5); Potassium 4.1 mmol/L (3.5-5.1); Sodium 142 mmol/L (137-145); Total Bilirubin 0.8 mg/dL (0.2-1.3); Total Protein 5.3 g/dL (6.3-8.2)
[2024-12-01] MEDS: PANTOPRAZOLE 40 MG/10 ML VIAL IV SCH (08:15)
[2024-12-01] MEDS: VANCOMYCIN 1,500 MG in SODIUM CHLORIDE 0.9% 500 ML 500 ML IVPB ONE (12:16)
[2024-12-01] MEDS ORDERED: ACETAMINOPHEN TAB 325 MG TAB PO PRN (13:08)
[2024-12-01] MEDS ORDERED: MECLIZINE 25 MG TAB PO PRN (13:08)
[2024-12-01] MEDS ORDERED: DEXTROSE 50% SYRINGE 50 ML IVP PRN ×2 (13:12)
--- NOTE | 2024-12-01 13:18 | P.CNOR ---
History of Present Illness - [facility] Consult date: 12/01/24 Consult reason: other (Recent C5-C6 ACDF) History of present illness: Patient is a 73-year-old male who was brought to [facility] emergency room from a local subacute rehab due to weakness, change in mental status and low blood pressure. Patient is known to our orthopedic practice, he is postop day 8 status post ACDF C5-C6 with Dr. Michel. Patient was doing relatively well in the hospital, it was determined to be safer for him to subacute rehab due to the unsteady gait and weakness that had been chronic prior to the surgery. I did speak briefly with the son today in the emergency room, states over the last few days he has progressively gotten worse at rehab. After being admitted to the hospital, multiple lab tests were done. Patient has a significantly elevated white count, evidence of an acute kidney injury, possible urinary tract infection and positive for influenza A. Patient was evaluated in the emergency room, he was resting at bedside. Prior to seeing the patient nursing mention he was hallucinating slightly. Patient did remember me from last week being in the hospital, he remembered having surgery. He answered most of my questions accurately. He is having no neck pain at this time. He does admit to some drainage that he has noticed from the drain site on his shirt on occasion. Patient denies any obvious headaches or dizziness at this time. Patient had been dealing with very limited hand motion of the right upper extremity since the surgery, this seems much improved on exam today. Urinary catheter has been placed. 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, weakness, mili hand numbness Last Myocardial Infarction Date:: 2005 History of Any Multi-Drug Resistant Organisms: None Reported Past Surgical History: Back Surgery, Bladder Surgery, Coronary Bypass/CABG Additional Past Surgical History / Comment(s): urolift with 4 bands, carpal tunnel, quad bypass 2005 Past Anesthesia/Blood Transfusion Reactions: No Reported Reaction Past Psychological History: No Psychological Hx Reported Smoking Status: Never smoker Past Alcohol Use History: None Reported Past Drug Use History: None Reported - Past Family History Mother Family Medical History: Cancer Additional Family Medical History / Comment(s): leukemia Father Family Medical History: Cancer Additional Family Medical History / Comment(s): lung Medications and Allergies Home Medications Medication Instructions Recorded Confirmed Type Docusate [Colace] 200 mg PO DAILY 10/13/14 11/30/24 History Levothyroxine Sodium [Synthroid] 125 mcg PO DAILY@0500 10/13/14 11/30/24 History [place]-3 Fatty Acids/Fish Oil [Fish 1 cap PO HS 10/13/14 11/30/24 History Oil 1,000 mg Softgel] allopurinoL [Zyloprim] 300 mg PO DAILY 10/13/14 11/30/24 History gemfibroziL [Lopid] 600 mg PO DAILY 10/13/14 11/30/24 History Tamsulosin HCl [Flomax] 0.4 mg PO DAILY 11/12/16 11/30/24 History Aspirin 325 mg PO DAILY 05/04/17 11/30/24 History Metoprolol Tartrate [Lopressor] 25 mg PO DAILY 09/12/22 11/30/24 History Cholecalciferol [Vitamin D3 (25 25 mcg PO HS 10/03/22 11/30/24 History Mcg = 1000 Iu)] Atorvastatin [Lipitor] 20 mg PO HS 30 Days #30 tab 10/05/22 11/30/24 Rx Meclizine [Antivert] 25 mg PO TID PRN #20 tab 02/02/24 11/30/24 Rx Donepezil [Aricept] 5 mg PO HS 11/18/24 11/30/24 History HYDROcodone/APAP 7.5-325MG [[place] 1 tab PO Q6HR PRN #24 tab 11/26/24 11/30/24 Rx 7.5-325] Sennosides/Docusate Sodium [Senna 1 each PO DAILY #20 capsule 11/26/24 11/30/24 Rx Plus 8.6-50 mg Softgel] Acetaminophen [Tylenol 8 Hour] 650 mg PO Q6H PRN 11/30/24 11/30/24 History Cyanocobalamin [Vitamin B-12] 1,000 mcg PO HS 11/30/24 11/30/24 History Cyclobenzaprine [Flexeril] 5 mg PO TID@0700,1300,1900 11/30/24 11/30/24 History Folic Acid 0.8 mg PO HS 11/30/24 11/30/24 History Gabapentin [Neurontin] 300 mg PO TID@0700,1300,1900 11/30/24 11/30/24 History Larissa-Tussin Dm 10 ml PO QID 11/30/24 11/30/24 History Ibuprofen [Motrin Ib] 800 mg PO DAILY 11/30/24 11/30/24 History Naloxone HCl 0.4 mg IM DIRECTED PRN 11/30/24 11/30/24 History Naloxone HCl [Narcan] 4 mg NASAL DIRECTED PRN 11/30/24 11/30/24 History cefaDROXiL [Duricef] 500 mg PO BID@0700,1900 11/30/24 11/30/24 History methylPREDNISolone Dose Pack See Taper PO DIRECTED 11/30/24 11/30/24 History [Medrol Dose Pack] Allergies Allergy/AdvReac Type Severity Reaction Status Date / Time No Known Allergies Allergy Verified 11/30/24 17:37 Physical Examination Gen: AOx3, NAD VSS stable at this time Integument: Incision on the right anterior neck is well-healing. The drain hole was noted to be leaking a small amount of clear fluid Palpation: Patient demonstrates no significant tenderness with palpation to the medial and lateral aspects of the anterior neck ROM: Patient has adequate range of motion of the bilateral upper extremities, he still is a little limited with finger intrinsics but this is much improved since his last evaluation in the hospital Full range of motion all major muscle groups of bilateral lower extremities, no focal deficits Sensory Exam: Senory exam to light touch is intact C5-T1 Senosry exam to light touch is intact L2-S1 Motor: Left lower extremity demonstrates 4/5 strength with hip flexion, knee extension, knee flexion, plantarflexion, dorsiflexion, EHL, FHL Right lower extremity demonstrates 4/5 strength with hip flexion, knee extension, knee flexion, dorsiflexion, EHL, FHL, 4-/5 strength appreciated with plantarflexion Left upper extremity demonstrates 4/5 strength with shoulder elevation, shoulder abduction, elbow extension, elbow flexion, wrist extension, wrist flexion, 3+/5 merchandise manager strength and intrinsics Right upper extremity demonstrates 4-/5 with shoulder elevation, shoulder abduction, elbow extension, elbow flexion, 3/5 with wrist extension, wrist fle xion, merchandise manager and finger intrinsic Reflexes: 3/4 in all UE and LE Positive Angie's bilaterally, significant improvement on the left, improving on the right Results - Labs Labs: Abnormal Lab Results - Last 24 Hours (Table) 11/30/24 11/30/24 11/30/24 Range/Units 15:21 15:21 15:21 WBC 17.2 H (3.8-10.6) k/uL RBC 3.29 L (4.30-5.90) m/uL Hgb 11.6 L (13.0-17.5) gm/dL Hct 33.6 L (39.0-53.0) % MCV 102.4 H (80.0-100.0) fL MCH 35.3 H (25.0-35.0) pg Neutrophils # 15.0 H (1.3-7.7) k/uL Lymphocytes # 0.9 L (1.0-4.8) k/uL VBG pH (7.31-7.41) VBG pCO2 (37-51) mmHg VBG HCO3 (24-28) mmol/L Chloride (98-107) mmol/L BUN 39 H (9-20) mg/dL Creatinine 2.38 H (0.66-1.25) mg/dL Glucose 111 H (74-99) mg/dL Calcium (8.4-10.2) mg/dL Troponin I 0.128 H* (0.000-0.034) ng/mL Total Protein 5.4 L (6.3-8.2) g/dL Albumin 2.9 L (3.5-5.0) g/dL Urine Protein (Negative) Urine Blood (Negative) Ur Leukocyte Esterase (Negative) Urine RBC (0-5) /hpf Urine WBC (0-5) /hpf Urine WBC Clumps (None) /hpf Urine Mucus (None) /hpf Influenza Type A (PCR) (Not Detectd) 11/30/24 11/30/24 12/01/24 Range/Units 16:03 21:27 03:56 WBC (3.8-10.6) k/uL RBC (4.30-5.90) m/uL Hgb (13.0-17.5) gm/dL Hct (39.0-53.0) % MCV (80.0-100.0) fL MCH (25.0-35.0) pg Neutrophils # (1.3-7.7) k/uL Lymphocytes # (1.0-4.8) k/uL VBG pH 7.30 L (7.31-7.41) VBG pCO2 25 L (37-51) mmHg VBG HCO3 13 L (24-28) mmol/L Chloride (98-107) mmol/L BUN (9-20) mg/dL Creatinine (0.66-1.25) mg/dL Glucose (74-99) mg/dL Calcium (8.4-10.2) mg/dL Troponin I (0.000-0.034) ng/mL Total Protein (6.3-8.2) g/dL Albumin (3.5-5.0) g/dL Urine Protein Trace H (Negative) Urine Blood Small H (Negative) Ur Leukocyte Esterase Large H (Negative) Urine RBC 12 H (0-5) /hpf Urine WBC >182 H (0-5) /hpf Urine WBC Clumps Moderate H (None) /hpf Urine Mucus Rare H (None) /hpf Influenza Type A (PCR) Detected A (Not Detectd) 12/01/24 12/01/24 Range/Units 07:23 07:23 WBC 23.6 H (3.8-10.6) k/uL RBC 3.47 L (4.30-5.90) m/uL Hgb 11.6 L (13.0-17.5) gm/dL Hct 36.2 L (39.0-53.0) % MCV 104.2 H (80.0-100.0) fL MCH (25.0-35.0) pg Neutrophils # 21.9 H (1.3-7.7) k/uL Lymphocytes # 0.6 L (1.0-4.8) k/uL VBG pH (7.31-7.41) VBG pCO2 (37-51) mmHg VBG HCO3 (24-28) mmol/L Chloride 108 H (98-107) mmol/L BUN 30 H (9-20) mg/dL Creatinine 1.78 H (0.66-1.25) mg/dL Glucose (74-99) mg/dL Calcium 7.9 L (8.4-10.2) mg/dL Troponin I (0.000-0.034) ng/mL Total Protein 5.3 L (6.3-8.2) g/dL Albumin 2.7 L (3.5-5.0) g/dL Urine Protein (Negative) Urine Blood (Negative) Ur Leukocyte Esterase (Negative) Urine RBC (0-5) /hpf Urine WBC (0-5) /hpf Urine WBC Clumps (None) /hpf Urine Mucus (None) /hpf Influenza Type A (PCR) (Not Detectd) H & H 11/30/24 12/01/24 Range/Units 15:21 07:23 Hgb 11.6 L 11.6 L (13.0-17.5) gm/dL Hct 33.6 L 36.2 L (39.0-53.0) % Coagulation 11/30/24 Range/Units 15:21 INR 1.1 (<1.2) Result Diagrams: 12/01/24 07:23 12/01/24 07:23 Assessment and Plan Assessment: Postoperative day #8 status post C5-C6 ACDF Leukocytosis Acute kidney injury Influenza A Bilateral upper and lower extremity weakness Difficult with ambulation Cervical myelopathy Other medical comorbidities Plan: I was able to discuss the case, this to include but physical exam findings and imaging studies and my attending Dr. Michel Medically patient seems slightly unstable with his comorbidities Concern for small CSF leak based on his exam at bedside, a bandage will be placed to assess over the next 24 hours Will follow-up patient daily and assess medically as he hopefully stabilizes. Will discuss with family the possible need for further surgery if the drain site continues to leak obvious CSF fluid Pain control, due to patient's mental state would avoid narcotics and gabapentin. Patient was complaining of no pain at bedside DVT prophylaxis per primary medical service No bending, lifting or twisting, soft c-collar if patient can tolerate Other medical specialty recommendations appreciated Further recommendations to follow Time with Patient: Less than 30
[2024-12-01] MEDS: OSELTAMIVIR 30 MG CAP PO SCH (14:00)
[2024-12-01] MEDS: methylPREDNISolone SOD SUCCI 125 MG/2 ML VIAL IV SCH (14:01)
[2024-12-01] MEDS: SENNOSIDES-DOCUSATE SODIUM 1 EACH TAB PO SCH (14:01)
[2024-12-01] MEDS: TAMSULOSIN 0.4 MG CAP.ER.24H PO SCH (14:01)
--- NOTE | 2024-12-01 14:19 | HP ---
HISTORY AND PHYSICAL CHIEF COMPLAINTS: Weakness, cough, and sepsis. HISTORY OF PRESENT ILLNESS: This is a 73-year-old gentleman with a past medical history of multiple medical problems, had a recent cervical surgery for severe stenosis at C5-C6. The patient was sent to [facility] and currently the patient is complaining of weakness, dehydration, hypotension, and the patient was found to have features of sepsis in the ER with high white count. The patient is admitted for further evaluation and treatment. Creatinine was elevated to 2.38. The flu was also positive. The patient is started on empiric antibiotics. There is no history of any rigors or chills at this time. PAST MEDICAL HISTORY: Recent cervical surgery as mentioned earlier. Otherwise, history of CAD. Rest of history and rest of the chart are also reviewed. HOME MEDICATIONS: Reviewed include zyloprim. Doses and rest of medications reviewed. ALLERGIES: None. FAMILY HISTORY: History of leukemia in the family. SOCIAL HISTORY: No history of smoking or alcohol. REVIEW OF SYSTEMS: Fourteen-point review of systems is negative except as mentioned earlier. PHYSICAL EXAMINATION: VITAL SIGNS: Pulse is 53, blood pressure ntd, respirations 18. HEENT: Conjunctivae normal. NECK: No JVD. CARDIOVASCULAR: S1, S2 muffled. RESPIRATIONS: Breath sounds diminished at the bases. A few scattered rhonchi and crackles. ABDOMEN: Soft, nontender. LEGS: No edema. No swelling. NERVOUS SYSTEM: Nonfocal. LABORATORY DATA: Creatinine is 1.78. ASSESSMENT: 1. Acute influenza A and as well as sepsis, primary source unknown. 2. Rule out pneumonia. 3. Acute renal failure with acute tubular necrosis. 4. Troponin 0.128. Rule out acute spl-[id number]-elevation myocardial infarction. 5. History of recent cervical surgery. 6. Hypertension. 7. Hyperlipidemia. 8. History of myocardial infarction. 9. History of coronary artery disease, coronary artery bypass graft. RECOMMENDATIONS AND DISCUSSION: This is a 73-year-old gentleman who presented with multiple complex medical issues, we will monitor the patient closely. Started on Zosyn at this time, I recommend IV fluids, a course of Tamiflu. Also I would recommend bronchodilators. Also, recommend Infectious Disease and Cardiology evaluations. Also recommended a 2D echo with Doppler if it is not done during the past 6 months for further evaluation. NT-proBNP was 2250. See orders for further details. Prognosis extremely guarded. MMODL / IJN: [id number] / JAEL
[2024-12-01] MEDS: INSULIN LISPRO (HumaLOG) 100 UNIT/ML 10 mL VL SQ SCH (17:48)
[2024-12-01] MEDS ORDERED: QUEtiapine 25 MG TAB PO PRN (18:05)
[2024-12-01] MEDS: CYCLOBENZAPRINE 5 MG TAB PO SCH (18:14)
[2024-12-01] MEDS: ATORVASTATIN 20 MG TAB PO SCH (20:47)
[2024-12-01] MEDS: CYANOCOBALAMIN 500 MCG TAB PO SCH (20:47)
[2024-12-01] MEDS: FOLIC ACID 1 MG TAB PO SCH (20:47)
[2024-12-01] MEDS: CHOLECALCIFEROL 25 MCG (1000 IU) TABLET PO SCH (20:48)
[2024-12-01] MEDS ORDERED: NON FORMULARY DRUG (Omega-3 Fatty Acids/Fish Oil [Fish Oil 1,000 Mg Softgel] 1 EACH Capsul PO SCH (21:00)
[2024-12-01 21:51] LABS: Glucose,Whole Blood 131 mg/dL (70-110)
[2024-12-01] MEDS: DONEPEZIL 5 MG TAB PO SCH (22:07)
--- NOTE | 2024-12-01 23:42 | P.CONS ---
History of Present Illness - Reason for Consult Consult date: 12/01/24 Sepsis Requesting physician: Silvana Hernandez - Chief Complaint Weakness mental status changes x days - History of Present Illness Patient is a 73-year-old male with a past medical history significant for Coronary Artery Disease (CAD), CVA/TIA, Hyperlipidemia, Hypertension, Myocardial Infarction ([place]), Prostate Disorder, Thyroid Disorder presenting to the hospital for evaluation of fever and weakness and low blood pressure along with mental status changes from a local jail and this patient will recently is status post ACDF C5-C6 with Dr. Michel about 8 days before presentation to the hospital, patient on presentation to the hospital was afebrile he was not tachycardic or hypotensive mildly hypoxic currently on 2 L nasal cannula oxygen patient did have a white count of 17.2 repeat is 23.6 BUN and creatinine has been elevated liver enzymes are normal urine has been positive also tested positive for influenza A patient did have a chest x-ray chr onic changes without evidence for acute cardiopulmonary disease patient was started on Zosyn and Tamiflu along with vancomycin infectious disease was consulted for further management of antibiotic therapy patient himself elevated good historian however has been complaining of cough which seem to be mild to moderate intensity but not bringing up any sputum patient denies having any nausea no vomiting no abdominal pain or any diarrhea patient has been voiding prior to PTs and is concerned for small CSF leak from his incision but no evidence of any cellulitis Review of Systems Positive points has been mentioned in HPI complete review could not be obtained because of his underlying mental status Past Medical History Past Medical History: Coronary Artery Disease (CAD), CVA/TIA, Hyperlipidemia, Hypertension, Myocardial Infarction ([place]), Prostate Disorder, Thyroid Disorder Additional Past Medical History / Comment(s): wears brief for incont of urine., 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, weakness, mili hand numbness Last Myocardial Infarction Date:: 2005 History of Any Multi-Drug Resistant Organisms: None Reported Past Surgical History: Back Surgery, Bladder Surgery, Coronary Bypass/CABG Additional Past Surgical History / Comment(s): urolift with 4 bands, carpal tunnel, quad bypass 2005 Past Anesthesia/Blood Transfusion Reactions: No Reported Reaction Past Psychological History: No Psychological Hx Reported Smoking Status: Never smoker Past Alcohol Use History: None Reported Past Drug Use History: None Reported - Past Family History Mother Family Medical History: Cancer Additional Family Medical History / Comment(s): leukemia Father Family Medical History: Cancer Additional Family Medical History / Comment(s): lung Medications and Allergies Home Medications Medication Instructions Recorded Confirmed Type Docusate [Colace] 200 mg PO DAILY 10/13/14 11/30/24 History Levothyroxine Sodium [Synthroid] 125 mcg PO DAILY@0500 10/13/14 11/30/24 History [place]-3 Fatty Acids/Fish Oil [Fish 1 cap PO HS 10/13/14 11/30/24 History Oil 1,000 mg Softgel] allopurinoL [Zyloprim] 300 mg PO DAILY 10/13/14 11/30/24 History gemfibroziL [Lopid] 600 mg PO DAILY 10/13/14 11/30/24 History Tamsulosin HCl [Flomax] 0.4 mg PO DAILY 11/12/16 11/30/24 History Aspirin 325 mg PO DAILY 05/04/17 11/30/24 History Metoprolol Tartrate [Lopressor] 25 mg PO DAILY 09/12/22 11/30/24 History Cholecalciferol [Vitamin D3 (25 25 mcg PO HS 10/03/22 11/30/24 History Mcg = 1000 Iu)] Atorvastatin [Lipitor] 20 mg PO HS 30 Days #30 tab 10/05/22 11/30/24 Rx Meclizine [Antivert] 25 mg PO TID PRN #20 tab 02/02/24 11/30/24 Rx Donepezil [Aricept] 5 mg PO HS 11/18/24 11/30/24 History HYDROcodone/APAP 7.5-325MG [[place] 1 tab PO Q6HR PRN #24 tab 11/26/24 11/30/24 Rx 7.5-325] Sennosides/Docusate Sodium [Senna 1 each PO DAILY #20 capsule 11/26/24 11/30/24 Rx Plus 8.6-50 mg Softgel] Acetaminophen [Tylenol 8 Hour] 650 mg PO Q6H PRN 11/30/24 11/30/24 History Cyanocobalamin [Vitamin B-12] 1,000 mcg PO HS 11/30/24 11/30/24 History Cyclobenzaprine [Flexeril] 5 mg PO TID@0700,1300,1900 11/30/24 11/30/24 History Folic Acid 0.8 mg PO HS 11/30/24 11/30/24 History Gabapentin [Neurontin] 300 mg PO TID@0700,1300,1900 11/30/24 11/30/24 History Larissa-Tussin Dm 10 ml PO QID 11/30/24 11/30/24 History Ibuprofen [Motrin Ib] 800 mg PO DAILY 11/30/24 11/30/24 History Naloxone HCl 0.4 mg IM DIRECTED PRN 11/30/24 11/30/24 History Naloxone HCl [Narcan] 4 mg NASAL DIRECTED PRN 11/30/24 11/30/24 History cefaDROXiL [Duricef] 500 mg PO BID@0700,1900 11/30/24 11/30/24 History methylPREDNISolone Dose Pack See Taper PO DIRECTED 11/30/24 11/30/24 History [Medrol Dose Pack] Allergies Allergy/AdvReac Type Severity Reaction Status Date / Time No Known Allergies Allergy Verified 11/30/24 17:37 Physical Exam Vitals: Vital Signs Temp Pulse Resp BP Pulse Ox 12/01/24 11:32 94 L 12/01/24 11:26 74 22 12/01/24 08:42 80 18 93/68 95 12/01/24 05:00 81 20 91/74 100 12/01/24 04:11 93 22 12/01/24 03:42 89 12/01/24 03:34 81 12/01/24 02:33 76 20 106/43 99 12/01/24 00:02 62 20 108/52 11/30/24 23:02 62 20 117/48 99 11/30/24 22:58 67 20 100 11/30/24 21:14 58 L 18 88/56 11/30/24 20:38 65 18 91/40 95 11/30/24 20:32 89 11/30/24 20:25 88 11/30/24 19:40 97.8 F 53 L 18 95/42 99 11/30/24 19:32 58 L 18 95/42 96 11/30/24 18:47 97.4 F L 52 L 18 90/40 97 11/30/24 16:03 62 20 88/48 94 L Intake and Output 12/01/24 12/01/24 12/01/24 06:59 14:59 22:59 Output Total 2100 Balance -2100 Output: Urine 2100 Uretheral ([facility]) 1200 GENERAL DESCRIPTION: Elderly male lying in bed, no distress. No tachypnea or accessory muscle of respiration use. HEENT: Shows Pallor , no scleral icterus. Oral mucous membrane is dry. No pharyngeal erythema or thrush NECK: Trachea central, no thyromegaly. LUNGS: Unlabored breathing. Decreased breath sound the base HEART: S1, S2, regular rate and rhythm. No loud murmur ABDOMEN: Soft, no tenderness , guarding or rigidity, no organomegaly EXTREMITIES: No edema of feet. SKIN: No rash, no masses palpable. NEUROLOGICAL: The patient is lethargic but arousable mood and affect is normal Results CBC & Chem 7: 12/01/24 07:23 12/01/24 07:23 Labs: Abnormal Lab Results - Last 24 Hours (Table) 11/30/24 11/30/24 11/30/24 Range/Units 15:21 15:21 16:03 WBC (3.8-10.6) k/uL RBC (4.30-5.90) m/uL Hgb (13.0-17.5) gm/dL Hct (39.0-53.0) % MCV (80.0-100.0) fL Neutrophils # (1.3-7.7) k/uL Lymphocytes # (1.0-4.8) k/uL VBG pH (7.31-7.41) VBG pCO2 (37-51) mmHg VBG HCO3 (24-28) mmol/L Chloride (98-107) mmol/L BUN 39 H (9-20) mg/dL Creatinine 2.38 H (0.66-1.25) mg/dL Glucose 111 H (74-99) mg/dL Calcium (8.4-10.2) mg/dL Troponin I 0.128 H* (0.000-0.034) ng/mL Total Protein 5.4 L (6.3-8.2) g/dL Albumin 2.9 L (3.5-5.0) g/dL Urine Protein (Negative) Urine Blood (Negative) Ur Leukocyte Esterase (Negative) Urine RBC (0-5) /hpf Urine WBC (0-5) /hpf Urine WBC Clumps (None) /hpf Urine Mucus (None) /hpf Influenza Type A (PCR) Detected A (Not Detectd) 11/30/24 12/01/24 12/01/24 Range/Units 21:27 03:56 07:23 WBC 23.6 H (3.8-10.6) k/uL RBC 3.47 L (4.30-5.90) m/uL Hgb 11.6 L (13.0-17.5) gm/dL Hct 36.2 L (39.0-53.0) % MCV 104.2 H (80.0-100.0) fL Neutrophils # 21.9 H (1.3-7.7) k/uL Lymphocytes # 0.6 L (1.0-4.8) k/uL VBG pH 7.30 L (7.31-7.41) VBG pCO2 25 L (37-51) mmHg VBG HCO3 13 L (24-28) mmol/L Chloride (98-107) mmol/L BUN (9-20) mg/dL Creatinine (0.66-1.25) mg/dL Glucose (74-99) mg/dL Calcium (8.4-10.2) mg/dL Troponin I (0.000-0.034) ng/mL Total Protein (6.3-8.2) g/dL Albumin (3.5-5.0) g/dL Urine Protein Trace H (Negative) Urine Blood Small H (Negative) Ur Leukocyte Esterase Large H (Negative) Urine RBC 12 H (0-5) /hpf Urine WBC >182 H (0-5) /hpf Urine WBC Clumps Moderate H (None) /hpf Urine Mucus Rare H (None) /hpf Influenza Type A (PCR) (Not Detectd) 12/01/24 Range/Units 07:23 WBC (3.8-10.6) k/uL RBC (4.30-5.90) m/uL Hgb (13.0-17.5) gm/dL Hct (39.0-53.0) % MCV (80.0-100.0) fL Neutrophils # (1.3-7.7) k/uL Lymphocytes # (1.0-4.8) k/uL VBG pH (7.31-7.41) VBG pCO2 (37-51) mmHg VBG HCO3 (24-28) mmol/L Chloride 108 H (98-107) mmol/L BUN 30 H (9-20) mg/dL Creatinine 1.78 H (0.66-1.25) mg/dL Glucose (74-99) mg/dL Calcium 7.9 L (8.4-10.2) mg/dL Troponin I (0.000-0.034) ng/mL Total Protein 5.3 L (6.3-8.2) g/dL Albumin 2.7 L (3.5-5.0) g/dL Urine Protein (Negative) Urine Blood (Negative) Ur Leukocyte Esterase (Negative) Urine RBC (0-5) /hpf Urine WBC (0-5) /hpf Urine WBC Clumps (None) /hpf Urine Mucus (None) /hpf Influenza Type A (PCR) (Not Detectd) Assessment and Plan (1) UTI (urinary tract infection) Current Visit: Yes Status: Acute Code(s): N39.0 - URINARY TRACT INFECTION, SITE NOT SPECIFIED SNOMED Code(s): 09308633 (2) Leukocytosis Current Visit: Yes Status: Acute Code(s): D72.829 - ELEVATED WHITE BLOOD KATHERINE L COUNT, UNSPECIFIED SNOMED Code(s): 484748069 (3) Influenza A Current Visit: Yes Status: Acute Code(s): J10.1 - FLU DUE TO OTH IDENT INFLUENZA VIRUS W OTH RESP MANIFEST SNOMED Code(s): 456938525 Plan: 1patient presented hospital with mental status changes which is likely multifactorial patient also have elevated white count positive UA concerning for possible component of UTI likely from enteric gram-negative pathogen. 2patient also tested positive for influenza A though chest x-ray was negative for any acute cardiopulmonary disease process. 3elevated creatinine high risk of nephrotoxicity from vancomycin 4-we will recommend to discontinue vancomycin and continue with Zosyn while waiting for the culture to finalize 5-patient also be given 5-day course of Tamiflu for acute influenza A We will follow on clinical condition and cultures to further adjust medication if needed Thank you for this consultation we will follow the patient along with you Dictation was produced using [employer] dictation software. please excuse any grammatical, word or spelling errors. Time with Patient: Greater than 30
[2024-12-02] MEDS: LEVOTHYROXINE 125 MCG TAB PO SCH (05:08)
[2024-12-02 06:44] LABS: Glucose,Whole Blood 142 mg/dL (70-110)
[2024-12-02 07:17] LABS: Basophils % (A) 0 %; Eosinophils % (A) 0 %; HCT 34.7 % (39.0-53.0); HGB 10.9 gm/dL (13.0-17.5); Lymphocytes # (A) 0.7 k/uL (1.0-4.8); Lymphocytes % (A) 4 %; MCH 33.8 pg (25.0-35.0); MCHC 31.3 g/dL (31.0-37.0); MCV 107.8 fL (80.0-100.0); Macrocytosis Moderate; Mean Platelet Volume 8.8; Monocytes # (A) 0.5 k/uL (0-1.0); Monocytes % (A) 3 %; Neutrophils # (A) 16.6 k/uL (1.3-7.7); Neutrophils % (A) 93 %; Platelet Count 198 k/uL (150-450); RBC 3.22 m/uL (4.30-5.90); WBC 17.9 k/uL (3.8-10.6)
[2024-12-02 07:57] LABS: ALT 29 U/L (4-49); AST 89 U/L (17-59); African American GFR (CKD) 66 (>60 ml/min/1.73 sqM); Albumin 2.4 g/dL (3.5-5.0); Alkaline Phosphatase 76 U/L (38-126); Anion Gap 6 mmol/L; Blood Urea Nitrogen 23 mg/dL (9-20); Calcium 7.8 mg/dL (8.4-10.2); Carbon Dioxide 22 mmol/L (22-30); Chloride 113 mmol/L (98-107); Glucose 135 mg/dL (74-99); Non-African American GFR(CKD) 57 (>60 ml/min/1.73 sqM); Sodium 141 mmol/L (137-145); Total Bilirubin 0.5 mg/dL (0.2-1.3)
--- NOTE | 2024-12-02 07:59 | CA ---
Transthoracic Echo Report Name: Piotr Rizzo Age: 73 Gender: M : 1950 Exam Date: 12/01/2024 14:29 Exam Location: [place] [facility] Ht (in): 67 Wt (lb): 210 Ordering Physician: Silvana Hernandez MD Attending/Referring Phys: Assisted Living Assistant Nayla Chi RDCS Procedure CPT: Indications: chf Cardiac Hx: CAD, LA, bypass, HTN Technical Quality: Technically difficult study Contrast 1: Total Dose (mL): Contrast 2: Total Dose (mL): MEASUREMENTS (Male / Female) Normal Values 2D ECHO LVOT Diameter 1.9 cm DOPPLER MV Area PHT 3.1 cm??? MR Peak Velocity 509.6 cm/s MR Peak Gradient 103.9 mmHg Mitral E Point Velocity 80.1 cm/s Mitral A Point Velocity 89.4 cm/s Mitral E to A Ratio 0.9 MV Deceleration Time 247.8 ms TR Peak Velocity 217.5 cm/s TR Peak Gradient 18.9 mmHg Right Atrial Pressure 10.0 mmHg Pulmonary Artery Systolic Pressu 28.9 mmHg Right Ventricular Systolic Press 28.9 mmHg FINDINGS Left Ventricle Left ventricular ejection fraction is estimated at 60 %. Normal Left ventricular size, wall thickness, systolic function with no obvious regional wall motion abnormalities. Right Ventricle Normal right ventricular size and function. Right ventricular systolic pressure within normal limits. Right Atrium Normal right atrial size. Left Atrium Mildly increased left atrial area. Mitral Valve Structurally normal mitral valve. No mitral stenosis. Mild mitral regurgitation. Aortic Valve Trileaflet aortic valve. Aortic valve sclerosis. No aortic stenosis. No aortic regurgitation. Tricuspid Valve Structurally normal tricuspid valve. No tricuspid stenosis. Mild tricuspid regurgitation. Pulmonic Valve Structurally normal pulmonic valve. No pulmonic stenosis. Mild pulmonic regurgitation. Pericardium No pericardial effusion. No pleural effusion. Aorta Normal size aortic root and proximal ascending aorta. CONCLUSIONS Normal LV size and systolic function mild mitral and tricuspid regurgitation. No pulmonary hypertension. No pericardial effusion Previewed by: Dr. Lake Maldonado MD (Electronically Signed) Final Date: 02 December 2024 07:58
[2024-12-02] MEDS: ASPIRIN 325 MG TAB PO SCH (09:05)
[2024-12-02] MEDS: METOPROLOL TARTRATE 25 MG TAB PO SCH (09:05)
[2024-12-02] MEDS: DOCUSATE 100 MG CAP PO SCH (09:06)
[2024-12-02] MEDS: FENOFIBRATE 160 MG TAB PO SCH (09:06)
[2024-12-02] MEDS: allopurinoL 300 MG TAB PO SCH (09:07)
--- NOTE | 2024-12-02 10:29 | CDI ---
Documentation Clarification Form Date: 12/02/2024 09:50:08 AM From: Irene Khoury RN CCDS Phone: [phone] Admit Date: 11/30/2024 06:35:00 PM Patient Name: Piotr Rizzo Visit Number: [id number] Discharge Date: ATTENTION: The Clinical Documentation Specialists (CDI) and [facility] Coding Staff appreciate your assistance in clarifying documentation. Please respond to the clarification below the line at the bottom and electronically sign. The CDI & [facility] Coding staff will review the response and follow-up if needed. Please note: Queries are made part of the Legal Health Record. If you have any questions, please contact the author of this message via ITS. Doctor: Musa Mcgrath Your patient has the documented symptom of Mental Status changes 12/01, ID consult. Additional clarification regarding the etiology/cause of this symptom is requested. History/Risk Factors: 73 year old male presents to the ED for evaluation of fever, low blood pressure and generalized weakness, (poor historian). The patient had recent neck surgery. Medical History: CAD, CVA/TIA, HLD, HTN, MD and wears brief for incontinence of urine. 11/30, ED note Clinical Indicators: VSS, 11/30: B/P 68/37, Temp. 98.6F, HR 60, RR 18, SpO2 94% ra Labs, 11/30: Wbc 17.2, Neutrophils 15.0, BUN 39, Cr 2.38, Influenza A positive, UA protein trace, blood small, leukocytes esterase large, rbc 12, wbc >182, wbc clumps moderate. CX Ray, 11/30: Chronic changes without evidence for acute pulmonary disease. Treatment: 11/30 Tylenol po x 1, 11/30 Motrin po x 1, 11/30 Zoysn IVPB x 1; 11/30 Vancomycin IVPB x1; 12/01 Zosyn IVPB Q8H, 12/01 Vancomycin IVPB x 1; Tamiflu po Q12H x 10 doses. Fluids: 11/30 0.9NS 1L IV Bolus, 11/30 Lactated Ringers IV x 2L, 11/30 0.9NS IV 150cc/hr Please clarify the etiology of the symptom of Altered Mental Status: [ x ] Metabolic Encephalopathy due to Influenza A and UTI [ ] Other condition (please specify) [ ] Unable to determine (Template Last Revised: October 2020) MTDD
--- NOTE | 2024-12-02 10:53 | P.CRDCN ---
History of Present Illness History of present illness: HISTORY OF PRESENT ILLNESS: This is a 73-year-old male with a past medical history significant for coronary artery disease with previous CABG, hypertension, and hyperlipidemia. Patient f mechellelows in the office with Dr. Aguayo. We have been asked to see the patient in consultation for elevated troponins. Patient examined at the bedside. Patient recently underwent surgery with Dr. Michel. He was discharged to [facility]. Patient presented to the hospital from [facility] for worsening weakness. Patient was found to have acute kidney injury, UTI, and influenza A. The patient reports mild shortness of breath. He has been coughing a lot this morning. He reports he is having chest pressure from frequent coughing. DIAGNOSTICS: - EKG reveals sinus bradycardia with no signs of acute ischemia. - Chest xray chronic changes without acute pulmonary process - Laboratory data: WBC 17.9. Hemoglobin 3.22. Platelet count 198. Sodium 141. Potassium 4.0. BUN 23. Creatinine on admission 2.38. Repeat 1.23. Troponin 0.128. proBNP 902. - Current home cardiac medications include aspirin 325 mg daily, metoprolol tartrate 25 mg daily and Lipitor 20 mg at night. - Echocardiogram obtained this admission reveals ejection fraction 60%, mild TR, mild MR -Patient underwent Lexiscan stress test in April 2022 revealing stress-induced ischemia involving the inferior wall REVIEW OF SYSTEMS: At the time of my exam: CONSTITUTIONAL: Denies fever or chills. HEENT: Denies blurred vision, vision changes, or eye pain. Denies hemoptysis CARDIOVASCULAR: Denies chest pain. Denies orthopnea. Denies PND. Denies palpitations RESPIRATORY: Denies shortness of breath. GASTROINTESTINAL: Denies abdominal pain. Denies nausea or vomiting. HEMATOLOGIC: Denies bleeding disorders. GENITOURINARY: Denies any blood in urine. SKIN: Denies pruitis. Denies rash. PHYSICAL EXAM: VITAL SIGNS: Reviewed. GENERAL: Well-developed in no acute distress. HEENT: Head is normocephalic. Pupils are equal, round. Sclerae anicteric. Mucous membranes of the mouth are moist. Neck supple. No JVD or thyromegaly LUNGS: Respirations even and unlabored. Lungs with bilateral rhonchi HEART: Regular rate and rhythm. S1 and S2 heard. ABDOMEN: Soft. Nondistended. Nontender. EXTREMITIES: Normal range of motion. No clubbing or cyanosis. Peripheral pulses intact. No lower extremity edema NEUROLOGIC: Awake and alert. Oriented x 3. ASSESSMENT: Generalized weakness Acute kidney injury, improving Abnormal UA concerning for urinary tract infection Acute influenza A Abnormal troponins, secondary to acute infectious process/type II NE, no evidence for acute coronary syndrome History of CAD with previous CABG Hypertension Hyperlipidemia PLAN: An acute coronary event has been ruled out 2D echo obtained and reviewed Resume metoprolol tartrate 25 mg twice a day No further inpatient recommendations from a cardiac standpoint We will sign off. Please reconsult if needed. Nurse practitioner note has been reviewed by physician. Signing provider agrees with the documented findings, assessment, and plan of care documented by [facility] I ON CALL MEDICAL ASSISTANT as a scribe. Past Medical History Past Medical History: Coronary Artery Disease (CAD), CVA/TIA, Hyperlipidemia, Hypertension, Myocardial Infarction ([place]), Prostate Disorder, Thyroid Disorder Additional Past Medical History / Comment(s): wears brief for incont of urine., 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, weakness, mili hand numbness Last Myocardial Infarction Date:: 2005 History of Any Multi-Drug Resistant Organisms: None Reported Past Surgical History: Back Surgery, Bladder Surgery, Coronary Bypass/CABG Additional Past Surgical History / Comment(s): urolift with 4 bands, carpal tunnel, quad bypass 2005 Past Anesthesia/Blood Transfusion Reactions: No Reported Reaction Past Psychological History: No Psychological Hx Reported Smoking Status: Never smoker Past Alcohol Use History: None Reported Past Drug Use History: None Reported - Past Family History Mother Family Medical History: Cancer Additional Family Medical History / Comment(s): leukemia Father Family Medical History: Cancer Additional Family Medical History / Comment(s): lung Medications and Allergies Home Medications Medication Instructions Recorded Confirmed Type Docusate [Colace] 200 mg PO DAILY 10/13/14 11/30/24 History Levothyroxine Sodium [Synthroid] 125 mcg PO DAILY@0500 10/13/14 11/30/24 History Oldhams-3 Fatty Acids/Fish Oil [Fish 1 cap PO HS 10/13/14 11/30/24 History Oil 1,000 mg Softgel] allopurinoL [Zyloprim] 300 mg PO DAILY 10/13/14 11/30/24 History gemfibroziL [Lopid] 600 mg PO DAILY 10/13/14 11/30/24 History Tamsulosin HCl [Flomax] 0.4 mg PO DAILY 11/12/16 11/30/24 History Aspirin 325 mg PO DAILY 05/04/17 11/30/24 History Metoprolol Tartrate [Lopressor] 25 mg PO DAILY 09/12/22 11/30/24 History Cholecalciferol [Vitamin D3 (25 25 mcg PO HS 10/03/22 11/30/24 History Mcg = 1000 Iu)] Atorvastatin [Lipitor] 20 mg PO HS 30 Days #30 tab 10/05/22 11/30/24 Rx Meclizine [Antivert] 25 mg PO TID PRN #20 tab 02/02/24 11/30/24 Rx Donepezil [Aricept] 5 mg PO HS 11/18/24 11/30/24 History HYDROcodone/APAP 7.5-325MG [[place] 1 tab PO Q6HR PRN #24 tab 11/26/24 11/30/24 Rx 7.5-325] Sennosides/Docusate Sodium [Senna 1 each PO DAILY #20 capsule 11/26/24 11/30/24 Rx Plus 8.6-50 mg Softgel] Acetaminophen [Tylenol 8 Hour] 650 mg PO Q6H PRN 11/30/24 11/30/24 History Cyanocobalamin [Vitamin B-12] 1,000 mcg PO HS 11/30/24 11/30/24 History Cyclobenzaprine [Flexeril] 5 mg PO TID@0700,1300,1900 11/30/24 11/30/24 History Folic Acid 0.8 mg PO HS 11/30/24 11/30/24 History Gabapentin [Neurontin] 300 mg PO TID@0700,1300,1900 11/30/24 11/30/24 History Larissa-Tussin Dm 10 ml PO QID 11/30/24 11/30/24 History Ibuprofen [Motrin Ib] 800 mg PO DAILY 11/30/24 11/30/24 History Naloxone HCl 0.4 mg IM DIRECTED PRN 11/30/24 11/30/24 History Naloxone HCl [Narcan] 4 mg NASAL DIRECTED PRN 11/30/24 11/30/24 History cefaDROXiL [Duricef] 500 mg PO BID@0700,1900 11/30/24 11/30/24 History methylPREDNISolone Dose Pack See Taper PO DIRECTED 11/30/24 11/30/24 History [Medrol Dose Pack] Allergies Allergy/AdvReac Type Severity Reaction Status Date / Time No Known Allergies Allergy Verified 11/30/24 17:37 Physical Exam Vitals: Vital Signs Temp Pulse Pulse Resp BP BP Pulse Ox 12/02/24 08:00 98 F 62 18 133/77 96 12/02/24 04:00 98.7 F 67 18 104/61 93 L 12/02/24 02:00 18 12/01/24 23:43 98.5 F 70 18 112/81 94 L 12/01/24 21:40 98.6 F 69 18 115/88 95 12/01/24 20:42 99.2 F 64 18 116/92 95 12/01/24 17:40 98.1 F 80 18 110/37 95 12/01/24 11:32 94 L 12/01/24 11:26 74 22 Intake and Output 12/01/24 12/02/24 12/02/24 22:59 06:59 14:59 Output Total 1600 450 900 Balance -1600 -450 -900 Output: Urine 1600 450 900 Other: Voiding Method Indwelling Catheter Indwelling Catheter # Bowel Movements 0 Weight 95.254 kg 85.5 kg Results 12/02/24 06:43 12/02/24 06:43 Cardiac Enzymes 12/02/24 Range/Units 06:43 AST 89 H (17-59) U/L CBC 12/02/24 Range/Units 06:43 WBC 17.9 H (3.8-10.6) k/uL RBC 3.22 L (4.30-5.90) m/uL Hgb 10.9 L (13.0-17.5) gm/dL Hct 34.7 L (39.0-53.0) % Plt Count 198 (150-450) k/uL Comprehensive Metabolic Panel 12/02/24 Range/Units 06:43 Sodium 141 (137-145) mmol/L Potassium 4.0 (3.5-5.1) mmol/L Chloride 113 H (98-107) mmol/L Carbon Dioxide 22 (22-30) mmol/L BUN 23 H (9-20) mg/dL Creatinine 1.23 (0.66-1.25) mg/dL Glucose 135 H (74-99) mg/dL Calcium 7.8 L (8.4-10.2) mg/dL AST 89 H (17-59) U/L ALT 29 (4-49) U/L Alkaline Phosphatase 76 (38-126) U/L Total Protein 5.0 L (6.3-8.2) g/dL Albumin 2.4 L (3.5-5.0) g/dL Current Medications Generic Name Dose Route Start Last Admin Trade Name Freq PRN Reason Stop Dose Admin Acetaminophen 650 mg 12/01/24 13:08 Acetaminophen Tab 325 Mg Tab PO Q6H PRN Mild Pain (Scale 1 to 3) Hydrocodone Bitart/Acetaminophen 1 each 12/01/24 13:08 Hydrocodone/Apap 7.5-325mg 1 Each Tab PO Q6HR PRN Moderate Pain (Scale 4 to 6) Albuterol Sulfate 2.5 mg 11/30/24 19:55 12/01/24 11:26 Albuterol Nebulized 2.5 Mg/3 Ml INHALATION 2.5 mg RT-Q6H PRN Administration Shortness Of Breath Or Wheezing Allopurinol 100 mg 12/02/24 09:00 12/02/24 09:07 Allopurinol 300 Mg Tab PO 100 mg DAILY LARRY Administration Aspirin 325 mg 12/02/24 09:00 12/02/24 09:05 Aspirin 325 Mg Tab PO 325 mg DAILY LARRY Administration Atorvastatin Calcium 20 mg 12/01/24 21:00 12/01/24 20:47 Atorvastatin 20 Mg Tab PO 20 mg HS LARRY Administration Cholecalciferol 25 mcg 12/01/24 21:00 12/01/24 20:48 Cholecalciferol 25 Mcg (1000 Iu) Tablet PO 25 mcg HS LARRY Administration Cyanocobalamin 1,000 mcg 12/01/24 21:00 12/01/24 20:47 Cyanocobalamin 500 Mcg Tab PO 1,000 mcg HS LARRY Administration Cyclobenzaprine HCl 5 mg 12/01/24 19:00 12/02/24 06:49 Cyclobenzaprine 5 Mg Tab PO 5 mg TID@0700,1300,1900 LARRY Administration Dextrose/Water 25 ml 12/01/24 13:12 Dextrose 50% Syringe 50 Ml IVP PER PROTOCOL PRN Hypoglycemia Protocol Dextrose/Water 50 ml 12/01/24 13:12 Dextrose 50% Syringe 50 Ml IVP PER PROTOCOL PRN Hypoglycemia Protocol Docusate Sodium 200 mg 12/02/24 09:00 12/02/24 09:06 Docusate 100 Mg Cap PO 200 mg DAILY LARRY Administration Donepezil HCl 5 mg 12/01/24 21:00 12/01/24 22:07 Donepezil 5 Mg Tab PO 5 mg HS LARRY Administration Fenofibrate 160 mg 12/02/24 09:00 12/02/24 09:06 Fenofibrate 160 Mg Tab PO 160 mg DAILY LARRY Administration Folic Acid 1 mg 12/01/24 21:00 12/01/24 20:47 Folic Acid 1 Mg Tab PO 1 mg HS LARRY Administration Sodium Chloride 1,000 mls @ 150 mls/hr 11/30/24 18:45 12/02/24 03:32 Saline 0.9% IV 150 mls/hr .Q6H40M LARRY Administration Piperacillin Sod/Tazobactam 100 mls @ 25 mls/hr 12/01/24 04:00 12/02/24 03:32 Sod 3.375 gm/ Sodium Chloride IVPB 25 mls/hr Q8H LARRY Administration Protocol Insulin Human Lispro 0 unit 12/01/24 17:30 12/02/24 06:43 Insulin Lispro (Humalog) 100 Unit/Ml 10 Ml Vl SQ Not Given ACHS LARRY Protocol Levothyroxine Sodium 125 mcg 12/02/24 05:00 12/02/24 05:08 Levothyroxine 125 Mcg Tab PO Not Given DAILY@0500 [facility] Meclizine HCl 25 mg 12/01/24 13:08 Meclizine 25 Mg Tab PO TID PRN Vertigo Methylprednisolone Sodium Succinate 60 mg 12/01/24 13:15 12/02/24 06:49 Methylprednisolone Sod Succi 125 Mg/2 Ml Vial IV 60 mg Q6HR LARRY Administration Metoprolol Tartrate 25 mg 12/02/24 09:00 12/02/24 09:05 Metoprolol Tartrate 25 Mg Tab PO 25 mg BID LARRY Administration Morphine Sulfate 4 mg 11/30/24 18:35 Morphine Sulfate 4 Mg/Ml Syringe IV Q4HR PRN Severe Pain (Scale 7 to 10) Naloxone HCl 0.2 mg 11/30/24 18:35 Naloxone 0.4 Mg/Ml 1 Ml Vial IV Q2M PRN Opioid Reversal Ondansetron HCl 4 mg 11/30/24 18:35 Ondansetron 4 Mg/2 Ml Vial IVP Q8HR PRN Nausea And Vomiting Oseltamivir Phosphate 30 mg 12/01/24 13:15 12/02/24 09:05 Oseltamivir 30 Mg Cap PO 12/05/24 21:01 30 mg Q12HR LARRY Administration Protocol Pantoprazole Sodium 40 mg 12/01/24 09:00 12/02/24 09:06 Pantoprazole 40 Mg/10 Ml Vial IV 40 mg DAILY LARRY Administration Quetiapine Fumarate 12.5 mg 12/01/24 18:05 Quetiapine 25 Mg Tab PO BID PRN Agitation Senna/Docusate Sodium 1 each 12/01/24 13:15 12/02/24 09:06 Sennosides-Docusate Sodium 1 Each Tab PO 1 each DAILY LARRY Administration Tamsulosin HCl 0.4 mg 12/01/24 13:15 12/02/24 09:06 Tamsulosin 0.4 Mg Cap.Er.24h PO 0.4 mg DAILY LARRY Administration Intake and Output 12/01/24 12/02/24 12/02/24 22:59 06:59 14:59 Output Total 1600 450 900 Balance -1600 -450 -900 Output: Urine 1600 450 900 Other: Voiding Method Indwelling Catheter Indwelling Catheter # Bowel Movements 0 Weight 95.254 kg 85.5 kg 12/02/24 06:43 12/02/24 06:43
[2024-12-02 11:33] LABS: Glucose,Whole Blood 107 mg/dL (70-110)
[2024-12-02] MEDS ORDERED: VANCOMYCIN 1,500 MG in SODIUM CHLORIDE 0.9% 500 ML 500 ML IVPB SCH (12:00)
--- NOTE | 2024-12-02 13:04 | PN ---
PROGRESS NOTE DATE OF SERVICE: 12/02/2024 SUBJECTIVE: This is a 73-year-old gentleman, who recently had a neck surgery, who was admitted with acute influenza and possible pneumonia and sepsis also. The patient will be closely monitored. No chest pain, no palpitation. The patient is on broad-spectrum IV antibiotics. Cultures are negative so far. White count is elevated to 17.9. PAST MEDICAL HISTORY: Reviewed. REVIEW OF SYSTEMS: A 14-point review of systems is negative except as mentioned earlier. CURRENT MEDICATIONS: Reviewed. PHYSICAL EXAMINATION: VITAL SIGNS: Pulse is 63, blood pressure 124/62, respirations 18. HEENT: Conjunctivae pale. CARDIOVASCULAR: S1, S2. RESPIRATION: Few scattered rhonchi. ABDOMEN: Soft. LEGS: No edema. NERVOUS SYSTEM: Nonfocal. NECK: Status post surgery. Some minimal drainage also present. LABORATORY DATA: Reviewed. ASSESSMENT: 1. Acute influenza A as well as sepsis, possible pneumonia. 2. Acute renal failure with acute tubular necrosis. 3. Troponin 0.128 with possible acute idd-DI-smgxvsq elevation type 2 myocardial infarction. 4. History of recent cervical surgery. 5. Hypertension. 6. Hyperlipidemia. 7. History of myocardial infarction. 8. History of coronary artery disease, coronary artery bypass graft. RECOMMENDATIONS AND DISCUSSION: I have recommended to continue current management, continue symptomatic treatment. The patient is followed with multiple consent consultants. A 2D echo with Doppler showed normal ejection fraction. Continue the antibiotics. Repeat x-ray. Prognosis is guarded because of multiple complex medical issues. Recommendations to follow. MMLAYNEL / IJN: [id number] /
--- NOTE | 2024-12-02 15:23 | P.PN ---
Subjective Progress Note Date: 12/02/24 Principal diagnosis: Reason for follow-up is leukocytosis/UTI/influenza Patient is a 73-year-old male with a past medical history significant for Coronary Artery Disease (CAD), CVA/TIA, Hyperlipidemia, Hypertension, Myocardial Infarction ([place]), Prostate Disorder, Thyroid Disorder presenting to the hospital for evaluation of fever and weakness and low blood pressure along with mental status changes from a local halfway did have elevated white count tested positive for influenza prompting this consultation. On today's evaluation that is 12/02/2024,the patient remains to be afebrile, patient is on room air not requiring supplemental oxygen and denies any short ness of breath no chest pain or cough.Patient denies having any nausea or vomiting, no abdominal pain and no diarrhea or pain to the right side of the neck incision site mention feeling better. Patient white count is down to 17.9, creatinine is 1.23 cultures are currently pending Objective - Vital Signs Vital signs: Vital Signs Temp 98.2 F 12/02/24 12:00 Pulse 63 12/02/24 12:00 Resp 18 12/02/24 12:00 BP 124/65 12/02/24 12:00 Pulse Ox 92 L 12/02/24 12:02 FiO2 Intake & Output 12/01/24 12/02/24 12/02/24 18:59 06:59 18:59 Output Total 2500 850 900 Balance -2500 -850 -900 Weight 85.5 kg Output: Urine 2500 850 900 Other: Voiding Method Indwelling Catheter Indwelling Catheter # Bowel Movements 0 - Exam GENERAL DESCRIPTION: An elderly male lying in bed in no distress RESPIRATORY SYSTEM: Unlabored breathing , clear to auscultation anteriorly HEART: S1 S2 regular rate and rhythm , ABDOMEN: Soft , no tenderness EXTREMITIES: No edema feet - Labs CBC & Chem 7: 12/02/24 06:43 12/02/24 06:43 Labs: Abnormal Lab Results - Last 24 Hours (Table) 12/01/24 12/01/24 12/02/24 Range/Units 07:23 21:50 06:42 WBC (3.8-10.6) k/uL RBC (4.30-5.90) m/uL Hgb (13.0-17.5) gm/dL Hct (39.0-53.0) % MCV (80.0-100.0) fL Neutrophils # (1.3-7.7) k/uL Lymphocytes # (1.0-4.8) k/uL Chloride (98-107) mmol/L BUN (9-20) mg/dL Glucose (74-99) mg/dL POC Glucose (mg/dL) 131 H 142 H (70-110) mg/dL Hemoglobin A1c 6.1 H (<=6.0) % Calcium (8.4-10.2) mg/dL AST (17-59) U/L Total Protein (6.3-8.2) g/dL Albumin (3.5-5.0) g/dL 12/02/24 12/02/24 Range/Units 06:43 06:43 WBC 17.9 H (3.8-10.6) k/uL RBC 3.22 L (4.30-5.90) m/uL Hgb 10.9 L (13.0-17.5) gm/dL Hct 34.7 L (39.0-53.0) % MCV 107.8 H (80.0-100.0) fL Neutrophils # 16.6 H (1.3-7.7) k/uL Lymphocytes # 0.7 L (1.0-4.8) k/uL Chloride 113 H (98-107) mmol/L BUN 23 H (9-20) mg/dL Glucose 135 H (74-99) mg/dL POC Glucose (mg/dL) (70-110) mg/dL Hemoglobin A1c (<=6.0) % Calcium 7.8 L (8.4-10.2) mg/dL AST 89 H (17-59) U/L Total Protein 5.0 L (6.3-8.2) g/dL Albumin 2.4 L (3.5-5.0) g/dL Microbiology - Last 24 Hours (Table) 11/30/24 21:12 Blood Culture - Preliminary Blood Assessment and Plan (1) UTI (urinary tract infection) Current Visit: Yes Status: Acute Code(s): N39.0 - URINARY TRACT INFECTION, SITE NOT SPECIFIED SNOMED Code(s): 94279238 (2) Leukocytosis Current Visit: Yes Status: Acute Code(s): D72.829 - ELEVATED WHITE BLOOD CELL COUNT, UNSPECIFIED SNOMED Code(s): 308640068 (3) Influenza A Current Visit: Yes Status: Acute Code(s): J10.1 - FLU DUE TO OTH IDENT INFLUENZA VIRUS W OTH RESP MANIFEST SNOMED Code(s): 166208146 Plan: 1patient presented hospital with mental status changes which is likely multifactorial patient also have elevated white count positive UA concerning for possible component of UTI likely from enteric gram-negative pathogen. 2patient also tested positive for influenza A though chest x-ray was negative for any acute cardiopulmonary disease process. 3elevated creatinine high risk of nephrotoxicity from vancomycin 4-patient is currently being treated with Zosyn and Tamiflu patient white count is trending down adjusting antibiotic further on the basis of the culture Family at the bedside question answered Dictation was produced using [employer] dictation software. please excuse any grammatical, word or spelling errors. Time with Patient: Less than 30
--- NOTE | 2024-12-02 16:28 | P.PN ---
Subjective Progress Note Date: 12/02/24 Principal diagnosis: Recent C5-C6 ACDF, CSF leak, altered mental status, low blood pressure Patient was evaluated at bedside today, he is resting comfortably in his hospital bed, his son is present at bedside. Dr. Michel was also available today to examine patient. Patient is a lot more oriented exam, he is being by other medical specialties. The drain site on the anterior right sided neck continues to leak clear fluid. He denies any headaches, lightheadedness, dizzi ness or changes in vision at this time. Pain is well-controlled with regards to the overall neck discomfort. He denies any new onset weakness to the bilateral upper or lower extremities. Objective - Vital Signs Vital signs: Vital Signs Temp 98.2 F 12/02/24 12:00 Pulse 63 12/02/24 12:00 Resp 18 12/02/24 12:00 BP 124/65 12/02/24 12:00 Pulse Ox 92 L 12/02/24 12:02 FiO2 Intake & Output 12/01/24 12/02/24 12/02/24 18:59 06:59 18:59 Output Total 2500 850 900 Balance -2500 -850 -900 Weight 85.5 kg Output: Urine 2500 850 900 Other: Voiding Method Indwelling Catheter Indwelling Catheter # Bowel Movements 0 - Exam Gen: AOx3, NAD VSS stable at this time Integument: Incision on the right anterior neck is well-healing. The drain hole continues to drain clear fluid Palpation: Patient demonstrates no significant tenderness with palpation to the medial and lateral aspects of the anterior neck ROM: Patient has adequate range of motion of the bilateral upper extremities, he still is a little limited with finger intrinsics but this is much improved since his last evaluation in the hospital Full range of motion all major muscle groups of bilateral lower extremities, no focal deficits Sensory Exam: Senory exam to light touch is intact C5-T1 Senosry exam to light touch is intact L2-S1 Motor: Left lower extremity demonstrates 4/5 strength with hip flexion, knee extension, knee flexion, plantarflexion, dorsiflexion, EHL, FHL Right lower extremity demonstrates 4/5 strength with hip flexion, knee extension, knee flexion, dorsiflexion, EHL, FHL, 4-/5 strength appreciated with plantarflexion Left upper extremity demonstrates 4/5 strength with shoulder elevation, shoulder abduction, elbow extension, elbow flexion, wrist extension, wrist flexion, 3+/5 vessel liner strength and intrinsics Right upper extremity demonstrates 4-/5 with shoulder elevation, shoulder abduction, elbow extension, elbow flexion, 3/5 with wrist extension, wrist flexion, vessel liner and finger intrinsic Reflexes: 3/4 in all UE and LE Positive Angie's bilaterally, significant improvement on the left, improving on the right - Labs CBC & Chem 7: 12/02/24 06:43 12/02/24 06:43 Labs: Abnormal Lab Results - Last 24 Hours (Table) 12/01/24 12/01/24 12/02/24 Range/Units 07:23 21:50 06:42 WBC (3.8-10.6) k/uL RBC (4.30-5.90) m/uL Hgb (13.0-17.5) gm/dL Hct (39.0-53.0) % MCV (80.0-100.0) fL Neutrophils # (1.3-7.7) k/uL Lymphocytes # (1.0-4.8) k/uL Chloride (98-107) mmol/L BUN (9-20) mg/dL Glucose (74-99) mg/dL POC Glucose (mg/dL) 131 H 142 H (70-110) mg/dL Hemoglobin A1c 6.1 H (<=6.0) % Calcium (8.4-10.2) mg/dL AST (17-59) U/L Total Protein (6.3-8.2) g/dL Albumin (3.5-5.0) g/dL 12/02/24 12/02/24 Range/Units 06:43 06:43 WBC 17.9 H (3.8-10.6) k/uL RBC 3.22 L (4.30-5.90) m/uL Hgb 10.9 L (13.0-17.5) gm/dL Hct 34.7 L (39.0-53.0) % MCV 107.8 H (80.0-100.0) fL Neutrophils # 16.6 H (1.3-7.7) k/uL Lymphocytes # 0.7 L (1.0-4.8) k/uL Chloride 113 H (98-107) mmol/L BUN 23 H (9-20) mg/dL Glucose 135 H (74-99) mg/dL POC Glucose (mg/dL) (70-110) mg/dL Hemoglobin A1c (<=6.0) % Calcium 7.8 L (8.4-10.2) mg/dL AST 89 H (17-59) U/L Total Protein 5.0 L (6.3-8.2) g/dL Albumin 2.4 L (3.5-5.0) g/dL Microbiology - Last 24 Hours (Table) 11/30/24 21:12 Blood Culture - Preliminary Blood Assessment and Plan Assessment: Postoperative day #9 status post C5-C6 ACDF Leukocytosis, improving Acute kidney injury, improving Influenza A Bilateral upper and lower extremity weakness Difficult with ambulation Cervical myelopathy Other medical comorbidities Plan: Dr. Sanchez's and was available at bedside to discuss treatment options with patient and family. Patient's medical state seems to be improving. We did discuss the CSF fluid that is protruding from the drain site. We are attempting to clot this off with natural tendencies, surgical glue was placed over that area today at bedside. We will monitor for breathing changes and difficulty swallowing and overall soft tissue swelling. If symptoms worsen, patient will likely be scheduled for a exploratory surgery with possible hardware removal and dural repair. Pain control, continue current medications DVT prophylaxis per primary medical service No bending, lifting or twisting, soft c-collar if patient can tolerate Other medical specialty recommendations appreciated We will continue to follow patient during hospital stay, please contact our service with any acute issues or questions Time with Patient: Less than 30
[2024-12-02 17:13] LABS: Glucose,Whole Blood 122 mg/dL (70-110)
[2024-12-02 20:02] LABS: Glucose,Whole Blood 165 mg/dL (70-110)
[2024-12-03 05:48] LABS: Glucose,Whole Blood 128 mg/dL (70-110)
--- NOTE | 2024-12-03 09:01 | P.PN ---
Subjective Progress Note Date: 12/03/24 Principal diagnosis: Recent C5-C6 ACDF, CSF leak, altered mental status, low blood pressure Patient was evaluated at bedside today, he is resting comfortably in his hospital bed. Urinary catheter remains in place. No drainage has been noted from the drain site near the right sided anterior neck incision. He denies any headaches, lightheadedness, dizziness or changes in vision at this time. Pain is well-controlled with regards to the overall neck discomfort. He denies any new onset weakness to the bilateral upper or lower extremities. Objective - Vital Signs Vital signs: Vital Signs Temp 98.1 F 12/03/24 04:00 Pulse 66 12/03/24 04:00 Resp 18 12/03/24 04:00 BP 136/70 12/03/24 04:00 Pulse Ox 95 12/03/24 04:00 FiO2 Intake & Output 12/02/24 12/03/24 12/03/24 18:59 06:59 18:59 Output Total 1800 1000 Balance -1800 -1000 Weight 85.3 kg Output: Urine 1800 1000 Other: Voiding Method Indwelling Catheter Indwelling Catheter - Exam Gen: AOx3, NAD VSS stable at this time Integument: Incision on the right anterior neck is well-healing. The surgical glue was placed over the drain hole remains in good position, there is no drainage surrounding it. There is no significant soft tissue swelling appreciated in the area. There are some minor bruising from tape bruises. Palpation: Patient demonstrates no significant tenderness with palpation to the medial and lateral aspects of the anterior neck ROM: Patient has adequate range of motion of the bilateral upper extremities, he still is a little limited with finger intrinsics but this is much improved since his last evaluation in the hospital Full range of motion all major muscle groups of bilateral lower extremities, no focal deficits Sensory Exam: Senory exam to light touch is intact C5-T1 Senosry exam to light touch is intact L2-S1 Motor: Left lower extremity demonstrates 4/5 strength with hip flexion, knee extension, knee flexion, plantarflexion, dorsiflexion, EHL, FHL Right lower extremity demonstrates 4/5 strength with hip flexion, knee extension, knee flexion, dorsiflexion, EHL, FHL, 4-/5 strength appreciated with plantarflexion Left upper extremity demonstrates 4/5 strength with shoulder elevation, shoulder abduction, elbow extension, elbow flexion, wrist extension, wrist flexion, 3+/5 operations recruiter strength and intrinsics Right upper extremity demonstrates 4-/5 with shoulder elevation, shoulder abduction, elbow extension, elbow flexion, 3/5 with wrist extension, wrist flexion, operations recruiter and finger intrinsic Reflexes: 3/4 in all UE and LE Positive Angie's bilaterally, significant improvement on the left, improving on the right - Labs CBC & Chem 7: 12/02/24 06:43 12/02/24 06:43 Labs: Abnormal Lab Results - Last 24 Hours (Table) 12/02/24 12/02/24 12/03/24 Range/Units 17:12 19:59 05:45 POC Glucose (mg/dL) 122 H 165 H 128 H (70-110) mg/dL Microbiology - Last 24 Hours (Table) 11/30/24 21:12 Blood Culture - Preliminary Blood 12/01/24 18:07 Urine Culture - Final Urine,Catheterized Assessment and Plan Assessment: Postoperative day #10 status post C5-C6 ACDF Leukocytosis, improving Acute kidney injury, improving Influenza A Bilateral upper and lower extremity weakness Difficult with ambulation Cervical myelopathy Other medical comorbidities Plan: Continue to monitor for draining surrounding the drain site. Monitor for excessive soft tissue swelling near the drain hole and surgical incision. Physical therapy has been consulted, patient states has not been out of bed since being in the hospital. Patient needs to be up daily working with the walker and also sitting in a chair on multiple occasions. Urinary catheter remains in place, will discuss with nursing with the plan is for discontinuation of bladder trial Pain control, continue current medications DVT prophylaxis per primary medical service No bending, lifting or twisting, soft c-collar if patient can tolerate Other medical specialty recommendations appreciated We will continue to follow patient during hospital stay, please contact our service with any acute issues or questions Time with Patient: Less than 30
[2024-12-03 11:41] LABS: Glucose,Whole Blood 98 mg/dL (70-110)
[2024-12-03 14:09] LABS: Basophils % (A) 0 %; Eosinophils % (A) 0 %; HCT 36.1 % (39.0-53.0); HGB 11.6 gm/dL (13.0-17.5); Hypochromasia Slight; Lymphocytes # (A) 1.4 k/uL (1.0-4.8); Lymphocytes % (A) 8 %; MCH 34.2 pg (25.0-35.0); MCHC 32.1 g/dL (31.0-37.0); MCV 106.4 fL (80.0-100.0); Macrocytosis Moderate; Mean Platelet Volume 8.5; Monocytes # (A) 0.8 k/uL (0-1.0); Monocytes % (A) 4 %; Neutrophils # (A) 15.6 k/uL (1.3-7.7); Neutrophils % (A) 86 %; Platelet Count 197 k/uL (150-450); RDW 13.5 % (11.5-15.5); WBC 18.1 k/uL (3.8-10.6)
--- NOTE | 2024-12-03 14:21 | XR ---
EXAMINATION TYPE: XR chest 1V portable DATE OF EXAM: 12/03/2024 2:12 PM COMPARISON: 11/30/2024 CLINICAL INDICATION: Male, 73 years old with history of cough, TECHNIQUE: XR chest 1V portable views of the chest are obtained. FINDINGS: Demonstrated are scattered senescent parenchymal change. There is no evidence for focal infiltrate. The heart is stable. Hilar and mediastinal structures are within normal limits. Degenerative changes are seen of the dorsal spine. IMPRESSION: 1. Chronic changes without evidence for acute pulmonary disease. [facility], , 12/03/2024 2:18 PM
--- NOTE | 2024-12-03 14:22 | XR ---
EXAMINATION TYPE: XR forearm RT DATE OF EXAM: 12/03/2024 2:12 PM COMPARISON: None. CLINICAL INDICATION: Male, 73 years old with history of Fall, pain, pain TECHNIQUE: XR forearm RT XX views were obtained. FINDINGS: There is no acute fracture/dislocation evident. The joint spaces appear within normal limits. The ov erlying soft tissue appears unremarkable. IMPRESSION: No acute fracture or dislocation. [facility], , 12/03/2024 2:20 PM
--- NOTE | 2024-12-03 14:22 | XR ---
EXAMINATION TYPE: XR shoulder limited RT DATE OF EXAM: 12/03/2024 2:12 PM COMPARISON: None. CLINICAL INDICATION: Male, 73 years old with history of fall, pain, pain TECHNIQUE: XR shoulder limited RT views were obtained FINDINGS: Elevation of the humeral head relative to the central glenoid axis likely related to chronic rotator cuff tear. Marked narrowing subacromial joint space with mild bony remodeling of the acromion. Bony f ragmentation and degenerative narrowing. No fracture seen. IMPRESSION: There is no acute fracture [facility], , 12/03/2024 2:19 PM
--- NOTE | 2024-12-03 14:23 | XR ---
EXAMINATION TYPE: XR knee limited LT DATE OF EXAM: 12/03/2024 2:12 PM COMPARISON: None. CLINICAL INDICATION: Male, 73 years old with history of fall, pain TECHNIQUE: XR knee limited LT XX views were obtained. FINDINGS: There is no acute fracture/dislocation. The tri-compartment joint spaces appear within normal limits . The overlying soft tissue appears unremarkable. IMPRESSION: No acute fracture or dislocation [facility], , 12/03/2024 2:20 PM
--- NOTE | 2024-12-03 14:24 | XR ---
EXAMINATION TYPE: XR elbow limited RT DATE OF EXAM: 12/03/2024 2:12 PM COMPARISON: None. CLINICAL INDICATION: Male, 73 years old with history of Fall, pain, TECHNIQUE: XR elbow limited RT XX views were obtained. FINDINGS: There is no acute fracture/dislocation evident of the elbow. No abnormal fat pad signs are seen. Th e overlying soft tissue appears unremarkable. Bony fragment noted within the posterior compartment of the elbow may reflect a loose body. Olecranon spurring and fragmentation noted. IMPRESSION: There is no acute fracture or dislocation of the elbow. ICD 10 NO FRACTURE, INITIAL EVALUATION [facility], , 12/03/2024 2:22 PM
[2024-12-03 14:29] LABS: ALT 50 U/L (4-49); AST 89 U/L (17-59); African American GFR (CKD) 71 (>60 ml/min/1.73 sqM); Albumin 2.8 g/dL (3.5-5.0); Alkaline Phosphatase 84 U/L (38-126); Anion Gap 8 mmol/L; Blood Urea Nitrogen 25 mg/dL (9-20); Calcium 8.6 mg/dL (8.4-10.2); Carbon Dioxide 22 mmol/L (22-30); Chloride 112 mmol/L (98-107); Glucose 95 mg/dL (74-99); Magnesium 2.3 mg/dL (1.6-2.3); Non-African American GFR(CKD) 62 (>60 ml/min/1.73 sqM); Potassium 3.9 mmol/L (3.5-5.1); Sodium 142 mmol/L (137-145); Total Bilirubin 0.5 mg/dL (0.2-1.3); Total Protein 5.4 g/dL (6.3-8.2)
--- NOTE | 2024-12-03 14:40 | CT ---
EXAMINATION TYPE: CT brain wo con CT DLP: 1200.4 mGycm, Automated exposure control for dose reduction was used. DATE OF EXAM: 12/03/2024 2:35 PM COMPARISON: CT brain 04/16/2024, 04/04/2024, 02/02/2024, MRI brain/C-spine 06/15/2024, MRI brain 04/05/2024 CLINICAL INDICATION:Male, 73 years old with history of unwitnessed fall, Unwitnessed fall. TECHNIQUE: Brain: Multiple axial CT images of the brain were obtained without IV contrast. . Coronal and sagitta l reformats reviewed. FINDINGS: Brain: Extra-axial spaces: No abnormal extra-axial fluid collections. Ventricular system: Within normal limits Cerebral parenchyma: No acute intraparenchymal hemorrhage or mass effect. The veras-white junction is well differentiated. Scattered hypoattenuating areas are seen within the periventricular white matte r. Cerebellum: Unremarkable. Mass effect: No evidence of midline shift. Intracranial vasculature: Atherosclerotic calcifications of the intracranial vessels. Soft tissues: Normal. Calvarium/osseous structures: No depressed skull fracture. Paranasal sinuses and mastoid air cells: Mild mucosal thickening of the bilateral anterior ethmoid si nuses. Minimal mucosal thickening of the sphenoid sinuses. The mastoid air cells are clear. Visualized orbits: Orbital contents are intact. IMPRESSION: 1. No acute intracranial process. 2. Nonspecific white matter changes, likely secondary to chronic small vessel ischemic disease. [facility], , 12/03/2024 2:38 PM
--- NOTE | 2024-12-03 14:54 | P.PN ---
Subjective Progress Note Date: 12/03/24 Principal diagnosis: Reason for follow-up is leukocytosis/UTI/influenza Patient is a 73-year-old male with a past medical history significant for Coronary Artery Disease (CAD), CVA/TIA, Hyperlipidemia, Hypertension, Myocardial Infarction ([place]), Prostate Disorder, Thyroid Disorder presenting to the hospital for evaluation of fever and weakness and low blood pressure along with mental status changes from a local skilled nursing did have elevated white count tested positive for influenza prompting this consultation. On today's evaluation that is 12/03/2024, the patient continues to be afebrile, the patient is on 2 L current oxygen and breathing comfortably, the Pt denies having any chest pain or cough, the patient denies having any abdominal pain no vomiting or any diarrhea, still having drainage from his cervical incision site. Patient white count is slightly up to 18.1 today, creat is 1.16 blood urine culture have been negative so far Objective - Vital Signs Vital signs: Vital Signs Temp 97.5 F L 12/03/24 08:53 Pulse 74 12/03/24 11:21 Resp 16 12/03/24 11:21 BP 127/57 12/03/24 11:57 Pulse Ox 99 12/03/24 11:21 FiO2 Intake & Output 12/02/24 12/03/24 12/03/24 18:59 06:59 18:59 Intake Total 118 Output Total 1800 1000 Balance -1800 -1000 118 Weight 85.3 kg Intake: Oral 118 Output: Urine 1800 1000 Other: Voiding Method Indwelling Catheter Indwelling Catheter Indwelling Catheter - Exam GENERAL DESCRIPTION: An elderly male lying in bed in no distress RESPIRATORY SYSTEM: Unlabored breathing , clear to auscultation anteriorly HEART: S1 S2 regular rate and rhythm , ABDOMEN: Soft , no tenderness EXTREMITIES: No edema feet - Labs CBC & Chem 7: 12/03/24 13:50 12/03/24 13:50 Labs: Abnormal Lab Results - Last 24 Hours (Table) 12/02/24 12/02/24 12/03/24 Range/Units 17:12 19:59 05:45 POC Glucose (mg/dL) 122 H 165 H 128 H (70-110) mg/dL Microbiology - Last 24 Hours (Table) 11/30/24 21:12 Blood Culture - Preliminary Blood 12/01/24 18:07 Urine Culture - Final Urine,Catheterized Assessment and Plan (1) UTI (urinary tract infection) Current Visit: Yes Status: Acute Code(s): N39.0 - URINARY TRACT INFECTION, SITE NOT SPECIFIED SNOMED Code(s): 67654652 (2) Leukocytosis Current Visit: Yes Status: Acute Code(s): D72.829 - ELEVATED WHITE BLOOD CELL COUNT, UNSPECIFIED SNOMED Code(s): 445084681 (3) Influenza A Current Visit: Yes Status: Acute Code(s): J10.1 - FLU DUE TO OTH IDENT INFLUENZA VIRUS W OTH RESP MANIFEST SNOMED Code(s): 493211879 Plan: 1patient presented hospital with mental status changes which is likely multifactorial patient also have elevated white count positive UA concerning for possible component of UTI likely from enteric gram-negative pathogen. 2patient also tested positive for influenza A though chest x-ray was negative for any acute cardiopulmonary disease process. 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 please excuse any grammatical, word or spelling errors.
[2024-12-03] MEDS: FUROSEMIDE 10 MG/ML 2 ML VIAL IV ONE (15:47)
[2024-12-03 16:38] LABS: Glucose,Whole Blood 151 mg/dL (70-110)
[2024-12-03 16:46] LABS: Appearance,Urine Clear (Clear); Bacteria,Urine Rare /hpf; Bilirubin,Urine Negative (Negative); Blood,Urine Moderate (Negative); Color,Urine Light Yellow; Glucose,Urine (UA) Negative (Negative); Ketones,Urine Negative (Negative); Leukocyte Esterase,Urine Moderate (Negative); Mucus,Urine Rare /hpf; Nitrite,Urine Negative (Negative); PH, Urine 5.5 (5.0-8.0); Protein,Urine Trace (Negative); RBC,Urine 32 /hpf (0-5); Specific Gravity,Urine 1.021 (1.001-1.035); Urobilinogen,Urine <2.0 mg/dL (<2.0); WBC,Urine 28 /hpf (0-5)
[2024-12-03 20:40] LABS: Glucose,Whole Blood 176 mg/dL (70-110)
--- NOTE | 2024-12-04 02:12 | PN ---
PROGRESS NOTE DATE OF SERVICE: 12/03/2024 SUBJECTIVE: This is a 73-year-old gentleman, who was admitted after a neck surgery. He was admitted with acute influenza. The patient had a fall today. The patient also had multiple complex medical issues. Also, the patient is mildly confused at this time, he is complaining of severe pain. White count is 18.1. PAST MEDICAL HISTORY: Reviewed. REVIEW OF SYSTEMS: A 14-point review of systems is negative except as mentioned earlier. CURRENT MEDICATIONS: Reviewed. PHYSICAL EXAMINATION: VITAL SIGNS: Pulse is 74, blood pressure 110/69, respirations 16. CHEST: Few scattered rhonchi. No crackles. ABDOMEN: Soft. NERVOUS SYSTEM: Diffusely weak and some leakage from the surgical site also present. LABORATORY DATA: WBC 18.8, hemoglobin 11.6. ASSESSMENT: 1. Acute influenza A as well as sepsis, possible pneumonia. 2. Acute renal failure with acute tubular necrosis. 3. Change in mental status and metabolic encephalopathy. 4. Troponin 0.128. Possible acute lxe-VW-pacdgwc-elevation myocardial infarction or type 2 myocardial infarction. 5. History of recent cervical surgery and some extubation. 6. Hypertension. 7. Hyperlipidemia. 8. History of myocardial infarction. 9. History of coronary artery bypass graft. RECOMMENDATIONS: Continue current management and continue symptomatic treatment, otherwise closely follow with Infectious Disease as well as Orthopedics and Spinal Surgery. I would also recommend a Neurology consultation for the change in mental status. MMRANDALL / DESHAWN: [id number] /
[2024-12-04 06:22] LABS: Glucose,Whole Blood 150 mg/dL (70-110)
[2024-12-04] MEDS: PANTOPRAZOLE 40 MG TABLET PO SCH (06:27)
[2024-12-04 07:18] LABS: Basophils % (A) 0 %; Eosinophils % (A) 0 %; HCT 37.5 % (39.0-53.0); HGB 11.6 gm/dL (13.0-17.5); Lymphocytes # (A) 0.8 k/uL (1.0-4.8); Lymphocytes % (A) 8 %; MCH 33.1 pg (25.0-35.0); MCHC 30.8 g/dL (31.0-37.0); MCV 107.5 fL (80.0-100.0); Macrocytosis Moderate; Mean Platelet Volume 8.8; Monocytes # (A) 0.4 k/uL (0-1.0); Monocytes % (A) 4 %; Neutrophils # (A) 9.7 k/uL (1.3-7.7); Neutrophils % (A) 88 %; Platelet Count 191 k/uL (150-450); RBC 3.49 m/uL (4.30-5.90); RDW 13.7 % (11.5-15.5); WBC 11.1 k/uL (3.8-10.6)
[2024-12-04 07:33] LABS: African American GFR (CKD) 65 (>60 ml/min/1.73 sqM); Anion Gap 6 mmol/L; Blood Urea Nitrogen 29 mg/dL (9-20); Calcium 8.6 mg/dL (8.4-10.2); Carbon Dioxide 29 mmol/L (22-30); Chloride 106 mmol/L (98-107); Glucose 131 mg/dL (74-99); Non-African American GFR(CKD) 56 (>60 ml/min/1.73 sqM); Potassium 4.1 mmol/L (3.5-5.1); Sodium 141 mmol/L (137-145)
[2024-12-04 12:11] LABS: Glucose,Whole Blood 163 mg/dL (70-110)
--- NOTE | 2024-12-04 13:12 | P.PN ---
Subjective Progress Note Date: 12/04/24 Principal diagnosis: Recent C5-C6 ACDF, CSF leak, altered mental status, low blood pressure Patient was evaluated at bedside today, he is resting comfortably in his hospital bed. Urinary catheter remains in place. Drain hole on the right anterior neck continues to leak clear fluid. Patient underwent multiple x-rays yesterday of the unwitnessed fall, no acute osseous abnormalities were noted. He denies any headaches, lightheadedness, dizziness or changes in vision at this time. Pain is well-controlled with regards to the overall neck discomfort. He denies any new onset weakness to the bilateral upper or lower extremities. Objective - Vital Signs Vital signs: Vital Signs Temp 97.6 F 12/04/24 09:11 Pulse 56 L 12/04/24 11:57 Resp 16 12/04/24 11:57 BP 137/82 12/04/24 11:57 Pulse Ox 98 12/04/24 11:57 FiO2 Intake & Output 12/03/24 12/04/24 12/04/24 18:59 06:59 18:59 Intake Total 236 120 Output Total 2350 1999 Balance -2113 120 Weight 91.5 kg Intake: Oral 236 120 Output: Urine 2350 1999 Other: Voiding Method Indwelling Catheter Indwelling Catheter - Exam Gen: AOx3, NAD VSS stable at this time Integument: Incision on the right anterior neck is well-healing. Drain hole continues to drain clear fluid Palpation: Patient demonstrates no significant tenderness with palpation to the medial and lateral aspects of the anterior neck ROM: Patient has adequate range of motion of the bilateral upper extremities, he still is a little limited with finger intrinsics but this is much improved since his last evaluation in the hospital Full range of motion all major muscle groups of bilateral lower extremities, no focal deficits Sensory Exam: Senory exam to light touch is intact C5-T1 Senosry exam to light touch is intact L2-S1 Motor: Left lower extremity demonstrates 4/5 strength with hip flexion, knee extension, knee flexion, plantarflexion, dorsiflexion, EHL, FHL Right lower extremity demonstrates 4/5 strength with hip flexion, knee extension, knee flexion, dorsiflexion, EHL, FHL, 4-/5 strength appreciated with plantarflexion Left upper extremity demonstrates 4/5 strength with shoulder elevation, shoulder abduction, elbow extension, elbow flexion, wrist extension, wrist flexion, 3+/5 pathology laboratory aides teacher strength and intrinsics Right upper extremity demonstrates 4-/5 with shoulder elevation, shoulder abduction, elbow extension, elbow flexion, 3/5 with wrist extension, wrist flexion, pathology laboratory aides teacher and finger intrinsic Reflexes: 3/4 in all UE and LE Positive Angie's bilaterally, significant improvement on the left, improving on the right - Labs CBC & Chem 7: 12/04/24 06:11 12/04/24 06:11 Labs: Abnormal Lab Results - Last 24 Hours (Table) 12/03/24 12/03/24 12/03/24 Range/Units 13:50 13:50 15:43 WBC 18.1 H (3.8-10.6) k/uL RBC 3.40 L (4.30-5.90) m/uL Hgb 11.6 L (13.0-17.5) gm/dL Hct 36.1 L (39.0-53.0) % MCV 106.4 H (80.0-100.0) fL MCHC (31.0-37.0) g/dL Neutrophils # 15.6 H (1.3-7.7) k/uL Lymphocytes # (1.0-4.8) k/uL Chloride 112 H (98-107) mmol/L BUN 25 H (9-20) mg/dL Glucose (74-99) mg/dL POC Glucose (mg/dL) (70-110) mg/dL AST 89 H (17-59) U/L ALT 50 H (4-49) U/L Total Protein 5.4 L (6.3-8.2) g/dL Albumin 2.8 L (3.5-5.0) g/dL Urine Protein Trace H (Negative) Urine Blood Moderate H (Negative) Ur Leukocyte Esterase Moderate H (Negative) Urine RBC 32 H (0-5) /hpf Urine WBC 28 H (0-5) /hpf Urine Bacteria Rare H (None) /hpf Urine Mucus Rare H (None) /hpf 12/03/24 12/03/24 12/04/24 Range/Units 16:36 20:28 06:06 WBC (3.8-10.6) k/uL RBC (4.30-5.90) m/uL Hgb (13.0-17.5) gm/dL Hct (39.0-53.0) % MCV (80.0-100.0) fL MCHC (31.0-37.0) g/dL Neutrophils # (1.3-7.7) k/uL Lymphocytes # (1.0-4.8) k/uL Chloride (98-107) mmol/L BUN (9-20) mg/dL Glucose (74-99) mg/dL POC Glucose (mg/dL) 151 H 176 H 150 H (70-110) mg/dL AST (17-59) U/L ALT (4-49) U/L Total Protein (6.3-8.2) g/dL Albumin (3.5-5.0) g/dL Urine Protein (Negative) Urine Blood (Negative) Ur Leukocyte Esterase (Negative) Urine RBC (0-5) /hpf Urine WBC (0-5) /hpf Urine Bacteria (None) /hpf Urine Mucus (None) /hpf 12/04/24 12/04/24 12/04/24 Range/Units 06:11 06:11 12:05 WBC 11.1 H (3.8-10.6) k/uL RBC 3.49 L (4.30-5.90) m/uL Hgb 11.6 L (13.0-17.5) gm/dL Hct 37.5 L (39.0-53.0) % MCV 107.5 H (80.0-100.0) fL MCHC 30.8 L (31.0-37.0) g/dL Neutrophils # 9.7 H (1.3-7.7) k/uL Lymphocytes # 0.8 L (1.0-4.8) k/uL Chloride (98-107) mmol/L BUN 29 H (9-20) mg/dL Glucose 131 H (74-99) mg/dL POC Glucose (mg/dL) 163 H (70-110) mg/dL AST (17-59) U/L ALT (4-49) U/L Total Protein (6.3-8.2) g/dL Albumin (3.5-5.0) g/dL Urine Protein (Negative) Urine Blood (Negative) Ur Leukocyte Esterase (Negative) Urine RBC (0-5) /hpf Urine WBC (0-5) /hpf Urine Bacteria (None) /hpf Urine Mucus (None) /hpf Microbiology - Last 24 Hours (Table) 11/30/24 21:12 Blood Culture - Preliminary Blood Assessment and Plan Assessment: Postoperative day #11 status post C5-C6 ACDF CSF leak Leukocytosis, improving Acute kidney injury, improving Influenza A Bilateral upper and lower extremity weakness Difficult with ambulation Cervical myelopathy Other medical comorbidities Plan: Dr. Michel was available yesterday to discuss with the patient's family and patient plan for surgical intervention for 12/05/2024. Patient will be undergoing a revision C5-C6 ACDF with possible corpectomy and dural repair. Patient will be n.p.o. after midnight Continue to monitor surgical dressing, reinforce as needed Urinary catheter remains in place Pain control, continue current medications DVT prophylaxis per primary medical service Weight-bear as tolerated with a walker, patient needs assistance at all time when ambulating No bending, lifting or twisting, soft c-collar if patient can tolerate Other medical specialty recommendations appreciated Further recommendations to follow Time with Patient: Less than 30
[2024-12-04 16:48] LABS: Glucose,Whole Blood 158 mg/dL (70-110)
--- NOTE | 2024-12-04 17:28 | P.CNNES ---
History of Present Illness Consult date: 12/04/24 Requesting physician: Silvana Hernandez Reason for Consult: change in mentation, csf leak? History of Present Illness: Patient is a 73-year-old right-handed male, with history of severe cervical spinal stenosis, with cervical myelopathy, status post recent decompressive surgery, transferred to rehab facility, now came to the hospital by ambulance on 11/30/2024 for CSF leak and some altered mental status. Patient lives at [facility]. Patient states that prior to his cervical surgery he had no feeling in both hands. He walked by himself, did not require any assistive device, although states he "did not walk good". He had bladder control problems going on for couple years. He has weakness in both hands and the left leg before surgery. After surgery, he states that he could use the left arm and leg well, but he has developed weakness of the right arm and right leg. His hand numbness has improved however. He has been noticing continuous CSF leak since his surgery, therefore he was admitted. He denies any headache, no fever or chills. When he stands up, feels dizzy. He denies any chest pain, shortness of breath. No neck pain. As per EMS flowsheet, staff mentioned that 1 week post cervical spine surgery, he spiked temperature 102 this morning and has increase in weakness and lethargy. Patient complaining of right-sided weakness and numbness in the right extremities. He has had the symptoms since neck surgery. Patient was alert and orient x 4 with GCS of 15. Denied any chest pain or difficulty breathing or pain at the surgical site or any falls or injury. He has had left arm and hand numbness prior to surgery which has resolved but now feels weak due to right- sided weakness and slurred speech. Patient's vitals at the scene was blood pressure 96/39 pulse rate 57 respiration 18 saturation 96% temperature 98.5. Blood sugar 151. Patient's most recent blood test shows WBC 11.1 hemoglobin 11.6, elevated MCV 107.5 and platelets 191. Basic metabolic panel is normal, UA shows moderate amount of leukocyte Estrace and 28 WBCs and rare bacteria. Patient's maximum white cell count was 23.6. Patient had influenza A positive as well. Patient has been seen by infectious disease, started on Zosyn. Patient has history of cervical spondylosis with cervical myelopathy. Patient had undergone C5-6 anterior cervical arthrodesis with instrumentation and insertion of biomechanical device cage x 1, on 11/23/2024. CT head showed no acute intracranial process. Nonspecific white matter changes, likely secondary to chronic small vessel ischemic disease. I personally reviewed CT head, agree with the findings. Chest x-ray showed chronic changes without evidence for acute pulmonary disease. 2D echo revealed normal LV size and systolic function with EF 60%. No obvious regional wall motion abnormalities. Mildly increased left atrial area. Normal right atrial size. Mild MR, TR. Patient has been seen by myself on 04/05/2024 with possible stroke/TIA manifesting with slurred speech, right-sided numbness tingling and weakness. Patient had an MRI of the brain which revealed no acute infarct. Nonspecific white matter changes. MRI of the brain revealed findings suspicious for 3 mm anterior communicating artery aneurysm. Findings suspicious for 1 to 2 mm right cavernous segment ICA tiny aneurysm. Patient had an MRI of the cervical spine without contrast on 11/09/2024, which revealed multilevel degenerative changes most pronounced at C5-C6 level remains present. Severe spinal canal stenosis and myelopathy is again seen. I personally reviewed MRI and agree with the findings. Patient had a 2D echo on 12/01/2024 which revealed normal LV size and systolic function with EF 60%. No obvious regional wall motion abnormalities. Review of Systems All pertinent positive and negative review of systems mentioned in the HPI. Past Medical History Past Medical History: Coronary Artery Disease (CAD), CVA/TIA, Hyperlipidemia, Hypertension, Myocardial Infarction (NM), Prostate Disorder, Thyroid Disorder Additional Past Medical History / Comment(s): wears brief for incont of urine., 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, weakness, mili hand numbness Last Myocardial Infarction Date:: 2005 History of Any Multi-Drug Resistant Organisms: None Reported Past Surgical History: Back Surgery, Bladder Surgery, Coronary Bypass/CABG Additional Past Surgical History / Comment(s): urolift with 4 bands, carpal tunnel, quad bypass 2005 Past Anesthesia/Blood Transfusion Reactions: No Reported Reaction Past Psychological History: No Psychological Hx Reported Smoking Status: Never smoker Past Alcohol Use History: None Reported Past Drug Use History: None Reported - Past Family History Mother Family Medical History: Cancer Additional Family Medical History / Comment(s): leukemia Father Family Medical History: Cancer Additional Family Medical History / Comment(s): lung Medications and Allergies Home Medications Medication Instructions Recorded Confirmed Type Docusate [Colace] 200 mg PO DAILY 10/13/14 11/30/24 History Levothyroxine Sodium [Synthroid] 125 mcg PO DAILY@0500 10/13/14 11/30/24 History [place]-3 Fatty Acids/Fish Oil [Fish 1 cap PO HS 10/13/14 11/30/24 History Oil 1,000 mg Softgel] allopurinoL [Zyloprim] 300 mg PO DAILY 10/13/14 11/30/24 History gemfibroziL [Lopid] 600 mg PO DAILY 10/13/14 11/30/24 History Tamsulosin HCl [Flomax] 0.4 mg PO DAILY 11/12/16 11/30/24 History Aspirin 325 mg PO DAILY 05/04/17 11/30/24 History Metoprolol Tartrate [Lopressor] 25 mg PO DAILY 09/12/22 11/30/24 History Cholecalciferol [Vitamin D3 (25 25 mcg PO HS 10/03/22 11/30/24 History Mcg = 1000 Iu)] Atorvastatin [Lipitor] 20 mg PO HS 30 Days #30 tab 10/05/22 11/30/24 Rx Meclizine [Antivert] 25 mg PO TID PRN #20 tab 02/02/24 11/30/24 Rx Donepezil [Aricept] 5 mg PO HS 11/18/24 11/30/24 History HYDROcodone/APAP 7.5-325MG [[place] 1 tab PO Q6HR PRN #24 tab 11/26/24 11/30/24 Rx 7.5-325] Sennosides/Docusate Sodium [Senna 1 each PO DAILY #20 capsule 11/26/24 11/30/24 Rx Plus 8.6-50 mg Softgel] Acetaminophen [Tylenol 8 Hour] 650 mg PO Q6H PRN 11/30/24 11/30/24 History Cyanocobalamin [Vitamin B-12] 1,000 mcg PO HS 11/30/24 11/30/24 History Cyclobenzaprine [Flexeril] 5 mg PO TID@0700,1300,1900 11/30/24 11/30/24 History Folic Acid 0.8 mg PO HS 11/30/24 11/30/24 History Gabapentin [Neurontin] 300 mg PO TID@0700,1300,1900 11/30/24 11/30/24 History Larissa-Tussin Dm 10 ml PO QID 11/30/24 11/30/24 History Ibuprofen [Motrin Ib] 800 mg PO DAILY 11/30/24 11/30/24 History Naloxone HCl 0.4 mg IM DIRECTED PRN 11/30/24 11/30/24 History Naloxone HCl [Narcan] 4 mg NASAL DIRECTED PRN 11/30/24 11/30/24 History cefaDROXiL [Duricef] 500 mg PO BID@0700,1900 11/30/24 11/30/24 History methylPREDNISolone Dose Pack See Taper PO DIRECTED 11/30/24 11/30/24 History [Medrol Dose Pack] Allergies Allergy/AdvReac Type Severity Reaction Status Date / Time No Known Allergies Allergy Verified 11/30/24 17:37 Physical Examination - Vital Signs Vital Signs: Vital Signs Temp Pulse Pulse Resp BP Pulse Ox 12/04/24 11:57 56 L 16 137/82 98 12/04/24 09:11 97.6 F 67 20 124/69 97 12/04/24 08:48 50 L 12/04/24 08:32 52 L 99 12/04/24 03:43 98.1 F 58 L 18 140/58 97 12/03/24 23:38 98.1 F 61 18 112/46 93 L 12/03/24 21:06 65 12/03/24 20:56 62 12/03/24 19:59 97.9 F 60 18 106/53 96 12/03/24 15:46 97.5 F L 56 L 18 132/65 98 12/03/24 15:45 56 L 12/03/24 15:34 52 L Intake and Output 12/03/24 12/04/24 12/04/24 22:59 06:59 14:59 Intake Total 118 120 Output Total 2300 1400 Balance -218 -1400 120 Intake: Oral 118 120 Output: Urine 2300 1400 Other: Voiding Method Indwelling Catheter Indwelling Catheter Indwelling Catheter Weight 91.5 kg Patient is an elderly male, very pleasant, in no acute distress. Patient is alert awake oriented to time place and person. He knows it is 12/03/2024 but he thinks that he is in [facility]. When I told it is not [place], he was able to tell it is [place]. He knows he is in [facility], name of the current president and that he is in [facility]. He knows it is Friday and spring season coming on. Speech and language functions are normal. Patient can name and repeat very well. No aphasia or dysarthria. Attention, concentration and fund of knowledge is adequate. On cranial nerve examination, pupils are equal, round and reacting to light, visual harp are full on confrontation, with no neglect on double simultaneous stimulation. Extraocular muscles are intact with no nystagmus. Face is symmetric, tongue protrudes to the midline. Palatal elevation and sensation normal, hearing and shoulder shrug normal, facial sensation normal. On muscle strength testing, there is no pronator drift and the strength is nor mal in arms and legs distally and proximally except right triceps which is 3, normal left triceps 5. Both assembler installer structures are 4. Biceps and deltoids are normal. Lower extremities normal. Deep tendon reflexes are symmetric at the biceps, 2 brachioradialis, 2 at the knees and plantars are possible upgoing bilaterally. Sensory to touch is equal with no neglect on double simultaneous stimulation. Cerebellar function showed no ataxia for [id number]-[id number] testing. No dysdiadochokinesia. No ataxia for [id number]-nl-cpxi testing on either side. Tone and bulk of muscles normal. Gait deferred.. On general examination, there is no carotid bruit or murmur, S1-S2 audible. Chest is clear on consultation. Abdomen is soft nontender. No organomegaly, bowel sounds present. Peripheral pulses are present. No peripheral edema. Results - Laboratory Findings CBC and BMP: 12/05/24 06:28 12/05/24 06:28 Abnormal Lab Findings: Abnormal Labs 11/30/24 11/30/24 11/30/24 15:21 15:21 15:21 WBC 17.2 H RBC 3.29 L Hgb 11.6 L Hct 33.6 L MCV 102.4 H MCH 35.3 H MCHC Neutrophils # 15.0 H Lymphocytes # 0.9 L VBG pH VBG pCO2 VBG HCO3 Chloride BUN 39 H Creatinine 2.38 H Glucose 111 H POC Glucose (mg/dL) Hemoglobin A1c Calcium AST ALT Troponin I 0.128 H* Total Protein 5.4 L Albumin 2.9 L Urine Protein Urine Blood Ur Leukocyte Esterase Urine RBC Urine WBC Urine WBC Clumps Urine Bacteria Urine Mucus Influenza Type A (PCR) 11/30/24 11/30/24 12/01/24 16:03 21:27 03:56 WBC RBC Hgb Hct MCV MCH MCHC Neutrophils # Lymphocytes # VBG pH 7.30 L VBG pCO2 25 L VBG HCO3 13 L Chloride BUN Creatinine Glucose POC Glucose (mg/dL) Hemoglobin A1c Calcium AST ALT Troponin I Total Protein Albumin Urine Protein Trace H Urine Blood Small H Ur Leukocyte Esterase Large H Urine RBC 12 H Urine WBC >182 H Urine WBC Clumps Moderate H Urine Bacteria Urine Mucus Rare H Influenza Type A (PCR) Detected A 12/01/24 12/01/24 12/01/24 07:23 07:23 07:23 WBC 23.6 H RBC 3.47 L Hgb 11.6 L Hct 36.2 L MCV 104.2 H MCH MCHC Neutrophils # 21.9 H Lymphocytes # 0.6 L VBG pH VBG pCO2 VBG HCO3 Chloride 108 H BUN 30 H Creatinine 1.78 H Glucose POC Glucose (mg/dL) Hemoglobin A1c 6.1 H Calcium 7.9 L AST ALT Troponin I Total Protein 5.3 L Albumin 2.7 L Urine Protein Urine Blood Ur Leukocyte Esterase Urine RBC Urine WBC Urine WBC Clumps Urine Bacteria Urine Mucus Influenza Type A (PCR) 12/01/24 12/02/24 12/02/24 21:50 06:42 06:43 WBC RBC Hgb Hct MCV MCH MCHC Neutrophils # Lymphocytes # VBG pH VBG pCO2 VBG HCO3 Chloride 113 H BUN 23 H Creatinine Glucose 135 H POC Glucose (mg/dL) 131 H 142 H Hemoglobin A1c Calcium 7.8 L AST 89 H ALT Troponin I Total Protein 5.0 L Albumin 2.4 L Urine Protein Urine Blood Ur Leukocyte Esterase Urine RBC Urine WBC Urine WBC Clumps Urine Bacteria Urine Mucus Influenza Type A (PCR) 12/02/24 12/02/24 12/02/24 06:43 17:12 19:59 WBC 17.9 H RBC 3.22 L Hgb 10.9 L Hct 34.7 L MCV 107.8 H MCH MCHC Neutrophils # 16.6 H Lymphocytes # 0.7 L VBG pH VBG pCO2 VBG HCO3 Chloride BUN Creatinine Glucose POC Glucose (mg/dL) 122 H 165 H Hemoglobin A1c Calcium AST ALT Troponin I Total Protein Albumin Urine Protein Urine Blood Ur Leukocyte Esterase Urine RBC Urine WBC Urine WBC Clumps Urine Bacteria Urine Mucus Influenza Type A (PCR) 12/03/24 12/03/24 12/03/24 05:45 13:50 13:50 WBC 18.1 H RBC 3.40 L Hgb 11.6 L Hct 36.1 L MCV 106.4 H MCH MCHC Neutrophils # 15.6 H Lymphocytes # VBG pH VBG pCO2 VBG HCO3 Chloride 112 H BUN 25 H Creatinine Glucose POC Glucose (mg/dL) 128 H Hemoglobin A1c Calcium AST 89 H ALT 50 H Troponin I Total Protein 5.4 L Albumin 2.8 L Urine Protein Urine Blood Ur Leukocyte Esterase Urine RBC Urine WBC Urine WBC Clumps Urine Bacteria Urine Mucus Influenza Type A (PCR) 12/03/24 12/03/24 12/03/24 15:43 16:36 20:28 WBC RBC Hgb Hct MCV MCH MCHC Neutrophils # Lymphocytes # VBG pH VBG pCO2 VBG HCO3 Chloride BUN Creatinine Glucose POC Glucose (mg/dL) 151 H 176 H Hemoglobin A1c Calcium AST ALT Troponin I Total Protein Albumin Urine Protein Trace H Urine Blood Moderate H Ur Leukocyte Esterase Moderate H Urine RBC 32 H Urine WBC 28 H Urine WBC Clumps Urine Bacteria Rare H Urine Mucus Rare H Influenza Type A (PCR) 12/04/24 12/04/24 12/04/24 06:06 06:11 06:11 WBC 11.1 H RBC 3.49 L Hgb 11.6 L Hct 37.5 L MCV 107.5 H MCH MCHC 30.8 L Neutrophils # 9.7 H Lymphocytes # 0.8 L VBG pH VBG pCO2 VBG HCO3 Chloride BUN 29 H Creatinine Glucose 131 H POC Glucose (mg/dL) 150 H Hemoglobin A1c Calcium AST ALT Troponin I Total Protein Albumin Urine Protein Urine Blood Ur Leukocyte Esterase Urine RBC Urine WBC Urine WBC Clumps Urine Bacteria Urine Mucus Influenza Type A (PCR) 12/04/24 12:05 WBC RBC Hgb Hct MCV MCH MCHC Neutrophils # Lymphocytes # VBG pH VBG pCO2 VBG HCO3 Chloride BUN Creatinine Glucose POC Glucose (mg/dL) 163 H Hemoglobin A1c Calcium AST ALT Troponin I Total Protein Albumin Urine Protein Urine Blood Ur Leukocyte Esterase Urine RBC Urine WBC Urine WBC Clumps Urine Bacteria Urine Mucus Influenza Type A (PCR) Assessment and Plan Assessment: * Altered mental status, likely due to metabolic encephalopathy, now resolved. Patient's mentation is completely normal. He does have mild delirium. * Status post C5-C6 ACDF 11/23/2024 * CSF leak anterior cervical spine, due to above * Cervical spondylosis, with severe cervical spinal stenosis at C5-6 with myelomalacia. * Acute influenza A * History of 3 mm ACOM aneurysm * CAD with history of bypass surgery * Hypertension * Hyperlipidemia * Macrocytosis * Hypothyroidism Plan: * Patient's mentation is back to normal. He is fully oriented. No other neurological workup indicated. * Patient denies any headache. No evidence of meningitis. Patient maintained on Zosyn and cefazolin (preoperatively x 1 dose). ID following. * Patient has CSF leak from dural tear. Patient undergoing surgery in the morning. * DVT prophylaxis:, We will defer to IM/orthopedic surgery. * Dr. Deon Segovia will resume neurology service in the morning. * Thank you for the consult.
--- NOTE | 2024-12-04 18:51 | PN ---
PROGRESS NOTE DATE OF SERVICE: 12/04/2024 SUBJECTIVE: The patient is a 73-year-old gentleman admitted after influenza A as well as sepsis, possibly CSF leakage. No chest pain. No palpitation. PHYSICAL EXAMINATION: VITAL SIGNS: Pulse is 58, blood pressure 130/72, respirations 16. CHEST: Clear to auscultation. CARDIOVASCULAR: S1, S2. ABDOMEN: Soft. NERVOUS SYSTEM: Mild diffuse weakness. LABORATORY DATA: WBC 11.1. ASSESSMENT: 1. Acute influenza A as well as sepsis with possible pneumonia. 2. Acute renal failure with acute tubular necrosis. 3. Change in mental status, acute metabolic encephalopathy. 4. Elevated troponin, possible acute [id number]-KA-edpewpi-elevation myocardial infarction. 5. History of recent cervical surgery as well as possible CSF leak. 6. Multiple complex medical issues. RECOMMENDATIONS: Recommend to continue current management and continue symptomatic treatment. Closely follow with our orthopedic spinal surgery. Otherwise, continue with broad-spectrum IV antibiotics. Cultures are negative. We will repeat labs. Further recommendations to follow. MMODL / IJN: [id number] /
[2024-12-04 19:56] LABS: Glucose,Whole Blood 218 mg/dL (70-110)
[2024-12-05 05:49] LABS: Glucose,Whole Blood 150 mg/dL (70-110)
[2024-12-05 07:03] LABS: Basophils % (A) 0 %; Eosinophils % (A) 0 %; HCT 37.7 % (39.0-53.0); HGB 12.1 gm/dL (13.0-17.5); Hypochromasia Slight; Lymphocytes # (A) 1.1 k/uL (1.0-4.8); Lymphocytes % (A) 8 %; MCH 33.7 pg (25.0-35.0); MCV 105.2 fL (80.0-100.0); Macrocytosis Slight; Mean Platelet Volume 8.3; Monocytes # (A) 0.6 k/uL (0-1.0); Monocytes % (A) 5 %; Neutrophils # (A) 11.3 k/uL (1.3-7.7); Neutrophils % (A) 86 %; Platelet Count 212 k/uL (150-450); RBC 3.59 m/uL (4.30-5.90); RDW 13.4 % (11.5-15.5); WBC 13.2 k/uL (3.8-10.6)
[2024-12-05 07:19] LABS: African American GFR (CKD) 81 (>60 ml/min/1.73 sqM); Anion Gap 4 mmol/L; Blood Urea Nitrogen 29 mg/dL (9-20); Calcium 8.4 mg/dL (8.4-10.2); Carbon Dioxide 32 mmol/L (22-30); Chloride 105 mmol/L (98-107); Glucose 127 mg/dL (74-99); Non-African American GFR(CKD) 70 (>60 ml/min/1.73 sqM); Potassium 4.4 mmol/L (3.5-5.1); Sodium 141 mmol/L (137-145)
--- NOTE | 2024-12-05 07:37 | P.PN ---
Progress Note - Text Progress Note Date: 12/05/24 Dec 05, 2024 7:00?AM PROVIDER: REJIDE LEON [facility] CLINICAL [facility] RISKS REVIEW HERMELINDO MEADOWS is a 73 YO MALE presenting for evaluation of SOB, FEVER, CHILLS, COUGH, FAILURE TO THRIVE AFTER C5-6 ACDF ON 11/22/24 . He was admitted to the hospital with low BP, fever, cough, failure to thrive from [facility] where family states he was not being taken care of. He was found to have UTI and urosepsis as well and it states he had to hold his urine for 4 days as no one was there to help him get up and go to the bathroom. He did not have a fall there, but in the hospital was confused and tried to get up on his own and had a fall while here. He subsequently started draining from his drain site more a clear fluid. He denies any FARLEY, blurred or double visions. He is very unsteady on his feet after surgery and has been deconditioned for many months before surgery due to myelopathy. It was my pleasure to have seen and examined HERMELINDO MEADOWS . In our visit today we have had a chance to go over subjective complaints, physical examination findings and treatments including the natural course history without intervention and various interventional options. The patient's imaging demonstrates the following findings: -POST SURGICAL CHANGES C5-6 WITH NO COMPLICATING PROCESS SEEN -SURGICAL BED FLUID COLLECTION, MODERATE SIZE On a physical exam,HERMELINDO MEADOWS demonstrates the following findings: -Weakness in RUE getting better. -Myelopathy, with unsteady gait, fine motor disruption and weakness -Draining anterior wound with likely CSF from the wound as it is a clear fluid and not slowing down. -Fall caused increased drainage and likely dislodgement of the repair. I have explained to the patient that as their condition progresses it will cause further neurological deficits and eventual paralysis. Based on the patients imaging, physical exam, and the rapid progression and disabling nature of their symptoms, at this time I recommend surgery in the form of a: REVISION C5-6 ACDF WITH DURAL REPAIR AND GRAFTING . I discussed the risk and benefits of this procedure at length with HERMELINDO MEADOWS . The patient has agreed to consider pursuing the procedure above mentioned. Prior to surgery, they should follow up with her PCP (Cardio, ID, IM etc) for clearance. Questions were invited and answered, and the patient wishes to proceed as outlined below. Currently, I am recommending: -REVISION C5-6 ACDF WITH DURAL REPAIR AND GRAFTING -Obtain appropriate presurgical workup and clearances as discussed with the patient. -Review of surgical risks and benefits as well as an educational packet on the proposed surgical procedure. Risks: All surgical procedures come with inherent risks, including those related to positioning, anesthesia, intraoperative findings, and postoperative complications. It is important to understand that surgery does not come with any guarantee of a successful outcome as complications and adverse events are always possible. The patient was given a handout in the office today discussing the surgical procedure and risks associated with the intervention, both of which were discussed with the patient. These risks include but are not limited to the following: Experiencing same, different or even worse symptoms in back, neck, arms, or legs compared to before surgery. Requiring further surgery or other forms of treatment presently or at some time in the future at same or other levels of the intended spine surgery. On an extreme but fortunately relatively rare basis severe complications such as blindness, stroke, heart attack, temporary and/or permanent nerve injury, paralysis, coma, or may occur, sometimes without known explanation. Surgical complications may include but are not limited to risk of infection, fluid accumulation in the surgical dissection site, including a seroma or hematoma, that requires additional surgery, wound drainage, bleeding, new numbness or weakness, vision changes/loss, spinal fluid leakage, non-healing and/or infected incision, headaches, difficulty or inability to swallow, hoar seness, hemopneumothorax, pneumothorax, impotence, retrograde ejaculation, vaginal dryness; injury to nerves, spinal cord, blood vessels, lymphatics or other vital organs (i.e., bowel injury, injury to the great vessels); heterotopic bone formation; complications related to the hardware such as screws, rods, cages including misplaced hardware, device failure, instrumentation at the wrong spine level, hardware fracture/breakage, or hardware loosening; vertebral failure of the spinal column above or below the newly placed hardware; retained surgical instrumentations or devices and the need for further surgery. Medical risks of the planned spine surgery include but are not limited to generalized Infections to the whole body or local areas outside of the surgical site (sepsis), heart attack, bleeding, anaphylaxis, meningitis, seizure, epilepsy, hearing loss, burn deutsch, laceration of the head or other areas of the body, bruising, hypersensitivity of the skin, bladder over distension; allergic reaction; shoulder injury related to positioning; fat, blood and air clots to other areas of the body like heart, lungs, brain; failure of internal organs such as lungs, kidneys, liver and excessive bleeding. If blood transfusions are necessary, note that transfusions may cause intolerance reactions such as anaphylaxis or other complex reactions. Despite best efforts, the results of spine surgery might not heal in terms of bone, soft tissues such as skin, fascia, ligaments, and joints. Additionally, in order to achieve best possible results, spine surgery may be carried out beyond the initially planned levels and involve decompression, fusion including insertion of hardware at levels other than the original intended area of surgical interest change some portions of the procedure in order to ensure the best possible outcomes. With spine surgery and spinal fusion, there are different off label uses of instrumentation (devices, implants and hardware) as well as biological subst ances (bone morphogenic proteins, demineralized bone matrix) as well as using extra bone from allograft sources (i.e. cadaver bone) or autograft (iliac crest bone, ribs, or the spine itself). The patient has been given information about these practices and their inherent risks and benefits. The patient has had a chance to review all the listed information, has been given print outs detailing this information, and has had all his/her questions answered to their satisfaction. It was my pleasure to have seen and examined HERMELINDO MEADOWS . In our visit today we have had a chance to go over my understanding of our patient's current condition, the natural course history without intervention and various interventional options. Questions were invited and answered, and the patient wishes to proceed as outlined above. I have seen and examined the patient for 25 minutes and we have spent more than 50% of the time in repeat and detailed counseling about the patient's condition, its natural course history without and as much as can be predicted with surgery and re-review of various surgical treatment options. In conclusion, HERMELINDO MEADOWS and their family requested we proceed with the above suggested surgery and are willing to accept risks and limitations of the suggested surgery as the nature of the disease process and our best attempts at treatment for the condition. In our visit today the patient and I have had a chance to go over my understanding of their current condition, the natural course history without intervention and various interventional options. Questions were invited and ans wered, and the patient wishes to proceed as outlined above. I will be sure to keep you updated after the patient returns here for further follow-up. Thank you again for your referral. Please do not hesitate to contact me if you have any further questions. Signed and authenticated by: Dec 05, 2024 7:15?AM DO Destin Pérez [facility] [address] [facility], [address] [address] This document is confidential, intended only for the named recipient(s) and may contain information that is privileged or exempt from disclosure under applicable law. If you are not the intended recipient(s), you are notified that the dissemination, distribution or copying of this information is strictly prohibited. If you received this message in error, please notify the sender then delete this message.
[2024-12-05] MEDS ORDERED: GLYCOPYRROLATE 0.2 MG/ML 2 ML VIAL ONE (08:00)
[2024-12-05] MEDS ORDERED: SUCCINYLCHOLINE CHLORIDE 200 MG/10 ML VIAL IV ONE (08:00)
[2024-12-05] MEDS ORDERED: LIDOCAINE 4% LTA KIT (4 ML) TOPICAL ONE (08:00)
[2024-12-05] MEDS ORDERED: LIDOCAINE 1% INJ 10MG/ML (20 ML MDV) ONE (08:00)
[2024-12-05] MEDS ORDERED: PROPOFOL 10 MG/ML 20 ML VIAL IV ONE (08:00)
[2024-12-05] MEDS ORDERED: TRANEXAMIC 1,000 MG/100ML-NACL PREMIX BAG ONE (08:00)
[2024-12-05] MEDS ORDERED: fentaNYL (PF) 50 MCG/ML 2 ML AMP ONE (08:00)
[2024-12-05] MEDS: SODIUM CHLORIDE 0.9% 1,000 ML IV ONE (08:00)
[2024-12-05] MEDS ORDERED: ePHEDrine 50 MG/ML 1 ML VIAL ONE (08:00)
[2024-12-05] MEDS: SODIUM CHLORIDE 0.9% 100 ML with ceFAZolin 2,000 MG IV ONE (08:24)
[2024-12-05] MEDS: LACTATED RINGERS 1,000 ML IV ONE (08:24)
[2024-12-05] MEDS: THROMBIN (BOVINE) 5,000 UNIT VIAL TOPICAL ONE (08:36)
[2024-12-05] MEDS: ceFAZolin 3,000 MG in SODIUM CHLORIDE 0.9% IRRIGATIO 3,000 ML IRRIGATION ONE (09:03)
--- NOTE | 2024-12-05 10:50 | FL ---
EXAMINATION TYPE: FL guidance operating room, XR cervical spine limited DATE OF EXAM: 12/05/2024 CLINICAL INDICATION: Male, 73 years old with history of C5-C6 Fusion, neck pain. TECHNIQUE: Fluoroscopy. Intraoperative frontal and lateral views cervical spine. COMPARISON: Prior CT November 24, 2024. FINDINGS: Fluoroscopic guidance was provided during C5-C6 fusion procedure performed by Dr. Aponte on. A total of 10.2 seconds of fluoroscopic time was utilized during the procedure and 3 spot images was acquired. Total DAP = 0.4197 Gycm2. Intraoperative images obtained show anterior fusion plate and metallic disc cage at the C5-C6 level s imilar to recent CT. IMPRESSION: As Above. [facility], , 12/05/2024 10:47 AM
--- NOTE | 2024-12-05 10:51 | P.OP ---
Date of Procedure: 12/05/24 Preoperative Diagnosis: 1. S/P C5-6 ACDF WITH SEVERE STENOSIS AND MYELOPATHY 2. CSF LEAK ANTERIOR CERVICAL SPINE 3. UE WEAKNESS 4. LE WEAKNESS Postoperative Diagnosis: 1. S/P C5-6 ACDF WITH SEVERE STENOSIS AND MYELOPATHY 2. CSF LEAK ANTERIOR CERVICAL SPINE 3. UE WEAKNESS 4. LE WEAKNESS Procedure(s) Performed: 1. REVISION C5-6 ANTERIOR CERVICAL ARTHRODESIS 2. DURAL REPAIR WITH PATCH GRAFT ANTERIOR C5-6 3. ANTERIOR INSTRUMENTATION C5-6 4. INSERTION OF BIOMECHANICAL DEVICE, CAGE x1 C5-6 USE OF IONM USE OF IO MICROSCOPE Implants: -ROMMEL CASCADIA CAGE 10 MM -ROMMEL OZARK PLATE/SCREW 16MM RESCUE -MAGNATOS -AMNIONIX PATCH GRAFT -TISSEAL Anesthesia: SUSANAA Surgeon: Kojo Michel Bilingual Case Manager #1: Jorge Junior (WAS PRESENT AND ASSISTED WITH ALL ASPECTS OF THE CASE FROM POSITION TO DRESSING PLACEMENT) Estimated Blood Loss (ml): 25 IV fluids (ml): 1,100 Urine output (ml): 200 Pathology: none sent Condition: stable Disposition: PACU Indications for Procedure: HERMELINDO MEADOWS is a 73 YO MALE presenting for evaluation of SOB, FEVER, CHILLS, COUGH, FAILURE TO THRIVE AFTER C5-6 ACDF ON 11/22/24 . He was admitted to the hospital with low BP, fever, cough, failure to thrive from [facility] where family states he was not being taken care of. He was found to have UTI and urosepsis as well and it states he had to hold his urine for 4 days as no one w as there to help him get up and go to the bathroom. He did not have a fall there, but in the hospital was confused and tried to get up on his own and had a fall while here. He subsequently started draining from his drain site more a clear fluid. He denies any FARLEY, blurred or double visions. He is very unsteady on his feet after surgery and has been deconditioned for many months before surgery due to myelopathy. It was my pleasure to have seen and examined HERMELINDO MEADOWS . In our visit today we have had a chance to go over subjective complaints, physical examination findings and treatments including the natural course history without intervention and various interventional options. The patient's imaging demonstrates the following findings: -POST SURGICAL CHANGES C5-6 WITH NO COMPLICATING PROCESS SEEN -SURGICAL BED FLUID COLLECTION, MODERATE SIZE On a physical exam,HERMELINDO MEADOWS demonstrates the following findings: -Weakness in RUE getting better. -Myelopathy, with unsteady gait, fine motor disruption and weakness -Draining anterior wound with likely CSF from the wound as it is a clear fluid and not slowing down. -Fall caused increased drainage and likely dislodgement of the repair. I have explained to the patient that as their condition progresses it will cause further neurological deficits and eventual paralysis. Based on the patients imaging, physical exam, and the rapid progression and disabling nature of their symptoms, at this time I recommend surgery in the form of a: REVISION C5-6 ACDF WITH DURAL REPAIR AND GRAFTING . I discussed the risk and benefits of this procedure at length with HERMELINDO MEADOWS . The patient has agreed to consider pursuing the procedure above mentioned. Prior to surgery, they should follow up with her PCP (Cardio, ID, IM etc) for clearance. Questions were invited and answered, and the patient wishes to proceed as outlined below. Currently, I am recommending: -REVISION C5-6 ACDF WITH DURAL REPAIR AND GRAFTING Description of Procedure: C5-6 ACDF REVISION with dural repair and patch grafting. The patient was seen and examined in the preoperative area. All preoperative protocols were followed. Informed consent was obtained, risks and benefits of the procedure were discussed at length. Risks including bleeding infection damage to the surrounding tissue and risk of reoperation were discussed with the patient. Risk of anesthesia up to and including was discussed with the patient. These are outlined in the risk review. They were willing to accept these risks and all the risks of surgery. The patient was given a weight-based dose of antibiotics in the form of 2 g Ancef. The patient was seen and evaluated by the anesthesia team who deemed them fit for surgery. The site was marked, the patient was willing to proceed with the procedure. The patient was transferred to the operative suite by the Department of anesthesia. They were then drifted off to sleep by the department anesthesia and GETA was performed. The patient tolerated this well. Duke catheter was placed by nursing staff, a-traumatically. Once confirmation of lines and ventilation the patient was transferred to a Supine Carson table very carefully. All bony prominences including wrists, elbows, axilla, chest, hips, and thighs, and feet were padded very well. Special attention was paid to the genitalia, and these were padded accordingly. SCDs were placed on bilateral lower extremities and were connected. Arms were well padded and placed at their side thumbs up. Once in position, again we confirmed good ventilation capabilities and that lines were running appropriately. The patients Cervical spine was then exposed. 1010s were placed outlining the incision site. Standard alcohol was used to clean the incision site and allowed to dry. C-arm was used to bio-gracy the patient and confirm level for incision which was marked with a skin marker. Operative briefing was performed with all teams and everyone in agreement to proceed. The patient was then prepped and draped in a normal sterile fashion. Timeout was then performed, and all parties agreed with the procedure to be performed. Transverse skin incision was then made on the right side of the patient's neck 3 cm through the previous incision and dissection taken down to the platysma which was split transversely. Sub platysma flap was made, and interval identified between SCM and medial structures. CSF fluid was expressed from this area which had accumulated. Omohyoid was visualized and protected. Blunt dissection taken down to the anterior cervical fascia which was identified. Previous plates and screws were identified and were intact. Plate was removed along with screws. Subperiosteal dissection of the longissimus muscles were then done over these levels identifying uncovertebral joints bilaterally. Retractor was then placed deep to these muscles and held in place with a bed arm. [place] pins were placed into C5 and C6 and gentle distraction taken out over the levels. The cage was removed from this area without issues. Laith rongeur used to remove disc material. Operating microscope brought in for visualization. High speed nivia used to widen field of view and freshen edges of the bone. There was continued CSF leak from the defect anteiorly in the dural sac along with right nerve root. Further decompression was done with kerrison as well as curette was done. Motors run were somewhat unreliable but they remained stable through the case. We then irrigaed the wound with abx irrigation and nss. We then placed patch graft over the dura and sealed with with tisseal. Surgicel was then placed over this and sealed as well. The trials were then done under lateral imaging. Sizers were then placed under lateral fluoroscopy until the desired height and lordosis. Cage was then selected, packed with autograft and allograft and placed under lateral imaging. Once in good position it was tested and stable. Motors run before and after cage placement were stable. The wound was irrigated, and autograft placed lateral to the cage anteriorly for fusion. Gelfoam was then also placed lateral to the cage and tisseal used to seal this area from any further leaks. [place] pin was then removed from C5 and C6 and bone wax placed in their void. Screws were then drilled and measured and placed into C6 and C5 respectively. Good purchase was obtained. Locking mechanisms set. Final AP and lateral images taken confirmed good placement of hardware and good reduction and hinduism of height. The wound was then irrigated copiously with NSS. Surgicel placed deep in the wound. Layered closure then performed with 3-0 Vicryl in the platysma and subQ tissue. 4-0 Strata fix in the subcuticular tissue. The wound was then cleaned, and dried and skin glue placed. Once glue dried telfa, 4x4 and tegaderm along with drain sponge placed. The patient was then transferred back to their hospital bed a-traumatically. The drain continued to hold suction. They were placed in a Hard collar. They were then awakened by the department of anesthesia having tolerated the procedure well without complications.
[2024-12-05] MEDS: HYDROmorphone 0.5 MG/0.5 ML SYRINGE IVP PRN (10:52)
[2024-12-05 10:57] LABS: Glucose,Whole Blood 123 mg/dL (70-110)
[2024-12-05] MEDS: IV FLUID CONTINUATION 1,000 ML IV ONE (11:50)
[2024-12-05] MEDS: TRANEXAMIC ACID 1,000 MG in SODIUM CHLORIDE 0.9% 100 ML IVPB ONE (11:53)
[2024-12-05 12:03] LABS: Glucose,Whole Blood 129 mg/dL (70-110)
[2024-12-05] MEDS: MORPHINE SULFATE 4 MG/ML SYRINGE IV PRN (13:34)
--- NOTE | 2024-12-05 14:45 | P.PN ---
Subjective Progress Note Date: 12/04/24 Principal diagnosis: Reason for follow-up is leukocytosis/UTI/influenza Patient is a 73-year-old male with a past medical history significant for Coronary Artery Disease (CAD), CVA/TIA, Hyperlipidemia, Hypertension, Myocardial Infarction (MO), Prostate Disorder, Thyroid Disorder presenting to the hospital for evaluation of fever and weakness and low blood pressure along with mental status changes from a local alf did have elevated white count tested positive for influenza prompting this consultation. On today's evaluation that is 12/04/2024, patient did not have any fever and denies any chills, patient is breathing comfortably on 2 L nasal oxygen, patient with no chest pain or cough patient did not have any abdominal pain nausea vomiting or any loose stools. Patient white count is down to 11.1, creat is 1.25, blood and urine culture has been negative Objective - Vital Signs Vital signs: Vital Signs Temp 97.6 F 12/04/24 09:11 Pulse 56 L 12/04/24 11:57 Resp 16 12/04/24 11:57 BP 137/82 12/04/24 11:57 Pulse Ox 98 12/04/24 11:57 FiO2 Intake & Output 12/03/24 12/04/24 12/04/24 18:59 06:59 18:59 Intake Total 236 120 Output Total 2350 1999 120 Weight 91.5 kg Intake: Oral 236 120 Output: Urine 2350 1999 Other: Voiding Method Indwelling Catheter Indwelling Catheter Indwelling Catheter - Exam GENERAL DESCRIPTION: An elderly male lying in bed in no distress RESPIRATORY SYSTEM: Unlabored breathing , clear to auscultation anteriorly HEART: S1 S2 regular rate and rhythm , ABDOMEN: Soft , no tenderness EXTREMITIES: No edema feet - Labs CBC & Chem 7: 12/05/24 06:28 12/05/24 06:28 Labs: Abnormal Lab Results - Last 24 Hours (Table) 12/03/24 12/03/24 12/03/24 Range/Units 15:43 16:36 20:28 WBC (3.8-10.6) k/uL RBC (4.30-5.90) m/uL Hgb (13.0-17.5) gm/dL Hct (39.0-53.0) % MCV (80.0-100.0) fL MCHC (31.0-37.0) g/dL Neutrophils # (1.3-7.7) k/uL Lymphocytes # (1.0-4.8) k/uL BUN (9-20) mg/dL Glucose (74-99) mg/dL POC Glucose (mg/dL) 151 H 176 H (70-110) mg/dL Urine Protein Trace H (Negative) Urine Blood Moderate H (Negative) Ur Leukocyte Esterase Moderate H (Negative) Urine RBC 32 H (0-5) /hpf Urine WBC 28 H (0-5) /hpf Urine Bacteria Rare H (None) /hpf Urine Mucus Rare H (None) /hpf 12/04/24 12/04/24 12/04/24 Range/Units 06:06 06:11 06:11 WBC 11.1 H (3.8-10.6) k/uL RBC 3.49 L (4.30-5.90) m/uL Hgb 11.6 L (13.0-17.5) gm/dL Hct 37.5 L (39.0-53.0) % MCV 107.5 H (80.0-100.0) fL MCHC 30.8 L (31.0-37.0) g/dL Neutrophils # 9.7 H (1.3-7.7) k/uL Lymphocytes # 0.8 L (1.0-4.8) k/uL BUN 29 H (9-20) mg/dL Glucose 131 H (74-99) mg/dL POC Glucose (mg/dL) 150 H (70-110) mg/dL Urine Protein (Negative) Urine Blood (Negative) Ur Leukocyte Esterase (Negative) Urine RBC (0-5) /hpf Urine WBC (0-5) /hpf Urine Bacteria (None) /hpf Urine Mucus (None) /hpf 12/04/24 Range/Units 12:05 WBC (3.8-10.6) k/uL RBC (4.30-5.90) m/uL Hgb (13.0-17.5) gm/dL Hct (39.0-53.0) % MCV (80.0-100.0) fL MCHC (31.0-37.0) g/dL Neutrophils # (1.3-7.7) k/uL Lymphocytes # (1.0-4.8) k/uL BUN (9-20) mg/dL Glucose (74-99) mg/dL POC Glucose (mg/dL) 163 H (70-110) mg/dL Urine Protein (Negative) Urine Blood (Negative) Ur Leukocyte Esterase (Negative) Urine RBC (0-5) /hpf Urine WBC (0-5) /hpf Urine Bacteria (None) /hpf Urine Mucus (None) /hpf Microbiology - Last 24 Hours (Table) 11/30/24 21:12 Blood Culture - Preliminary Blood Assessment and Plan (1) UTI (urinary tract infection) Current Visit: Yes Status: Acute Code(s): N39.0 - URINARY TRACT INFECTION, SITE NOT SPECIFIED SNOMED Code(s): 74747710 (2) Leukocytosis Current Visit: Yes Status: Acute Code(s): D72.829 - ELEVATED WHITE BLOOD CELL COUNT, UNSPECIFIED SNOMED Code(s): 705956234 (3) Influenza A Current Visit: Yes Status: Acute Code(s): J10.1 - FLU DUE TO OTH IDENT INFLUENZA VIRUS W OTH RESP MANIFEST SNOMED Code(s): 408674064 Plan: 1patient presented hospital with mental status changes which is likely multifactorial patient also have elevated white count positive UA concerning for possible component of UTI likely from enteric gram-negative pathogen. 2patient also tested positive for influenza A though chest x-ray was negative for any acute cardiopulmonary disease process. 3elevated creatinine high risk of nephrotoxicity from vancomycin 4-patient finished 5-day course of Tamiflu 5patient did have improvement his white count we will continue the patient on Zosyn at this point awaiting surgery tomorrow for the dural leak and hopefully culture Dictation was produced using [employer] dictation software. please excuse any grammatical, word or spelling errors.
--- NOTE | 2024-12-05 14:47 | P.PN ---
Subjective Progress Note Date: 12/05/24 Principal diagnosis: Reason for follow-up is leukocytosis/UTI/influenza Patient is a 73-year-old male with a past medical history significant for Coronary Artery Disease (CAD), CVA/TIA, Hyperlipidemia, Hypertension, Myocardial Infarction ([place]), Prostate Disorder, Thyroid Disorder presenting to the hospital for evaluation of fever and weakness and low blood pressure along with mental status changes from a local group home did have elevated white count tested positive for influenza prompting this consultation. Patient is status post revision of the C5-6 anterior cervical arthrodesis and dural repair with a patch graft operative report did not mention any purulent drainage and no culture were done procedure completed on 12/05/2024. On today's evaluation that is 12/05/2024 the patient has been afebrile he is currently breathing comfortably on 3 L current oxygen denies any chest pain no cough no abdominal pain and no diarrhea has been reported. Patient white count is 13.2, creatinine 1.04 Objective - Vital Signs Vital signs: Vital Signs Temp 98.2 F 12/05/24 12:06 Pulse 52 L 12/05/24 13:38 Resp 19 12/05/24 13:38 BP 149/75 12/05/24 13:38 Pulse Ox 99 12/05/24 13:38 FiO2 Intake & Output 12/04/24 12/05/24 12/05/24 18:59 06:59 18:59 Intake Total 360 1625 Output Total 5572 887 4847 Balance -840 -750 575 Weight 91.7 kg Intake: IV 1151 Oral 360 474 Output: Urine 2700 510 3257 Estimated Blood Loss 25 Other: Voiding Method Indwelling Catheter Indwelling Catheter Indwelling Catheter - Exam GENERAL DESCRIPTION: An elderly male lying in bed in no distress RESPIRATORY SYSTEM: Unlabored breathing , clear to auscultation anteriorly HEART: S1 S2 regular rate and rhythm , ABDOMEN: Soft , no tenderness EXTREMITIES: No edema feet - Labs CBC & Chem 7: 12/05/24 06:28 12/05/24 06:28 Labs: Abnormal Lab Results - Last 24 Hours (Table) 12/04/24 12/04/24 12/05/24 Range/Units 16:47 19:54 05:48 WBC (3.8-10.6) k/uL RBC (4.30-5.90) m/uL Hgb (13.0-17.5) gm/dL Hct (39.0-53.0) % MCV (80.0-100.0) fL Neutrophils # (1.3-7.7) k/uL Carbon Dioxide (22-30) mmol/L BUN (9-20) mg/dL Glucose (74-99) mg/dL POC Glucose (mg/dL) 158 H 218 H 150 H (70-110) mg/dL 12/05/24 12/05/24 12/05/24 Range/Units 06:28 06:28 10:55 WBC 13.2 H (3.8-10.6) k/uL RBC 3.59 L (4.30-5.90) m/uL Hgb 12.1 L (13.0-17.5) gm/dL Hct 37.7 L (39.0-53.0) % MCV 105.2 H (80.0-100.0) fL Neutrophils # 11.3 H (1.3-7.7) k/uL Carbon Dioxide 32 H (22-30) mmol/L BUN 29 H (9-20) mg/dL Glucose 127 H (74-99) mg/dL POC Glucose (mg/dL) 123 H (70-110) mg/dL 12/05/24 Range/Units 11:58 WBC (3.8-10.6) k/uL RBC (4.30-5.90) m/uL Hgb (13.0-17.5) gm/dL Hct (39.0-53.0) % MCV (80.0-100.0) fL Neutrophils # (1.3-7.7) k/uL Carbon Dioxide (22-30) mmol/L BUN (9-20) mg/dL Glucose (74-99) mg/dL POC Glucose (mg/dL) 129 H (70-110) mg/dL Microbiology - Last 24 Hours (Table) 12/03/24 15:43 Urine Culture - Final Urine,Voided 12/03/24 13:50 Blood Culture - Preliminary Blood Assessment and Plan (1) UTI (urinary tract infection) Current Visit: Yes Status: Acute Code(s): N39.0 - URINARY TRACT INFECTION, S ITE NOT SPECIFIED SNOMED Code(s): 94897915 (2) Leukocytosis Current Visit: Yes Status: Acute Code(s): D72.829 - ELEVATED WHITE BLOOD CELL COUNT, UNSPECIFIED SNOMED Code(s): 505523895 (3) Influenza A Current Visit: Yes Status: Acute Code(s): J10.1 - FLU DUE TO OTH IDENT INFLUENZA VIRUS W OTH RESP MANIFEST SNOMED Code(s): 739089394 Plan: 1patient presented hospital with mental status changes which is likely multifactorial patient also have elevated white count positive UA concerning for possible component of UTI likely from enteric gram-negative pathogen. 2patient also tested positive for influenza A though chest x-ray was negative for any acute cardiopulmonary disease process. 3elevated creatinine high risk of nephrotoxicity from vancomycin 4-patient finished 5-day course of Tamiflu 5patient did have revision of his cervical surgery and dural repair operative report did not mention any purulent drainage no culture were done 6patient did have slight worsening of the white count possibly steroid related and will monitor closely currently on Zosyn Dictation was produced using [employer] dictation software. please excuse any grammatical, word or spelling errors. Time with Patient: Less than 30
[2024-12-05 16:48] LABS: Glucose,Whole Blood 167 mg/dL (70-110)
[2024-12-05 20:24] LABS: Glucose,Whole Blood 131 mg/dL (70-110)
--- NOTE | 2024-12-05 23:00 | PN ---
PROGRESS NOTE DATE OF SERVICE: 12/05/2024 SUBJECTIVE: This 73-year-old gentleman admitted with acute influenza, recent neck surgery, also the patient had CSF leak. The patient underwent a dural repair with a patch today. The patient is sedated after surgery. PAST MEDICAL HISTORY: Reviewed. REVIEW OF SYSTEMS: Could not be taken. CURRENT MEDICATIONS: Reviewed. PHYSICAL EXAM: VITAL SIGNS: Pulse is 52, blood pressure 149/70, respirations 19. CHEST: Few scattered rhonchi and crackles. ABDOMEN: Soft. NERVOUS SYSTEM: Nonfocal. LABORATORY DATA: Reviewed. ASSESSMENT: 1. Acute influenza A as well as sepsis with possible pneumonia present on admission. 2. CSF leak status post dural patch in the cervical area. 3. Acute renal failure with acute tubular necrosis. 4. Change in mental status, acute metabolic encephalopathy. 5. Elevated troponin, possible acute cmd-GW-pcvrrir-elevation myocardial infarction. 6. History of recent cervical surgery. 7. Multiple complex medical issues. RECOMMENDATIONS: Recommend to continue current management, continue symptomatic treatment. Closely follow with Orthopedic Surgery. Otherwise, I recommend continue the rest of medications including steroids and broad-spectrum IV antibiotics. I will repeat a chest x-ray to evaluate for the infiltrates. Otherwise, repeat labs. Overall prognosis extremely guarded because of the multiple complex medical issues, which I discussed with family at length. Further recommendations to follow. MMODL / IJN: [id number] /
[2024-12-06 04:55] LABS: Basophils % (A) 0 %; Eosinophils % (A) 0 %; HCT 37.6 % (39.0-53.0); HGB 12.1 gm/dL (13.0-17.5); Lymphocytes # (A) 0.9 k/uL (1.0-4.8); Lymphocytes % (A) 6 %; MCH 34.2 pg (25.0-35.0); MCHC 32.2 g/dL (31.0-37.0); MCV 106.1 fL (80.0-100.0); Macrocytosis Moderate; Mean Platelet Volume 8.9; Monocytes # (A) 0.7 k/uL (0-1.0); Monocytes % (A) 5 %; Neutrophils # (A) 13.2 k/uL (1.3-7.7); Neutrophils % (A) 88 %; Platelet Count 200 k/uL (150-450); RBC 3.54 m/uL (4.30-5.90); RDW 13.5 % (11.5-15.5); WBC 14.9 k/uL (3.8-10.6)
[2024-12-06 04:59] LABS: African American GFR (CKD) 75 (>60 ml/min/1.73 sqM); Anion Gap 4 mmol/L; Blood Urea Nitrogen 27 mg/dL (9-20); Calcium 8.6 mg/dL (8.4-10.2); Carbon Dioxide 29 mmol/L (22-30); Chloride 106 mmol/L (98-107); Glucose 148 mg/dL (74-99); Non-African American GFR(CKD) 65 (>60 ml/min/1.73 sqM); Potassium 4.3 mmol/L (3.5-5.1); Sodium 139 mmol/L (137-145)
[2024-12-06 06:13] LABS: Glucose,Whole Blood 153 mg/dL (70-110)
[2024-12-06 06:15] LABS: Glucose,Whole Blood 143 mg/dL (70-110)
[2024-12-06] MEDS ORDERED: HYDROmorphone 0.5 MG/0.5 ML SYRINGE IVP PRN (07:00)
--- NOTE | 2024-12-06 07:05 | XR ---
EXAMINATION TYPE: XR chest 1V portable DATE OF EXAM: 12/06/2024 CLINICAL INDICATION: Male, 73 years old with history of pneumonia, progress study. TECHNIQUE: Single AP portable supine view of the chest is obtained. COMPARISON: Chest x-ray from 3 days earlier FINDINGS: Overlying sternal wires are redemonstrated. Persistent cardiomegaly. Lungs remain grossly clear. Anterior fusion plate in the cervical spine is redemonstrated. IMPRESSION: Cardiomegaly without acute pulmonary process. No significant change from most recent mayela dy. [facility], , 12/06/2024 7:02 AM
[2024-12-06 11:13] LABS: Glucose,Whole Blood 152 mg/dL (70-110)
[2024-12-06] MEDS: HYDROcodone/APAP 7.5-325MG 1 EACH TAB PO PRN (12:01)
--- NOTE | 2024-12-06 12:33 | P.PN ---
Subjective Progress Note Date: 12/06/24 Principal diagnosis: Recent C5-C6 ACDF, CSF leak, altered mental status, low blood pressure Patient was evaluated at bedside today, he is resting comfortably in his hospital bed. Urinary catheter remains in place. He denies any headaches, lightheadedness, dizziness or changes in vision at this time. Pain is well- controlled with regards to the overall neck discomfort. He denies any new onset weakness to the bilateral upper or lower extremities. Objective - Vital Signs Vital signs: Vital Signs Temp 97.4 F L 12/06/24 08:00 Pulse 55 L 12/06/24 11:57 Resp 18 12/06/24 11:57 BP 125/66 12/06/24 11:57 Pulse Ox 98 12/06/24 11:57 FiO2 Intake & Output 12/05/24 12/06/24 12/06/24 18:59 06:59 18:59 Intake Total 1625 100 Output Total 1475 1530 550 Balance 150 -1530 -450 Weight 77.5 kg Intake: IV 1151 Intake, IV Titration 100 Amount Piperacillin-Tazobactam 3 100 .375 gm In Sodium Chloride 0.9% 100 ml @ 25 mls/hr IVPB Q8H [facility] Rx#: [id number] Oral 474 0 Output: Urine 1450 1530 550 Estimated Blood Loss 25 Other: Voiding Method Indwelling Catheter Indwelling Catheter Indwelling Catheter - Exam Gen: AOx3, NAD VSS stable at this time Integument: Post op dressing removed at bedside, no drainge noted from incision. Anterior swelling noted Palpation: Patient demonstrates no significant tenderness with palpation to the medial and lateral aspects of the anterior neck ROM: Patient has adequate range of motion of the bilateral upper extremities, he still is a little limited with finger intrinsics but this is much improved since his last evaluation in the hospital Full range of motion all major muscle groups of bilateral lower extremities, no focal deficits Sensory Exam: Senory exam to light touch is intact C5-T1 Senosry exam to light touch is intact L2-S1 Motor: Left lower extremity demonstrates 4/5 strength with hip flexion, knee extension, knee flexion, plantarflexion, dorsiflexion, EHL, FHL Right lower extremity demonstrates 4/5 strength with hip flexion, knee extension, knee flexion, dorsiflexion, EHL, FHL, 4-/5 strength appreciated with plantarflexion Left upper extremity demonstrates 4/5 strength with shoulder elevation, shoulder abduction, elbow extension, elbow flexion, wrist extension, wrist flexion, 4-/5 addresser strength and intrinsics Right upper extremity demonstrates 4-/5 with shoulder elevation, shoulder abduction, elbow extension, elbow flexion, 3+/5 with wrist extension, wrist flexion, addresser and finger intrinsic Reflexes: 3/4 in all UE and LE Positive Angie's bilaterally, significant improvement on the left, improving on the right - Labs CBC & Chem 7: 12/06/24 04:17 12/06/24 04:17 Labs: Abnormal Lab Results - Last 24 Hours (Table) 12/05/24 12/05/24 12/06/24 Range/Units 16:46 20:20 04:17 WBC 14.9 H (3.8-10.6) k/uL RBC 3.54 L (4.30-5.90) m/uL Hgb 12.1 L (13.0-17.5) gm/dL Hct 37.6 L (39.0-53.0) % MCV 106.1 H (80.0-100.0) fL Neutrophils # 13.2 H (1.3-7.7) k/uL Lymphocytes # 0.9 L (1.0-4.8) k/uL BUN (9-20) mg/dL Glucose (74-99) mg/dL POC Glucose (mg/dL) 167 H 131 H (70-110) mg/dL 12/06/24 12/06/24 12/06/24 Range/Units 04:17 06:09 06:14 WBC (3.8-10.6) k/uL RBC (4.30-5.90) m/uL Hgb (13.0-17.5) gm/dL Hct (39.0-53.0) % MCV (80.0-100.0) fL Neutrophils # (1.3-7.7) k/uL Lymphocytes # (1.0-4.8) k/uL BUN 27 H (9-20) mg/dL Glucose 148 H (74-99) mg/dL POC Glucose (mg/dL) 153 H 143 H (70-110) mg/dL 12/06/24 Range/Units 11:12 WBC (3.8-10.6) k/uL RBC (4.30-5.90) m/uL Hgb (13.0-17.5) gm/dL Hct (39.0-53.0) % MCV (80.0-100.0) fL Neutrophils # (1.3-7.7) k/uL Lymphocytes # (1.0-4.8) k/uL BUN (9-20) mg/dL Glucose (74-99) mg/dL POC Glucose (mg/dL) 152 H (70-110) mg/dL Microbiology - Last 24 Hours (Table) 11/30/24 21:12 Blood Culture - Final Blood 12/03/24 13:50 Blood Culture - Preliminary Blood Assessment and Plan Assessment: Postoperative day #1 status post revision C5-C6 ACDF, dural repair with patch Bilateral upper and lower extremity weakness Difficult with ambulation Cervical myelopathy Other medical comorbidities Plan: Continue to monitor surgical dressing, monitor for headaches, dizziness, changes in vision Urinary catheter remains in place Pain control, continue current medications DVT prophylaxis per primary medical service Daily PT/OT Weight-bear as tolerated with a walker, patient needs assistance at all time when ambulating No bending, lifting or twisting, soft c-collar if patient can tolerate Other medical specialty recommendations appreciated Will continue to follow during hospital stay Time with Patient: Less than 30
--- NOTE | 2024-12-06 13:34 | P.PN ---
Subjective Progress Note Date: 12/06/24 Principal diagnosis: Reason for follow-up is leukocytosis/UTI/influenza Patient is a 73-year-old male with a past medical history significant for Coronary Artery Disease (CAD), CVA/TIA, Hyperlipidemia, Hypertension, Myocardial Infarction ([place]), Prostate Disorder, Thyroid Disorder presenting to the hospital for evaluation of fever and weakness and low blood pressure along with mental status changes from a local group home did have elevated white count tested positive for influenza prompting this consultation. Patient is status post revision of the C5-6 anterior cervical arthrodesis and dural repair with a patch graft operative report did not mention any purulent drainage and no culture were done procedure completed on 12/05/2024. On today's evaluation that is 12/06/2024, patient has been afebrile, patient is breathing comfortably and is currently on 3 L current oxygen patient denies having any significant cough no chest pain, patient denies nausea vomiting or diarrhea and no abdominal pain. Patient white count is 14.9, creatinine is 1.11 blood and urine culture has been negative Objective - Vital Signs Vital signs: Vital Signs Temp 97.4 F L 12/06/24 08:00 Pulse 55 L 12/06/24 11:57 Resp 18 12/06/24 11:57 BP 125/66 12/06/24 11:57 Pulse Ox 98 12/06/24 11:57 FiO2 Intake & Output 12/05/24 12/06/24 12/06/24 18:59 06:59 18:59 Intake Total 1625 100 Output Total 1475 1530 550 Balance 150 -1530 -450 Weight 77.5 kg Intake: IV 1151 Intake, IV Titration 100 Amount Piperacillin-Tazobactam 3 100 .375 gm In Sodium Chloride 0.9% 100 ml @ 25 mls/hr IVPB Q8H [facility] Rx#: [id number] Oral 474 0 Output: Urine 1450 1530 550 Estimated Blood Loss 25 Other: Voiding Method Indwelling Catheter Indwelling Catheter Indwelling Catheter - Exam GENERAL DESCRIPTION: An elderly male lying in bed in no distress RESPIRATORY SYSTEM: Unlabored breathing , clear to auscultation anteriorly HEART: S1 S2 regular rate and rhythm , ABDOMEN: Soft , no tenderness EXTREMITIES: No edema feet - Labs CBC & Chem 7: 12/06/24 04:17 12/06/24 04:17 Labs: Abnormal Lab Results - Last 24 Hours (Table) 12/05/24 12/05/24 12/06/24 Range/Units 16:46 20:20 04:17 WBC 14.9 H (3.8-10.6) k/uL RBC 3.54 L (4.30-5.90) m/uL Hgb 12.1 L (13.0-17.5) gm/dL Hct 37.6 L (39.0-53.0) % MCV 106.1 H (80.0-100.0) fL Neutrophils # 13.2 H (1.3-7.7) k/uL Lymphocytes # 0.9 L (1.0-4.8) k/uL BUN (9-20) mg/dL Glucose (74-99) mg/dL POC Glucose (mg/dL) 167 H 131 H (70-110) mg/dL 12/06/24 12/06/24 12/06/24 Range/Units 04:17 06:09 06:14 WBC (3.8-10.6) k/uL RBC (4.30-5.90) m/uL Hgb (13.0-17.5) gm/dL Hct (39.0-53.0) % MCV (80.0-100.0) fL Neutrophils # (1.3-7.7) k/uL Lymphocytes # (1.0-4.8) k/uL BUN 27 H (9-20) mg/dL Glucose 148 H (74-99) mg/dL POC Glucose (mg/dL) 153 H 143 H (70-110) mg/dL 12/06/24 Range/Units 11:12 WBC (3.8-10.6) k/uL RBC (4.30-5.90) m/uL Hgb (13.0-17.5) gm/dL Hct (39.0-53.0) % MCV (80.0-100.0) fL Neutrophils # (1.3-7.7) k/uL Lymphocytes # (1.0-4.8) k/uL BUN (9-20) mg/dL Glucose (74-99) mg/dL POC Glucose (mg/dL) 152 H (70-110) mg/dL Microbiology - Last 24 Hours (Table) 11/30/24 21:12 Blood Culture - Final Blood 12/03/24 13:50 Blood Culture - Preliminary Blood Assessment and Plan (1) UTI (urinary tract infection) Current Visit: Yes Status: Acute Code(s): N39.0 - URINARY TRACT INFECTION, SITE NOT SPECIFIED SNOMED Code(s): 58615270 (2) Leukocytosis Current Visit: Yes Status: Acute Code(s): D72.829 - ELEVATED WHITE BLOOD CELL COUNT, UNSPECIFIED SNOMED Code(s): 617130160 (3) Influenza A Current Visit: Yes Status: Acute Code(s): J10.1 - FLU DUE TO OTH IDENT IN FLUENZA VIRUS W OTH RESP MANIFEST SNOMED Code(s): 598797875 Plan: 1patient presented hospital with mental status changes which is likely mult ifactorial patient also have elevated white count positive UA concerning for possible component of UTI likely from enteric gram-negative pathogen. 2patient also tested positive for influenza A though chest x-ray was negative for any acute cardiopulmonary disease process. 3elevated creatinine high risk of nephrotoxicity from vancomycin 4-patient finished 5-day course of Tamiflu 5patient did have revision of his cervical surgery and dural repair operative report did not mention any purulent drainage no culture were done 6patient white count is trending down, culture has been negative will continue Zosyn and will monitor closely. Dictation was produced using [employer] dictation software. please excuse any grammatical, word or spelling errors. Time with Patient: Less than 30
--- NOTE | 2024-12-06 14:11 | P.PN ---
Subjective Progress Note Date: 12/06/24 I am seeing the patient for the first time during this hospital admission. Please refer to Dr. Daley's notes for further details. It is felt patient has altered mental status that resolved. He has hx of my elopathy s/p C5-C6 ACDK and because of CSF leak has tear repair. Currently he is feeling much better and denies any headache, N/V, focal weakness, visual disturbance. Objective - Vital Signs Vital signs: Vital Signs Temp 97.4 F L 12/06/24 08:00 Pulse 55 L 12/06/24 11:57 Resp 18 12/06/24 11:57 BP 125/66 12/06/24 11:57 Pulse Ox 98 12/06/24 11:57 FiO2 Intake & Output 12/05/24 12/06/24 12/06/24 18:59 06:59 18:59 Intake Total 1625 100 Output Total 1475 1530 550 Balance 150 -1530 -450 Weight 77.5 kg Intake: IV 1151 Intake, IV Titration 100 Amount Piperacillin-Tazobactam 3 100 .375 gm In Sodium Chloride 0.9% 100 ml @ 25 mls/hr IVPB Q8H [facility] Rx#: [id number] Oral 474 0 Output: Urine 1450 1530 550 Estimated Blood Loss 25 Other: Voiding Method Indwelling Catheter Indwelling Catheter Indwelling Catheter - Exam General: Sitting in a recliner chair and is not in acute distress. HENT: Has cervical collar. Neuro: The patient is awake, alert, oriented to self, place and time. Is following simple commands. No aphasia. VFF to confrontation. No facial weakness. No dysarthria. Strength is somewhat limited because of mild pain but lifting above gravity - Labs CBC & Chem 7: 12/06/24 04:17 12/06/24 04:17 Labs: Abnormal Lab Results - Last 24 Hours (Table) 12/05/24 12/05/24 12/06/24 Range/Units 16:46 20:20 04:17 WBC 14.9 H (3.8-10.6) k/uL RBC 3.54 L (4.30-5.90) m/uL Hgb 12.1 L (13.0-17.5) gm/dL Hct 37.6 L (39.0-53.0) % MCV 106.1 H (80.0-100.0) fL Neutrophils # 13.2 H (1.3-7.7) k/uL Lymphocytes # 0.9 L (1.0-4.8) k/uL BUN (9-20) mg/dL Glucose (74-99) mg/dL POC Glucose (mg/dL) 167 H 131 H (70-110) mg/dL 12/06/24 12/06/24 12/06/24 Range/Units 04:17 06:09 06:14 WBC (3.8-10.6) k/uL RBC (4.30-5.90) m/uL Hgb (13.0-17.5) gm/dL Hct (39.0-53.0) % MCV (80.0-100.0) fL Neutrophils # (1.3-7.7) k/uL Lymphocytes # (1.0-4.8) k/uL BUN 27 H (9-20) mg/dL Glucose 148 H (74-99) mg/dL POC Glucose (mg/dL) 153 H 143 H (70-110) mg/dL 12/06/24 Range/Units 11:12 WBC (3.8-10.6) k/uL RBC (4.30-5.90) m/uL Hgb (13.0-17.5) gm/dL Hct (39.0-53.0) % MCV (80.0-100.0) fL Neutrophils # (1.3-7.7) k/uL Lymphocytes # (1.0-4.8) k/uL BUN (9-20) mg/dL Glucose (74-99) mg/dL POC Glucose (mg/dL) 152 H (70-110) mg/dL Microbiology - Last 24 Hours (Table) 11/30/24 21:12 Blood Culture - Final Blood 12/03/24 13:50 Blood Culture - Preliminary Blood Assessment and Plan Assessment: * Altered mental status, likely due to metabolic encephalopathy, now resolved. Patient's mentation is completely normal. * Status post C5-C6 ACDF 11/23/2024 * CSF leak anterior cervical spine, due to above s/p repair * Cervical spondylosis, with severe cervical spinal stenosis at C5-6 with myelomalacia. * Acute influenza A * History of 3 mm ACOM aneurysm * CAD with history of bypass surgery * Hypertension * Hyperlipidemia * Macrocytosis * Hypothyroidism Plan: Patient's mentation is back to normal. He is fully oriented. No other neurological workup indicated. Will sign off. Please reconsult if needed. Time with Patient: Less than 30
[2024-12-06 16:22] LABS: Glucose,Whole Blood 196 mg/dL (70-110)
[2024-12-06 19:58] LABS: Glucose,Whole Blood 197 mg/dL (70-110)
--- NOTE | 2024-12-06 21:17 | P.PN ---
Subjective Progress Note Date: 12/06/24 Principal diagnosis: Encephalopathy Mr. Warren is a 73-year-old male with a past medical history of CAD, hypertension, hyperlipidemia, [place], prostate disorder, thyroid disorder admitted to the hospital for altered mental status changes. Interval history patient was diagnosed with CSF leak. So eventually patient underwent C5-C6 ACD K. Today the patient is sitting up in a chair by the bedside. He states that he is strength in his left upper extremity has improved but he has weakness in his right upper extremity. Patient denies having any chest pain difficulty in breathing or abdominal pain nausea vomiting or diarrhea. On reviewing the vitals patient has been afebrile with blood pressure 121 x 58 saturating at 98% on 3 L of nasal cannula. Labs from today show white count of 14.9 hemoglobin 12.1 and platelets of 200. Sodium 139, creatinine 1.11 and blood sugars have been within the range of 100s to 200s. Urine culture and blood culture that are plan since admission have been negative so far. Objective - Vital Signs Vital signs: Vital Signs Temp 97.5 F L 12/06/24 16:30 Pulse 62 12/06/24 16:30 Resp 18 12/06/24 16:30 BP 121/58 12/06/24 16:30 Pulse Ox 98 12/06/24 16:30 FiO2 Intake & Output 12/06/24 12/06/24 12/07/24 06:59 18:59 06:59 Intake Total 100 Output Total 1530 1550 Balance -1530 -1450 Weight 77.5 kg Intake: Intake, IV Titration 100 Amount Piperacillin-Tazobactam 3 100 .375 gm In Sodium Chloride 0.9% 100 ml @ 25 mls/hr IVPB Q8H [facility] Rx#: [id number] Oral 0 Output: Urine 1530 1550 Other: Voiding Method Indwelling Catheter Indwelling Catheter - Exam GENERAL: Well-developed in no acute distress. HEENT: Mucous membranes of the mouth are moist. Neck - in a neck brace LUNGS: Respirations even and unlabored. Lungs with bilateral rhonchi HEART: Regular rate and rhythm. S1 and S2 heard. ABDOMEN: Soft. Nondistended. Nontender. EXTREMITIES: No lower extremity edema NEUROLOGIC: Awake and alert. Oriented x 3. HE has 2/5 in upper right extremity and 3/5 in the left upper extremity - Labs CBC & Chem 7: 12/06/24 04:17 12/06/24 04:17 Labs: Abnormal Lab Results - Last 24 Hours (Table) 12/06/24 12/06/24 12/06/24 Range/Units 04:17 04:17 06:09 WBC 14.9 H (3.8-10.6) k/uL RBC 3.54 L (4.30-5.90) m/uL Hgb 12.1 L (13.0-17.5) gm/dL Hct 37.6 L (39.0-53.0) % MCV 106.1 H (80.0-100.0) fL Neutrophils # 13.2 H (1.3-7.7) k/uL Lymphocytes # 0.9 L (1.0-4.8) k/uL BUN 27 H (9-20) mg/dL Glucose 148 H (74-99) mg/dL POC Glucose (mg/dL) 153 H (70-110) mg/dL 12/06/24 12/06/24 12/06/24 Range/Units 06:14 11:12 16:19 WBC (3.8-10.6) k/uL RBC (4.30-5.90) m/uL Hgb (13.0-17.5) gm/dL Hct (39.0-53.0) % MCV (80.0-100.0) fL Neutrophils # (1.3-7.7) k/uL Lymphocytes # (1.0-4.8) k/uL BUN (9-20) mg/dL Glucose (74-99) mg/dL POC Glucose (mg/dL) 143 H 152 H 196 H (70-110) mg/dL 12/06/24 Range/Units 19:50 WBC (3.8-10.6) k/uL RBC (4.30-5.90) m/uL Hgb (13.0-17.5) gm/dL Hct (39.0-53.0) % MCV (80.0-100.0) fL Neutrophils # (1.3-7.7) k/uL Lymphocytes # (1.0-4.8) k/uL BUN (9-20) mg/dL Glucose (74-99) mg/dL POC Glucose (mg/dL) 197 H (70-110) mg/dL Microbiology - Last 24 Hours (Table) 12/03/24 13:50 Blood Culture - Preliminary Blood 11/30/24 21:12 Blood Culture - Final Blood Assessment and Plan Assessment: ASSESSMENT Encephalopathy CSF leak status post ACDF and dural repair with patch graft Severe stenosis at C5-C6 level Acute kidney injury with ATN Acute influenza A ACOM aneurysm CAD status post CABG Hypertension Hyperlipidemia Hypothyroidism PLAN Patient is status post ACDF and he is postop day 1. Continue with pain medications. Continue with breathing treatments and steroids. Patient completed 5-day course of Tamiflu. He has been on Zosyn as per ID recommendations. Continue with the rest of his current medication regimen. Discussed the treatment plan with family at bedside. Overall prognosis guarded to multiple chronic medical conditions
[2024-12-07 06:05] LABS: Glucose,Whole Blood 142 mg/dL (70-110)
[2024-12-07 06:56] LABS: Basophils % (A) 0 %; Eosinophils % (A) 0 %; HCT 38.1 % (39.0-53.0); HGB 12.4 gm/dL (13.0-17.5); Lymphocytes # (A) 1.2 k/uL (1.0-4.8); Lymphocytes % (A) 8 %; MCH 33.8 pg (25.0-35.0); MCHC 32.6 g/dL (31.0-37.0); MCV 103.6 fL (80.0-100.0); Macrocytosis Slight; Mean Platelet Volume 8.4; Monocytes # (A) 0.8 k/uL (0-1.0); Monocytes % (A) 6 %; Neutrophils % (A) 86 %; Platelet Count 223 k/uL (150-450); RBC 3.68 m/uL (4.30-5.90); RDW 13.2 % (11.5-15.5); WBC 15.2 k/uL (3.8-10.6)
[2024-12-07 07:14] LABS: African American GFR (CKD) 80 (>60 ml/min/1.73 sqM); Anion Gap 2 mmol/L; Blood Urea Nitrogen 30 mg/dL (9-20); Calcium 8.5 mg/dL (8.4-10.2); Carbon Dioxide 31 mmol/L (22-30); Chloride 105 mmol/L (98-107); Glucose 145 mg/dL (74-99); Non-African American GFR(CKD) 70 (>60 ml/min/1.73 sqM); Potassium 4.2 mmol/L (3.5-5.1); Sodium 138 mmol/L (137-145)
[2024-12-07 11:22] LABS: Glucose,Whole Blood 190 mg/dL (70-110)
[2024-12-07 11:34] VITALS: BMI 26.7
--- NOTE | 2024-12-07 12:00 | P.PN ---
Subjective Progress Note Date: 12/07/24 Principal diagnosis: Recent C5-C6 ACDF, CSF leak, altered mental status, low blood pressure Patient was evaluated at bedside today, he is resting comfortably in his hospital bed. Urinary catheter remains in place. He denies any headaches, lightheadedness, dizziness or changes in vision at this time. Pain is well- controlled with regards to the overall neck discomfort. He denies any new onset weakness to the bilateral upper or lower extremities. No drainage noted surrounding the surgical dressing. Objective - Vital Signs Vital signs: Vital Signs Temp 97.6 F 12/07/24 08:47 Pulse 54 L 12/07/24 08:47 Resp 16 12/07/24 08:47 BP 124/58 12/07/24 08:47 Pulse Ox 94 L 12/07/24 08:47 FiO2 Intake & Output 12/06/24 12/07/24 12/07/24 18:59 06:59 18:59 Intake Total 100 200 100 Output Total 1550 1525 400 Balance -1450 -1325 -300 Weight 77.5 kg Intake: IV 100 0.9 100 Intake, IV Titration 100 100 100 Amount Piperacillin-Tazobactam 3 100 100 100 .375 gm In Sodium Chloride 0.9% 100 ml @ 25 mls/hr IVPB Q8H [facility] Rx#: [id number] Oral 0 Output: Urine 1550 1525 400 Other: Voiding Method Indwelling Catheter Indwelling Catheter Indwelling Catheter # Bowel Movements 0 - Exam Gen: AOx3, NAD VSS stable at this time Integument: Post op dressing removed at bedside, no drainge noted from incision. Anterior swelling noted Palpation: Patient demonstrates no significant tenderness with palpation to the medial and lateral aspects of the anterior neck ROM: Patient has adequate range of motion of the bilateral upper extremities, he still is a little limited with finger intrinsics but this is much improved since his last evaluation in the hospital Full range of motion all major muscle groups of bilateral lower extremities, no focal deficits Sensory Exam: Senory exam to light touch is intact C5-T1 Senosry exam to light touch is intact L2-S1 Motor: Left lower extremity demonstrates 4/5 strength with hip flexion, knee extension, knee flexion, plantarflexion, dorsiflexion, EHL, FHL Right lower extremity demonstrates 4/5 strength with hip flexion, knee extension, knee flexion, dorsiflexion, EHL, FHL, 4-/5 strength appreciated with plantarflexion Left upper extremity demonstrates 4/5 strength with shoulder elevation, shoulder abduction, elbow extension, elbow flexion, wrist extension, wrist flexion, 4-/5 glue maker strength and intrinsics Right upper extremity demonstrates 4-/5 with shoulder elevation, shoulder abduction, elbow extension, elbow flexion, 3+/5 with wrist extension, wrist flexion, glue maker and finger intrinsic Reflexes: 3/4 in all UE and LE Positive Angie's bilaterally, significant improvement on the left, improving on the right - Labs CBC & Chem 7: 12/07/24 06:33 12/07/24 06:33 Labs: Abnormal Lab Results - Last 24 Hours (Table) 12/06/24 12/06/24 12/07/24 Range/Units 16:19 19:50 05:56 WBC (3.8-10.6) k/uL RBC (4.30-5.90) m/uL Hgb (13.0-17.5) gm/dL Hct (39.0-53.0) % MCV (80.0-100.0) fL Neutrophils # (1.3-7.7) k/uL Carbon Dioxide (22-30) mmol/L BUN (9-20) mg/dL Glucose (74-99) mg/dL POC Glucose (mg/dL) 196 H 197 H 142 H (70-110) mg/dL 12/07/24 12/07/24 12/07/24 Range/Units 06:33 06:33 11:20 WBC 15.2 H (3.8-10.6) k/uL RBC 3.68 L (4.30-5.90) m/uL Hgb 12.4 L (13.0-17.5) gm/dL Hct 38.1 L (39.0-53.0) % MCV 103.6 H (80.0-100.0) fL Neutrophils # 13.0 H (1.3-7.7) k/uL Carbon Dioxide 31 H (22-30) mmol/L BUN 30 H (9-20) mg/dL Glucose 145 H (74-99) mg/dL POC Glucose (mg/dL) 190 H (70-110) mg/dL Microbiology - Last 24 Hours (Table) 12/03/24 13:50 Blood Culture - Preliminary Blood Assessment and Plan Assessment: Postoperative day #2 status post revision C5-C6 ACDF, dural repair with patch Bilateral upper and lower extremity weakness Difficult with ambulation Cervical myelopathy Other medical comorbidities Plan: Continue to monitor surgical dressing, monitor for headaches, dizziness, changes in vision Discussed with nursing removing urinary catheter today for voiding trial Pain control, continue current medications DVT prophylaxis per primary medical service Daily PT/OT Weight-bear as tolerated with a walker, patient needs assistance at all time when ambulating No bending, lifting or twisting, soft c-collar if patient can tolerate Other medical specialty recommendations appreciated Will continue to follow during hospital stay Time with Patient: Less than 30
--- NOTE | 2024-12-07 14:55 | P.PN ---
Subjective Progress Note Date: 12/07/24 Principal diagnosis: Reason for follow-up is leukocytosis/UTI/influenza Patient is a 73-year-old male with a past medical history significant for Coronary Artery Disease (CAD), CVA/TIA, Hyperlipidemia, Hypertension, Myocardial Infarction ([place]), Prostate Disorder, Thyroid Disorder presenting to the hospital for evaluation of fever and weakness and low blood pressure along with mental status changes from a local long term did have elevated white count tested positive for influenza prompting this consultation. Patient is status post revision of the C5-6 anterior cervical arthrodesis and dural repair with a patch graft operative report did not mention any purulent drainage and no culture were done procedure completed on 12/05/2024. On today's evaluation that is 12/07/2024, Patient is afebrile this morning patient denies having any chest pain shortness of breath did have occasional cough, the patient is currently on 2 L current oxygen, patient denies any abdo joy pain no diarrhea no nausea no vomiting. Patient white count 15.2, creatinine 1.05 Objective - Vital Signs Vital signs: Vital Signs Temp 97.6 F 12/07/24 08:47 Pulse 56 L 12/07/24 12:00 Resp 16 12/07/24 12:00 BP 120/66 12/07/24 12:00 Pulse Ox 97 12/07/24 12:00 FiO2 Intake & Output 12/06/24 12/07/24 12/07/24 18:59 06:59 18:59 Intake Total 100 200 100 Output Total 1550 1525 400 Balance -1450 -1325 -300 Weight 77.5 kg Intake: IV 100 0.9 100 Intake, IV Titration 100 100 100 Amount Piperacillin-Tazobactam 3 100 100 100 .375 gm In Sodium Chloride 0.9% 100 ml @ 25 mls/hr IVPB Q8H [facility] Rx#: [id number] Oral 0 Output: Urine 1550 1525 400 Other: Voiding Method Indwelling Catheter Indwelling Catheter Indwelling Catheter # Bowel Movements 0 - Exam GENERAL DESCRIPTION: An elderly male lying in bed in no distress RESPIRATORY SYSTEM: Unlabored breathing , clear to auscultation anteriorly HEART: S1 S2 regular rate and rhythm , ABDOMEN: Soft , no tenderness EXTREMITIES: No edema feet - Labs CBC & Chem 7: 12/07/24 06:33 12/07/24 06:33 Labs: Abnormal Lab Results - Last 24 Hours (Table) 12/06/24 12/06/24 12/07/24 Range/Units 16:19 19:50 05:56 WBC (3.8-10.6) k/uL RBC (4.30-5.90) m/uL Hgb (13.0-17.5) gm/dL Hct (39.0-53.0) % MCV (80.0-100.0) fL Neutrophils # (1.3-7.7) k/uL Carbon Dioxide (22-30) mmol/L BUN (9-20) mg/dL Glucose (74-99) mg/dL POC Glucose (mg/dL) 196 H 197 H 142 H (70-110) mg/dL 12/07/24 12/07/24 12/07/24 Range/Units 06:33 06:33 11:20 WBC 15.2 H (3.8-10.6) k/uL RBC 3.68 L (4.30-5.90) m/uL Hgb 12.4 L (13.0-17.5) gm/dL Hct 38.1 L (39.0-53.0) % MCV 103.6 H (80.0-100.0) fL Neutrophils # 13.0 H (1.3-7.7) k/uL Carbon Dioxide 31 H (22-30) mmol/L BUN 30 H (9-20) mg/dL Glucose 145 H (74-99) mg/dL POC Glucose (mg/dL) 190 H (70-110) mg/dL Microbiology - Last 24 Hours (Table) 12/03/24 13:50 Blood Culture - Preliminary Blood Assessment and Plan (1) UTI (urinary tract infection) Current Visit: Yes Status: Acute Code(s): N39.0 - URINARY TRACT INFECTION, SITE NOT SPECIFIED SNOMED Code(s): 78069371 (2) Leukocytosis Current Visit: Yes Status: Acute Code(s): D72.829 - ELEVATED WHITE BLOOD CELL COUNT, UNSPECIFIED SNOMED Code(s): 079514808 (3) Influenza A Current Visit: Yes Status: Acute Code(s): J10.1 - FLU DUE TO OTH IDENT INFLUENZA VIRUS W OTH RESP MANIFEST SNOMED Code(s): 571750271 Plan: 1patient presented hospital with mental status changes which is likely multifactorial patient also have elevated white count positive UA concerning for possible component of UTI likely from enteric gram-negative pathogen. 2patient also tested positive for influenza A though chest x-ray was negative for any acute cardiopulmonary disease process. 3elevated creatinine high risk of nephrotoxicity from vancomycin 4-patient finished 5-day course of Tamiflu 5patient did have revision of his cervical surgery and dural repair operative report did not mention any purulent drainage no culture were done 6patient leukocytosis more likely steroid related and will be monitored closely continue Zosyn. Dictation was produced using [employer] software. please excuse any grammatical, word or spelling errors. Time with Patient: Less than 30
[2024-12-07 16:40] LABS: Glucose,Whole Blood 184 mg/dL (70-110)
[2024-12-07 20:32] LABS: Glucose,Whole Blood 223 mg/dL (70-110)
[2024-12-08 06:18] LABS: Glucose,Whole Blood 178 mg/dL (70-110)
--- NOTE | 2024-12-08 10:31 | P.PN ---
Subjective Progress Note Date: 12/08/24 Principal diagnosis: Recent C5-C6 ACDF, CSF leak, altered mental status, low blood pressure Patient was evaluated at bedside today, he is resting comfortably in his hospital bed. He denies any headaches, lightheadedness, dizziness or changes in vision at this time. Pain is well-controlled with regards to the overall neck discomfort. He denies any new onset weakness to the bilateral upper or lower extremities. No drainage noted surrounding the surgical dressing. Objective - Vital Signs Vital signs: Vital Signs Temp 98.0 F 12/08/24 08:20 Pulse 58 L 12/08/24 08:20 Resp 17 12/08/24 03:31 BP 110/70 12/08/24 08:20 Pulse Ox 97 12/08/24 08:20 FiO2 Intake & Output 12/07/24 12/08/24 12/08/24 18:59 06:59 18:59 Intake Total 700 Output Total 1000 800 Balance -300 -800 Weight 77.5 kg Intake: Intake, IV Titration 100 Amount Piperacillin-Tazobactam 3 100 .375 gm In Sodium Chloride 0.9% 100 ml @ 25 mls/hr IVPB Q8H [facility] Rx#: [id number] Oral 600 Output: Urine 1000 Post Void Residual 800 Other: Voiding Method Indwelling Catheter Urinal Urinal # Bowel Movements 1 - Exam Gen: AOx3, NAD VSS stable at this time Integument: Dressing was removed at bedside, swelling is much improved. Mild ecchymosis present Palpation: Patient demonstrates no significant tenderness with palpation to the medial and lateral aspects of the anterior neck ROM: Patient has adequate range of motion of the bilateral upper extremities, he still is a little limited with finger intrinsics but this is much improved since his last evaluation in the hospital Full range of motion all major muscle groups of bilateral lower extremities, no focal deficits Sensory Exam: Senory exam to light touch is intact C5-T1 Senosry exam to light touch is intact L2-S1 Motor: Left lower extremity demonstrates 4/5 strength with hip flexion, knee extension, knee flexion, plantarflexion, dorsiflexion, EHL, FHL Right lower extremity demonstrates 4/5 strength with hip flexion, knee extension, knee flexion, dorsiflexion, EHL, FHL, 4-/5 strength appreciated with plantarflexion Left upper extremity demonstrates 4/5 strength with shoulder elevation, shoulder abduction, elbow extension, elbow flexion, wrist extension, wrist flexion, 4-/5 director of strategic sourcing strength and intrinsics Right upper extremity demonstrates 4-/5 with shoulder elevation, shoulder abduction, elbow extension, elbow flexion, 3+/5 with wrist extension, wrist flexion, director of strategic sourcing and finger intrinsic Reflexes: 3/4 in all UE and LE Positive Angie's bilaterally, significant improvement on the left, improving on the right - Labs CBC & Chem 7: 12/07/24 06:33 12/07/24 06:33 Labs: Abnormal Lab Results - Last 24 Hours (Table) 12/07/24 12/07/24 12/07/24 Range/Units 11:20 16:39 20:17 POC Glucose (mg/dL) 190 H 184 H 223 H (70-110) mg/dL 12/08/24 Range/Units 06:02 POC Glucose (mg/dL) 178 H (70-110) mg/dL Assessment and Plan Assessment: Postoperative day #3 status post revision C5-C6 ACDF, dural repair with patch Bilateral upper and lower extremity weakness Difficult with ambulation Cervical myelopathy Other medical comorbidities Plan: Continue to monitor surgical dressing, monitor for headaches, dizziness, changes in vision Pain control, patient is taking minimal medication at this time. Utilize Tylenol and muscle relaxer as needed DVT prophylaxis per primary medical service Daily PT/OT Weight-bear as tolerated with a walker, patient needs assistance at all time when ambulating No bending, lifting or twisting, soft c-collar if patient can tolerate Other medical specialty recommendations appreciated Orthopedically patient remains stable for discharge to rehab and follow-up in the outpatient setting Time with Patient: Less than 30
[2024-12-08 11:27] LABS: Glucose,Whole Blood 159 mg/dL (70-110)
[2024-12-08 16:23] LABS: Basophils % (A) 0 %; Eosinophils % (A) 0 %; HCT 40.2 % (39.0-53.0); HGB 13.1 gm/dL (13.0-17.5); Hypochromasia Slight; Lymphocytes # (A) 0.7 k/uL (1.0-4.8); Lymphocytes % (A) 4 %; MCH 34.4 pg (25.0-35.0); MCHC 32.5 g/dL (31.0-37.0); MCV 105.8 fL (80.0-100.0); Macrocytosis Moderate; Mean Platelet Volume 8.4; Monocytes # (A) 0.7 k/uL (0-1.0); Monocytes % (A) 5 %; Neutrophils # (A) 13.3 k/uL (1.3-7.7); Neutrophils % (A) 90 %; Platelet Count 229 k/uL (150-450); RDW 13.4 % (11.5-15.5); WBC 14.8 k/uL (3.8-10.6)
[2024-12-08 16:38] LABS: Glucose,Whole Blood 172 mg/dL (70-110)
[2024-12-08 16:50] LABS: African American GFR (CKD) 88 (>60 ml/min/1.73 sqM); Anion Gap 5 mmol/L; Blood Urea Nitrogen 33 mg/dL (9-20); Calcium 8.8 mg/dL (8.4-10.2); Carbon Dioxide 29 mmol/L (22-30); Chloride 104 mmol/L (98-107); Glucose 149 mg/dL (74-99); Non-African American GFR(CKD) 76 (>60 ml/min/1.73 sqM); Potassium 4.1 mmol/L (3.5-5.1); Sodium 138 mmol/L (137-145)
--- NOTE | 2024-12-08 17:00 | P.PN ---
Subjective Progress Note Date: 12/08/24 Principal diagnosis: Reason for follow-up is leukocytosis/UTI/influenza Patient is a 73-year-old male with a past medical history significant for Coronary Artery Disease (CAD), CVA/TIA, Hyperlipidemia, Hypertension, Myocardial Infarction ([place]), Prostate Disorder, Thyroid Disorder presenting to the hospital for evaluation of fever and weakness and low blood pressure along with mental status changes from a local care home did have elevated white count tested positive for influenza prompting this consultation. Patient is status post revision of the C5-6 anterior cervical arthrodesis and dural repair with a patch graft operative report did not mention any purulent drainage and no culture were done procedure completed on 12/05/2024. On today's evaluation that is 12/08/2024,the patient denies any fever or any chills, patient is breathing comfortably on 2 L nasal oxygen, the patient denies chest pain shortness of breath and no significant cough, patient denies abdominal pain, no nausea vomiting or diarrhea. Patient white count is 14.8, creatinine 0.98 blood urine culture has been negative Objective - Vital Signs Vital signs: Vital Signs Temp 97.6 F 12/08/24 11:25 Pulse 60 12/08/24 11:25 Resp 20 12/08/24 11:25 BP 120/62 12/08/24 11:25 Pulse Ox 97 12/08/24 11:25 FiO2 Intake & Output 12/07/24 12/08/24 12/08/24 18:59 06:59 18:59 Intake Total 700 Output Total 1000 800 Balance -300 -800 Weight 77.5 kg Intake: Intake, IV Titration 100 Amount Piperacillin-Tazobactam 3 100 .375 gm In Sodium Chloride 0.9% 100 ml @ 25 mls/hr IVPB Q8H [facility] Rx#: [id number] Oral 600 Output: Urine 1000 Post Void Residual 800 Other: Voiding Method Indwelling Catheter Urinal Urinal # Voids 1 # Bowel Movements 1 - Exam GENERAL DESCRIPTION: An elderly male lying in bed in no distress RESPIRATORY SYSTEM: Unlabored breathing , clear to auscultation anteriorly HEART: S1 S2 regular rate and rhythm , ABDOMEN: Soft , no tenderness EXTREMITIES: No edema feet - Labs CBC & Chem 7: 12/08/24 15:50 12/08/24 15:50 Labs: Abnormal Lab Results - Last 24 Hours (Table) 12/07/24 12/07/24 12/08/24 Range/Units 16:39 20:17 06:02 POC Glucose (mg/dL) 184 H 223 H 178 H (70-110) mg/dL 12/08/24 Range/Units 11:25 POC Glucose (mg/dL) 159 H (70-110) mg/dL Assessment and Plan (1) UTI (urinary tract infection) Current Visit: Yes Status: Acute Code(s): N39.0 - URINARY TRACT INFECTION, SITE NOT SPECIFIED SNOMED Code(s): 57516147 (2) Leukocytosis Current Visit: Yes Status: Acute Code(s): D72.829 - ELEVATED WHITE BLOOD CELL COUNT, UNSPECIFIED SNOMED Code(s): 392429038 (3) Influenza A Current Visit: Yes Status: Acute Code(s): J10.1 - FLU DUE TO OTH IDENT INFLUENZA VIRUS W OTH RESP MANIFEST SNOMED Code(s): 469841773 Plan: 1patient presented hospital with mental status changes which is likely multifactorial patient also have elevated white count positive UA concerning for possible component of UTI likely from enteric gram-negative pathogen. 2patient also tested positive for influenza A though chest x-ray was negative for any acute cardiopulmonary disease process. 3elevated creatinine high risk of nephrotoxicity from vancomycin 4-patient has finished 5-day course of Tamiflu 5patient did have revision of his cervical surgery and dural repair operative report did not mention any purulent drainage no culture were done 6patient leukocytosis more likely steroid related and white count is trending down patient is currently covered with Zosyn however has received adequate antibiotic for possible component of pneumonia and no need for antibiotic on discharge Dictation was produced using [employer] dictation software. please excuse any grammatical, word or spelling errors. Time with Patient: Less than 30
--- NOTE | 2024-12-08 17:16 | P.PN ---
Subjective Progress Note Date: 12/07/24 73-year-old male with a past medical history significant for Coronary Artery Disease (CAD), CVA/TIA, Hyperlipidemia, Hypertension, Myocardial Infarction ([place]), Prostate Disorder, Thyroid Disorder presenting to the hospital for evaluation of fever and weakness and low blood pressure along with mental status changes from a local skilled nursing did have elevated white count tested positive for influenza prompting this consultation. Patient is status post revision of the C5-6 anterior cervical arthrodesis and dural repair with a patch graft operative report did not mention any purulent drainage and no culture were done procedure completed on 12/05/2024. On today's evaluation that is 12/08/2024,the patient denies any fever or any chills, patient is breathing comfortably on 2 L nasal oxygen, the patient denies chest pain shortness of breath and no significant cough, patient denies abdominal pain, no nausea vomiting or diarrhea. Objective - Vital Signs Vital signs: Vital Signs Temp 97.6 F 12/07/24 08:47 Pulse 56 L 12/07/24 12:00 Resp 16 12/07/24 12:00 BP 120/66 12/07/24 12:00 Pulse Ox 97 12/07/24 12:00 FiO2 Intake & Output 12/06/24 12/07/24 12/07/24 18:59 06:59 18:59 Intake Total 100 200 100 Output Total 1550 1525 400 Balance -1450 -1325 -300 Weight 77.5 kg Intake: IV 100 0.9 100 Intake, IV Titration 100 100 100 Amount Piperacillin-Tazobactam 3 100 100 100 .375 gm In Sodium Chloride 0.9% 100 ml @ 25 mls/hr IVPB Q8H [facility] Rx#: [id number] Oral 0 Output: Urine 1550 1525 400 Other: Voiding Method Indwelling Catheter Indwelling Catheter Indwelling Catheter # Bowel Movements 0 - Exam GENERAL: Well-developed in no acute distress. HEENT: Mucous membranes of the mouth are moist. Neck - in a neck brace LUNGS: Respirations even and unlabored. Lungs with bilateral rhonchi HEART: Regular rate and rhythm. S1 and S2 heard. ABDOMEN: Soft. Nondistended. Nontender. EXTREMITIES: No lower extremity edema NEUROLOGIC: Awake and alert. Oriented x 3. HE has 2/5 in upper right extremity and 3/5 in the left upper extremity - Labs CBC & Chem 7: 12/08/24 15:50 12/08/24 15:50 Labs: Abnormal Lab Results - Last 24 Hours (Table) 12/06/24 12/06/24 12/07/24 Range/Units 16:19 19:50 05:56 WBC (3.8-10.6) k/uL RBC (4.30-5.90) m/uL Hgb (13.0-17.5) gm/dL Hct (39.0-53.0) % MCV (80.0-100.0) fL Neutrophils # (1.3-7.7) k/uL Carbon Dioxide (22-30) mmol/L BUN (9-20) mg/dL Glucose (74-99) mg/dL POC Glucose (mg/dL) 196 H 197 H 142 H (70-110) mg/dL 12/07/24 12/07/24 12/07/24 Range/Units 06:33 06:33 11:20 WBC 15.2 H (3.8-10.6) k/uL RBC 3.68 L (4.30-5.90) m/uL Hgb 12.4 L (13.0-17.5) gm/dL Hct 38.1 L (39.0-53.0) % MCV 103.6 H (80.0-100.0) fL Neutrophils # 13.0 H (1.3-7.7) k/uL Carbon Dioxide 31 H (22-30) mmol/L BUN 30 H (9-20) mg/dL Glucose 145 H (74-99) mg/dL POC Glucose (mg/dL) 190 H (70-110) mg/dL Microbiology - Last 24 Hours (Table) 12/03/24 13:50 Blood Culture - Preliminary Blood Assessment and Plan Assessment: Encephalopathy CSF leak status post ACDF and dural repair with patch graft Severe stenosis at C5-C6 level Acute kidney injury with ATN Acute influenza A ACOM aneurysm CAD status post CABG Hypertension Hyperlipidemia Hypothyroidism PLAN Patient is status post ACDF and he is postop day 1. Continue with pain medications. Continue with breathing treatments and steroids. Patient completed 5-day course of Tamiflu. He has been on Zosyn as per ID recommendations. Continue with the rest of his current medication regimen. Discussed the treatment plan with family at bedside. Overall prognosis guarded to multiple chronic medical conditions
--- NOTE | 2024-12-08 17:19 | P.PN ---
Subjective Progress Note Date: 12/08/24 73-year-old male with a past medical history significant for Coronary Artery Disease (CAD), CVA/TIA, Hyperlipidemia, Hypertension, Myocardial Infarction ([place]), Prostate Disorder, Thyroid Disorder presenting to the hospital for evaluation of fever and weakness and low blood pressure along with mental status changes from a local alf did have elevated white count tested positive for influenza prompting this consultation. Patient is status post revision of the C5-6 anterior cervical arthrodesis and dural repair with a patch graft operative report did not mention any purulent drainage and no culture were done procedure completed on 12/05/2024. On today's evaluation that is 12/08/2024,the patient denies any fever or any chills, patient is breathing comfortably on 2 L nasal oxygen, the patient denies chest pain shortness of breath and no significant cough, patient denies abdominal pain, no nausea vomiting or diarrhea. 12/08/2024 --the patient is seen and evaluated in room at bedside; denies any fever or any chills, patient is breathing comfortably on 2 L nasal oxygen, the patient denies chest pain shortness of breath and no significant cough, patient denies abdominal pain, no nausea vomiting or diarrhea. Blood work reveals WBC of 14.8, hemoglobin of 13.1 and platelet count of 229, sodium 138, potassium 4.1, BUNs/creatinine of 33/0.98 and blood glucose of 149 patient presented hospital with mental status changes which is likely multifactorial patient also have elevated white count positive UA concerning for possible component of UTI likely from enteric gram-negative pathogen. patient also tested positive for influenza A though chest x-ray was negative for any acute cardiopulmonary disease process. elevated creatinine high risk of nephrotoxicity from vancomycin -patient has finished 5-day course of Tamiflu patient did have revision of his cervical surgery and dural repair operative report did not mention any purulent drainage no culture were done patient leukocytosis more likely steroid related and white count is trending down patient is currently covered with Zosyn however has received adequate antibiotic for possible component of pneumonia and no need for antibiotic on discharge Objective - Vital Signs Vital signs: Vital Signs Temp 97.6 F 12/08/24 11:25 Pulse 60 12/08/24 11:25 Resp 20 12/08/24 11:25 BP 120/62 12/08/24 11:25 Pulse Ox 97 12/08/24 11:25 FiO2 Intake & Output 12/07/24 12/08/24 12/08/24 18:59 06:59 18:59 Intake Total 700 Output Total 1000 800 Balance -300 -800 Weight 77.5 kg Intake: Intake, IV Titration 100 Amount Piperacillin-Tazobactam 3 100 .375 gm In Sodium Chloride 0.9% 100 ml @ 25 mls/hr IVPB Q8H LARRY Rx#: [id number] Oral 600 Output: Urine 1000 Post Void Residual 800 Other: Voiding Method Indwelling Catheter Urinal Urinal # Voids 1 # Bowel Movements 1 - Exam GENERAL: Well-developed in no acute distress. HEENT: Mucous membranes of the mouth are moist. Neck - in a neck brace LUNGS: Respirations even and unlabored. Lungs with bilateral rhonchi HEART: Regular rate and rhythm. S1 and S2 heard. ABDOMEN: Soft. Nondistended. Nontender. EXTREMITIES: No lower extremity edema NEUROLOGIC: Awake and alert. Oriented x 3. HE has 2/5 in upper right extremity and 3/5 in the left upper extremity - Labs CBC & Chem 7: 12/08/24 15:50 12/08/24 15:50 Labs: Abnormal Lab Results - Last 24 Hours (Table) 12/07/24 12/07/24 12/08/24 Range/Units 16:39 20:17 06:02 POC Glucose (mg/dL) 184 H 223 H 178 H (70-110) mg/dL 12/08/24 Range/Units 11:25 POC Glucose (mg/dL) 159 H (70-110) mg/dL Assessment and Plan Assessment: Encephalopathy CSF leak status post ACDF and dural repair with patch graft Severe stenosis at C5-C6 level Acute kidney injury with ATN Acute influenza A ACOM aneurysm CAD status post CABG Hypertension Hyperlipidemia Hypothyroidism PLAN Patient is status post ACDF and he is postop day 1. Continue with pain medications. Continue with breathing treatments and steroids. Patient completed 5-day course of Tamiflu. He has been on Zosyn as per ID recommendations. Continue with the rest of his current medication regimen. Discussed the treatment plan with family at bedside. Overall prognosis guarded to multiple chronic medical conditions
[2024-12-08 20:20] LABS: Glucose,Whole Blood 222 mg/dL (70-110)
[2024-12-09 06:02] LABS: Glucose,Whole Blood 156 mg/dL (70-110)
[2024-12-09 08:31] LABS: Basophils % (A) 0 %; Eosinophils % (A) 0 %; HCT 43.6 % (39.0-53.0); Hypochromasia Slight; Lymphocytes # (A) 0.7 k/uL (1.0-4.8); Lymphocytes % (A) 5 %; MCH 34.2 pg (25.0-35.0); MCHC 32.1 g/dL (31.0-37.0); MCV 106.6 fL (80.0-100.0); Macrocytosis Moderate; Mean Platelet Volume 8.4; Monocytes # (A) 0.5 k/uL (0-1.0); Monocytes % (A) 4 %; Neutrophils % (A) 90 %; Platelet Count 242 k/uL (150-450); RBC 4.09 m/uL (4.30-5.90); RDW 13.4 % (11.5-15.5); WBC 13.3 k/uL (3.8-10.6)
[2024-12-09 08:42] LABS: African American GFR (CKD) >90 (>60 ml/min/1.73 sqM); Anion Gap 6 mmol/L; Blood Urea Nitrogen 29 mg/dL (9-20); Calcium 8.9 mg/dL (8.4-10.2); Carbon Dioxide 28 mmol/L (22-30); Chloride 104 mmol/L (98-107); Glucose 110 mg/dL (74-99); Non-African American GFR(CKD) 82 (>60 ml/min/1.73 sqM); Potassium 4.3 mmol/L (3.5-5.1); Sodium 138 mmol/L (137-145)
[2024-12-09 09:17] VITALS: RESP 20
--- NOTE | 2024-12-09 09:59 | P.DS ---
Providers Date of admission: 11/30/24 18:35 Expected date of discharge: 12/09/24 Attending physician: Silvana Hernandez Consults: 11/30/24 18:35 Consult Physician Routine Consulting Provider: Kojo Michel Consult Reason/Comments: recentSx Do you want consulting provider notified?: Yes 12/01/24 13:08 Consult Physician Routine Consulting Provider: Musa Mcgrath Consult Reason/Comments: sepsis Do you want consulting provider notified?: Yes 12/03/24 15:23 Consult Physician Routine Consulting Provider: Sekou Daley Consult Reason/Comments: change in mentation, csf leak? Do you want consulting provider notified?: Yes Primary care physician: Willa Arriaga [facility] Course: 73-year-old male with a past medical history significant for Coronary Artery Disease (CAD), CVA/TIA, Hyperlipidemia, Hypertension, Myocardial Infarction ([place]), Prostate Disorder, Thyroid Disorder presenting to the hospital for evaluation of fever and weakness and low blood pressure along with mental status changes from a local fpc did have elevated white count tested positive for influenza prompting this consultation. Patient is status post revision of the C5-6 anterior cervical arthrodesis and dural repair with a patch graft operative report did not mention any purulent drainage and no culture were done procedure completed on 12/05/2024. On today's evaluation that is 12/08/2024,the patient denies any fever or any chills, patient is breathing comfortably on 2 L nasal oxygen, the patient denies chest pain shortness of breath and no significant cough, patient denies abdo joy pain, no nausea vomiting or diarrhea. Encephalopathy CSF leak status post ACDF and dural repair with patch graft Severe stenosis at C5-C6 level Acute kidney injury with ATN Acute influenza A ACOM aneurysm CAD status post CABG Hypertension Hyperlipidemia Hypothyroidism Patient is status post ACDF and he is postop day 1. Continue with pain medications. Continue with breathing treatments and steroids. Patient completed 5-day course of Tamiflu. He has been on Zosyn as per ID recommendations. Continue with the rest of his current medication regimen. 12/08/2024 --the patient is seen and evaluated in room at bedside; denies any fever or any chills, patient is breathing comfortably on 2 L nasal oxygen, the patient denies chest pain shortness of breath and no significant cough, patient denies abdominal pain, no nausea vomiting or diarrhea. Blood work reveals WBC of 14.8, hemoglobin of 13.1 and platelet count of 229, sodium 138, potassium 4.1, BUNs/creatinine of 33/0.98 and blood glucose of 149 patient presented hospital with mental status changes which is likely multifactorial patient also have elevated white count positive UA concerning for possible component of UTI likely from enteric gram-negative pathogen. patient also tested positive for influenza A though chest x-ray was negative for any acute cardiopulmonary disease process. elevated creatinine high risk of nephrotoxicity from vancomycin -patient has finished 5-day course of Tamiflu patient did have revision of his cervical surgery and dural repair operative report did not mention any purulent drainage no culture were done patient leukocytosis more likely steroid related and white count is trending down patient is currently covered with Zosyn however has received adequate antibiotic for possible component of pneumonia and no need for antibiotic on discharge 12/09/2024; patient is stable and has been cleared for discharge by all consultants; discharge to skilled rehab Patient Condition at Discharge: Serious Plan - Discharge Summary Discharge Rx Participant: No New Discharge Prescriptions: New Cyclobenzaprine [Flexeril] 5 mg PO BID PRN #21 tablet PRN Reason: Muscle Spasm HYDROcodone/APAP 7.5-325MG [[place] 7.5-325] 1 each PO Q6HR PRN 3 Days #10 tab PRN Reason: Moderate Pain (Scale 4 To 6) predniSONE 30 mg PO DAILY 5 Days #15 tab Pantoprazole [Protonix] 40 mg PO AC-BRKFST tab QUEtiapine [SEROquel] 12.5 mg PO BID PRN 30 Days #0 tab PRN Reason: Agitation Continue Docusate [Colace] 200 mg PO DAILY Levothyroxine Sodium [Synthroid] 125 mcg PO DAILY@0500 gemfibroziL [Lopid] 600 mg PO DAILY allopurinoL [Zyloprim] 300 mg PO DAILY [place]-3 Fatty Acids/Fish Oil [Fish Oil 1,000 mg Softgel] 1 cap PO HS Tamsulosin HCl [Flomax] 0.4 mg PO DAILY Aspirin 325 mg PO DAILY Atorvastatin [Lipitor] 20 mg PO HS 30 Days #30 tab Meclizine [Antivert] 25 mg PO TID PRN #20 tab PRN Reason: Vertigo Donepezil [Aricept] 5 mg PO HS Sennosides/Docusate Sodium [Senna Plus 8.6-50 mg Softgel] 1 each PO DAILY #20 capsule Larissa-Tussin Dm 10 ml PO QID Folic Acid 0.8 mg PO HS Cyanocobalamin [Vitamin B-12] 1,000 mcg PO HS Metoprolol Tartrate [Lopressor] 25 mg PO DAILY Cholecalciferol [Vitamin D3 (25 Mcg = 1000 Iu)] 25 mcg PO HS Acetaminophen [Tylenol 8 Hour] 650 mg PO Q6H PRN PRN Reason: Pain Ibuprofen [Motrin Ib] 800 mg PO DAILY Naloxone HCl 0.4 mg IM DIRECTED PRN PRN Reason: overdose Naloxone HCl [Narcan] 4 mg NASAL DIRECTED PRN PRN Reason: overdose Discontinued cefaDROXiL [Duricef] 500 mg PO BID@0700,1900 Cyclobenzaprine [Flexeril] 5 mg PO TID@0700,1300,1900 Gabapentin [Neurontin] 300 mg PO TID@0700,1300,1900 methylPREDNISolone Dose Pack [Medrol Dose Pack] See Taper PO DIRECTED HYDROcodone/APAP 7.5-325MG [S[place]heimer 7.5-325] 1 tab PO Q6HR PRN #24 tab PRN Reason: Pain Discharge Medication List Docusate [Colace] 200 mg PO DAILY 10/13/14 [History] Levothyroxine Sodium [Synthroid] 125 mcg PO DAILY@0500 10/13/14 [History] [place]-3 Fatty Acids/Fish Oil [Fish Oil 1,000 mg Softgel] 1 cap PO HS 10/13/14 [History] allopurinoL [Zyloprim] 300 mg PO DAILY 10/13/14 [History] gemfibroziL [Lopid] 600 mg PO DAILY 10/13/14 [History] Tamsulosin HCl [Flomax] 0.4 mg PO DAILY 11/12/16 [History] Aspirin 325 mg PO DAILY 05/04/17 [History] Metoprolol Tartrate [Lopressor] 25 mg PO DAILY 09/12/22 [History] Cholecalciferol [Vitamin D3 (25 Mcg = 1000 Iu)] 25 mcg PO HS 10/03/22 [History] Atorvastatin [Lipitor] 20 mg PO HS 30 Days #30 tab 10/05/22 [Rx] Meclizine [Antivert] 25 mg PO TID PRN #20 tab 02/02/24 [Rx] Donepezil [Aricept] 5 mg PO HS 11/18/24 [History] Sennosides/Docusate Sodium [Senna Plus 8.6-50 mg Softgel] 1 each PO DAILY #20 capsule 11/26/24 [Rx] Acetaminophen [Tylenol 8 Hour] 650 mg PO Q6H PRN 11/30/24 [History] Cyanocobalamin [Vitamin B-12] 1,000 mcg PO HS 11/30/24 [History] Folic Acid 0.8 mg PO HS 11/30/24 [History] Larissa-Tussin Dm 10 ml PO QID 11/30/24 [History] Ibuprofen [Motrin Ib] 800 mg PO DAILY 11/30/24 [History] Naloxone HCl 0.4 mg IM DIRECTED PRN 11/30/24 [History] Naloxone HCl [Narcan] 4 mg NASAL DIRECTED PRN 11/30/24 [History] Cyclobenzaprine [Flexeril] 5 mg PO BID PRN #21 tablet 12/08/24 [Rx] HYDROcodone/APAP 7.5-325MG [[place]heimer 7.5-325] 1 each PO Q6HR PRN 3 Days #10 tab 12/09/24 [Rx] Pantoprazole [Protonix] 40 mg PO AC-BRKFST tab 12/09/24 [Rx] QUEtiapine [SEROquel] 12.5 mg PO BID PRN 30 Days #0 tab 12/09/24 [Rx] predniSONE 30 mg PO DAILY 5 Days #15 tab 12/09/24 [Rx] Follow up Appointment(s)/Referral(s): Maricarmen Lafleur NPC [Nurse Practitioner] - 2 Weeks Willa Arriaga MD [Primary Care Provider] - 1-2 days Activity/Diet/Wound Care/Special Instructions: Orthopedic discharge instructions: 1. Maintain soft c-collar 2. Dressing changes every 24-48 hours 3. Watch for swelling to the right sided anterior neck 4. Monitor for difficulty swallowing difficulty breathing 5. No bending, lifting or twisting 6. Plan for follow-up with advanced orthopedics in the next 10-14 days Discharge Disposition: TRANSFER TO SNF/ECF
[2024-12-09 11:48] VITALS: BP 120/61; PULSE 53; TEMP 97.6
[2024-12-09 11:48] LABS: Glucose,Whole Blood 94 mg/dL (70-110)
== END 2024-12-09 12:30 | disposition home health service (06) | DRG 28 ==
LOC: EC 14:26 → 3SCARD 18:35 → 2SICU 12-02 02:15 → 3SCARD 12-02 02:28
PROVIDERS: ADMIT Hospitalist; ATTEND Hospitalist
PROC: 0RP10AZ Removal of Interbody Fusion Device from Cervical Vertebral Joint, Open Approach (ICD-10-PCS; principal; 2024-11-30)
PROC: 0RG1070 Fusion of Cervical Vertebral Joint with Autologous Tissue Substitute, Anterior Approach, Anterior Column, Open Approach (ICD-10-PCS; principal; 2024-11-30)
PROC: 4A11X4G Monitoring of Peripheral Nervous Electrical Activity, Intraoperative, External Approach (ICD-10-PCS; principal; 2024-11-30)
PROC: 00UT0KZ Supplement Spinal Meninges with Nonautologous Tissue Substitute, Open Approach (ICD-10-PCS; principal; 2024-11-30)
PROC: 0RG10A0 Fusion of Cervical Vertebral Joint with Interbody Fusion Device, Anterior Approach, Anterior Column, Open Approach (ICD-10-PCS; principal; 2024-11-30)
DX: G96.09 Other spinal cerebrospinal fluid leak (principal); A41.9 Sepsis, unspecified organism; N17.0 Acute kidney failure with tubular necrosis; G93.41 Metabolic encephalopathy; R65.20 Severe sepsis without septic shock; I21.A1 Myocardial infarction type 2; I67.1 Cerebral aneurysm, nonruptured; E86.0 Dehydration; E03.9 Hypothyroidism, unspecified; I10 Essential (primary) hypertension; M50.022 Cervical disc disorder at C5-C6 level with myelopathy; N39.0 Urinary tract infection, site not specified; M47.12 Other spondylosis with myelopathy, cervical region; R62.7 Adult failure to thrive; I95.9 Hypotension, unspecified; J10.1 Influenza due to other identified influenza virus with other respiratory manifestations; I25.10 Atherosclerotic heart disease of native coronary artery without angina pectoris; M48.02 Spinal stenosis, cervical region; I25.2 Old myocardial infarction; E78.5 Hyperlipidemia, unspecified; N42.9 Disorder of prostate, unspecified; D75.89 Other specified diseases of blood and blood-forming organs; R06.03 Acute respiratory distress; Z79.82 Long term (current) use of aspirin; Z79.890 Hormone replacement therapy; Z79.899 Other long term (current) drug therapy; Z95.1 Presence of aortocoronary bypass graft; Z86.73 Personal history of transient ischemic attack (TIA), and cerebral infarction without residual deficits; W19.XXXA Unspecified fall, initial encounter
CPT/HCPCS: 36415; 70450; 71045; 72040; 80048; 80053; 81001; 82533; 82803; 83036; 83605; 83735; 83880; 84100; 84484; 85025; 85610; 85730; 87040; 87086; 87636; 93005; 93306; 94640; 94760; 96361; 96365; 96366; 96367; 96375; 99291

== ENCOUNTER 2025-01-11 21:45 | Observation (INO) | payer MEDICARE ==
--- NOTE | 2025-01-11 22:39 | ED ---
Weakness HPI - General Chief complaint: Weakness Stated complaint: Weakness Time Seen by Provider: 01/11/25 22:13 Source: patient Mode of arrival: ambulatory Limitations: no limitations - History of Present Illness Initial comments: Patient is a 74-year-old man who is here to have evaluation for generalized weakness and decreased exercise tolerance. Patient is accompanied by family and they state that he also has past a little bit of dark blood with a couple of bowel movements today and then there was another bowel movement with a larger amount of red blood. Recently have anterior cervical neck fusion with Dr. Sanchez weeks ago. They state that after the surgery he had been receiving physical therapy and was doing relatively well and then over the past number of days his exercise tolerance has decreased and now he is not able to walk across the house without becoming very weak and short of breath. Denies symptoms of infection, no fever or chills. No cough or dyspnea. No change in urination. No nausea or vomiting. No change in bowel movements until started having the blood today. MD Complaint: generalized weakness, lack of energy, difficulty walking -: days(s) Location: generalized Severity: moderate Consistency: constant Improves with: none Worsens with: none Associated Symptoms: dark stools - Related Data Home Medications Medication Instructions Recorded Confirmed Levothyroxine Sodium [Synthroid] 125 mcg PO DAILY 10/13/14 01/12/25 [place]-3 Fatty Acids/Fish Oil [Fish 1 cap PO HS 10/13/14 01/12/25 Oil 1,000 mg Softgel] allopurinoL [Zyloprim] 300 mg PO DAILY 10/13/14 01/12/25 gemfibroziL [Lopid] 600 mg PO DAILY 10/13/14 01/12/25 Cholecalciferol [Vitamin D3 (25 25 mcg PO HS 10/03/22 01/12/25 Mcg = 1000 Iu)] Acetaminophen [Tylenol 8 Hour] 650 mg PO Q6H PRN 11/30/24 01/12/25 Cyanocobalamin [Vitamin B-12] 1,000 mcg PO 11/30/24 01/12/25 Folic Acid 1 mg PO DAILY 01/12/25 01/12/25 Ibuprofen [Motrin] 800 mg PO TID PRN 01/12/25 01/12/25 traMADol HCL 50 mg PO BID PRN 01/12/25 01/12/25 Previous Rx's Medication Instructions Recorded Meclizine [Antivert] 25 mg PO TID PRN #20 tab 02/02/24 Cyclobenzaprine [Flexeril] 5 mg PO BID PRN #21 tablet 12/08/24 Aspirin 325 mg PO DAILY #30 tab 12/09/24 Atorvastatin [Lipitor] 20 mg PO HS 30 Days #30 tab 12/09/24 Docusate [Colace] 200 mg PO DAILY #60 cap 12/09/24 Metoprolol Tartrate [Lopressor] 25 mg PO BID #60 tab 12/09/24 Pantoprazole [Protonix] 40 mg PO DAILY #30 tab 12/09/24 QUEtiapine FUMARATE [Seroquel] 12.5 mg PO HS PRN #30 tab 12/09/24 Tamsulosin HCl [Flomax] 0.4 mg PO DAILY #30 cap 12/09/24 Allergies Allergy/AdvReac Type Severity Reaction Status Date / Time No Known Allergies Allergy Verified 01/11/25 22:07 Review of Systems ROS Statement: Those systems with pertinent positive or pertinent negative responses have been documented in the HPI. ROS Other: All systems not noted in ROS Statement are negative. Constitutional: Reports: weakness. Denies: fever, chills ENT: Denies: congestion Respiratory: Denies: cough, dyspnea Cardiovascular: Denies: chest pain, palpitations, edema Gastrointestinal: Denies: abdominal pain, nausea, vomiting Genitourinary: Reports: other (catheter). Denies: dysuria, hematuria Musculoskeletal: Denies: back pain Skin: Denies: rash Neurological: Denies: headache, weakness, numbness Past Medical History Past Medical History: Coronary Artery Disease (CAD), CVA/TIA, Hyperlipidemia, Hypertension, Myocardial Infarction ([place]), Prostate Disorder, Thyroid Disorder Additional Past Medical History / Comment(s): wears brief for incont of urine., 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, weakness, mili hand numbness Last Myocardial Infarction Date:: 2005 History of Any Multi-Drug Resistant Organisms: None Reported Past Surgical History: Back Surgery, Bladder Surgery, Coronary Bypass/CABG Additional Past Surgical History / Comment(s): urolift with 4 bands, carpal tunnel, quad bypass 2005 Past Anesthesia/Blood Transfusion Reactions: No Reported Reaction Past Psychological History: No Psychological Hx Reported Smoking Status: Never smoker Past Alcohol Use History: None Reported Past Drug Use History: None Reported - Past Family History Mother Family Medical History: Cancer Additional Family Medical History / Comment(s): leukemia Father Family Medical History: Cancer Additional Family Medical History / Comment(s): lung General Exam Limitations: no limitations General appearance: alert, in no apparent distress Head exam: Present: atraumatic, normocephalic Eye exam: Present: normal appearance. Absent: scleral icterus, conjunctival injection ENT exam: Present: mucous membranes dry Neck exam: Present: normal inspection Respiratory exam: Present: normal lung sounds bilaterally. Absent: respiratory distress, wheezes, rales, rhonchi, stridor, accessory muscle use Cardiovascular Exam: Present: regular rate, normal rhythm, normal heart sounds. Absent: systolic murmur, diastolic murmur, rubs, gallop GI/Abdominal exam: Present: soft. Absent: distended, tenderness, guarding, rebound, rigid, mass Extremities exam: Present: normal inspection, normal capillary refill. Absent: pedal edema, calf tenderness Back exam: Present: normal inspection. Absent: CVA tenderness (R), CVA tende rness (L) Neurological exam: Present: alert Skin exam: Present: warm, dry, intact, normal color. Absent: rash Course Vital Signs 01/11/25 01/12/25 22:03 06:05 Temperature 97.9 F 97.8 F Pulse Rate 76 80 Respiratory 20 17 Rate Blood Pressure 97/50 115/68 O2 Sat by Pulse 96 99 Oximetry EKG Findings - EKG Results: EKG: interpreted by ERMD, sinus rhythm (71 bpm), normal axis, normal QRS - Blocks, [place], Hypertrophy, ST Abn: AV and intraventricular conduction: 1 AV block Repolarization changes or abnormalities: nonspecific abnormality, ST segment, and/or T wave Medical Decision Making - Lab Data Result diagrams: 01/11/25 22:35 01/11/25 22:35 Lab Results 01/11/25 01/11/25 01/11/25 Range/Units 22:35 22:35 22:35 WBC 13.32 H (4.50-10.00) 10*3/uL RBC 3.89 L (4.40-5.60) 10*6/uL Hgb 13.6 (13.0-17.0) g/dL Hct 39.9 (39.6-50.0) % MCV 102.6 H (80.0-97.0) fL MCH 35.0 H (27.0-32.0) pg MCHC 34.1 (32.0-37.0) g/dL Plt Count 277 (140-440) 10*3/uL MPV 10.3 (9.5-12.2) fL Immature Gran % (Auto) 0.8 % Neutrophils % 72.8 % Lymphocytes % 12.3 % Monocytes % 12.6 % Eosinophils % 0.8 % Basophils % 0.7 % Immature Gran # 0.11 H (0.00-0.04) 10*3/uL Neutrophils # 9.70 H (1.80-7.70) 10*3/uL Lymphocytes # 1.64 (0.90-5.00) 10*3/uL Monocytes # 1.68 H (0.20-1.00) 10*3/uL Eosinophils # 0.10 (0.04-0.35) 10*3/uL Basophils # 0.09 (0.00-0.10) 10*3/uL PT 11.2 (10.0-12.5) sec INR 1.0 (<1.2) APTT 22.2 (22.0-30.0) sec Sodium 140 (137-145) mmol/L Potassium 4.7 (3.5-5.1) mmol/L Chloride 105 (98-107) mmol/L Carbon Dioxide 20 L (22-30) mmol/L Anion Gap 15 mmol/L BUN 29 H (9-20) mg/dL Creatinine 1.98 H (0.66-1.25) mg/dL Est GFR (CKD-EPI)AfAm 37 (>60 ml/min/1.73 sqM) Est GFR (CKD-EPI)NonAf 32 (>60 ml/min/1.73 sqM) Glucose 97 (74-99) mg/dL Plasma Lactic Acid [place] (0.7-2.0) mmol/L Calcium 9.9 (8.4-10.2) mg/dL Magnesium 2.1 (1.6-2.3) mg/dL Total Bilirubin 0.5 (0.2-1.3) mg/dL AST 30 (17-59) U/L ALT 17 (4-49) U/L Alkaline Phosphatase 112 (38-126) U/L Troponin I (0.000-0.034) ng/mL C-Reactive Protein 3.5 H (<1.0) mg/dL NT-Pro-B Natriuret Pep 358 pg/mL Total Protein 7.0 (6.3-8.2) g/dL Albumin 4.0 (3.5-5.0) g/dL TSH 0.152 L (0.465-4.680) mIU/L Urine Color Urine Appearance (Clear) Urine pH (5.0-8.0) Ur Specific [place] (1.001-1.035) Urine Protein (Negative) Urine Glucose (UA) (Negative) Urine Ketones (Negative) Urine Blood (Negative) Urine Nitrite (Negative) Urine Bilirubin (Negative) Urine Urobilinogen (<2.0) mg/dL Ur Leukocyte Esterase (Negative) Urine RBC (0-5) /hpf Urine WBC (0-5) /hpf Urine WBC Clumps (None) /hpf Ur Squamous Epith Cells (0-4) /hpf Urine Bacteria (None) /hpf Hyaline Casts (0-2) /lpf Urine Mucus (None) /hpf Stool Occult Blood (Negative) Blood Type Blood Type Recheck Bld Type Recheck Status Antibody Screen Spec Expiration Date 01/11/25 01/11/25 01/11/25 Range/Units 22:35 22:35 22:40 WBC (4.50-10.00) 10*3/uL RBC (4.40-5.60) 10*6/uL Hgb (13.0-17.0) g/dL Hct (39.6-50.0) % MCV (80.0-97.0) fL MCH (27.0-32.0) pg MCHC (32.0-37.0) g/dL Plt Count (140-440) 10*3/uL MPV (9.5-12.2) fL Immature Gran % (Auto) % Neutrophils % % Lymphocytes % % Monocytes % % Eosinophils % % Basophils % % Immature Gran # (0.00-0.04) 10*3/uL Neutrophils # (1.80-7.70) 10*3/uL Lymphocytes # (0.90-5.00) 10*3/uL Monocytes # (0.20-1.00) 10*3/uL Eosinophils # (0.04-0.35) 10*3/uL Basophils # (0.00-0.10) 10*3/uL PT (10.0-12.5) sec INR (<1.2) APTT (22.0-30.0) sec Sodium (137-145) mmol/L Potassium (3.5-5.1) mmol/L Chloride (98-107) mmol/L Carbon Dioxide (22-30) mmol/L Anion Gap mmol/L BUN (9-20) mg/dL Creatinine (0.66-1.25) mg/dL Est GFR (CKD-EPI)AfAm (>60 ml/min/1.73 sqM) Est GFR (CKD-EPI)NonAf (>60 ml/min/1.73 sqM) Glucose (74-99) mg/dL Plasma Lactic Acid [place] 1.2 (0.7-2.0) mmol/L Calcium (8.4-10.2) mg/dL Magnesium (1.6-2.3) mg/dL Total Bilirubin (0.2-1.3) mg/dL AST (17-59) U/L ALT (4-49) U/L Alkaline Phosphatase (38-126) U/L Troponin I <0.012 (0.000-0.034) ng/mL C-Reactive Protein (<1.0) mg/dL NT-Pro-B Natriuret Pep pg/mL Total Protein (6.3-8.2) g/dL Albumin (3.5-5.0) g/dL TSH (0.465-4.680) mIU/L Urine Color Urine Appearance (Clear) Urine pH (5.0-8.0) Ur Specific [place] (1.001-1.035) Urine Protein (Negative) Urine Glucose (UA) (Negative) Urine Ketones (Negative) Urine Blood (Negative) Urine Nitrite (Negative) Urine Bilirubin (Negative) Urine Urobilinogen (<2.0) mg/dL Ur Leukocyte Esterase (Negative) Urine RBC (0-5) /hpf Urine WBC (0-5) /hpf Urine WBC Clumps (None) /hpf Ur Squamous Epith Cells (0-4) /hpf Urine Bacteria (None) /hpf Hyaline Casts (0-2) /lpf Urine Mucus (None) /hpf Stool Occult Blood (Negative) Blood Type A Positive Blood Type Recheck A Pos Bld Type Recheck Status No Antibody Screen NEGATIVE Spec Expiration Date 01/14/2025 - 233901/11/25 01/11/25 Range/Units 23:59 23:59 WBC (4.50-10.00) 10*3/uL RBC (4.40-5.60) 10*6/uL Hgb (13.0-17.0) g/dL Hct (39.6-50.0) % MCV (80.0-97.0) fL MCH (27.0-32.0) pg MCHC (32.0-37.0) g/dL Plt Count (140-440) 10*3/uL MPV (9.5-12.2) fL Immature Gran % (Auto) % Neutrophils % % Lymphocytes % % Monocytes % % Eosinophils % % Basophils % % Immature Gran # (0.00-0.04) 10*3/uL Neutrophils # (1.80-7.70) 10*3/uL Lymphocytes # (0.90-5.00) 10*3/uL Monocytes # (0.20-1.00) 10*3/uL Eosinophils # (0.04-0.35) 10*3/uL Basophils # (0.00-0.10) 10*3/uL PT (10.0-12.5) sec INR (<1.2) APTT (22.0-30.0) sec Sodium (137-145) mmol/L Potassium (3.5-5.1) mmol/L Chloride (98-107) mmol/L Carbon Dioxide (22-30) mmol/L Anion Gap mmol/L BUN (9-20) mg/dL Creatinine (0.66-1.25) mg/dL Est GFR (CKD-EPI)AfAm (>60 ml/min/1.73 sqM) Est GFR (CKD-EPI)NonAf (>60 ml/min/1.73 sqM) Glucose (74-99) mg/dL Plasma Lactic Acid [place] (0.7-2.0) mmol/L Calcium (8.4-10.2) mg/dL Magnesium (1.6-2.3) mg/dL Total Bilirubin (0.2-1.3) mg/dL AST (17-59) U/L ALT (4-49) U/L Alkaline Phosphatase (38-126) U/L Troponin I (0.000-0.034) ng/mL C-Reactive Protein (<1.0) mg/dL NT-Pro-B Natriuret Pep pg/mL Total Protein (6.3-8.2) g/dL Albumin (3.5-5.0) g/dL TSH (0.465-4.680) mIU/L Urine Color Colorless Urine Appearance Cloudy (Clear) Urine pH 5.5 (5.0-8.0) Ur Specific [place] 1.006 (1.001-1.035) Urine Protein Negative (Negative) Urine Glucose (UA) Negative (Negative) Urine Ketones Negative (Negative) Urine Blood Moderate H (Negative) Urine Nitrite Negative (Negative) Urine Bilirubin Negative (Negative) Urine Urobilinogen <2.0 (<2.0) mg/dL Ur Leukocyte Esterase Large H (Negative) Urine RBC 2 (0-5) /hpf Urine WBC 104 H (0-5) /hpf Urine WBC Clumps Rare H (None) /hpf Ur Squamous Epith Cells <1 (0-4) /hpf Urine Bacteria Few H (None) /hpf Hyaline Casts 7 H (0-2) /lpf Urine Mucus Rare H (None) /hpf Stool Occult Blood Positive (Negative) Blood Type Blood Type Recheck Bld Type Recheck Status Antibody Screen Spec Expiration Date Disposition
[2025-01-11 22:54] LABS: Basophils # (A) 0.09 10*3/uL (0.00-0.10); Basophils % (A) 0.7 %; Eosinophils % (A) 0.8 %; HCT 39.9 % (39.6-50.0); HGB 13.6 g/dL (13.0-17.0); Lymphocytes # (A) 1.64 10*3/uL (0.90-5.00); Lymphocytes % (A) 12.3 %; MCHC 34.1 g/dL (32.0-37.0); MCV 102.6 fL (80.0-97.0); Mean Platelet Volume 10.3 fL (9.5-12.2); Monocytes # (A) 1.68 10*3/uL (0.20-1.00); Monocytes % (A) 12.6 %; Neutrophils % (A) 72.8 %; Platelet Count 277 10*3/uL (140-440); RBC 3.89 10*6/uL (4.40-5.60); RDW 13.7 % (11.5-14.5); WBC 13.32 10*3/uL (4.50-10.00)
[2025-01-11 23:09] LABS: ALT 17 U/L (4-49); AST 30 U/L (17-59); African American GFR (CKD) 37 (>60 ml/min/1.73 sqM); Alkaline Phosphatase 112 U/L (38-126); Anion Gap 15 mmol/L; Blood Urea Nitrogen 29 mg/dL (9-20); C Reactive Protein 3.5 mg/dL (<1.0); Calcium 9.9 mg/dL (8.4-10.2); Carbon Dioxide 20 mmol/L (22-30); Chloride 105 mmol/L (98-107); Glucose 97 mg/dL (74-99); Magnesium 2.1 mg/dL (1.6-2.3); Non-African American GFR(CKD) 32 (>60 ml/min/1.73 sqM); Potassium 4.7 mmol/L (3.5-5.1); Sodium 140 mmol/L (137-145); Total Bilirubin 0.5 mg/dL (0.2-1.3)
[2025-01-11 23:15] LABS: NT-Pro-B-Type Natriuretic Pept 358 pg/mL
[2025-01-11] MEDS: SODIUM CHLORIDE 0.9% 1,000 ML IV STA (23:19)
[2025-01-11] MEDS: SODIUM CHLORIDE 0.9% 500 ML 500 ML IV STA (23:20)
[2025-01-11 23:25] LABS: Partial Thromboplastin Time 22.2 sec (22.0-30.0); Prothrombin Time 11.2 sec (10.0-12.5)
[2025-01-12] MEDS: SODIUM CHLORIDE 0.9% 1,000 ML IV ONE (00:15)
[2025-01-12 00:42] LABS: Appearance,Urine Cloudy (Clear); Bacteria,Urine Few /hpf; Bilirubin,Urine Negative (Negative); Blood,Urine Moderate (Negative); Color,Urine Colorless; Glucose,Urine (UA) Negative (Negative); Hyaline Casts,Urine 7 /lpf (0-2); Ketones,Urine Negative (Negative); Leukocyte Esterase,Urine Large (Negative); Mucus,Urine Rare /hpf; Nitrite,Urine Negative (Negative); PH, Urine 5.5 (5.0-8.0); Protein,Urine Negative (Negative); RBC,Urine 2 /hpf (0-5); Specific Gravity,Urine 1.006 (1.001-1.035); Squamous Epithelial Cell,Urine <1 /hpf (0-4); Urobilinogen,Urine <2.0 mg/dL (<2.0); WBC,Urine 104 /hpf (0-5)
--- NOTE | 2025-01-12 01:03 | XR ---
EXAM: XR Chest, 2 Views CLINICAL HISTORY: ITS.REASON XR Reason: Weakness TECHNIQUE: Frontal and lateral views of the chest. COMPARISON: No relevant prior studies available. FINDINGS: Lungs: Lungs are underinflated. Suspect airspace opacity centered in left hilar/retrocardiac region. Pleural space: Unremarkable. Mediastinum: Unremarkable. Normal mediastinal contour. Bones/joints: Sternal wires are again noted. IMPRESSION: Suspect airspace opacity centered in left hilar/retrocardiac region, likely lower lobe, may represent pneumonia, atelectasis versus aspiration. Follow-up to resolution is recommended to rule out potential underlying neoplastic etiologies.
[2025-01-12] MEDS ORDERED: QUEtiapine 25 MG TAB PO PRN (03:51)
[2025-01-12] MEDS: LEVOTHYROXINE 125 MCG TAB PO SCH (06:02)
[2025-01-12] MEDS: METOPROLOL TARTRATE 25 MG TAB PO SCH (09:18)
[2025-01-12] MEDS: SENNOSIDES-DOCUSATE SODIUM 1 EACH TAB PO SCH (09:18)
[2025-01-12] MEDS: PANTOPRAZOLE 40 MG TABLET PO SCH (09:19)
[2025-01-12] MEDS: CHOLECALCIFEROL 25 MCG (1000 IU) TABLET PO SCH (09:19)
[2025-01-12] MEDS: TAMSULOSIN 0.4 MG CAP.ER.24H PO SCH (09:19)
[2025-01-12] MEDS: ASPIRIN 325 MG TAB PO SCH (09:19)
[2025-01-12] MEDS: FOLIC ACID 1 MG TAB PO SCH (09:49)
[2025-01-12] MEDS: DOCUSATE 100 MG CAP PO SCH (09:49)
[2025-01-12] MEDS: FENOFIBRATE 160 MG TAB PO SCH (09:49)
[2025-01-12] MEDS: CYANOCOBALAMIN 500 MCG TAB PO SCH (09:49)
[2025-01-12] MEDS ORDERED: CYCLOBENZAPRINE 5 MG TAB PO PRN (12:38)
[2025-01-12] MEDS ORDERED: traMADol 50 MG TAB PO PRN (12:38)
--- NOTE | 2025-01-12 12:48 | P.HPIM ---
History of Present Illness 74-year-old male came in with the complaints of generalized weakness. Patient also had slight blood mixed in the stools found to have hemorrhoids. Patient does not have any blood in the stools here. Patient has a [facility] catheter after he had a cervical fusion surgery few weeks ago and since then patient is receiving physical therapy. Patient is found to have leukocytosis no fever but does have abnormal urine because of which patient was started on antibiotics and admitted for urinary tract infection from Duke catheter. Duke the catheter was replaced here. REVIEW OF SYSTEMS: All other systems are negative except those mentioned in the HPI PHYSICAL EXAMINATION: GENERAL: The patient is alert and oriented x3, not in any acute distress. Obese HEENT: Pupils are round and equally reacting to light. EOMI. No scleral icterus. No conjunctival pallor. Normocephalic, atraumatic. No pharyngeal erythema. No thyromegaly. CARDIOVASCULAR: S1 and S2 present. No murmurs, rubs, or gallops. PULMONARY: Chest is clear to auscultation, no wheezing or crackles. ABDOMEN: Soft, nontender, nondistended, normoactive bowel sounds. No palpable organomegaly. MUSCULOSKELETAL: No joint swelling or deformity. EXTREMITIES: No cyanosis, clubbing, or pedal edema. NEUROLOGICAL: Gross neurological examination did not reveal any focal deficits. SKIN: No rashes. Assessment and plan -Generalized weakness and tiredness can be secondary to urinary tract infection patient does have leukocytosis which is not explained by anything else and does have abnormal urine in the Duke catheter patient will be continued on Rocephin. Duke catheter was replaced. - Acute renal failure patient is on Motrin at home which was being held patient will be started on IV fluids renal failure is probably secondary to Motrin. -Coronary disease - Hyperlipidemia - Cerebrovascular accident - Hypothyroidism: Patient's TSH is low we will decrease dose of levothyroxine to 100 mcg - Benign prostatic hypertrophy - Cervical fusion surgery recently for above-mentioned chronic medical problems patient was resumed on appropriate home medications DVT prophylaxis: Subcutaneous heparin Past Medical History Past Medical History: Coronary Artery Disease (CAD), CVA/TIA, Hyperlipidemia, Hypertension, Myocardial Infarction ([place]), Prostate Disorder, Thyroid Disorder Additional Past Medical History / Comment(s): wears brief for incont of urine., 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, weakness, mili hand numbness Last Myocardial Infarction Date:: 2005 History of Any Multi-Drug Resistant Organisms: None Reported Past Surgical History: Back Surgery, Bladder Surgery, Coronary Bypass/CABG Additional Past Surgical History / Comment(s): urolift with 4 bands, carpal tunnel, quad bypass 2005 Past Anesthesia/Blood Transfusion Reactions: No Reported Reaction Past Psychological History: No Psychological Hx Reported Smoking Status: Never smoker Past Alcohol Use History: None Reported Past Drug Use History: None Reported - Past Family History Mother Family Medical History: Cancer Additional Family Medical History / Comment(s): leukemia Father Family Medical History: Cancer Additional Family Medical History / Comment(s): lung Medications and Allergies Home Medications Medication Instructions Recorded Confirmed Type Levothyroxine Sodium [Synthroid] 125 mcg PO DAILY 10/13/14 01/12/25 History Colo-3 Fatty Acids/Fish Oil [Fish 1 cap PO HS 10/13/14 01/12/25 History Oil 1,000 mg Softgel] allopurinoL [Zyloprim] 300 mg PO DAILY 10/13/14 01/12/25 History gemfibroziL [Lopid] 600 mg PO DAILY 10/13/14 01/12/25 History Cholecalciferol [Vitamin D3 (25 25 mcg PO HS 10/03/22 01/12/25 History Mcg = 1000 Iu)] Meclizine [Antivert] 25 mg PO TID PRN #20 tab 02/02/24 01/12/25 Rx Acetaminophen [Tylenol 8 Hour] 650 mg PO Q6H PRN 11/30/24 01/12/25 History Cyanocobalamin [Vitamin B-12] 1,000 mcg PO HS 11/30/24 01/12/25 History Cyclobenzaprine [Flexeril] 5 mg PO BID PRN #21 tablet 12/08/24 01/12/25 Rx Aspirin 325 mg PO DAILY #30 tab 12/09/24 01/12/25 Rx Atorvastatin [Lipitor] 20 mg PO HS 30 Days #30 tab 12/09/24 01/12/25 Rx Docusate [Colace] 200 mg PO DAILY #60 cap 12/09/24 01/12/25 Rx Metoprolol Tartrate [Lopressor] 25 mg PO BID #60 tab 12/09/24 01/12/25 Rx Pantoprazole [Protonix] 40 mg PO DAILY #30 tab 12/09/24 01/12/25 Rx QUEtiapine FUMARATE [Seroquel] 12.5 mg PO HS PRN #30 tab 12/09/24 01/12/25 Rx Tamsulosin HCl [Flomax] 0.4 mg PO DAILY #30 cap 12/09/24 01/12/25 Rx Folic Acid 1 mg PO DAILY 01/12/25 01/12/25 History Ibuprofen [Motrin] 800 mg PO TID PRN 01/12/25 01/12/25 History traMADol HCL 50 mg PO BID PRN 01/12/25 01/12/25 History Allergies Allergy/AdvReac Type Severity Reaction Status Date / Time No Known Allergies Allergy Verified 01/11/25 22:07 Physical Exam Vitals: Vital Signs Temp Pulse Resp BP Pulse Ox 01/12/25 12:08 70 18 120/63 97 01/12/25 10:00 69 18 136/42 97 01/12/25 09:20 80 18 118/58 96 01/12/25 08:24 98.2 F 73 16 114/59 99 01/12/25 06:05 97.8 F 80 17 115/68 99 01/11/25 22:03 97.9 F 76 20 97/50 96 Intake and Output 01/11/25 01/12/25 01/12/25 22:59 06:59 14:59 Output Total 10 2900 Balance -10 -2900 Output: Urine 10 2900 Uretheral ([facility]) 10 2900 Other: Weight 90.718 kg Results CBC & Chem 7: 01/11/25 22:35 01/11/25 22:35 Labs: Abnormal Lab Results - Last 24 Hours (Table) 01/11/25 01/11/25 01/11/25 Range/Units 22:35 22:35 23:59 WBC 13.32 H (4.50-10.00) 10*3/uL RBC 3.89 L (4.40-5.60) 10*6/uL MCV 102.6 H (80.0-97.0) fL MCH 35.0 H (27.0-32.0) pg Immature Gran # 0.11 H (0.00-0.04) 10*3/uL Neutrophils # 9.70 H (1.80-7.70) 10*3/uL Monocytes # 1.68 H (0.20-1.00) 10*3/uL Carbon Dioxide 20 L (22-30) mmol/L BUN 29 H (9-20) mg/dL Creatinine 1.98 H (0.66-1.25) mg/dL C-Reactive Protein 3.5 H (<1.0) mg/dL TSH 0.152 L (0.465-4.680) mIU/L Urine Blood Moderate H (Negative) Ur Leukocyte Esterase Large H (Negative) Urine WBC 104 H (0-5) /hpf Urine WBC Clumps Rare H (None) /hpf Urine Bacteria Few H (None) /hpf Hyaline Casts 7 H (0-2) /lpf Urine Mucus Rare H (None) /hpf
[2025-01-12] MEDS: SODIUM CHLORIDE 0.9% 1,000 ML IV SCH (13:59)
[2025-01-12] MEDS: NYSTATIN 100,000 UNIT/GM POWD 15 GM TOPICAL SCH (15:09)
[2025-01-12] MEDS: HEPARIN SODIUM,PORCINE 5,000 UNIT/ML 1 ML VIAL SQ SCH (17:02)
[2025-01-12] MEDS: ATORVASTATIN 20 MG TAB PO SCH (22:30)
[2025-01-12] MEDS: DONEPEZIL 5 MG TAB PO SCH (22:30)
[2025-01-13] MEDS: LEVOTHYROXINE 100 MCG TAB PO SCH (06:36)
[2025-01-13 08:54] LABS: ALT 16 U/L (10-49); AST 27 U/L (14-35); Albumin 3.7 g/dL (3.8-4.9); Albumin/Globulin Ratio 1.48 Ratio (1.60-3.17); Alkaline Phosphatase 102 U/L (41-126); BUN/Creat Ratio 12.64 Ratio (12.00-20.00); Blood Urea Nitrogen 17.7 mg/dL (9.0-27.0); Calcium 9.9 mg/dL (8.7-10.3); Carbon Dioxide 22.3 mmol/L (21.6-31.8); Chloride 112 mmol/L (96-109); Globulin 2.5 g/dL (1.6-3.3); Glucose 93 mg/dL (70-110); Magnesium 2.1 mg/dL (1.5-2.4); Potassium 4.4 mmol/L (3.5-5.5); Sodium 147 mmol/L (135-145); Total Bilirubin 0.3 mg/dL (0.3-1.2); Total Protein 6.2 g/dL (6.2-8.2)
[2025-01-13] MEDS ORDERED: ZINC OXIDE PASTE (Z-GUARD) 1 APPLIC TOPICAL PRN (15:06)
[2025-01-14 06:56] LABS: Basophils # (A) 0.09 10*3/uL (0.00-0.10); Eosinophils # (A) 0.22 10*3/uL (0.04-0.35); Eosinophils % (A) 2.4 %; HCT 34.7 % (39.6-50.0); Lymphocytes # (A) 2.19 10*3/uL (0.90-5.00); Lymphocytes % (A) 23.9 %; MCH 35.5 pg (27.0-32.0); MCHC 34.6 g/dL (32.0-37.0); MCV 102.7 fL (80.0-97.0); Mean Platelet Volume 9.8 fL (9.5-12.2); Monocytes # (A) 1.24 10*3/uL (0.20-1.00); Monocytes % (A) 13.5 %; Neutrophils # (A) 5.33 10*3/uL (1.80-7.70); Neutrophils % (A) 58.2 %; Platelet Count 227 10*3/uL (140-440); RBC 3.38 10*6/uL (4.40-5.60); RDW 13.8 % (11.5-14.5); WBC 9.16 10*3/uL (4.50-10.00)
[2025-01-14 07:21] LABS: African American GFR (CKD) 65 (>60 ml/min/1.73 sqM); Anion Gap 9 mmol/L; Blood Urea Nitrogen 16 mg/dL (9-20); Calcium 9.3 mg/dL (8.4-10.2); Carbon Dioxide 23 mmol/L (22-30); Chloride 110 mmol/L (98-107); Glucose 103 mg/dL (74-99); Magnesium 1.9 mg/dL (1.6-2.3); Non-African American GFR(CKD) 57 (>60 ml/min/1.73 sqM); Potassium 3.7 mmol/L (3.5-5.1); Sodium 142 mmol/L (137-145)
--- NOTE | 2025-01-14 10:59 | P.PN ---
Subjective Progress Note Date: 01/13/25 74-year-old male came in with the complaints of generalized weakness. Patient also had slight blood mixed in the stools found to have hemorrhoids. Patient does not have any blood in the stools here. Patient has a [facility] catheter after he had a cervical fusion surgery few weeks ago and since then patient is receiving physical therapy. Patient is found to have leukocytosis no fever but does have abnormal urine because of which patient was started on antibiotics and admitted for urinary tract infection from Duke catheter. Duke the catheter was replaced here. 01/13/2025 Patient is seen in follow-up this morning sleeping although arousable denying any specific complaints. Patient was noted to have an indwelling Duke catheter at home and came in for leukocytosis with concerns of abnormal urine and Duke catheter was exchanged in the ER and currently awaiting urinalysis . Patient is maintained on antibiotics in the form of ceftriaxone and will continue. Patient with significant weakness has had recurrent hospitalizations and recent cervical spine surgery although reports was having rehab in the home although unsure as patient is poor historian will have PT/OT therapy evaluate the patient and discussed with case management on findings. Possible discharge in the next 24 hours Review of systems: Constitutional: reports of fatigue, no fever, or chills Cardiovascular: No reports of chest pain or palpitations Respiratory: No reports of shortness of breath or cough GI: No reports of nausea, vomiting, or diarrhea : No reports of dysuria or retention Neurovascular: reports of generalized weakness All medications have been reviewed PHYSICAL EXAMINATION: GENERAL: The patient is alert and oriented x2, baseline, asleep although arousable well-developed, elderly appearing obese HEENT: Pupils are round and equally reacting to light. EOMI. No scleral icterus. No conjunctival pallor. Normocephalic, atraumatic. No pharyngeal erythema. No thyromegaly. CARDIOVASCULAR: S1 and S2 present. No murmurs, rubs, or gallops. PULMONARY: Diminished breath sounds bilaterally otherwise chest is clear to auscultation, no wheezing or crackles. ABDOMEN: Soft, obese. Nontender, nondistended, normoactive bowel sounds. No palpable organomegaly. MUSCULOSKELETAL: No joint swelling or deformity. EXTREMITIES: No cyanosis, clubbing, or pedal edema. NEUROLOGICAL: Gross neurological examination did not reveal any focal deficits. Diffusely weak SKIN: No rashes. Assessment: -Generalized weakness and tiredness can be secondary to urinary tract infection patient does have leukocytosis which is not explained by anything else and does have abnormal urine in the Duke catheter patient will be continued on Rocephin. Duke catheter was replaced in the ER this admission. - Acute renal failure patient is on Motrin at home which was being held patient will be started on IV fluids renal failure is probably secondary to Motrin. -Coronary artery disease history - Hyperlipidemia - Cerebrovascular accident history - Hypothyroidism: Patient's TSH is low we will decrease dose of levothyroxine to 100 mcg - Benign prostatic hypertrophy history -Recent urinary retention on previous admissions requiring indwelling Duke catheter - Cervical fusion surgery recently GI prophylaxis DVT prophylaxis: Subcutaneous heparin Full code Plan: Patient came in with indwelling Duke catheter with concerns of abnormal urine and UTI with leukocytosis. Patient was started on ceftriaxone and will continue and Duke catheter was exchanged and will need outpatient urology follow-up Patient with significant weakness and recurrent hospitalizations since recent cervical surgery will have PT/OT therapy evaluate the patient Home care is arranged and patient will likely be going home with family Continue indwelling Duke catheter and needs [facility] care and outpatient follow-up with urology Will initiate Flomax Home meds reviewed and resumed as appropriate Possible discharge in the next 24 hours The impression and plan of care has been dictated by Anyi Jauregui, Nurse Practitioner as directed. Dr. Aris MD I have performed a history and examination and MDM of this patient, discussed the same with the dictator, and agree with the dictator's assessment and plan as written ,documented as a scribe. Based on total visit time, I have performed more than 50% of the visit. Objective - Vital Signs Vital signs: Vital Signs Temp 97.8 F 01/13/25 07:11 Pulse 78 01/13/25 07:11 Resp 17 01/13/25 07:11 BP 100/61 01/13/25 07:11 Pulse Ox 96 01/13/25 07:11 FiO2 Intake & Output 01/12/25 01/13/25 01/13/25 18:59 06:59 18:59 Intake Total 500 Output Total 3300 2300 Balance -3300 -2300 500 Weight 90.718 kg Intake: Oral 500 Output: Urine 3300 2300 Uretheral ([facility]) 3300 Other: Voiding Method Indwelling Catheter - Labs CBC & Chem 7: 01/14/25 06:45 01/14/25 06:45 Labs: Abnormal Lab Results - Last 24 Hours (Table) 01/13/25 Range/Units 04:35 Sodium 147 H (135-145) mmol/L Chloride 112 H (96-109) mmol/L Anion Gap 12.70 H (4.00-12.00) mmol/L Est GFR (CKD-EPI) 52 L (>=60) Albumin 3.7 L (3.8-4.9) g/dL Albumin/Globulin Ratio 1.48 L (1.60-3.17) Ratio
[2025-01-14 14:36] VITALS: BP 96/58; PULSE 78; RESP 20; TEMP 98.4
== END 2025-01-14 17:39 | disposition home health service (06) ==
LOC: EC 21:45 → 3SCARD 01-12 03:50 → INTOOBSV 01-12 03:50 → 4SSUR 01-12 04:07
PROVIDERS: ADMIT Hospitalist; ATTEND Hospitalist
DX: T83.511A Infection and inflammatory reaction due to indwelling urethral catheter, initial encounter (principal); N17.9 Acute kidney failure, unspecified; Y84.6 Urinary catheterization as the cause of abnormal reaction of the patient, or of later complication, without mention of misadventure at the time of the procedure; K64.9 Unspecified hemorrhoids; N40.1 Benign prostatic hyperplasia with lower urinary tract symptoms; R33.8 Other retention of urine; I44.0 Atrioventricular block, first degree; E78.5 Hyperlipidemia, unspecified; I25.10 Atherosclerotic heart disease of native coronary artery without angina pectoris; E03.9 Hypothyroidism, unspecified; Z79.890 Hormone replacement therapy; Z79.82 Long term (current) use of aspirin; Z79.899 Other long term (current) drug therapy; Z98.1 Arthrodesis status; Z86.73 Personal history of transient ischemic attack (TIA), and cerebral infarction without residual deficits
CPT/HCPCS: 96372 ×3; 96361 ×2; 96365; 99285; 36415; 93005; 97162; 97166; 86900; 86901; 84439; 83880; 80053 ×2; 80048; 83605; 83735 ×3; 84443; 84484; 85025 ×2; 85610; 85730; 86850; 86140; 82272; 81001; 71046; G0378 ×2; J1644 ×3; J0696 ×3